=== PATIENT | female | born 1955 | race Caucasian/White ===

== ENCOUNTER 2022-10-23 17:46 | Outpatient (REF) | payer MEDICARE, MEDICAID, SELFPAY ==
[2022-10-23 19:42] LABS: Abs Immature Grans 0.07 10^3/uL (0.0-0.06); Absolute Basophil Count 0.01 10^3/uL (0.0-0.2); Absolute Eosinophil Count 0.08 10^3/uL (0.0-0.7); Absolute Lymphocyte Count 0.68 10^3/uL (1.2-3.4); Absolute Monocyte Count 0.27 10^3/uL (0.1-0.8); Absolute Neutrophil Count 2.19 10^3/uL (1.2-6.7); Basophils % 0.3; Eosinophils % 2.4; HCT 25.2 % (36.0-46.0); Immature Grans % 2.1; Lymphocytes % 20.6; MCH 30.4 pg (27.0-33.0); MCHC 31.3 % (32.0-36.0); MCV 97 fL (80-95); MPV 10.3 fL (8.0-11.0); Monocytes % 8.2; Neutrophils % 66.4; RDW 13.3 % (11.7-14.6); RDW-SD 46.9 fL
[2022-10-23 20:03] LABS: HGB 7.9 g/dL (11.2-15.7); Platelet Count 111 10^3/uL (130-400)
[2022-10-23 22:10] LABS: Hemoglobin A1C 6.7 % (<5.7)
[2022-10-23 22:25] LABS: Iron 28 ug/dL (50-170); Total Iron Binding Capacity 137 ug/dL (250-450); Transferrin Sat 20 % (15-50)
[2022-10-23 22:33] LABS: ALT 22 U/L (14-59); AST 14 U/L (15-37); Albumin 2.5 g/dL (3.4-5.0); Alkaline Phosphatase 109 U/L (46-116); Anion Gap 9.6 mmol/L (3-11); BUN 37 mg/dL (7-18); Bilirubin, Total 0.2 mg/dL (0.2-1.0); CO2 21.4 mmol/L (21.0-32.0); CREATININE 1.8 mg/dL (0.55-1.02); Calcium 8.1 mg/dL (8.5-10.1); Chloride 114 mmol/L (98-107); Estimated GFR 30.31 (mL/min/1.73m2); Ferritin 420 ng/mL (8-252); Glucose 196 mg/dL (74-106); Magnesium 1.3 mg/dL (1.8-2.4); Sodium 145 mmol/L (136-145)
[2022-10-23 23:08] LABS: Folate > 20.0 ng/mL (8.6-20.0)
[2022-10-24 10:16] LABS: NT-proBNP 5265 pg/mL (<300)
[2022-10-24 13:17] LABS: Vitamin D 25 Total 7.9 ng/mL (30-100)
[2022-10-24 13:20] LABS: Vitamin B12 807 pg/mL (193-986)
[2022-10-24 14:21] LABS: FREE T4 0.77 ng/dL (0.76-1.46)
== END 2022-10-23 17:47 | disposition home or self-care (01) ==
LOC: LBN 17:46
PROVIDERS: PCP Internal Medicine; Visit Provider Nurse Practitioner Gerontology
DX: D64.9 Anemia, unspecified (principal); K58.9 Irritable bowel syndrome, unspecified; R68.89 Other general symptoms and signs; E11.9 Type 2 diabetes mellitus without complications; F31.9 Bipolar disorder, unspecified; R25.2 Cramp and spasm; E78.5 Hyperlipidemia, unspecified; I50.1 Left ventricular failure, unspecified
CPT/HCPCS: 80053; 82306; 82607; 82728; 82746; 83036; 83540; 83550; 83735; 83880; 84439; 84443; 85025

== ENCOUNTER 2022-11-01 17:42 | Outpatient (REF) | payer MEDICARE, MEDICAID, SELFPAY ==
[2022-11-01 18:29] LABS: Abs Immature Grans 0.02 10^3/uL (0.0-0.06); Absolute Basophil Count 0.01 10^3/uL (0.0-0.2); Absolute Eosinophil Count 0.04 10^3/uL (0.0-0.7); Absolute Lymphocyte Count 0.82 10^3/uL (1.2-3.4); Absolute Monocyte Count 0.37 10^3/uL (0.1-0.8); Absolute Neutrophil Count 1.72 10^3/uL (1.2-6.7); Basophils % 0.3; Eosinophils % 1.3; HCT 23.8 % (36.0-46.0); Immature Grans % 0.7; Lymphocytes % 27.5; MCHC 31.9 % (32.0-36.0); MCV 97 fL (80-95); MPV 10.7 fL (8.0-11.0); Monocytes % 12.4; Neutrophils % 57.8; RBC 2.45 10^6/uL (3.93-5.22); RDW 13.5 % (11.7-14.6); RDW-SD 47.9 fL; WBC 2.98 10^3/uL (4.4-10.8)
[2022-11-01 18:33] LABS: ALT 46 U/L (14-59); AST 14 U/L (15-37); Albumin 2.5 g/dL (3.4-5.0); Alkaline Phosphatase 99 U/L (46-116); Anion Gap 10.5 mmol/L (3-11); BUN 58 mg/dL (7-18); Bilirubin, Total 0.2 mg/dL (0.2-1.0); CO2 21.5 mmol/L (21.0-32.0); CREATININE 2.7 mg/dL (0.55-1.02); Calcium 8.7 mg/dL (8.5-10.1); Chloride 113 mmol/L (98-107); Estimated GFR 18.63 (mL/min/1.73m2); Glucose 79 mg/dL (74-106); Magnesium 1.7 mg/dL (1.8-2.4); Sodium 145 mmol/L (136-145)
[2022-11-01 18:36] LABS: HGB 7.6 g/dL (11.2-15.7); Platelet Count 92 10^3/uL (130-400)
== END 2022-11-01 17:43 | disposition home or self-care (01) ==
LOC: LBN 17:42
PROVIDERS: PCP Internal Medicine; Visit Provider Nurse Practitioner Gerontology
DX: E83.42 Hypomagnesemia (principal); R68.89 Other general symptoms and signs
CPT/HCPCS: 80053; 83735; 85025

== ENCOUNTER 2022-11-06 17:21 | Outpatient (REF) | payer MEDICARE, MEDICAID, SELFPAY ==
[2022-11-06 18:14] LABS: Abs Immature Grans 0.06 10^3/uL (0.0-0.06); Absolute Basophil Count 0.02 10^3/uL (0.0-0.2); Absolute Eosinophil Count 0.06 10^3/uL (0.0-0.7); Absolute Lymphocyte Count 1.16 10^3/uL (1.2-3.4); Absolute Monocyte Count 0.28 10^3/uL (0.1-0.8); Absolute Neutrophil Count 3.13 10^3/uL (1.2-6.7); Basophils % 0.4; Eosinophils % 1.3; HCT 30.2 % (36.0-46.0); HGB 9.6 g/dL (11.2-15.7); Immature Grans % 1.3; Lymphocytes % 24.6; MCHC 31.8 % (32.0-36.0); MCV 97 fL (80-95); MPV 10.7 fL (8.0-11.0); Monocytes % 5.9; Neutrophils % 66.5; Platelet Count 128 10^3/uL (130-400); RDW 13.1 % (11.7-14.6); RDW-SD 46.2 fL; WBC 4.71 10^3/uL (4.4-10.8)
[2022-11-06 18:26] LABS: ALT 144 U/L (14-59); AST 99 U/L (15-37); Albumin 3.1 g/dL (3.4-5.0); Alkaline Phosphatase 156 U/L (46-116); Anion Gap 12.1 mmol/L (3-11); BUN 50 mg/dL (7-18); Bilirubin, Total 0.2 mg/dL (0.2-1.0); CO2 20.9 mmol/L (21.0-32.0); Calcium 8.9 mg/dL (8.5-10.1); Chloride 112 mmol/L (98-107); Estimated GFR 26.71 (mL/min/1.73m2); Glucose 87 mg/dL (74-106); Potassium 5.2 mmol/L (3.5-5.1); Sodium 145 mmol/L (136-145); Total Protein 5.9 g/dL (6.4-8.2)
[2022-11-08 22:09] LABS: Erythropoietin 12.3 mIU/mL (2.6 - 18.5)
== END 2022-11-06 17:22 | disposition home or self-care (01) ==
LOC: LBN 17:21
PROVIDERS: PCP Internal Medicine; Visit Provider Nurse Practitioner Gerontology
DX: I50.40 Unspecified combined systolic (congestive) and diastolic (congestive) heart failure (principal); R53.83 Other fatigue; G89.4 Chronic pain syndrome
CPT/HCPCS: 80053; 82668; 85025

== ENCOUNTER 2022-12-04 21:21 | Outpatient (REF) | payer MEDICARE, MEDICAID, SELFPAY ==
[2022-12-04 18:40] LABS: Abs Immature Grans 0.06 10^3/uL (0.0-0.06); Absolute Basophil Count 0.03 10^3/uL (0.0-0.2); Absolute Eosinophil Count 0.06 10^3/uL (0.0-0.7); Absolute Monocyte Count 0.31 10^3/uL (0.1-0.8); Absolute Neutrophil Count 3.13 10^3/uL (1.2-6.7); Basophils % 0.6; Eosinophils % 1.1; HCT 32.1 % (36.0-46.0); HGB 10.3 g/dL (11.2-15.7); Immature Grans % 1.1; Lymphocytes % 32.1; MCH 30.4 pg (27.0-33.0); MCHC 32.1 % (32.0-36.0); MCV 95 fL (80-95); MPV 10.6 fL (8.0-11.0); Monocytes % 5.9; Neutrophils % 59.2; Platelet Count 117 10^3/uL (130-400); RBC 3.39 10^6/uL (3.93-5.22); RDW-SD 48.8 fL; WBC 5.29 10^3/uL (4.4-10.8)
[2022-12-04 19:40] LABS: ALT 54 U/L (14-59); AST 20 U/L (15-37); Albumin 3.3 g/dL (3.4-5.0); Alkaline Phosphatase 172 U/L (46-116); Anion Gap 12.7 mmol/L (3-11); BUN 59 mg/dL (7-18); Bilirubin, Total 0.2 mg/dL (0.2-1.0); CO2 18.3 mmol/L (21.0-32.0); Calcium 8.8 mg/dL (8.5-10.1); Chloride 109 mmol/L (98-107); Estimated GFR 26.71 (mL/min/1.73m2); Glucose 216 mg/dL (74-106); Magnesium 1.6 mg/dL (1.8-2.4); Potassium 5.5 mmol/L (3.5-5.1); Sodium 140 mmol/L (136-145); Total Protein 6.2 g/dL (6.4-8.2)
== END 2022-12-04 21:22 | disposition home or self-care (01) ==
LOC: LBN 21:21
PROVIDERS: PCP Internal Medicine; Visit Provider Nurse Practitioner Gerontology
DX: E83.42 Hypomagnesemia (principal); I50.40 Unspecified combined systolic (congestive) and diastolic (congestive) heart failure; R53.83 Other fatigue; G89.4 Chronic pain syndrome; R68.89 Other general symptoms and signs; D64.9 Anemia, unspecified; E11.9 Type 2 diabetes mellitus without complications
CPT/HCPCS: 80053; 83735; 85025

== ENCOUNTER 2022-12-07 18:21 | Outpatient (REF) | payer MEDICARE, MEDICAID, SELFPAY ==
[2022-12-07 17:55] LABS: ALT 41 U/L (14-59); AST 21 U/L (15-37); Alkaline Phosphatase 164 U/L (46-116); Anion Gap 12.2 mmol/L (3-11); BUN 57 mg/dL (7-18); Bilirubin, Total 0.2 mg/dL (0.2-1.0); CO2 18.8 mmol/L (21.0-32.0); CREATININE 1.8 mg/dL (0.55-1.02); Calcium 8.4 mg/dL (8.5-10.1); Chloride 110 mmol/L (98-107); Estimated GFR 30.31 (mL/min/1.73m2); Glucose 194 mg/dL (74-106); Sodium 141 mmol/L (136-145); Total Protein 5.6 g/dL (6.4-8.2)
== END 2022-12-07 18:22 | disposition home or self-care (01) ==
LOC: LBN 18:21
PROVIDERS: PCP Internal Medicine; Visit Provider Nurse Practitioner Gerontology
DX: I11.0 Hypertensive heart disease with heart failure (principal); I61.9 Nontraumatic intracerebral hemorrhage, unspecified; G89.4 Chronic pain syndrome; E11.9 Type 2 diabetes mellitus without complications; D64.9 Anemia, unspecified
CPT/HCPCS: 80053

== ENCOUNTER 2022-12-11 17:34 | Outpatient (REF) | payer MEDICARE, MEDICAID, SELFPAY ==
[2022-12-11 22:28] LABS: ALT 61 U/L (14-59); AST 25 U/L (15-37); Albumin 3.2 g/dL (3.4-5.0); Alkaline Phosphatase 161 U/L (46-116); Anion Gap 11.6 mmol/L (3-11); BUN 61 mg/dL (7-18); Bilirubin, Total 0.2 mg/dL (0.2-1.0); CO2 20.4 mmol/L (21.0-32.0); Calcium 8.8 mg/dL (8.5-10.1); Chloride 110 mmol/L (98-107); Estimated GFR 26.71 (mL/min/1.73m2); Glucose 193 mg/dL (74-106); Sodium 142 mmol/L (136-145); Total Protein 5.8 g/dL (6.4-8.2)
== END 2022-12-11 17:35 | disposition home or self-care (01) ==
LOC: LBN 17:34
PROVIDERS: PCP Internal Medicine; Visit Provider Nurse Practitioner Gerontology
DX: G89.4 Chronic pain syndrome (principal); R68.89 Other general symptoms and signs; E11.9 Type 2 diabetes mellitus without complications; D64.9 Anemia, unspecified; I11.0 Hypertensive heart disease with heart failure
CPT/HCPCS: 80053

== ENCOUNTER 2022-12-13 14:04 | Emergency (ER) | payer MEDICARE, MEDICAID, SELFPAY ==
[2022-12-13] VITALS (10 sets, daily range): BP systolic 99–142; BP diastolic 64–92; PULSE 41–76; RESP 15–28; TEMP 36.5; O2SAT 96
--- NOTE | 2022-12-13 13:30 | RT.EKG_ITS ---
APPROVED REPORT Exam: Resting ECG Reason for Exam: Patient Location: E HR:61 bpm ECG Measurements Heart Rate 61 AXIS FL 205 P 61 QRSd 157 QRS 108 QT 553 T 37 QTc 614 Conclusion Sinus rhythm...normal P axis, V-rate 60- 99 Sinus pause...long R-R interval, normal QRSd RBBB and LPFB...QRSd >120mS, axis(90,210) Anterolateral infarct, age indeterminate...Q >35mS, flat/neg T, V3-V6,I,aVL Prolonged QT interval...QTc >500mS
--- NOTE | 2022-12-13 14:20 | NUR.NOTE ---
Nursing Note: patient has had three doses of nitro per, 2 at the [facility] and 1 by EMS. Pt also got a tums and zofran prior to arrival
--- NOTE | 2022-12-13 14:20 | NUR.NOTE ---
Nursing Note: EMS gave 324 of ASA
--- NOTE | 2022-12-13 14:30 | DI.CT_ITS ---
Exam(s) CT CHEST PE ABD PELVIS W EXAM: CT CHEST PE ABD PELVIS W CLINICAL HISTORY: severe stabbing chest pain and upper abdominal colleen. TECHNIQUE: Imaging Protocol: Axial CT angiography was performed with multi-slice acquisition and mu lti-planar and/or 3D reconstructions. CONTRAST MATERIAL: Intravenous: Omnipaque 350 Contrast volume:75 ml COMPARISON: No exams were available for comparison FINDINGS: CHEST: Pulmonary Arteries: No evidence of filling defects to suggest pulmonary emboli. Tracheobronchial tree: No bronchiectasis or mucus plugging. Mediastinum and Delfina: No dominant adenopathy or fluid collection. Pulmonary parenchyma: Expiratory changes. No consolidation or dominant measurable mass. Pleura: No effusion. No pneumothorax. Heart: The heart is notdilated. Mild coronary artery calcifications are seen. Aorta: Thoracic aorta non-dilated. Moderate atherosclerotic changes. Bones: Unremarkable for age. Tubes, Catheters, and Lines: None. ABDOMEN and PELVIS: Liver: Enlarged. Normal density. No suspicious measurable mass. Gallbladder and Biliary Tract: Status post cholecystectomy. No radiodense calculus. No biliary dilat ation. Pancreas: Normal density, no abnormal calcifications or inflammatory process. Spleen: Normal. Adrenals: No masses seen. Kidneys: Normal size, contour and axis. No radiodense stones. Innumerable small cysts. Mild promine nce of the renal pelves bilaterally. No ureteral stones. Vasculature: Abdominal portion non-dilated. Heavily calcified and irregular distally with tapering d istally and moderate reduction in luminal diameter. Iliac arteries show mild calcification and no si gnificant stenosis. SMA and celiac axis are patent. Two right renal arteries. Single left renal ar joseph. Bowel: Colon contains a large quantity of stool and is quite redundant. No obstruction or bowel wall thickening. Appendix is unremarkable. Peritoneal Cavity: No ascites, collection or mesenteric inflammatory response. Lymph Nodes: Within normal limits. Soft Tissues: Unremarkable. Bladder: Symmetric distention, no gross wall thickening. Reproductive Organs: Status post hysterectomy. Lymph Nodes: Within normal limits. Bones: Advanced degenerative changes. IMPRESSION: 1. No evidence of pulmonary embolism or aortic dissection. Atherosclerotic changes of the aorta.. 2. No acute abdominal or pelvic process. Severe atherosclerotic changes of the distal abdominal aort a with moderate luminal narrowing. 3. Large quantity of stool. No bowel wall thickening. RADIATION DOSE DELIVERED: 546.95mGy.cm Total DLP DATA REPOSITORY: All CT scans at this facility are submitted to the National Radiology Data Registry (NRDR) Dose Index Registry (DIR) with the [employer] (A[employer]). RADIATION OPTIMIZATION: All CT scans at this facility use at least one of these dose optimization te chniques: automated exposure control; mA and/or kV adjustment per patient size (includes targeted exa ms where dose is matched to clinical indication); or iterative reconstruction.
[2022-12-13 14:32] LABS: Abs Immature Grans 0.07 10^3/uL (0.0-0.06); Absolute Basophil Count 0.01 10^3/uL (0.0-0.2); Absolute Eosinophil Count 0.08 10^3/uL (0.0-0.7); Absolute Lymphocyte Count 1.57 10^3/uL (1.2-3.4); Absolute Monocyte Count 0.29 10^3/uL (0.1-0.8); Absolute Neutrophil Count 2.08 10^3/uL (1.2-6.7); Basophils % 0.2; HCT 28.4 % (36.0-46.0); HGB 9.2 g/dL (11.2-15.7); Immature Grans % 1.7; Lymphocytes % 38.3; MCH 30.1 pg (27.0-33.0); MCHC 32.4 % (32.0-36.0); MCV 93 fL (80-95); MPV 10.7 fL (8.0-11.0); Monocytes % 7.1; Neutrophils % 50.7; Platelet Count 111 10^3/uL (130-400); RBC 3.06 10^6/uL (3.93-5.22); RDW 14.6 % (11.7-14.6); RDW-SD 49.1 fL
[2022-12-13] MEDS: Famotidine 20 MG/2 ML VIAL IVP (14:39)
[2022-12-13 14:49] LABS: Prothrombin Time 9.9 sec (9.3-11.0)
[2022-12-13 15:14] LABS: ALT 32 U/L (14-59); AST 12 U/L (15-37); Albumin 2.9 g/dL (3.4-5.0); Alkaline Phosphatase 157 U/L (46-116); Anion Gap 9.8 mmol/L (3-11); BUN 66 mg/dL (7-18); Bilirubin, Total 0.1 mg/dL (0.2-1.0); CO2 21.2 mmol/L (21.0-32.0); Calcium 8.8 mg/dL (8.5-10.1); Chloride 109 mmol/L (98-107); Estimated GFR 26.71 (mL/min/1.73m2); Glucose 198 mg/dL (74-106); Magnesium 1.7 mg/dL (1.8-2.4); Potassium 4.8 mmol/L (3.5-5.1); Sodium 140 mmol/L (136-145); Total Protein 5.8 g/dL (6.4-8.2); Troponin I < 50 ng/L (<or=60)
--- NOTE | 2022-12-13 15:58 | ED.GENADUL_ITS ---
Discharge Plan Discharge Details Chief Complaint: Chest Pain Primary Care Provider: Nettie Diaz ED Provider: Adrien Canada Home Meds and New Rx's Prescriptions: No Action aspirin 81 mg tablet,delayed release (DR/EC) 81 mg PO DAILY diphenoxylate-atropine 2.5-0.025 mg tablet 1 tab PO DAILY Rx Instructions: dose unverified. 02/05/22 EO cranberry 400 mg capsule See Rx Instructions PO DAILY Rx Instructions: orally daily; administer with a meal diclofenac sodium [Arthritis Pain (diclofenac)] 1 % gel See Rx Instructions topical .COMPLEX Rx Instructions: topically; apply to single elbow, wrist or hand; for hand includes palm/fingers/back of hand dicyclomine 20 mg tablet See Rx Instructions PO .COMPLEX Rx Instructions: orally; docusate sodium 100 mg capsule 100 mg PO DAILY estradiol 10 mcg tablet 10 mcg vaginal DAILY ferrous sulfate 325 mg (65 mg iron) tablet 325 mg PO DAILY Lactobacillus acidophilus Capsule See Rx Instructions PO DAILY Rx Instructions: orally daily; loperamide [Anti-Diarrheal (loperamide)] 2 mg tablet See Rx Instructions PO Q6H PRN Rx Instructions: orally every 6 hours PRN; loratadine-pseudoephedrine [Loratadine-D] 10-240 mg tablet extended release 24 hr 1 tab PO DAILY PRN magnesium oxide 400 mg magnesium capsule 400 mg PO DAILY melatonin 2.5 mg tablet,chewable 2.5 mg PO HS PRN nitroglycerin [Nitrostat] 0.4 mg tablet, sublingual 0.4 mg sublingual Q5M PRN Rx Instructions: do not exceed 3 doses per episode ascorbic acid (vitamin C) 1,000 mg capsule 1 g PO Q6H atorvastatin 80 mg tablet 80 mg PO DAILY cholecalciferol (vitamin D3) 25 mcg (1,000 unit) capsule 25 mcg PO DAILY clopidogrel 75 mg tablet 75 mg PO DAILY cyanocobalamin (vitamin B-12) 1,000 mcg/mL solution 1,000 mcg subcut QMONTH isosorbide mononitrate 30 mg tablet extended release 24 hr 30 mg PO QAM levothyroxine 200 mcg capsule 200 mcg PO DAILY losartan 25 mg tablet 25 mg PO DAILY methenamine hippurate 1 gram tablet 1 g PO BID multivitamin Tablet 1 tab PO DAILY omeprazole 20 mg capsule,delayed release(DR/EC) 20 mg PO BID ropinirole 1 mg tablet 1 mg PO DAILY Trulicity 1.5 mg/0.5 mL pen injector 1.5 mg subcut QWEEK Vraylar 3 mg capsule 3 mg PO DAILY clonazepam 1 mg tablet 1.5 mg PO QHS Rx Instructions: Pt also takes .5 mg Qam quetiapine 100 mg tablet 200 mg PO QHS Trulicity 1.5 mg/0.5 mL pen injector 1.5 mg subcut QWEEK wheat dextrin 1 gram tablet PO Patient Comments: 1 teaspoon daily Myrbetriq 25 mg tablet extended release 24 hr 25 mg PO BID Medical Decision Making 67-year-old female with history of coronary artery disease status post stenting, here with retrosternal stabbing severe chest pain since 1130 this morning, refractory to sublingual nitroglycerin. Patient with some associated shortness of breath and nausea. Patient has low normal blood pressure on arrival. Saturating well in no respiratory distress. She does appear uncomfortable. Labs reviewed and chronic anemia noted. Chronic kidney disease noted. Negative troponin. Mild hypomagnesemia. Concern for potential acute life-threatening pulmonary embolism. I spoke with the patient and as part of a shared decision-making patient provided informed consent to proceed with CT of the chest. I also discussed this with the radiologist. EKG was reviewed interpreted by me: Please report, sinus rhythm 61 bpm, sinus pauses present. Care to be signed out to oncoming provider AYDEE Mejia. Lab Data Lab results reviewed: Yes I reviewed the patient's lab results. Labs: Laboratory Tests Range/Units 12/13/22 12/13/22 12/13/22 14:25 14:25 14:25 WBC (4.4-10.8) 10^3/uL 4.10 L RBC (3.93-5.22) 10^6/uL 3.06 L Hgb (11.2-15.7) g/dL 9.2 L Hct (36.0-46.0) % 28.4 L MCV (80-95) fL 93 MCH (27.0-33.0) pg 30.1 MCHC (32.0-36.0) % 32.4 RDW (11.7-14.6) % 14.6 Plt Count (130-400) 10^3/uL 111 L MPV (8.0-11.0) fL 10.7 Immature Gran % 1.7 Neutrophils % 50.7 Lymphocytes % 38.3 Monocytes % 7.1 Eosinophils % 2.0 Basophils % 0.2 Nucleated RBC % (0.0-0.3) % 0.0 Absolute Neutrophils (1.2-6.7) 10^3/uL 2.08 Absolute Lymphocytes (1.2-3.4) 10^3/uL 1.57 Absolute Monocytes (0.1-0.8) 10^3/uL 0.29 Absolute Eosinophils (0.0-0.7) 10^3/uL 0.08 Absolute Basophils (0.0-0.2) 10^3/uL 0.01 PT (9.3-11.0) sec 9.9 INR (0.9-1.1) 1.0 APTT (21.5-31.9) sec 27.0 Sodium (136-145) mmol/L 140 Potassium (3.5-5.1) mmol/L 4.8 Chloride (98-107) mmol/L 109 H Carbon Dioxide (21.0-32.0) mmol/L 21.2 Anion Gap (3-11) mmol/L 9.8 BUN (7-18) mg/dL 66 H Creatinine (0.55-1.02) mg/dL 2.0 H Est GFR (CKD-EPI 2020) (mL/min/1.73m2) 26.71 Glucose (74-106) mg/dL 198 H Calcium (8.5-10.1) mg/dL 8.8 Magnesium (1.8-2.4) mg/dL 1.7 L Total Bilirubin (0.2-1.0) mg/dL 0.1 L AST (15-37) U/L 12 L ALT (14-59) U/L 32 Alkaline Phosphatase (46-116) U/L 157 H Troponin I (<or=60) ng/L < 50 Total Protein (6.4-8.2) g/dL 5.8 L Albumin (3.4-5.0) g/dL 2.9 L HPI General Mode of arrival: EMS . Date/Time Provider Initiated Documentation: 12/13/22 14:08 . Limitations to Documentation: no limitations . Information obtained by: patient and RN/MD . HPI Narrative: 67-year-old female with multiple medical problems including HTN, HP, DM, CAD s/p stent, here with chest pain. Patient notes pain started earlier today around 11:30 AM and has persisted. Pain is described as a sharp stabbing in her central chest. She has associated discomfort in her upper abdomen and also associated shortness of breath. Patient was given nitroglycerin sublingual x3 with no relief she is also given Zofran 4 mg IV by EMS. Patient also received aspirin. She has had some nausea. Related Data Home Medications Medication Instructions Recorded Confirmed Lactobacillus acidophilus See Rx Instructions PO DAILY 02/05/22 ascorbic acid (vitamin C) 1,000 mg 1 g PO Q6H 02/05/22 capsule aspirin 81 mg tablet,delayed 81 mg PO DAILY 02/05/22 release cranberry 400 mg capsule See Rx Instructions PO DAILY 02/05/22 diclofenac sodium 1 % topical gel See Rx Instructions topical 02/05/22 (Arthritis Pain (diclofenac)) .COMPLEX dicyclomine 20 mg tablet See Rx Instructions PO .COMPLEX 02/05/22 diphenoxylate-atropine 2.5 1 tab PO DAILY 02/05/22 mg-0.025 mg tablet docusate sodium 100 mg capsule 100 mg PO DAILY 02/05/22 estradiol 10 mcg vaginal tablet 10 mcg vaginal DAILY 02/05/22 ferrous sulfate 325 mg (65 mg 325 mg PO DAILY 02/05/22 iron) tablet loperamide 2 mg tablet See Rx Instructions PO Q6H PRN 02/05/22 (Anti-Diarrheal (loperamide)) loratadine-pseudoephedrine ER 10 1 tab PO DAILY PRN 02/05/22 mg-240 mg tablet,extended [id number] (Loratadine-D) magnesium oxide 400 mg PO DAILY 02/05/22 melatonin 2.5 mg chewable tablet 2.5 mg PO HS PRN 02/05/22 nitroglycerin 0.4 mg sublingual 0.4 mg sublingual Q5M PRN 02/05/22 tablet (Nitrostat) atorvastatin 80 mg tablet 80 mg PO DAILY 04/16/22 cariprazine 3 mg capsule (Vraylar) 3 mg PO DAILY 04/16/22 cholecalciferol (vitamin D3) 25 25 mcg PO DAILY 04/16/22 mcg (1,000 unit) capsule clopidogrel 75 mg tablet 75 mg PO DAILY 04/16/22 cyanocobalamin (vitamin B-12) 1,000 mcg subcut QMONTH 04/16/22 1,000 mcg/mL injection solution dulaglutide 1.5 mg/0.5 mL 1.5 mg subcut QWEEK 04/16/22 subcutaneous pen injector (Trulicity) isosorbide mononitrate 30 mg 30 mg PO QAM 04/16/22 tablet,extended release 24 hr levothyroxine 200 mcg capsule 200 mcg PO DAILY 04/16/22 losartan 25 mg tablet 25 mg PO DAILY 04/16/22 methenamine hippurate 1 gram tablet 1 g PO BID 04/16/22 multivitamin 1 tab PO DAILY 04/16/22 omeprazole 20 mg capsule,delayed 20 mg PO BID 04/16/22 release ropinirole 1 mg tablet 1 mg PO DAILY 04/16/22 clonazepam 1 mg tablet 1.5 mg PO QHS 05/14/22 dulaglutide 1.5 mg/0.5 mL 1.5 mg subcut QWEEK 05/14/22 subcutaneous pen injector (Trulicity) mirabegron 25 mg tablet,extended 25 mg PO BID 05/14/22 release 24 hr (Myrbetriq) quetiapine 100 mg tablet 200 mg PO QHS 05/14/22 wheat dextrin 1 gram tablet g PO 05/14/22 Allergies Allergy/AdvReac Type Severity Reaction Status Date / Time acetaminophen [From Vicodin] Allergy Verified 02/05/22 11:10 amoxicillin Allergy Verified 02/05/22 11:10 azithromycin [From Zithromax] Allergy Verified 02/05/22 11:10 benzonatate Allergy Verified 02/05/22 11:10 buspirone [From BuSpar] Allergy Verified 02/05/22 11:15 cephalexin [From Keflex] Allergy Verified 02/05/22 11:15 clavulanic acid Allergy Verified 02/05/22 11:15 [From Augmentin] clonazepam [From Klonopin] Allergy Verified 02/05/22 11:15 diazepam [From Valium] Allergy Verified 02/05/22 11:10 gemfibrozil Allergy Verified 02/05/22 11:10 hydrocodone [From Vicodin] Allergy Verified 02/05/22 11:10 monosodium glutamate Allergy Verified 02/05/22 11:10 morphine Allergy Verified 02/05/22 11:10 nitrofurantoin Allergy Verified 02/05/22 11:15 [From Macrobid] Penicillins Allergy Verified 02/05/22 11:10 prednisone Allergy Verified 02/05/22 11:10 Sulfa (Sulfonamide Allergy Verified 02/05/22 11:10 Antibiotics) Tetanus Vaccines and Toxoid Allergy Verified 02/05/22 11:10 tramadol Allergy Verified 05/14/22 14:56 morphine Allergy Unknown Uncoded 05/14/22 14:56 nitrofurantoin Allergy Unknown Uncoded 05/14/22 14:56 General Stated Complaint: Chest Pain JOESPH: 2 Review of Systems All systems reviewed & are unremarkable except as noted in HPI and below Constitutional Constitutional: Denies fever(s) Cardiovascular Cardiovascular: Reports as per HPI PFSH All Active Problems Acquired cystic kidney disease (Acute) Megaloblastic anemia due to B12 deficiency (Acute) Hyperlipidemia (Acute) Degeneration of lumbar intervertebral disc (Acute) Bipolar 1 disorder (Acute) Benign essential hypertension (Acute) Chronic GERD (Acute) Asthma (Chronic) Fibromyalgia (Acute) Turners syndrome (Acute) Bipolar affective disorder (Acute) Nail dystrophy (Acute) Corns and callosities (Acute) Elevated LFTs (Acute) Gout (Chronic) Hypercalcemia (Acute) Hyperparathyroidism (Acute) Hypertension (Chronic) Restless legs syndrome (RLS) (Acute) Rheumatoid arthritis (Chronic) Hypothyroidism (Chronic) Diabetes mellitus (Chronic) CAD (coronary artery disease) (Chronic) Sensorineural hearing loss (SNHL) of both ears (Acute) Medical History Abnormal auditory perception of both ears (12/25/16) Allergic rhinitis B12 deficiency anemia IBS (irritable bowel syndrome) Sciatica Surgical History History of foot surgery Left foot; multiple fibroma excisions History of hysterectomy History of parathyroidectomy Hx of tonsillectomy Social History Smoking/Tobacco Use Status: Never Smoking risk assessment performed?: Yes Substance use type: does not use Household members: none Housing: assisted living facility Number of Children: 0 current occupation: disabled Do you feel safe at home: Yes Do you feel safe in your relationship?: Yes Exam Const General: cooperative, uncomfortable, no acute distress and frail appearing Orientation: alert and awake HENKY Mouth: moist mucous membranes Eyes Conjunctivae: normal conjunctivae Sclera: normal sclerae Resp Effort & Inspection: normal respiratory effort Auscultation: clear to auscultation bilaterally, no rales, no rhonchi and no wheezes Cardio Rate: regular rate and not tachycardic Rhythm: regular rhythm GI Palpation: soft, not firm, no guarding, no masses and not rigid Skin General skin exam: pallor Neuro General: patient alert, patient awake and tone normal Extrem General: no calf tenderness and no edema Psych Appearance: grossly normal Mental Status: mental status grossly normal Course Vital Signs Vital signs: Vital Signs Temperature 36.5 C 12/13/22 14:05 Pulse 76 12/13/22 14:05 Respiratory Rate 18 12/13/22 14:05 Blood Pressure 101/68 12/13/22 14:05 Pulse Oximetry 96 12/13/22 14:05 Temperature 36.5 C 12/13/22 14:05 Pulse 68 12/13/22 14:46 Pulse 63 12/13/22 14:50 Respiratory Rate 17 12/13/22 14:50 Respiratory Effort Normal, Non-Labored 12/13/22 14:18 Respiratory Depth Normal 12/13/22 14:18 Respiratory Pattern Normal 12/13/22 14:18 Blood Pressure 99/64 L 12/13/22 14:46 Blood Pressure Mean 70 12/13/22 14:46 Blood Pressure Position Sitting 12/13/22 14:05 Pulse Oximetry 96 12/13/22 14:05 Oxygen Delivery Method Room Air 12/13/22 14:05 Oxygen Flow Rate 0 12/13/22 14:05 Pain Level 10 12/13/22 14:05 Lab/Test Results Lab/Test Results: Laboratory Tests Range/Units 12/13/22 12/13/22 12/13/22 14:25 14:25 14:25 WBC (4.4-10.8) 10^3/uL 4.10 L RBC (3.93-5.22) 10^6/uL 3.06 L Hgb (11.2-15.7) g/dL 9.2 L Hct (36.0-46.0) % 28.4 L MCV (80-95) fL 93 MCH (27.0-33.0) pg 30.1 MCHC (32.0-36.0) % 32.4 RDW (11.7-14.6) % 14.6 Plt Count (130-400) 10^3/uL 111 L MPV (8.0-11.0) fL 10.7 Immature Gran % 1.7 Neutrophils % 50.7 Lymphocytes % 38.3 Monocytes % 7.1 Eosinophils % 2.0 Basophils % 0.2 Nucleated RBC % (0.0-0.3) % 0.0 Absolute Neutrophils (1.2-6.7) 10^3/uL 2.08 Absolute Lymphocytes (1.2-3.4) 10^3/uL 1.57 Absolute Monocytes (0.1-0.8) 10^3/uL 0.29 Absolute Eosinophils (0.0-0.7) 10^3/uL 0.08 Absolute Basophils (0.0-0.2) 10^3/uL 0.01 PT (9.3-11.0) sec 9.9 INR (0.9-1.1) 1.0 APTT (21.5-31.9) sec 27.0 Sodium (136-145) mmol/L 140 Potassium (3.5-5.1) mmol/L 4.8 Chloride (98-107) mmol/L 109 H Carbon Dioxide (21.0-32.0) mmol/L 21.2 Anion Gap (3-11) mmol/L 9.8 BUN (7-18) mg/dL 66 H Creatinine (0.55-1.02) mg/dL 2.0 H Est GFR (CKD-EPI 2020) (mL/min/1.73m2) 26.71 Glucose (74-106) mg/dL 198 H Calcium (8.5-10.1) mg/dL 8.8 Magnesium (1.8-2.4) mg/dL 1.7 L Total Bilirubin (0.2-1.0) mg/dL 0.1 L AST (15-37) U/L 12 L ALT (14-59) U/L 32 Alkaline Phosphatase (46-116) U/L 157 H Troponin I (<or=60) ng/L < 50 Total Protein (6.4-8.2) g/dL 5.8 L Albumin (3.4-5.0) g/dL 2.9 L
[2022-12-13] MEDS: Normal Saline - Diluent 50 ML VIAL IJ (16:23)
[2022-12-13] MEDS: Omnipaque 350 MG/ML 100 ML BTL 75 ML IJ (16:24)
--- NOTE | 2022-12-13 17:15 | RT.EKG_ITS ---
APPROVED REPORT Exam: Resting ECG Reason for Exam: CHEST PAIN Patient Location: E HR:64 bpm ECG Measurements Heart Rate 64 AXIS WI 241 P 73 QRSd 153 QRS 94 QT 460 T 53 QTc 473 Conclusion Slow sinus arrhythmia...V-rate 58- 66, mean< 60 Sinus pause...long R-R interval, normal QRSd Prolonged WI interval...WI >220, V-rate 50- 90 RBBB and LPFB...QRSd >120mS, axis(90,210) Inferolateral infarct, old...Q >40mS, inf-lat leads sinus pause, norml axis, RBBB, non ischemic
[2022-12-13] MEDS: Normal Saline 500 ML IV (17:35)
[2022-12-13 17:53] LABS: Troponin I < 50 ng/L (<or=60)
--- NOTE | 2022-12-13 18:24 | W.EDPROG ---
Date of service: 12/13/22 Time of Service: 05:45 Medical Decision Making Care accepted and transition pending EKG and repeat troponin, repeat EKG and troponin does not/significant acute change, patient states that her chest pain has resolved As patient is high risk from a coronary artery disease standpoint, she was offered admission versus transfer for higher level of care and cardiac catheterization for further evaluation, however she has declined, she is fully alert, oriented, of decisional capacity, she be discharged back to the [facility] in stable condition with stable vitals She is on omeprazole, I will add Pepcid to her regimen She does express awareness that we are unable to exclude coronary cause of her symptoms, however she is comfortable knowing that she has had stable test results in the emergency department today and does not wish to have further invasive intervention at this time Sign Out Sign Out Data: Sign Out Comment: Follow-up on CT of the chest abdomen and pelvis. Follow-up on delta troponin and repeat EKG. Reassess patient for disposition. Last updated by Adrien Canada MD at 12/13/22 16:10 Discharge Plan Disposition Patient Disposition: Home Discharge Details Clinical Impression: Chest pain Primary Care Provider: Nettie Diaz ED Provider: Cheyenne Mejia Home Meds and New Rx's Prescriptions: No Action aspirin 81 mg tablet,delayed release (DR/EC) 81 mg PO DAILY diphenoxylate-atropine 2.5-0.025 mg tablet 1 tab PO DAILY Rx Instructions: dose unverified. 02/05/22 EO cranberry 400 mg capsule See Rx Instructions PO DAILY Rx Instructions: orally daily; administer with a meal diclofenac sodium [Arthritis Pain (diclofenac)] 1 % gel See Rx Instructions topical .COMPLEX Rx Instructions: topically; apply to single elbow, wrist or hand; for hand includes palm/fingers/back of hand dicyclomine 20 mg tablet See Rx Instructions PO .COMPLEX Rx Instructions: orally; docusate sodium 100 mg capsule 100 mg PO DAILY estradiol 10 mcg tablet 10 mcg vaginal DAILY ferrous sulfate 325 mg (65 mg iron) tablet 325 mg PO DAILY Lactobacillus acidophilus Capsule See Rx Instructions PO DAILY Rx Instructions: orally daily; loperamide [Anti-Diarrheal (loperamide)] 2 mg tablet See Rx Instructions PO Q6H PRN Rx Instructions: orally every 6 hours PRN; Loratadine-D 10-240 mg tablet extended release 24 hr 1 tab PO DAILY PRN magnesium oxide 400 mg magnesium capsule 400 mg PO DAILY melatonin 2.5 mg tablet,chewable 2.5 mg PO HS PRN nitroglycerin [Nitrostat] 0.4 mg tablet, sublingual 0.4 mg sublingual Q5M PRN Rx Instructions: do not exceed 3 doses per episode ascorbic acid (vitamin C) 1,000 mg capsule 1 g PO Q6H atorvastatin 80 mg tablet 80 mg PO DAILY cholecalciferol (vitamin D3) 25 mcg (1,000 unit) capsule 25 mcg PO DAILY clopidogrel 75 mg tablet 75 mg PO DAILY cyanocobalamin (vitamin B-12) 1,000 mcg/mL solution 1,000 mcg subcut QMONTH isosorbide mononitrate 30 mg tablet extended release 24 hr 30 mg PO QAM levothyroxine 200 mcg capsule 200 mcg PO DAILY losartan 25 mg tablet 25 mg PO DAILY methenamine hippurate 1 gram tablet 1 g PO BID multivitamin Tablet 1 tab PO DAILY omeprazole 20 mg capsule,delayed release(DR/EC) 20 mg PO BID ropinirole 1 mg tablet 1 mg PO DAILY Trulicity 1.5 mg/0.5 mL pen injector 1.5 mg subcut QWEEK Vraylar 3 mg capsule 3 mg PO DAILY clonazepam 1 mg tablet 1.5 mg PO QHS Rx Instructions: Pt also takes .5 mg Qam quetiapine 100 mg tablet 200 mg PO QHS Trulicity 1.5 mg/0.5 mL pen injector 1.5 mg subcut QWEEK wheat dextrin 1 gram tablet PO Patient Comments: 1 teaspoon daily Myrbetriq 25 mg tablet extended release 24 hr 25 mg PO BID Discharge Instructions Instructions: Chest Pain (ED) Additional Instructions: Please take Pepcid daily Follow up with primary care physician tomorrow Continue on your prescribed medications and return earlier should you have new or worsening complaints You had 2 negative troponins here and an EKG that did not show significant acute abnormality Please be reevaluated should you have new or worsening complaints Referrals: Nettie Diaz [Primary Care Provider] -
== END 2022-12-13 19:25 | disposition home or self-care (01) ==
PROVIDERS: Student in an Organized Health Care Education/Training Program; Emergency Provider Physician Assistant; PCP Internal Medicine
DX: R07.9 Chest pain, unspecified (principal)
CPT/HCPCS: 71275; 74177; 80053; 93005; 96361; 96374; 99285; 83735; 84484; 85025; 85610; 85730; 93010; 99284; J3490

== ENCOUNTER 2022-12-26 17:01 | Outpatient (REF) | payer MEDICARE, MEDICAID, SELFPAY ==
[2022-12-26 17:46] LABS: Abs Immature Grans 0.07 10^3/uL (0.0-0.06); Absolute Basophil Count 0.03 10^3/uL (0.0-0.2); Absolute Eosinophil Count 0.11 10^3/uL (0.0-0.7); Absolute Lymphocyte Count 1.27 10^3/uL (1.2-3.4); Absolute Monocyte Count 0.38 10^3/uL (0.1-0.8); Absolute Neutrophil Count 4.41 10^3/uL (1.2-6.7); Basophils % 0.5; Eosinophils % 1.8; HCT 31.6 % (36.0-46.0); HGB 10.1 g/dL (11.2-15.7); Immature Grans % 1.1; Lymphocytes % 20.3; MCH 30.1 pg (27.0-33.0); MCV 94 fL (80-95); MPV 10.6 fL (8.0-11.0); Monocytes % 6.1; Neutrophils % 70.2; Platelet Count 104 10^3/uL (130-400); RBC 3.36 10^6/uL (3.93-5.22); RDW 14.2 % (11.7-14.6); RDW-SD 48.2 fL; WBC 6.27 10^3/uL (4.4-10.8)
[2022-12-26 18:04] LABS: ALT 42 U/L (14-59); AST 25 U/L (15-37); Albumin 3.1 g/dL (3.4-5.0); Alkaline Phosphatase 139 U/L (46-116); BUN 39 mg/dL (7-18); Bilirubin, Total 0.1 mg/dL (0.2-1.0); CREATININE 2.3 mg/dL (0.55-1.02); Calcium 8.9 mg/dL (8.5-10.1); Chloride 108 mmol/L (98-107); Estimated GFR 22.59 (mL/min/1.73m2); Glucose 186 mg/dL (74-106); Magnesium 1.5 mg/dL (1.8-2.4); Potassium 4.9 mmol/L (3.5-5.1); Sodium 140 mmol/L (136-145); Total Protein 6.1 g/dL (6.4-8.2)
== END 2022-12-26 17:02 | disposition home or self-care (01) ==
LOC: LBN 17:01
PROVIDERS: PCP Internal Medicine; Visit Provider Nurse Practitioner Gerontology
DX: E83.42 Hypomagnesemia (principal); D64.9 Anemia, unspecified; E78.49 Other hyperlipidemia; I25.9 Chronic ischemic heart disease, unspecified; I11.9 Hypertensive heart disease without heart failure
CPT/HCPCS: 80053; 83735; 85025

== ENCOUNTER 2022-12-31 17:25 | Outpatient (REF) | payer MEDICARE, MEDICAID, SELFPAY ==
[2022-12-31 18:35] LABS: Abs Immature Grans 0.12 10^3/uL (0.0-0.06); Absolute Basophil Count 0.02 10^3/uL (0.0-0.2); Absolute Eosinophil Count 0.07 10^3/uL (0.0-0.7); Absolute Lymphocyte Count 1.12 10^3/uL (1.2-3.4); Absolute Monocyte Count 0.34 10^3/uL (0.1-0.8); Absolute Neutrophil Count 2.89 10^3/uL (1.2-6.7); Basophils % 0.4; Eosinophils % 1.5; HGB 9.4 g/dL (11.2-15.7); Immature Grans % 2.6; Lymphocytes % 24.6; MCH 30.3 pg (27.0-33.0); MCHC 32.4 % (32.0-36.0); MCV 94 fL (80-95); MPV 10.6 fL (8.0-11.0); Monocytes % 7.5; Neutrophils % 63.4; RDW 14.1 % (11.7-14.6); RDW-SD 48.2 fL; WBC 4.56 10^3/uL (4.4-10.8)
[2022-12-31 18:54] LABS: Diff Comment Diff Reviewed; Platelet Count 99 10^3/uL (130-400); RBC Morphology Normal
[2022-12-31 19:09] LABS: ALT 87 U/L (14-59); AST 21 U/L (15-37); Albumin 2.7 g/dL (3.4-5.0); Alkaline Phosphatase 152 U/L (46-116); Anion Gap 10.7 mmol/L (3-11); BUN 39 mg/dL (7-18); Bilirubin, Total 0.1 mg/dL (0.2-1.0); CO2 20.3 mmol/L (21.0-32.0); CREATININE 2.1 mg/dL (0.55-1.02); Calcium 8.8 mg/dL (8.5-10.1); Chloride 106 mmol/L (98-107); Estimated GFR 25.19 (mL/min/1.73m2); Ferritin 540 ng/mL (8-252); Glucose 293 mg/dL (74-106); Potassium 4.7 mmol/L (3.5-5.1); Sodium 137 mmol/L (136-145); Total Protein 5.5 g/dL (6.4-8.2); Vitamin B12 976 pg/mL (193-986)
[2022-12-31 19:11] LABS: Folate > 20.0 ng/mL (8.6-20.0)
[2023-01-02 10:01] LABS: Kappa Free Light Chain 4.68 mg/dL (0.33-1.94); Lambda Free Light Chain 3.45 mg/dL (0.57-2.63)
[2023-01-03 10:17] LABS: Erythropoietin 14.1 mIU/mL (2.6 - 18.5)
[2023-01-04 12:24] LABS: Albumin 55.8 % (55.8-66.1); Albumin g/dL 2.8 g/dL (3.6-5.2); Comment (See Note); Total Protein 5.1 g/dL (6.3-8.2)
[2023-02-22 13:25] LABS: Immunotyping, Serum (See Note)
== END 2022-12-31 17:26 | disposition home or self-care (01) ==
LOC: LBN 17:25
PROVIDERS: PCP Internal Medicine; Visit Provider Internal Medicine Hematology & Oncology
DX: N18.4 Chronic kidney disease, stage 4 (severe) (principal); D63.1 Anemia in chronic kidney disease; G89.4 Chronic pain syndrome; E11.9 Type 2 diabetes mellitus without complications; Z79.899 Other long term (current) drug therapy; I10 Essential (primary) hypertension; D51.8 Other vitamin B12 deficiency anemias
CPT/HCPCS: 80053; 82668; 82607; 82728; 82746; 83883; 84165; 85025; 86320

== ENCOUNTER 2023-01-01 08:50 | Outpatient (CLI) | payer MEDICARE, MEDICAID, SELFPAY ==
--- NOTE | 2023-01-01 08:45 | RT.EKG_ITS ---
APPROVED REPORT Exam: Resting ECG Reason for Exam: Patient Location: O HR:75 bpm ECG Measurements Heart Rate 75 AXIS ID 193 P 56 QRSd 159 QRS 107 QT 449 T 41 QTc 502 Conclusion Sinus rhythm...normal P axis, V-rate 50- 99 Probable left atrial enlargement...P >50mS, <-0.10mV V1 RBBB and LPFB...QRSd >120mS, axis(90,210) No change from previous at [facility] in 2022
== END 2023-01-01 08:51 | disposition home or self-care (01) ==
LOC: DI.CARD 08:51
PROVIDERS: PCP Internal Medicine; Visit Provider Internal Medicine Cardiovascular Disease
DX: R07.9 Chest pain, unspecified (principal)
CPT/HCPCS: 93010

== ENCOUNTER → 2023-01-01 13:05 | Outpatient (BNVA) | payer MEDICARE, MEDICAID, SELFPAY | PROVIDERS: PCP Internal Medicine; Referring Provider Internal Medicine; Visit Provider Internal Medicine Cardiovascular Disease | DX: I25.10 Atherosclerotic heart disease of native coronary artery without angina pectoris (principal); I10 Essential (primary) hypertension; E11.9 Type 2 diabetes mellitus without complications | CPT/HCPCS: 93005; 99202; 99213 ==

== ENCOUNTER 2023-01-09 13:50 | Emergency (ER) | payer MEDICARE, MEDICAID, SELFPAY ==
[2023-01-09] VITALS (8 sets, daily range): BP systolic 126–155; BP diastolic 71–78; PULSE 92–96; RESP 14–26; TEMP 36.9–37.1; O2SAT 94–97
--- NOTE | 2023-01-09 13:45 | RT.EKG_ITS ---
APPROVED REPORT Exam: Resting ECG Reason for Exam: Chest Pain Patient Location: E HR:108 bpm ECG Measurements Heart Rate 108 AXIS [place] [id number] P [id number] QRSd 190 QRS 100 QT 449 T 70 QTc 603 Conclusion Atrial fibrillation...V-rate 93- 96, irreg A-activity Multiple ventricular premature complexes...V complexes w/ short R-R intervls RBBB and LPFB...QRSd >120mS, axis(90,210) Inferolateral infarct, old...Q >40mS, inf-lat leads significant artificat secondary to tremor.
--- NOTE | 2023-01-09 14:00 | DI.CT_ITS ---
Exam(s) CT HEAD WO EXAM: CT HEAD WO CLINICAL HISTORY: altered mentation. TECHNIQUE: Imaging Protocol: Axial computed tomography images with coronal and sagittal reformatted images were created and reviewed COMPARISON: No exams were available for comparison FINDINGS: Ventricles and Extra axial spaces: Normal in size and morphology for the patient's age. Hemorrhage: None. Cerebral parenchyma: There is a right basal gangliar lacunar infarct which is old. There are areas o f decreased attenuation in the white matter consistent with small vessel ischemic disease. Midline shift: None. Brainstem/Cerebellum: Normal. Calvarium: Normal. Visualized Paranasal sinuses/Mastoids: Mucosal thickening is seen in the maxillary sinuses bilaterall y. Small mucous retention cysts or polyps are also present. Soft Tissues: Unremarkable. IMPRESSION: 1. No acute intracranial process. 2. Findings were discussed with the emergency department at 3:19 p.m. on 01/09/2023. RADIATION DOSE DELIVERED: 816.24mGy.cm Total DLP DATA REPOSITORY: All CT scans at this facility are submitted to the National Radiology Data Registry (NRDR) Dose Index Registry (DIR) with the [employer] ([employer]). RADIATION OPTIMIZATION: All CT scans at this facility use at least one of these dose optimization te chniques: automated exposure control; mA and/or kV adjustment per patient size (includes targeted exa ms where dose is matched to clinical indication); or iterative reconstruction.
--- NOTE | 2023-01-09 14:12 | W.ED.GENAD ---
Discharge Plan Disposition [facility] Condition: Stable Discharge Details Clinical Impression: Acute delirium, Acute UTI, Hypomagnesemia Primary Care Provider: Nettie Diaz ED Provider: Adrien Canada Trego Meds and New Rx's Prescriptions: New levofloxacin 750 mg tablet 750 mg PO Q48H Qty: 2 0RF No Action diphenoxylate-atropine 2.5-0.025 mg tablet 1 tab PO DAILY Rx Instructions: dose unverified. 02/05/22 EO cranberry 400 mg capsule See Rx Instructions PO DAILY Rx Instructions: orally daily; administer with a meal diclofenac sodium [Arthritis Pain (diclofenac)] 1 % gel See Rx Instructions topical .COMPLEX Rx Instructions: topically; apply to single elbow, wrist or hand; for hand includes palm/fingers/back of hand dicyclomine 20 mg tablet See Rx Instructions PO .COMPLEX Rx Instructions: orally; docusate sodium 100 mg capsule 100 mg PO DAILY ferrous sulfate 325 mg (65 mg iron) tablet 325 mg PO DAILY Lactobacillus acidophilus Capsule See Rx Instructions PO DAILY Rx Instructions: orally daily; loperamide [Anti-Diarrheal (loperamide)] 2 mg tablet See Rx Instructions PO Q6H PRN Rx Instructions: orally every 6 hours PRN; nitroglycerin [Nitrostat] 0.4 mg tablet, sublingual 0.4 mg sublingual Q5M PRN Rx Instructions: do not exceed 3 doses per episode atorvastatin 80 mg tablet 80 mg PO DAILY cholecalciferol (vitamin D3) 25 mcg (1,000 unit) capsule 25 mcg PO DAILY cyanocobalamin (vitamin B-12) 1,000 mcg/mL solution 1,000 mcg subcut QMONTH isosorbide mononitrate 30 mg tablet extended release 24 hr 30 mg PO QAM levothyroxine 200 mcg capsule 200 mcg PO DAILY multivitamin Tablet 1 tab PO DAILY omeprazole 20 mg capsule,delayed release(DR/EC) 20 mg PO BID quetiapine 100 mg tablet 200 mg PO QHS Trulicity 1.5 mg/0.5 mL pen injector 1.5 mg subcut QWEEK wheat dextrin 1 gram tablet PO Patient Comments: 1 teaspoon daily aspirin 81 mg tablet,delayed release (DR/EC) 81 mg PO DAILY clonazepam 0.5 mg tablet 0.5 mg PO DAILY fluticasone propion-salmeterol 500-50 mcg/dose blister with device 1 inh inhalation BID loratadine 10 mg tablet 10 mg PO DAILY losartan 100 mg tablet 100 mg PO DAILY sucralfate 1 gram tablet 1 g PO BID Benefiber Sugar Free (dextrin) 3 gram/3.8 gram powder 1.5 g PO BID Rx Instructions: mix into at least 4 oz water or juice before administering vanilla boost PO B-complex with vitamin C Tablet 1 tab PO DAILY acetaminophen [Acetaminophen Extra Strength] 500 mg tablet 500 mg PO Q6H PRN magnesium gluconate 27 mg magnesium (500 mg) tablet 13.5 mg PO BID quetiapine [Seroquel] 50 mg tablet 50 mg PO DAILY nystatin 100,000 unit/mL suspension 100,000 unit PO DAILY Rx Instructions: administer 1/2 of dose in each side of the mouth ropinirole 2 mg tablet 2 mg PO DAILY ropinirole 0.5 mg tablet 0.5 mg PO DAILY famotidine 20 mg tablet 20 mg PO 1XD Trulicity 1.5 mg/0.5 mL pen injector SUBCUT Discharge Instructions Instructions: Urinary Tract Infection in Women (ED), Acute Delirium (ED), Hypomagnesemia (ED) Additional Instructions: Please take antibiotic as prescribed. Your initial dose was given today in the emergency department. Your next dose should be on January 11. Med reconciliation could not be performed today. Please be sure to discuss your medications with your doctor and take medications as prescribed. Your magnesium was low today. You were given magnesium IV as well as oral magnesium. Please be sure to have this rechecked. Additional magnesium supplementation may be necessary. Be sure to discuss this with your doctor. Your thyroid function testing today was abnormal. Your thyroid medication dosing may need to be adjusted. Please discuss this with your doctor. Please contact your primary care physician to arrange follow-up. Return to the ER immediately for any worsening or new concerning symptoms. Referrals: Nettie Diaz [Primary Care Provider] - Discharge Data Discharge Date/Time-TO BE ENTERED AT DEPARTURE: 01/09/23 17:22 Medical Decision Making 1437??67-year-old female with multiple medical problems including history of prior intracranial hemorrhage, bipolar disorder, Briceno syndrome, coronary artery disease, hypertension, [facility] with concern for altered mental status today. Patient is confused and not at her baseline after speaking with nurse practitioner at the [facility]. Patient does have intermittent tremor of her upper extremities bilaterally. Consider recurrent intracranial hemorrhage and will obtain CT of the head. Suspect acute delirium. Consider urinary tract infection. We will check screening labs and urinalysis. EKG was reviewed and interpreted by me: Please see report, significant artifact, sinus rhythm 1545 --labs reviewed: No leukocytosis. Chronic anemia. Chronic kidney disease noted with GFR of 23. Hypomagnesemia noted. Magnesium 1.3. I will give magnesium 1 g IV to replace. Free T40.74 With elevated TSH of 6. Urinalysis reviewed and consistent with urinary tract infection. Plan to initiate treatment with Levaquin as patient has multiple allergies. I called pharmacy and confirmed Levaquin dosing given GFR. Patient should be on Levaquin 750 orally every 48x3 doses. I called [facility] nurse practitioner Jesika and discussed results and ED course. She agrees to accept patient back at [facility] to continue to treat urinary tract infection and delirium. 1634 --patient refusing additional magnesium. I attempted to give her additional Ativan for her anxiety and still refusing and now removing her IV. Patient completed two thirds of magnesium infusion. I will give magnesium oral dose. Plan for discharge back to [facility]. Lab Data Lab results reviewed: Yes I reviewed the patient's lab results. Labs: 01/09/23 14:05 Urine - Reflex from Ua Urine Culture - Pending Laboratory Tests Range/Units 01/09/23 01/09/23 01/09/23 14:05 14:05 14:05 WBC (4.4-10.8) 10^3/uL 7.11 RBC (3.93-5.22) 10^6/uL 3.52 L Hgb (11.2-15.7) g/dL 10.6 L Hct (36.0-46.0) % 32.8 L MCV (80-95) fL 93 MCH (27.0-33.0) pg 30.1 MCHC (32.0-36.0) % 32.3 RDW (11.7-14.6) % 14.6 Plt Count (130-400) 10^3/uL 140 MPV (8.0-11.0) fL 9.8 Immature Gran % 2.0 Neutrophils % 88.5 Lymphocytes % 8.0 Monocytes % 0.3 Eosinophils % 0.6 Basophils % 0.6 Nucleated RBC % (0.0-0.3) % 0.0 Absolute Neutrophils (1.2-6.7) 10^3/uL 6.30 Absolute Lymphocytes (1.2-3.4) 10^3/uL 0.57 L Absolute Monocytes (0.1-0.8) 10^3/uL 0.02 L Absolute Eosinophils (0.0-0.7) 10^3/uL 0.04 Absolute Basophils (0.0-0.2) 10^3/uL 0.04 Sodium (136-145) mmol/L 140 Potassium (3.5-5.1) mmol/L 4.7 Chloride (98-107) mmol/L 107 Carbon Dioxide (21.0-32.0) mmol/L 21.0 Anion Gap (3-11) mmol/L 12.0 H BUN (7-18) mg/dL 47 H Creatinine (0.55-1.02) mg/dL 2.2 H Est GFR (CKD-EPI 2020) (mL/min/1.73m2) 23.82 Glucose (74-106) mg/dL 229 H Calcium (8.5-10.1) mg/dL 9.6 Magnesium (1.8-2.4) mg/dL 1.3 L Total Bilirubin (0.2-1.0) mg/dL 0.3 AST (15-37) U/L 17 ALT (14-59) U/L 48 Alkaline Phosphatase (46-116) U/L 146 H Troponin I (<or=60) ng/L < 50 Total Protein (6.4-8.2) g/dL 7.0 Albumin (3.4-5.0) g/dL 3.5 TSH (0.36-3.74) uIU/mL 6.06 H Free T4 (0.76-1.46) ng/dL 0.74 L Urine Color (Yellow) Yellow Urine Clarity (Clear) Cloudy Urine pH (5-8) 5.5 Ur Specific [place] (1.005-1.025) 1.020 Urine Protein (Negative) mg/dL >=300 H Urine Ketones (Negative) mg/dL Negative Urine Blood (Negative) Moderate H Urine Nitrite (Negative) Positive H Urine Bilirubin (Negative) Negative Urine Urobilinogen (Up to 0.2) mg/dL 0.2 Ur Leukocyte Esterase (Negative) Trace H Urine RBC (0-2) HPF 20-50 H Urine WBC (0-5) HPF >50 H Ur Epithelial Cells (Negative) HPF Rare Urine Crystals (Negative) HPF Negative Urine Bacteria (Negative) HPF Moderate Urine Casts (Negative) LPF Negative Urine Mucus (Negative) Moderate Urine Other (Negative) Negative Ur Culture Indicated? Yes Urine Glucose (Negative) mg/dL Negative COVID-19 Source SARS-CoV-2 (PCR) (Negative) Range/Units 01/09/23 14:18 WBC (4.4-10.8) 10^3/uL RBC (3.93-5.22) 10^6/uL Hgb (11.2-15.7) g/dL Hct (36.0-46.0) % MCV (80-95) fL MCH (27.0-33.0) pg MCHC (32.0-36.0) % RDW (11.7-14.6) % Plt Count (130-400) 10^3/uL MPV (8.0-11.0) fL Immature Gran % Neutrophils % Lymphocytes % Monocytes % Eosinophils % Basophils % Nucleated RBC % (0.0-0.3) % Absolute Neutrophils (1.2-6.7) 10^3/uL Absolute Lymphocytes (1.2-3.4) 10^3/uL Absolute Monocytes (0.1-0.8) 10^3/uL Absolute Eosinophils (0.0-0.7) 10^3/uL Absolute Basophils (0.0-0.2) 10^3/uL Sodium (136-145) mmol/L Potassium (3.5-5.1) mmol/L Chloride (98-107) mmol/L Carbon Dioxide (21.0-32.0) mmol/L Anion Gap (3-11) mmol/L BUN (7-18) mg/dL Creatinine (0.55-1.02) mg/dL Est GFR (CKD-EPI 2020) (mL/min/1.73m2) Glucose (74-106) mg/dL Calcium (8.5-10.1) mg/dL Magnesium (1.8-2.4) mg/dL Total Bilirubin (0.2-1.0) mg/dL AST (15-37) U/L ALT (14-59) U/L Alkaline Phosphatase (46-116) U/L Troponin I (<or=60) ng/L Total Protein (6.4-8.2) g/dL Albumin (3.4-5.0) g/dL TSH (0.36-3.74) uIU/mL Free T4 (0.76-1.46) ng/dL Urine Color (Yellow) Urine Clarity (Clear) Urine pH (5-8) Ur Specific [place] (1.005-1.025) Urine Protein (Negative) mg/dL Urine Ketones (Negative) mg/dL Urine Blood (Negative) Urine Nitrite (Negative) Urine Bilirubin (Negative) Urine Urobilinogen (Up to 0.2) mg/dL Ur Leukocyte Esterase (Negative) Urine RBC (0-2) HPF Urine WBC (0-5) HPF Ur Epithelial Cells (Negative) HPF Urine Crystals (Negative) HPF Urine Bacteria (Negative) HPF Urine Casts (Negative) LPF Urine Mucus (Negative) Urine Other (Negative) Ur Culture Indicated? Urine Glucose (Negative) mg/dL COVID-19 Source Nasal/Nares SARS-CoV-2 (PCR) (Negative) Negative HPI General Mode of arrival: EMS. Date/Time Provider Initiated Documentation: 01/09/23 13:55. Limitations to Documentation: altered mental status. Information obtained by: patient and RN/MD. HPI Narrative: 67-year-old female with multiple medical problems including history of intracranial hemorrhage, bipolar disorder, hypertension, Briceno syndrome, diabetes, coronary artery disease, presents from [facility] with concern for altered mental status. Patient sent by [facility] with concern that she is altered today from her baseline. Patient is typically alert and oriented x3 and able to have normal conversation. Today she is confused and not oriented. custodial staff also noting some tremor in her arms bilaterally. Patient denies complaint Related Data Home Medications Medication Instructions Recorded Confirmed Lactobacillus acidophilus See Rx Instructions PO DAILY 02/05/22 01/09/23 cranberry 400 mg capsule See Rx Instructions PO DAILY 02/05/22 01/09/23 diclofenac sodium 1 % topical gel See Rx Instructions topical 02/05/22 01/09/23 (Arthritis Pain (diclofenac)) .COMPLEX dicyclomine 20 mg tablet See Rx Instructions PO .COMPLEX 02/05/22 01/01/23 diphenoxylate-atropine 2.5 1 tab PO DAILY 02/05/22 01/09/23 mg-0.025 mg tablet docusate sodium 100 mg capsule 100 mg PO DAILY 02/05/22 01/09/23 ferrous sulfate 325 mg (65 mg 325 mg PO DAILY 02/05/22 01/09/23 iron) tablet loperamide 2 mg tablet See Rx Instructions PO Q6H PRN 02/05/22 01/09/23 (Anti-Diarrheal (loperamide)) nitroglycerin 0.4 mg sublingual 0.4 mg sublingual Q5M PRN 02/05/22 01/09/23 tablet (Nitrostat) atorvastatin 80 mg tablet 80 mg PO DAILY 04/16/22 01/09/23 cholecalciferol (vitamin D3) 25 25 mcg PO DAILY 04/16/22 01/09/23 mcg (1,000 unit) capsule cyanocobalamin (vitamin B-12) 1,000 mcg subcut QMONTH 04/16/22 01/09/23 1,000 mcg/mL injection solution isosorbide mononitrate 30 mg 30 mg PO QAM 04/16/22 01/09/23 tablet,extended release 24 hr levothyroxine 200 mcg capsule 200 mcg PO DAILY 04/16/22 01/09/23 multivitamin 1 tab PO DAILY 04/16/22 01/09/23 omeprazole 20 mg capsule,delayed 20 mg PO BID 04/16/22 01/09/23 release dulaglutide 1.5 mg/0.5 mL 1.5 mg subcut QWEEK 05/14/22 01/09/23 subcutaneous pen injector (Trulicity) quetiapine 100 mg tablet 200 mg PO QHS 05/14/22 01/01/23 wheat dextrin 1 gram tablet g PO 05/14/22 01/01/23 B-complex with vitamin C 1 tab PO DAILY 12/19/22 01/09/23 acetaminophen 500 mg tablet 500 mg PO Q6H PRN 12/19/22 01/09/23 (Acetaminophen Extra Strength) aspirin 81 mg tablet,delayed 81 mg PO DAILY 12/19/22 01/09/23 release clonazepam 0.5 mg tablet 0.5 mg PO DAILY 12/19/22 01/09/23 fluticasone 500 mcg-salmeterol 50 1 inh inhalation BID 12/19/22 01/01/23 mcg/dose blistr powdr for inhalation loratadine 10 mg tablet 10 mg PO DAILY 12/19/22 01/01/23 losartan 100 mg tablet 100 mg PO DAILY 12/19/22 01/09/23 magnesium gluconate 27 mg 13.5 mg PO BID 12/19/22 01/01/23 magnesium (500 mg) tablet nystatin 100,000 unit/mL oral 100,000 unit PO DAILY 12/19/22 01/09/23 suspension quetiapine 50 mg tablet (Seroquel) 50 mg PO DAILY 12/19/22 01/09/23 ropinirole 0.5 mg tablet 0.5 mg PO DAILY 12/19/22 01/09/23 ropinirole 2 mg tablet 2 mg PO DAILY 12/19/22 01/09/23 sucralfate 1 gram tablet 1 g PO BID 12/19/22 01/09/23 vanilla boost PO 12/19/22 01/01/23 wheat dextrin 3 gram/3.8 gram oral 1.5 g PO BID 12/19/22 01/01/23 powder (Benefiber Sugar Free (dextrin)) dulaglutide 1.5 mg/0.5 mL mg subcut 01/09/23 01/09/23 subcutaneous pen injector (Trulicity) famotidine 20 mg tablet 20 mg PO 1XD 01/09/23 01/09/23 levofloxacin 750 mg tablet 750 mg PO Q48H #2 tabs 01/09/23 Previous Rx's Medication Instructions Recorded levofloxacin 750 mg tablet 750 mg PO Q48H #2 tabs 01/09/23 Allergies Allergy/AdvReac Type Severity Reaction Status Date / Time polyethylene glycol 3350 Allergy Unknown Verified 01/01/23 13:16 acetaminophen [From Vicodin] Allergy Verified 01/01/23 13:16 amoxicillin Allergy Verified 01/01/23 13:16 azithromycin [From Zithromax] Allergy Verified 01/01/23 13:16 benzonatate Allergy Verified 01/01/23 13:16 buspirone [From BuSpar] Allergy Verified 01/01/23 13:16 cephalexin [From Keflex] Allergy Verified 01/01/23 13:16 clavulanic acid Allergy Verified 01/01/23 13:16 [From Augmentin] clonazepam [From Klonopin] Allergy Verified 01/01/23 13:16 diazepam [From Valium] Allergy Verified 01/01/23 13:16 gemfibrozil Allergy Verified 01/01/23 13:16 hydrocodone [From Vicodin] Allergy Verified 01/01/23 13:16 monosodium glutamate Allergy Verified 01/01/23 13:16 morphine Allergy Verified 01/01/23 13:16 nitrofurantoin Allergy Verified 01/01/23 13:16 [From Macrobid] Penicillins Allergy Verified 01/01/23 13:16 prednisone Allergy Verified 01/01/23 13:16 Sulfa (Sulfonamide Allergy Verified 01/01/23 13:16 Antibiotics) Tetanus Vaccines and Toxoid Allergy Verified 01/01/23 13:16 tramadol Allergy Verified 01/01/23 13:16 morphine Allergy Unknown Uncoded 01/01/23 13:16 nitrofurantoin Allergy Unknown Uncoded 01/01/23 13:16 General Stated Complaint: AMS/LOC JOESPH: 3 Review of Systems Narrative: Unreliable secondary to altered mental status All systems reviewed & are unremarkable except as noted in HPI and below Constitutional Constitutional: Denies fever(s) Cardiovascular Cardiovascular: Denies chest pain PFSH All Active Problems (Updated 01/13/23 @ 00:02 by SOLA GRAY) Acute delirium (Acute) Acute UTI (Acute) Hypomagnesemia (Acute) Nontraumatic intracerebral hemorrhage (Acute) Acquired cystic kidney disease (Acute) Megaloblastic anemia due to B12 deficiency (Acute) Hyperlipidemia (Acute) Degeneration of lumbar intervertebral disc (Acute) Bipolar 1 disorder (Acute) Benign essential hypertension (Acute) Chronic GERD (Acute) Asthma (Chronic) Fibromyalgia (Acute) Turners syndrome (Acute) Bipolar affective disorder (Acute) Nail dystrophy (Acute) Corns and callosities (Acute) Elevated LFTs (Acute) Gout (Chronic) Hypercalcemia (Acute) Hyperparathyroidism (Acute) Hypertension (Chronic) Restless legs syndrome (RLS) (Acute) Rheumatoid arthritis (Chronic) Hypothyroidism (Chronic) Diabetes mellitus (Chronic) CAD (coronary artery disease) (Chronic) Sensorineural hearing loss (SNHL) of both ears (Acute) Medical History Abnormal auditory perception of both ears (12/25/16) Allergic rhinitis B12 deficiency anemia IBS (irritable bowel syndrome) Sciatica Surgical History History of foot surgery Left foot; multiple fibroma excisions History of hysterectomy History of parathyroidectomy Hx of tonsillectomy Social History Smoking/Tobacco Use Status: Never Smoking risk assessment performed?: Yes Substance use type: does not use Household members: none Housing: assisted living facility Number of Children: 0 current occupation: disabled Do you feel safe at home: Yes Do you feel safe in your relationship?: Yes Exam Const General: cooperative and no acute distress HENMT Head: normocephalic and atraumatic Mouth: moist mucous membranes Eyes Conjunctivae: normal conjunctivae Sclera: normal sclerae Neck Neck: trachea midline and supple Resp Auscultation: clear to auscultation bilaterally, no rales, no rhonchi and no wheezes Cardio Rate: regular rate and not tachycardic Rhythm: regular rhythm GI Palpation: soft, not firm, no guarding, no masses, not rigid and nontender Skin General skin exam: no rashes or lesions noted Neuro General: patient alert, patient awake and tone normal Cognition: abnormal cognition Speech: speech normal Other: Neuro exam limited, patient moving all extremities Extrem General: no edema Psych Appearance: grossly normal Speech and Movement: speech and movement normal Affect: anxious affect Course Vital Signs Vital signs: Oxygen Delivery Method Room Air 01/09/23 13:48 Oxygen Flow Rate 0 01/09/23 13:48
[2023-01-09] MEDS: LORazepam 2 MG/ML VIAL 1 MG IVP ×2 (14:24→16:36)
[2023-01-09 14:30] LABS: Source Nasal/Nares
[2023-01-09 14:37] LABS: Bilirubin Negative (Negative); Blood Moderate (Negative); Clarity Cloudy (Clear); Glucose Negative (Negative); Ketones Negative (Negative); Leukocyte Esterase Trace (Negative); Nitrite Positive (Negative); Urobilinogen 0.2 mg/dL (Up to 0.2); pH 5.5 (5-8)
[2023-01-09 14:39] LABS: Abs Immature Grans 0.14 10^3/uL (0.0-0.06); Absolute Basophil Count 0.04 10^3/uL (0.0-0.2); Absolute Eosinophil Count 0.04 10^3/uL (0.0-0.7); Absolute Lymphocyte Count 0.57 10^3/uL (1.2-3.4); Absolute Monocyte Count 0.02 10^3/uL (0.1-0.8); Basophils % 0.6; Eosinophils % 0.6; HCT 32.8 % (36.0-46.0); HGB 10.6 g/dL (11.2-15.7); MCH 30.1 pg (27.0-33.0); MCHC 32.3 % (32.0-36.0); MCV 93 fL (80-95); MPV 9.8 fL (8.0-11.0); Monocytes % 0.3; Neutrophils % 88.5; Platelet Count 140 10^3/uL (130-400); RBC 3.52 10^6/uL (3.93-5.22); RDW 14.6 % (11.7-14.6); RDW-SD 48.7 fL; WBC 7.11 10^3/uL (4.4-10.8)
[2023-01-09 14:47] LABS: Bacteria Moderate HPF (Negative); C & S Indicated? Yes; Casts Negative LPF (Negative); Crystals Negative HPF (Negative); Epithelial Cells Rare HPF (Negative); Mucus Moderate (Negative); Other Cells Negative (Negative); RBC 20-50 HPF (0-2); WBC >50 HPF (0-5)
[2023-01-09 14:58] LABS: ALT 48 U/L (14-59); AST 17 U/L (15-37); Albumin 3.5 g/dL (3.4-5.0); Alkaline Phosphatase 146 U/L (46-116); BUN 47 mg/dL (7-18); Bilirubin, Total 0.3 mg/dL (0.2-1.0); CREATININE 2.2 mg/dL (0.55-1.02); Calcium 9.6 mg/dL (8.5-10.1); Chloride 107 mmol/L (98-107); Estimated GFR 23.82 (mL/min/1.73m2); Glucose 229 mg/dL (74-106); Magnesium 1.3 mg/dL (1.8-2.4); Potassium 4.7 mmol/L (3.5-5.1); Sodium 140 mmol/L (136-145); TSH (W/Ref FT4) 6.06 uIU/mL (0.36-3.74); Troponin I < 50 ng/L (<or=60)
[2023-01-09 15:08] LABS: COVID-19 PCR Negative (Negative)
[2023-01-09 15:17] LABS: FREE T4 0.74 ng/dL (0.76-1.46)
[2023-01-09] MEDS: MAGNESIUM SULFATE 1 GM/100 ML BAG IVPB (15:54)
[2023-01-09] MEDS: levoFLOXacin 500 MG, levoFLOXacin 250 MG 750 MG PO (15:54)
[2023-01-09] MEDS: Magnesium Oxide 400 MG TAB 800 MG PO (17:17)
--- NOTE | 2023-01-13 09:57 | W.EDPROG ---
Date of service: 01/13/23 Time of Service: 09:57 Medical Decision Making Patient had a positive urine culture returned on my shift. She was growing greater than 100,000 colony-forming units per mL of E. coli which was sensitive to levofloxacin on which patient was discharged. We will continue with empiric trial of expectant outpatient management. Discharge Plan Disposition Patient Disposition: Long Term Facility(SNF) Condition: Stable Discharge Details Clinical Impression: Acute delirium, Acute UTI, Hypomagnesemia Primary Care Provider: Nettie Diaz ED Provider: Adrien Canada Home Meds and New Rx's Prescriptions: New levofloxacin 750 mg tablet 750 mg PO Q48H Qty: 2 0RF No Action diphenoxylate-atropine 2.5-0.025 mg tablet 1 tab PO DAILY Rx Instructions: dose unverified. 02/05/22 EO cranberry 400 mg capsule See Rx Instructions PO DAILY Rx Instructions: orally daily; administer with a meal diclofenac sodium [Arthritis Pain (diclofenac)] 1 % gel See Rx Instructions topical .COMPLEX Rx Instructions: topically; apply to single elbow, wrist or hand; for hand includes palm/fingers/back of hand dicyclomine 20 mg tablet See Rx Instructions PO .COMPLEX Rx Instructions: orally; docusate sodium 100 mg capsule 100 mg PO DAILY ferrous sulfate 325 mg (65 mg iron) tablet 325 mg PO DAILY Lactobacillus acidophilus Capsule See Rx Instructions PO DAILY Rx Instructions: orally daily; loperamide [Anti-Diarrheal (loperamide)] 2 mg tablet See Rx Instructions PO Q6H PRN Rx Instructions: orally every 6 hours PRN; nitroglycerin [Nitrostat] 0.4 mg tablet, sublingual 0.4 mg sublingual Q5M PRN Rx Instructions: do not exceed 3 doses per episode atorvastatin 80 mg tablet 80 mg PO DAILY cholecalciferol (vitamin D3) 25 mcg (1,000 unit) capsule 25 mcg PO DAILY cyanocobalamin (vitamin B-12) 1,000 mcg/mL solution 1,000 mcg subcut QMONTH isosorbide mononitrate 30 mg tablet extended release 24 hr 30 mg PO QAM levothyroxine 200 mcg capsule 200 mcg PO DAILY multivitamin Tablet 1 tab PO DAILY omeprazole 20 mg capsule,delayed release(DR/EC) 20 mg PO BID quetiapine 100 mg tablet 200 mg PO QHS Trulicity 1.5 mg/0.5 mL pen injector 1.5 mg subcut QWEEK wheat dextrin 1 gram tablet PO Patient Comments: 1 teaspoon daily aspirin 81 mg tablet,delayed release (DR/EC) 81 mg PO DAILY clonazepam 0.5 mg tablet 0.5 mg PO DAILY fluticasone propion-salmeterol 500-50 mcg/dose blister with device 1 inh inhalation BID loratadine 10 mg tablet 10 mg PO DAILY losartan 100 mg tablet 100 mg PO DAILY sucralfate 1 gram tablet 1 g PO BID Benefiber Sugar Free (dextrin) 3 gram/3.8 gram powder 1.5 g PO BID Rx Instructions: mix into at least 4 oz water or juice before administering vanilla boost PO B-complex with vitamin C Tablet 1 tab PO DAILY acetaminophen [Acetaminophen Extra Strength] 500 mg tablet 500 mg PO Q6H PRN magnesium gluconate 27 mg magnesium (500 mg) tablet 13.5 mg PO BID quetiapine [Seroquel] 50 mg tablet 50 mg PO DAILY nystatin 100,000 unit/mL suspension 100,000 unit PO DAILY Rx Instructions: administer 1/2 of dose in each side of the mouth ropinirole 2 mg tablet 2 mg PO DAILY ropinirole 0.5 mg tablet 0.5 mg PO DAILY famotidine 20 mg tablet 20 mg PO 1XD Trulicity 1.5 mg/0.5 mL pen injector SUBCUT Discharge Instructions Instructions: Urinary Tract Infection in Women (ED), Acute Delirium (ED), Hypomagnesemia (ED) Additional Instructions: Please take antibiotic as prescribed. Your initial dose was given today in the emergency department. Your next dose should be on January 11. Med reconciliation could not be performed today. Please be sure to discuss your medications with your doctor and take medications as prescribed. Your magnesium was low today. You were given magnesium IV as well as oral magnesium. Please be sure to have this rechecked. Additional magnesium supplementation may be necessary. Be sure to discuss this with your doctor. Your thyroid function testing today was abnormal. Your thyroid medication dosing may need to be adjusted. Please discuss this with your doctor. Please contact your primary care physician to arrange follow-up. Return to the ER immediately for any worsening or new concerning symptoms. Referrals: Nettie Diaz [Primary Care Provider] - Discharge Data Discharge Date/Time-TO BE ENTERED AT DEPARTURE: 01/09/23 17:22
== END 2023-01-09 17:22 | disposition skilled nursing facility (03) ==
PROVIDERS: Emergency Provider Student in an Organized Health Care Education/Training Program; PCP Internal Medicine
DX: R41.0 Disorientation, unspecified (principal); N39.0 Urinary tract infection, site not specified; E83.42 Hypomagnesemia; I48.91 Unspecified atrial fibrillation; I45.2 Bifascicular block; I10 Essential (primary) hypertension; E11.9 Type 2 diabetes mellitus without complications; I25.10 Atherosclerotic heart disease of native coronary artery without angina pectoris; Q96.9 Turner's syndrome, unspecified; M06.9 Rheumatoid arthritis, unspecified; Z20.822 Contact with and (suspected) exposure to COVID-19
CPT/HCPCS: 80053; 87077; 87635; 93005; 96365; 96375; 99284; 70450; 81003; 81015; 83735; 84439; 84443; 84484; 85025; 87086; 87186; 93010; J2060; J3475

== ENCOUNTER 2023-01-16 16:45 | Outpatient (REF) | payer MEDICARE, MEDICAID, SELFPAY ==
[2023-01-16 18:03] LABS: ALT 54 U/L (14-59); AST 34 U/L (15-37); Alkaline Phosphatase 130 U/L (46-116); Anion Gap 9.8 mmol/L (3-11); BUN 46 mg/dL (7-18); Bilirubin, Total 0.1 mg/dL (0.2-1.0); CO2 21.2 mmol/L (21.0-32.0); CREATININE 2.4 mg/dL (0.55-1.02); Calcium 9.5 mg/dL (8.5-10.1); Chloride 109 mmol/L (98-107); Estimated GFR 21.46 (mL/min/1.73m2); Glucose 229 mg/dL (74-106); Potassium 5.5 mmol/L (3.5-5.1); Sodium 140 mmol/L (136-145); Total Protein 5.8 g/dL (6.4-8.2)
== END 2023-01-16 16:46 | disposition home or self-care (01) ==
LOC: LBN 16:45
PROVIDERS: PCP Internal Medicine; Visit Provider Nurse Practitioner Gerontology
DX: N28.1 Cyst of kidney, acquired (principal); N18.9 Chronic kidney disease, unspecified; N17.9 Acute kidney failure, unspecified; E10.65 Type 1 diabetes mellitus with hyperglycemia
CPT/HCPCS: 80053

== ENCOUNTER 2023-01-23 17:54 | Outpatient (REF) | payer MEDICARE, MEDICAID, SELFPAY ==
[2023-01-23 19:11] LABS: ALT 81 U/L (14-59); AST 32 U/L (15-37); Albumin 3.3 g/dL (3.4-5.0); Alkaline Phosphatase 138 U/L (46-116); Anion Gap 9.3 mmol/L (3-11); BUN 44 mg/dL (7-18); Bilirubin, Total 0.2 mg/dL (0.2-1.0); CO2 19.7 mmol/L (21.0-32.0); Calcium 9.1 mg/dL (8.5-10.1); Chloride 107 mmol/L (98-107); Estimated GFR 26.71 (mL/min/1.73m2); Glucose 407 mg/dL (74-106); Potassium 5.7 mmol/L (3.5-5.1); Sodium 136 mmol/L (136-145); Total Protein 6.2 g/dL (6.4-8.2)
== END 2023-01-23 17:55 | disposition home or self-care (01) ==
LOC: LBN 17:54
PROVIDERS: PCP Internal Medicine; Visit Provider Nurse Practitioner Gerontology
DX: R68.89 Other general symptoms and signs (principal); I11.9 Hypertensive heart disease without heart failure
CPT/HCPCS: 80053

== ENCOUNTER 2023-01-29 17:09 | Outpatient (REF) | payer MEDICARE, MEDICAID, SELFPAY ==
[2023-01-29 17:26] LABS: Bilirubin Negative (Negative); Blood Trace-lysed (Negative); Clarity Cloudy (Clear); Glucose Negative (Negative); Ketones Negative (Negative); Leukocyte Esterase Moderate (Negative); Nitrite Negative (Negative); Urobilinogen 0.2 mg/dL (Up to 0.2); pH 5.5 (5-8)
[2023-01-29 17:40] LABS: Bacteria Many HPF (Negative); C & S Indicated? C&S Done As Ordered; Casts Negative LPF (Negative); Crystals Negative HPF (Negative); Epithelial Cells Rare HPF (Negative); Mucus Negative (Negative); RBC 0-2 HPF (0-2); WBC >50 HPF (0-5)
== END 2023-01-29 17:10 | disposition home or self-care (01) ==
LOC: LBN 17:09
PROVIDERS: PCP Legal Medicine; Visit Provider Nurse Practitioner Gerontology
DX: N39.0 Urinary tract infection, site not specified (principal)
CPT/HCPCS: 87077; 81003; 81015; 87086; 87186

== ENCOUNTER 2023-02-04 21:57 | Emergency (ER) | payer MEDICARE, MEDICAID, SELFPAY ==
[2023-02-04 21:58] VITALS: BP 178/96; PULSE 71; RESP 18; TEMP 36.3; O2SAT 98
[2023-02-04 22:09] VITALS: BP 178/96; PULSE 74; RESP 16; TEMP 36.3; O2SAT 98
--- NOTE | 2023-02-04 22:11 | ED.GENADUL_ITS ---
Discharge Plan Disposition Patient Disposition[facility] Specific Acute Inpt Facility: Other Discharge Details Chief Complaint: GenMedical Clinical Impression: Restless leg syndrome Primary Care Provider: Shanna Rock ED Provider: Alvaro Lester Home Meds and New Rx's Prescriptions: No Action diphenoxylate-atropine 2.5-0.025 mg tablet 1 tab PO DAILY Rx Instructions: dose unverified. 02/05/22 EO cranberry 400 mg capsule See Rx Instructions PO DAILY Rx Instructions: orally daily; administer with a meal diclofenac sodium [Arthritis Pain (diclofenac)] 1 % gel See Rx Instructions topical .COMPLEX Rx Instructions: topically; apply to single elbow, wrist or hand; for hand includes palm/fingers/back of hand dicyclomine 20 mg tablet See Rx Instructions PO .COMPLEX Rx Instructions: orally; docusate sodium 100 mg capsule 100 mg PO DAILY ferrous sulfate 325 mg (65 mg iron) tablet 325 mg PO DAILY Lactobacillus acidophilus Capsule See Rx Instructions PO DAILY Rx Instructions: orally daily; loperamide [Anti-Diarrheal (loperamide)] 2 mg tablet See Rx Instructions PO Q6H PRN Rx Instructions: orally every 6 hours PRN; nitroglycerin [Nitrostat] 0.4 mg tablet, sublingual 0.4 mg sublingual Q5M PRN Rx Instructions: do not exceed 3 doses per episode atorvastatin 80 mg tablet 80 mg PO DAILY cholecalciferol (vitamin D3) 25 mcg (1,000 unit) capsule 25 mcg PO DAILY cyanocobalamin (vitamin B-12) 1,000 mcg/mL solution 1,000 mcg subcut QMONTH isosorbide mononitrate 30 mg tablet extended release 24 hr 30 mg PO QAM levothyroxine 200 mcg capsule 200 mcg PO DAILY multivitamin Tablet 1 tab PO DAILY omeprazole 20 mg capsule,delayed release(DR/EC) 20 mg PO BID Trulicity 1.5 mg/0.5 mL pen injector 1.5 mg subcut QWEEK wheat dextrin 1 gram tablet PO Patient Comments: 1 teaspoon daily aspirin 81 mg tablet,delayed release (DR/EC) 81 mg PO DAILY clonazepam 0.5 mg tablet 0.5 mg PO DAILY fluticasone propion-salmeterol 500-50 mcg/dose blister with device 1 inh inhalation BID loratadine 10 mg tablet 10 mg PO DAILY losartan 100 mg tablet 100 mg PO DAILY sucralfate 1 gram tablet 1 g PO BID Benefiber Sugar Free (dextrin) 3 gram/3.8 gram powder 1.5 g PO BID Rx Instructions: mix into at least 4 oz water or juice before administering vanilla boost PO B-complex with vitamin C Tablet 1 tab PO DAILY acetaminophen [Acetaminophen Extra Strength] 500 mg tablet 500 mg PO Q6H PRN magnesium gluconate 27 mg magnesium (500 mg) tablet 13.5 mg PO BID quetiapine [Seroquel] 50 mg tablet 50 mg PO DAILY nystatin 100,000 unit/mL suspension 100,000 unit PO DAILY Rx Instructions: administer 1/2 of dose in each side of the mouth ropinirole 2 mg tablet 2 mg PO DAILY famotidine 20 mg tablet 20 mg PO 1XD Trulicity 1.5 mg/0.5 mL pen injector SUBCUT Discharge Instructions Additional Instructions: At this time you have been given your Klonopin, and your symptoms have resolved. If you notice any worsening of your symptoms, or any new symptoms such as vomiting, diarrhea, fever, chills, shortness of breath, chest pain, numbness, weakness, or fainting , please return immediately to the emergency department for reevaluation. Please follow up with your primary care provider as soon as possible for reassessment and reevaluation. As always, it was a pleasure participating in your medical care today. Referrals: Shanna Rock [Primary Care Provider] - Medical Decision Making This is a 67-year-old female with quite an extensive past medical history who [facility], past medical history includes intercerebral hemorrhage, high cholesterol, bipolar, hypertension, fibromyalgia, Briceno syndrome, rheumatoid arthritis, hypothyroidism, coronary artery disease, partial deafness, restless leg syndrome, and 22 documented mild or partial allergies, presents today from the [facility] for evaluation of restless leg syndrome. Per EMS report they state that the patient had restless leg syndrome, she was given her restless leg syndrome medication and it did not improve. Staff per EMS report states that the on-call physician did not have any other additional suggestions and recommended bringing the patient to the ER for further assessment. Currently the patient states that she has been having twitching in her left leg for the last hour or so which is consistent per patient to her normal restless leg syndrome. However she states that it did not improve as it normally does with the medication she was given. She denies any other complaints. No headache or new numbness or tingling. No shortness of breath or chest pain. No vomiting or diarrhea. No change in diet or medication otherwise. She was not sent with a MAR. No other complaints at this time. Patient describes the twitching is persistent in the left leg. Does not go anywhere else. Exam demonstrates a stable female, vital signs are stable. No signs of trauma. No concerning red flags like or leadpipe rigidity, clonus, or other abnormalities otherwise. Small amount of twitching/fasciculations is noted. No cramping. Patient's med reconciliation reveals that she does take Klonopin, although it is also listed as an allergy. We verbally confirmed this with the patient she states that she is not allergic to it but she has taken it. We will give her Klonopin here, monitor closely and reassess. 10:50 PM On reassessment the patient's fasciculations have completely resolved. She now states they feel completely normal. Patient feels well. Patient is sleepy. Patient will be discharged back to the [facility]. I have extensively reviewed the treatment plan and discharge instructions with the patient. I have addressed all patient concerns at this time. The patient was made aware of what symptoms to monitor for that would warrant a return to the emergency department. Discussed the plan with the patient, they demonstrate verbal understanding and agreement with our assessment and plan at this time. The documentation in this chart was dictated using [employer] dictation software. Please excuse any dictation errors. HPI General Date/Time Provider Initiated Documentation: 02/04/23 22:03 . HPI Narrative: This is a 67-year-old female with quite an extensive past medical history who [facility], past medical history includes intercerebral hemorrhage, high cholesterol, bipolar, hypertension, fibromyalgia, Briceno syndrome, rheumatoid arthritis, hypothyroidism, coronary artery disease, partial deafness, restless leg syndrome, and 22 documented mild or partial allergies, presents today from the [facility] for evaluation of restless leg syndrome. Per EMS report they state that the patient had restless leg syndrome, she was given her restless leg syndrome medication and it did not improve. Staff per EMS report states that the on-call physician did not have any other additional suggestions and recommended bringing the patient to the ER for further assessment. Currently the patient states that she has been having twitching in her left leg for the last hour or so which is consistent per patient to her normal restless leg syndrome. However she states that it did not improve as it normally does with the medication she was given. She denies any other complaints. No headache or new numbness or tingling. No shortness of breath or chest pain. No vomiting or diarrhea. No change in diet or medication otherwise. She was not sent with a MAR. No other complaints at this time. Crispin douglas describes the twitching is persistent in the left leg. Does not go anywhere else. Related Data Home Medications Medication Instructions Recorded Confirmed Lactobacillus acidophilus See Rx Instructions PO DAILY 02/05/22 01/24/23 cranberry 400 mg capsule See Rx Instructions PO DAILY 02/05/22 02/04/23 diclofenac sodium 1 % topical gel See Rx Instructions topical 02/05/22 02/04/23 (Arthritis Pain (diclofenac)) .COMPLEX dicyclomine 20 mg tablet See Rx Instructions PO .COMPLEX 02/05/22 01/01/23 diphenoxylate-atropine 2.5 1 tab PO DAILY 02/05/22 01/09/23 mg-0.025 mg tablet docusate sodium 100 mg capsule 100 mg PO DAILY 02/05/22 01/09/23 ferrous sulfate 325 mg (65 mg 325 mg PO DAILY 02/05/22 01/09/23 iron) tablet loperamide 2 mg tablet See Rx Instructions PO Q6H PRN 02/05/22 01/09/23 (Anti-Diarrheal (loperamide)) nitroglycerin 0.4 mg sublingual 0.4 mg sublingual Q5M PRN 02/05/22 01/24/23 tablet (Nitrostat) atorvastatin 80 mg tablet 80 mg PO DAILY 04/16/22 02/04/23 cholecalciferol (vitamin D3) 25 25 mcg PO DAILY 04/16/22 02/04/23 mcg (1,000 unit) capsule cyanocobalamin (vitamin B-12) 1,000 mcg subcut QMONTH 04/16/22 02/04/23 1,000 mcg/mL injection solution isosorbide mononitrate 30 mg 30 mg PO QAM 04/16/22 01/24/23 tablet,extended release 24 hr levothyroxine 200 mcg capsule 200 mcg PO DAILY 04/16/22 01/24/23 multivitamin 1 tab PO DAILY 04/16/22 01/09/23 omeprazole 20 mg capsule,delayed 20 mg PO BID 04/16/22 01/24/23 release dulaglutide 1.5 mg/0.5 mL 1.5 mg subcut QWEEK 05/14/22 01/24/23 subcutaneous pen injector (Trulicity) wheat dextrin 1 gram tablet g PO 05/14/22 01/24/23 B-complex with vitamin C 1 tab PO DAILY 12/19/22 02/04/23 acetaminophen 500 mg tablet 500 mg PO Q6H PRN 12/19/22 02/04/23 (Acetaminophen Extra Strength) aspirin 81 mg tablet,delayed 81 mg PO DAILY 12/19/22 02/04/23 release clonazepam 0.5 mg tablet 0.5 mg PO DAILY 12/19/22 02/04/23 fluticasone 500 mcg-salmeterol 50 1 inh inhalation BID 12/19/22 01/24/23 mcg/dose blistr powdr for inhalation loratadine 10 mg tablet 10 mg PO DAILY 12/19/22 01/01/23 losartan 100 mg tablet 100 mg PO DAILY 12/19/22 01/24/23 magnesium gluconate 27 mg 13.5 mg PO BID 12/19/22 01/01/23 magnesium (500 mg) tablet nystatin 100,000 unit/mL oral 100,000 unit PO DAILY 12/19/22 01/24/23 suspension quetiapine 50 mg tablet (Seroquel) 50 mg PO DAILY 12/19/22 01/24/23 ropinirole 2 mg tablet 2 mg PO DAILY 12/19/22 01/24/23 sucralfate 1 gram tablet 1 g PO BID 12/19/22 01/24/23 vanilla boost PO 12/19/22 01/24/23 wheat dextrin 3 gram/3.8 gram oral 1.5 g PO BID 12/19/22 01/24/23 powder (Benefiber Sugar Free (dextrin)) dulaglutide 1.5 mg/0.5 mL mg subcut 01/09/23 01/24/23 subcutaneous pen injector (Trulicity) famotidine 20 mg tablet 20 mg PO 1XD 01/09/23 01/24/23 Allergies Allergy/AdvReac Type Severity Reaction Status Date / Time polyethylene glycol 3350 Allergy Unknown Verified 01/24/23 11:51 acetaminophen [From Vicodin] Allergy Verified 01/24/23 11:51 amoxicillin Allergy Verified 01/24/23 11:51 azithromycin [From Zithromax] Allergy Verified 01/24/23 11:51 benzonatate Allergy Verified 01/24/23 11:51 buspirone [From BuSpar] Allergy Verified 01/24/23 11:51 cephalexin [From Keflex] Allergy Verified 01/24/23 11:51 clavulanic acid Allergy Verified 01/24/23 11:51 [From Augmentin] clonazepam [From Klonopin] Allergy Verified 01/24/23 11:51 diazepam [From Valium] Allergy Verified 01/24/23 11:51 gemfibrozil Allergy Verified 01/24/23 11:51 hydrocodone [From Vicodin] Allergy Verified 01/24/23 11:51 monosodium glutamate Allergy Verified 01/24/23 11:51 morphine Allergy Verified 01/24/23 11:51 nitrofurantoin Allergy Verified 01/24/23 11:51 [From Macrobid] Penicillins Allergy Verified 01/24/23 11:51 prednisone Allergy Verified 01/24/23 11:51 Sulfa (Sulfonamide Allergy Verified 01/24/23 11:51 Antibiotics) Tetanus Vaccines and Toxoid Allergy Verified 01/24/23 11:51 tramadol Allergy Verified 01/24/23 11:51 morphine Allergy Unknown Uncoded 01/24/23 11:51 nitrofurantoin Allergy Unknown Uncoded 01/24/23 11:51 General Stated Complaint: GenMedical JOESPH: 4 Review of Systems All systems reviewed & are unremarkable except as noted in HPI and below PFSH All Active Problems (Updated 02/04/23 @ 22:52 by Alvaro Lester DO) Restless leg syndrome (Acute) Wears hearing aid in both ears (Acute) Conductive hearing loss, external ear (Acute) Impacted cerumen, bilateral (Acute) Hypomagnesemia (Acute) Acute UTI (Acute) Acute delirium (Acute) Nontraumatic intracerebral hemorrhage (Acute) Acquired cystic kidney disease (Acute) Megaloblastic anemia due to B12 deficiency (Acute) Hyperlipidemia (Acute) Degeneration of lumbar intervertebral disc (Acute) Bipolar 1 disorder (Acute) Benign essential hypertension (Acute) Chronic GERD (Acute) Asthma (Chronic) Fibromyalgia (Acute) Turners syndrome (Acute) Bipolar affective disorder (Acute) Nail dystrophy (Acute) Corns and callosities (Acute) Elevated LFTs (Acute) Gout (Chronic) Hypercalcemia (Acute) Hyperparathyroidism (Acute) Hypertension (Chronic) Restless legs syndrome (RLS) (Acute) Rheumatoid arthritis (Chronic) Hypothyroidism (Chronic) Diabetes mellitus (Chronic) CAD (coronary artery disease) (Chronic) Sensorineural hearing loss (SNHL) of both ears (Acute) Medical History Abnormal auditory perception of both ears (12/25/16) Allergic rhinitis Sciatica IBS (irritable bowel syndrome) B12 deficiency anemia Surgical History History of parathyroidectomy History of hysterectomy Hx of tonsillectomy History of foot surgery Left foot; multiple fibroma excisions Social History Smoking/Tobacco Use Status: Never Smoking risk assessment performed?: Yes Alcohol Intake: never Drug use: Never Substance use type: does not use Household members: none Housing: jail Number of Children: 0 current occupation: disabled Do you feel safe at home: Yes Do you feel safe in your relationship?: Yes Exam Narrative Exam Narrative: 1.Const: Well-nourished, Well-developed, appearing stated age 2.Eyes: PERRL, no conjunctival injection, and symmetrical lids. 3.ENT: Atraumatic external nose and ears. Moist MM. Neck: Symmetric, trachea midline, No thyromegaly. 4.CVS: +S1/S2, No murmurs or gallops. Peripheral pulses 2+ and equal in all extremities. Brisk capillary refill in all extremities. 5.RESP: Unlabored respiratory effort. Clear to auscultation bilaterally. No wheezes rales or rhonchi 6.GI: Soft, Nontender/Nondistended, No hepatosplenomegaly. No guarding or rebound. 7.MSK: Normocephalic/Atraumatic, Extremities w/o deformity or ttp No cyanosis or clubbing, patient is able to move the upper and lower extremities well. She does have some mild weakness globally. 4 out of 5 strength throughout. Initially on her arrival there was no twitching in the left lower extremity, the absence of twitching came about a few minutes later when the blanket was removed. There is mild fasciculations noted on the mid aspect of the left lower extremity. No clonus. No leadpipe rigidity. 8.Skin: Warm, Dry. No rashes or lesions. 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 Sensation grossly intact, patient is at neurologic baseline per patient. 10.Psych: (AAO) x3. Appropriate mood and affect Course Vital Signs Vital signs: Vital Signs Temperature 36.3 C L 02/04/23 21:58 Pulse 71 02/04/23 21:58 Respiratory Rate 18 02/04/23 21:58 Blood Pressure 178/96 H 02/04/23 21:58 Pulse Oximetry 98 02/04/23 21:58 Temperature 36.3 C L 02/04/23 22:09 Temperature Source Temporal Artery Scan 02/04/23 22:09 Pulse 74 02/04/23 22:09 Respiratory Rate 16 02/04/23 22:09 Respiratory Effort Normal, Non-Labored 02/04/23 22:06 Respiratory Depth Normal 02/04/23 22:06 Respiratory Pattern Normal 02/04/23 22:06 Blood Pressure 178/96 H 02/04/23 22:09 Blood Pressure Position Sitting 02/04/23 22:09 Pulse Oximetry 98 02/04/23 22:09 Oxygen Delivery Method Room Air 02/04/23 22:09 Oxygen Flow Rate 0 02/04/23 21:58
[2023-02-04] MEDS: clonazePAM 0.5 MG TAB 2 MG PO (22:14)
[2023-02-04 23:03] VITALS: BP 164/77; PULSE 78; RESP 14; O2SAT 98
== END 2023-02-04 23:18 | disposition skilled nursing facility (03) ==
PROVIDERS: Emergency Provider Student in an Organized Health Care Education/Training Program; PCP Legal Medicine
DX: G25.81 Restless legs syndrome (principal); I10 Essential (primary) hypertension; E03.9 Hypothyroidism, unspecified; Q96.9 Turner's syndrome, unspecified; I25.10 Atherosclerotic heart disease of native coronary artery without angina pectoris
CPT/HCPCS: 99283; 99284

== ENCOUNTER 2023-02-05 18:40 | Outpatient (REF) | payer MEDICARE, MEDICAID, SELFPAY ==
[2023-02-05 17:44] LABS: Bilirubin Negative (Negative); Blood Trace-intact (Negative); Clarity Cloudy (Clear); Glucose Negative (Negative); Ketones Negative (Negative); Leukocyte Esterase Moderate (Negative); Nitrite Negative (Negative); Urobilinogen 0.2 mg/dL (Up to 0.2); pH 5.5 (5-8)
[2023-02-05 17:48] LABS: WBC >50 HPF (0-5)
[2023-02-05 17:49] LABS: Bacteria Many HPF (Negative); C & S Indicated? C&S Done As Ordered; Crystals Negative HPF (Negative); Epithelial Cells Few HPF (Negative); Mucus Trace (Negative)
== END 2023-02-05 18:41 | disposition home or self-care (01) ==
LOC: LBN 18:40
PROVIDERS: PCP Legal Medicine; Visit Provider Nurse Practitioner Gerontology
DX: N39.0 Urinary tract infection, site not specified (principal); G89.4 Chronic pain syndrome; Z16.12 Extended spectrum beta lactamase (ESBL) resistance
CPT/HCPCS: 87077; 81003; 81015; 87086; 87186

== ENCOUNTER 2023-02-11 17:12 | Outpatient (REF) | payer MEDICARE, MEDICAID, SELFPAY ==
[2023-02-11 17:34] LABS: Bilirubin Negative (Negative); Blood Trace-intact (Negative); Clarity Sl Cloudy (Clear); Glucose Negative (Negative); Ketones Negative (Negative); Leukocyte Esterase Moderate (Negative); Nitrite Positive (Negative); Specific Gravity 1.025 (1.005-1.025); Urobilinogen 0.2 mg/dL (Up to 0.2); pH 5.5 (5-8)
[2023-02-11 17:44] LABS: Bacteria Many HPF (Negative); C & S Indicated? C&S Done As Ordered; Casts Negative LPF (Negative); Crystals Negative HPF (Negative); Epithelial Cells Few HPF (Negative); Mucus Negative (Negative); Other Cells Rare Transitional (Negative); RBC 0-2 HPF (0-2); WBC >50 HPF (0-5)
== END 2023-02-11 17:13 | disposition home or self-care (01) ==
LOC: LBN 17:12
PROVIDERS: PCP Legal Medicine; Visit Provider Nurse Practitioner Gerontology
DX: N39.0 Urinary tract infection, site not specified (principal); R68.89 Other general symptoms and signs; G89.4 Chronic pain syndrome
CPT/HCPCS: 87077; 81003; 81015; 87086; 87186

== ENCOUNTER 2023-02-13 21:23 | Outpatient (REF) | payer MEDICARE, MEDICAID, SELFPAY ==
[2023-02-13 16:33] LABS: Absolute Basophil Count 0.02 10^3/uL (0.0-0.2); Absolute Eosinophil Count 0.07 10^3/uL (0.0-0.7); Absolute Lymphocyte Count 1.46 10^3/uL (1.2-3.4); Absolute Monocyte Count 0.33 10^3/uL (0.1-0.8); Absolute Neutrophil Count 3.39 10^3/uL (1.2-6.7); Basophils % 0.4; Eosinophils % 1.3; HCT 29.1 % (36.0-46.0); HGB 9.4 g/dL (11.2-15.7); Immature Grans % 1.9; Lymphocytes % 27.2; MCH 30.3 pg (27.0-33.0); MCHC 32.3 % (32.0-36.0); MCV 94 fL (80-95); MPV 10.4 fL (8.0-11.0); Monocytes % 6.1; Neutrophils % 63.1; Platelet Count 140 10^3/uL (130-400); RDW 13.9 % (11.7-14.6); RDW-SD 47.7 fL; WBC 5.37 10^3/uL (4.4-10.8)
[2023-02-13 16:59] LABS: ALT 52 U/L (14-59); AST 21 U/L (15-37); Albumin 3.1 g/dL (3.4-5.0); Alkaline Phosphatase 166 U/L (46-116); Anion Gap 11.9 mmol/L (3-11); BUN 57 mg/dL (7-18); Bilirubin, Total 0.1 mg/dL (0.2-1.0); CO2 16.1 mmol/L (21.0-32.0); CREATININE 1.9 mg/dL (0.55-1.02); Chloride 110 mmol/L (98-107); Estimated GFR 28.41 (mL/min/1.73m2); Glucose 274 mg/dL (74-106); Magnesium 1.9 mg/dL (1.8-2.4); Sodium 138 mmol/L (136-145); TSH (W/Ref FT4) 0.37 uIU/mL (0.36-3.74)
== END 2023-02-13 21:24 | disposition home or self-care (01) ==
LOC: LBN 21:23
PROVIDERS: PCP Legal Medicine; Visit Provider Nurse Practitioner Gerontology
DX: R53.82 Chronic fatigue, unspecified (principal); R73.09 Other abnormal glucose; E83.42 Hypomagnesemia; G89.4 Chronic pain syndrome
CPT/HCPCS: 80053; 83735; 84443; 85025

== ENCOUNTER 2023-03-25 17:50 | Outpatient (REF) | payer MEDICARE, MEDICAID, SELFPAY ==
[2023-03-25 17:57] LABS: Abs Immature Grans 0.06 10^3/uL (0.0-0.06); Absolute Basophil Count 0.01 10^3/uL (0.0-0.2); Absolute Eosinophil Count 0.09 10^3/uL (0.0-0.7); Absolute Lymphocyte Count 1.57 10^3/uL (1.2-3.4); Absolute Monocyte Count 0.33 10^3/uL (0.1-0.8); Absolute Neutrophil Count 1.92 10^3/uL (1.2-6.7); Basophils % 0.3; Eosinophils % 2.3; HCT 29.8 % (36.0-46.0); HGB 9.9 g/dL (11.2-15.7); Immature Grans % 1.5; Lymphocytes % 39.4; MCH 30.4 pg (27.0-33.0); MCHC 33.2 % (32.0-36.0); MCV 91 fL (80-95); MPV 11.1 fL (8.0-11.0); Monocytes % 8.3; Neutrophils % 48.2; Platelet Count 109 10^3/uL (130-400); RBC 3.26 10^6/uL (3.93-5.22); RDW 13.2 % (11.7-14.6); RDW-SD 43.5 fL; WBC 3.98 10^3/uL (4.4-10.8)
[2023-03-25 18:21] LABS: TSH (W/Ref FT4) 0.47 uIU/mL (0.36-3.74)
== END 2023-03-25 17:51 | disposition home or self-care (01) ==
LOC: LBN 17:50
PROVIDERS: PCP Legal Medicine; Visit Provider Nurse Practitioner Gerontology
DX: E03.9 Hypothyroidism, unspecified (principal); I11.9 Hypertensive heart disease without heart failure; G89.29 Other chronic pain
CPT/HCPCS: 84443; 85025

== ENCOUNTER 2023-04-24 13:46 | Emergency (ER) | payer MEDICARE, MEDICAID, SELFPAY ==
--- NOTE | 2023-04-24 13:30 | DI.RAD_ITS ---
Exam(s) XR PORTABLE CHEST AP EXAM: XR PORTABLE CHEST AP CLINICAL HISTORY: CHEST PAIN TECHNIQUE: 2D digital imaging was performed of the chest. One image was obtained. An AP view was ob tained. COMPARISON: No exams were available for comparison FINDINGS: MEDIASTINUM: Normal. HEART: Normal. PULMONARY VASCULATURE: Normal. LUNGS: Clear. PLEURAL SPACE: No pleural effusion or pneumothorax. BONE:Within normal limits for the patient's age. OTHER FINDINGS:There is elevation of the right hemidiaphragm. There are surgical clips in the right upper quadrant of the abdomen. IMPRESSION: No acute pulmonary findings. DATA REPOSITORY: RADIATION DOSE DELIVERED:
--- NOTE | 2023-04-24 13:30 | RT.EKG_ITS ---
APPROVED REPORT Exam: Resting ECG Reason for Exam: chest pain Patient Location: E HR:77 bpm ECG Measurements Heart Rate 77 AXIS [place] 217 P 52 QRSd 151 QRS 94 QT 416 T 38 QTc 471 Conclusion Sinus rhythm normal axis [id number]
[2023-04-24 13:41] VITALS: BP 119/59; PULSE 78; RESP 18; TEMP 36.2; O2SAT 92
[2023-04-24 13:50] VITALS: RESP 18
[2023-04-24 14:08] LABS: Abs Immature Grans 0.03 10^3/uL (0.0-0.06); Absolute Basophil Count 0.02 10^3/uL (0.0-0.2); Absolute Eosinophil Count 0.03 10^3/uL (0.0-0.7); Absolute Lymphocyte Count 0.88 10^3/uL (1.2-3.4); Absolute Monocyte Count 0.34 10^3/uL (0.1-0.8); Absolute Neutrophil Count 1.97 10^3/uL (1.2-6.7); Basophils % 0.6; Eosinophils % 0.9; HGB 9.6 g/dL (11.2-15.7); Immature Grans % 0.9; Lymphocytes % 26.9; MCH 30.5 pg (27.0-33.0); MCHC 33.1 % (32.0-36.0); MCV 92 fL (80-95); MPV 9.9 fL (8.0-11.0); Monocytes % 10.4; Neutrophils % 60.3; RBC 3.15 10^6/uL (3.93-5.22); RDW 13.7 % (11.7-14.6); RDW-SD 45.7 fL; WBC 3.27 10^3/uL (4.4-10.8)
[2023-04-24] MEDS: Ketorolac 15 MG/ML VIAL 10 MG IVP (14:26)
[2023-04-24 14:31] VITALS: BP 111/62; PULSE 69
[2023-04-24 14:40] LABS: ALT 29 U/L (14-59); AST 20 U/L (15-37); Albumin 2.8 g/dL (3.4-5.0); Alkaline Phosphatase 81 U/L (46-116); Anion Gap 11.3 mmol/L (3-11); BUN 48 mg/dL (7-18); Bilirubin, Total 0.2 mg/dL (0.2-1.0); CO2 19.7 mmol/L (21.0-32.0); CREATININE 2.1 mg/dL (0.55-1.02); Calcium 9.5 mg/dL (8.5-10.1); Chloride 109 mmol/L (98-107); Estimated GFR 25.19 (mL/min/1.73m2); Glucose 121 mg/dL (74-106); Magnesium 1.9 mg/dL (1.8-2.4); NT-proBNP 2449 pg/mL (<300); Potassium 4.5 mmol/L (3.5-5.1); Sodium 140 mmol/L (136-145); Total Protein 6.3 g/dL (6.4-8.2); Troponin I < 50 ng/L (< or =60)
[2023-04-24 14:43] LABS: Platelet Count 89 10^3/uL (130-400)
--- NOTE | 2023-04-24 15:00 | W.ED.GENAD ---
HPI General Stated Complaint: Chest Pain JOESPH: 3 Date/Time Provider Initiated Documentation: 04/24/23 13:57. Limitations to Documentation: no limitations. Information obtained by: patient. HPI Narrative: 67-year-old female with past medical history including CAD, 4 stents, bipolar, anemia presents for evaluation of chest pain. She reports that the pain is in her neck. Not associated with diaphoresis, nausea or shortness of breath. She was given nitroglycerin and aspirin prior to arrival with some improvement but not relief of pain. She reports that she has a patch on her neck which helps with her restless leg and that is very helpful. She reports that these symptoms today are not consistent with prior episodes of chest pain that she had when she had an [place]. Related Data Home Medications Medication Instructions Recorded Confirmed Lactobacillus acidophilus See Rx Instructions PO DAILY 02/05/22 04/24/23 cranberry 400 mg capsule See Rx Instructions PO DAILY 02/05/22 02/04/23 diclofenac sodium 1 % topical gel See Rx Instructions topical 02/05/22 02/04/23 (Arthritis Pain (diclofenac)) .COMPLEX dicyclomine 20 mg tablet See Rx Instructions PO .COMPLEX 02/05/22 01/01/23 diphenoxylate-atropine 2.5 1 tab PO DAILY 02/05/22 01/09/23 mg-0.025 mg tablet docusate sodium 100 mg capsule 100 mg PO DAILY 02/05/22 01/09/23 ferrous sulfate 325 mg (65 mg 325 mg PO DAILY 02/05/22 01/09/23 iron) tablet loperamide 2 mg tablet See Rx Instructions PO Q6H PRN 02/05/22 04/24/23 (Anti-Diarrheal (loperamide)) nitroglycerin 0.4 mg sublingual 0.4 mg sublingual Q5M PRN 02/05/22 04/24/23 tablet (Nitrostat) atorvastatin 80 mg tablet 80 mg PO DAILY 04/16/22 02/04/23 cholecalciferol (vitamin D3) 25 25 mcg PO DAILY 04/16/22 04/24/23 mcg (1,000 unit) capsule cyanocobalamin (vitamin B-12) 1,000 mcg subcut QMONTH 04/16/22 02/04/23 1,000 mcg/mL injection solution isosorbide mononitrate 30 mg 30 mg PO QAM 04/16/22 04/24/23 tablet,extended release 24 hr levothyroxine 200 mcg capsule 200 mcg PO DAILY 04/16/22 04/24/23 multivitamin 1 tab PO DAILY 04/16/22 04/24/23 omeprazole 20 mg capsule,delayed 20 mg PO BID 04/16/22 04/24/23 release dulaglutide 1.5 mg/0.5 mL 1.5 mg subcut QWEEK 05/14/22 01/24/23 subcutaneous pen injector (Trulicity) B-complex with vitamin C 1 tab PO DAILY 12/19/22 04/24/23 acetaminophen 500 mg tablet 500 mg PO Q6H PRN 12/19/22 04/24/23 (Acetaminophen Extra Strength) aspirin 81 mg tablet,delayed 81 mg PO DAILY 12/19/22 04/24/23 release clonazepam 0.5 mg tablet 0.5 mg PO DAILY 12/19/22 02/04/23 fluticasone 500 mcg-salmeterol 50 1 inh inhalation BID 12/19/22 01/24/23 mcg/dose blistr powdr for inhalation loratadine 10 mg tablet 10 mg PO DAILY 12/19/22 04/24/23 losartan 100 mg tablet 100 mg PO DAILY 12/19/22 04/24/23 magnesium gluconate 27 mg 13.5 mg PO BID 12/19/22 04/24/23 magnesium (500 mg) tablet nystatin 100,000 unit/mL oral 100,000 unit PO DAILY 12/19/22 04/24/23 suspension ropinirole 2 mg tablet 2 mg PO DAILY 12/19/22 04/24/23 sucralfate 1 gram tablet 1 g PO BID 12/19/22 04/24/23 vanilla boost PO 12/19/22 01/24/23 wheat dextrin 3 gram/3.8 gram oral 1.5 g PO BID 12/19/22 04/24/23 powder (Benefiber Sugar Free (dextrin)) dulaglutide 1.5 mg/0.5 mL 1.5 mg subcut QWEEK 01/09/23 04/24/23 subcutaneous pen injector (Trulicity) famotidine 20 mg tablet 20 mg PO 1XD 01/09/23 01/24/23 tramadol 50 mg tablet 25 mg PO TID 04/24/23 04/24/23 Allergies Allergy/AdvReac Type Severity Reaction Status Date / Time polyethylene glycol 3350 Allergy Unknown Verified 04/24/23 14:02 acetaminophen [From Vicodin] Allergy Verified 04/24/23 14:02 amoxicillin Allergy Verified 01/24/23 11:51 azithromycin [From Zithromax] Allergy Verified 04/24/23 14:02 benzonatate Allergy Verified 04/24/23 14:02 buspirone [From BuSpar] Allergy Verified 04/24/23 14:02 cephalexin [From Keflex] Allergy Verified 01/24/23 11:51 clavulanic acid Allergy Verified 04/24/23 14:02 [From Augmentin] clonazepam [From Klonopin] Allergy Verified 04/24/23 14:02 diazepam [From Valium] Allergy Verified 04/24/23 14:02 gemfibrozil Allergy Verified 04/24/23 14:02 hydrocodone [From Vicodin] Allergy Verified 04/24/23 14:02 monosodium glutamate Allergy Verified 04/24/23 14:02 morphine Allergy Verified 04/24/23 14:02 nitrofurantoin Allergy Verified 04/24/23 14:02 [From Macrobid] Penicillins Allergy Verified 04/24/23 14:02 prednisone Allergy Verified 04/24/23 14:02 Sulfa (Sulfonamide Allergy Verified 04/24/23 14:02 Antibiotics) Tetanus Vaccines and Toxoid Allergy Verified 04/24/23 14:02 tramadol Allergy Verified 04/24/23 14:02 morphine Allergy Unknown Uncoded 04/24/23 14:02 nitrofurantoin Allergy Unknown Uncoded 04/24/23 14:02 PFSH All Active Problems Wears hearing aid in both ears (Acute) Conductive hearing loss, external ear (Acute) Impacted cerumen, bilateral (Acute) Nontraumatic intracerebral hemorrhage (Acute) Acquired cystic kidney disease (Acute) Megaloblastic anemia due to B12 deficiency (Acute) Hyperlipidemia (Acute) Degeneration of lumbar intervertebral disc (Acute) Bipolar 1 disorder (Acute) Benign essential hypertension (Acute) Chronic GERD (Acute) Asthma (Chronic) Fibromyalgia (Acute) Turners syndrome (Acute) Bipolar affective disorder (Acute) Nail dystrophy (Acute) Corns and callosities (Acute) Elevated LFTs (Acute) Gout (Chronic) Hypercalcemia (Acute) Hyperparathyroidism (Acute) Hypertension (Chronic) Restless legs syndrome (RLS) (Acute) Rheumatoid arthritis (Chronic) Hypothyroidism (Chronic) Diabetes mellitus (Chronic) CAD (coronary artery disease) (Chronic) Sensorineural hearing loss (SNHL) of both ears (Acute) Medical History Abnormal auditory perception of both ears (12/25/16) Allergic rhinitis Sciatica IBS (irritable bowel syndrome) B12 deficiency anemia Surgical History History of parathyroidectomy History of hysterectomy Hx of tonsillectomy History of foot surgery Left foot; multiple fibroma excisions Social History Smoking/Tobacco Use Status: Never Smoking risk assessment performed?: Yes Alcohol Intake: never Drug use: Never Substance use type: does not use Household members: none Housing: residential Number of Children: 0 current occupation: disabled Do you feel safe at home: Yes Do you feel safe in your relationship?: Yes Additional Social history: Lives at the [facility] 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 Exam Narrative Exam Narrative: Review of Systems: All systems reviewed & are unremarkable except as noted in HPI and below Well-developed, no acute distress, elderly, frail NACT PERRL, normal conjunctiva RRR, no murmurs or gallops Unlabored respiratory effort clear breath sounds bilaterally Nondistended abdomen nontender Extremities w/o deformity, no cyanosis, no edema No rashes or lesions. no focal neurologic deficits Appropriate mood and affect Course Vital Signs Vital signs: Vital Signs Temperature 36.2 C L 04/24/23 13:41 Pulse 78 04/24/23 13:41 Respiratory Rate 18 04/24/23 13:41 Blood Pressure 119/59 L 04/24/23 13:41 Pulse Oximetry 92 04/24/23 13:41 Temperature 36.2 C L 04/24/23 13:41 Temperature Source Temporal Artery Scan 04/24/23 13:41 Pulse 78 04/24/23 13:41 Respiratory Rate 18 04/24/23 13:50 Respiratory Effort Normal 04/24/23 13:50 Respiratory Depth Normal 04/24/23 13:50 Respiratory Pattern Normal 04/24/23 13:50 Blood Pressure 119/59 L 04/24/23 13:41 Pulse Oximetry 92 04/24/23 13:41 Oxygen Delivery Method Room Air 04/24/23 13:41 Oxygen Flow Rate 0 04/24/23 13:41 Pain Level 3 04/24/23 14:26 Lab/Test Results Lab/Test Results: Laboratory Tests Range/Units 04/24/23 14:00 WBC (4.4-10.8) 10^3/uL 3.27 L RBC (3.93-5.22) 10^6/uL 3.15 L Hgb (11.2-15.7) g/dL 9.6 L Hct (36.0-46.0) % 29.0 L MCV (80-95) fL 92 MCH (27.0-33.0) pg 30.5 MCHC (32.0-36.0) % 33.1 RDW (11.7-14.6) % 13.7 Plt Count (130-400) 10^3/uL 89 L MPV (8.0-11.0) fL 9.9 Immature Gran % 0.9 Neutrophils % 60.3 Lymphocytes % 26.9 Monocytes % 10.4 Eosinophils % 0.9 Basophils % 0.6 Nucleated RBC % (0.0-0.3) % 0.0 Absolute Neutrophils (1.2-6.7) 10^3/uL 1.97 Absolute Lymphocytes (1.2-3.4) 10^3/uL 0.88 L Absolute Monocytes (0.1-0.8) 10^3/uL 0.34 Absolute Eosinophils (0.0-0.7) 10^3/uL 0.03 Absolute Basophils (0.0-0.2) 10^3/uL 0.02 Sodium (136-145) mmol/L 140 Potassium (3.5-5.1) mmol/L 4.5 Chloride (98-107) mmol/L 109 H Carbon Dioxide (21.0-32.0) mmol/L 19.7 L Anion Gap (3-11) mmol/L 11.3 H BUN (7-18) mg/dL 48 H Creatinine (0.55-1.02) mg/dL 2.1 H Est GFR (CKD-EPI 2020) (mL/min/1.73m2) 25.19 Glucose (74-106) mg/dL 121 H Calcium (8.5-10.1) mg/dL 9.5 Magnesium (1.8-2.4) mg/dL 1.9 Total Bilirubin (0.2-1.0) mg/dL 0.2 AST (15-37) U/L 20 ALT (14-59) U/L 29 Alkaline Phosphatase (46-116) U/L 81 Troponin I (< or =60) ng/L < 50 NT-Pro-B Natriuret Pep (<300) pg/mL 2449 H Total Protein (6.4-8.2) g/dL 6.3 L Albumin (3.4-5.0) g/dL 2.8 L Medical Decision Making Emergent evaluation of chest pain. Patient has multiple risk factors including prior stents. Initial differential includes ACS, musculoskeletal pain, pneumonia. Plan for labs, imaging. EKG without acute ischemic changes. 1500: Labwork reviewed. Pancytopenia noted not significantly changed from prior. Electrolytes with minor derangement. Elevated creatinine is at baseline. Troponin is negative. BNP is elevated, not significantly elevated as it has been in prior. Reviewed her medication list and noted that she is not on a diuretic, likely because of her CKD. 1530: Symptoms have been completely resolved after Toradol. Plan for delta Trop at 5 PM patient is feeling fine and would like to go home Medical Records Medical records reviewed: Yes I reviewed the patient's medical records. Lab Data Lab results reviewed: Yes I reviewed the patient's lab results. ECG Data Attestation: I personally reviewed and interpreted this ECG (s) as follows: Interpretation: Sinus 77, normal axis, right bundle branch block, no acute ischemic change Quality:[facility] Health Related Social Needs: No Data to Display Sign Out Sign Out Data: Sign Out Comment: 67y F with history of CAD (4 stents) came in with neck pain. received ASA and nitro prior to arrival. has a patch on for chronic neck pain . got toradol with complete relief of symptoms. trop neg. BNP elevated, not acute. CXR unremarkable. Plan for trop #2 @1700. requesting to go home. If trop not elevated can be discharged home. Last updated by Jonathan Tejada MD at 04/24/23 15:56 Discharge Plan Discharge Details Chief Complaint: Chest Pain Primary Care Provider: Shanna Rock ED Provider: Jonathan Tejada Home Meds and New Rx's Prescriptions: No Action diphenoxylate-atropine 2.5-0.025 mg tablet 1 tab PO DAILY Rx Instructions: dose unverified. 02/05/22 EO cranberry 400 mg capsule See Rx Instructions PO DAILY Rx Instructions: orally daily; administer with a meal diclofenac sodium [Arthritis Pain (diclofenac)] 1 % gel See Rx Instructions topical .COMPLEX Rx Instructions: topically; apply to single elbow, wrist or hand; for hand includes palm/fingers/back of hand dicyclomine 20 mg tablet See Rx Instructions PO .COMPLEX Rx Instructions: orally; docusate sodium 100 mg capsule 100 mg PO DAILY ferrous sulfate 325 mg (65 mg iron) tablet 325 mg PO DAILY Lactobacillus acidophilus Capsule See Rx Instructions PO DAILY Rx Instructions: orally daily; loperamide [Anti-Diarrheal (loperamide)] 2 mg tablet See Rx Instructions PO Q6H PRN Rx Instructions: orally every 6 hours PRN; nitroglycerin [Nitrostat] 0.4 mg tablet, sublingual 0.4 mg sublingual Q5M PRN Rx Instructions: do not exceed 3 doses per episode atorvastatin 80 mg tablet 80 mg PO DAILY cholecalciferol (vitamin D3) 25 mcg (1,000 unit) capsule 25 mcg PO DAILY cyanocobalamin (vitamin B-12) 1,000 mcg/mL solution 1,000 mcg subcut QMONTH isosorbide mononitrate 30 mg tablet extended release 24 hr 30 mg PO QAM levothyroxine 200 mcg capsule 200 mcg PO DAILY multivitamin Tablet 1 tab PO DAILY omeprazole 20 mg capsule,delayed release(DR/EC) 20 mg PO BID Trulicity 1.5 mg/0.5 mL pen injector 1.5 mg subcut QWEEK aspirin 81 mg tablet,delayed release (DR/EC) 81 mg PO DAILY clonazepam 0.5 mg tablet 0.5 mg PO DAILY fluticasone propion-salmeterol 500-50 mcg/dose blister with device 1 inh inhalation BID loratadine 10 mg tablet 10 mg PO DAILY losartan 100 mg tablet 100 mg PO DAILY sucralfate 1 gram tablet 1 g PO BID Benefiber Sugar Free (dextrin) 3 gram/3.8 gram powder 1.5 g PO BID Rx Instructions: mix into at least 4 oz water or juice before administering vanilla boost PO B-complex with vitamin C Tablet 1 tab PO DAILY acetaminophen [Acetaminophen Extra Strength] 500 mg tablet 500 mg PO Q6H PRN magnesium gluconate 27 mg magnesium (500 mg) tablet 13.5 mg PO BID nystatin 100,000 unit/mL suspension 100,000 unit PO DAILY Rx Instructions: administer 1/2 of dose in each side of the mouth ropinirole 2 mg tablet 2 mg PO DAILY tramadol 50 mg tablet 25 mg PO TID famotidine 20 mg tablet 20 mg PO 1XD Trulicity 1.5 mg/0.5 mL pen injector 1.5 mg SUBCUT QWEEK
[2023-04-24 17:21] LABS: Troponin I < 50 ng/L (< or =60)
--- NOTE | 2023-04-24 17:25 | W.EDPROG ---
Date of service: 04/24/23 Time of Service: 17:25 Medical Decision Making Patient was signed out to me by my colleague Dr. Tejada. Please refer to HPI, physical exam, assessment and plan. At time of signout we are awaiting repeat troponin. Symptoms of. Notably inconsistent with ACS, however out of an abundance of precaution repeat troponin was ordered, secondary to her history. Repeat troponin is normal. Patient remains chest pain-free. Patient is notably adamant that she wants to leave immediately and she does not want to stay any longer and demands to go back to the [facility] immediately. Patient stable for discharge. Symptoms are inconsistent with ACS, STEMI, dissection, or PE. Discussed red flags for which to return. I have extensively reviewed the treatment plan and discharge instructions with the patient. I have addressed all patient concerns at this time. The patient was made aware of what symptoms to monitor for that would warrant a return to the emergency department. Discussed the plan with the patient, they demonstrate verbal understanding and agreement with our assessment and plan at this time. The documentation in this chart was dictated using Get[employer] dictation software. Please excuse any dictation errors. Quality:[facility] Health Related Social Needs: No Data to Display Sign Out Sign Out Data: Sign Out Comment: 67y F with history of CAD (4 stents) came in with neck pain. received ASA and nitro prior to arrival. has a patch on for chronic neck pain . got toradol with complete relief of symptoms. trop neg. BNP elevated, not acute. CXR unremarkable. Plan for trop #2 @1700. requesting to go home. If trop not elevated can be discharged home. Last updated by Jonathan Tejada MD at 04/24/23 15:56 Discharge Plan Discharge Details Chief Complaint: Chest Pain Clinical Impression: Chest discomfort Primary Care Provider: Shanna Rock ED Provider: Alvaro Lester Home Meds and New Rx's Prescriptions: No Action diphenoxylate-atropine 2.5-0.025 mg tablet 1 tab PO DAILY Rx Instructions: dose unverified. 02/05/22 EO cranberry 400 mg capsule See Rx Instructions PO DAILY Rx Instructions: orally daily; administer with a meal diclofenac sodium [Arthritis Pain (diclofenac)] 1 % gel See Rx Instructions topical .COMPLEX Rx Instructions: topically; apply to single elbow, wrist or hand; for hand includes palm/fingers/back of hand dicyclomine 20 mg tablet See Rx Instructions PO .COMPLEX Rx Instructions: orally; docusate sodium 100 mg capsule 100 mg PO DAILY ferrous sulfate 325 mg (65 mg iron) tablet 325 mg PO DAILY Lactobacillus acidophilus Capsule See Rx Instructions PO DAILY Rx Instructions: orally daily; loperamide [Anti-Diarrheal (loperamide)] 2 mg tablet See Rx Instructions PO Q6H PRN Rx Instructions: orally every 6 hours PRN; nitroglycerin [Nitrostat] 0.4 mg tablet, sublingual 0.4 mg sublingual Q5M PRN Rx Instructions: do not exceed 3 doses per episode atorvastatin 80 mg tablet 80 mg PO DAILY cholecalciferol (vitamin D3) 25 mcg (1,000 unit) capsule 25 mcg PO DAILY cyanocobalamin (vitamin B-12) 1,000 mcg/mL solution 1,000 mcg subcut QMONTH isosorbide mononitrate 30 mg tablet extended release 24 hr 30 mg PO QAM levothyroxine 200 mcg capsule 200 mcg PO DAILY multivitamin Tablet 1 tab PO DAILY omeprazole 20 mg capsule,delayed release(DR/EC) 20 mg PO BID Trulicity 1.5 mg/0.5 mL pen injector 1.5 mg subcut QWEEK aspirin 81 mg tablet,delayed release (DR/EC) 81 mg PO DAILY clonazepam 0.5 mg tablet 0.5 mg PO DAILY fluticasone propion-salmeterol 500-50 mcg/dose blister with device 1 inh inhalation BID loratadine 10 mg tablet 10 mg PO DAILY losartan 100 mg tablet 100 mg PO DAILY sucralfate 1 gram tablet 1 g PO BID Benefiber Sugar Free (dextrin) 3 gram/3.8 gram powder 1.5 g PO BID Rx Instructions: mix into at least 4 oz water or juice before administering vanilla boost PO B-complex with vitamin C Tablet 1 tab PO DAILY acetaminophen [Acetaminophen Extra Strength] 500 mg tablet 500 mg PO Q6H PRN magnesium gluconate 27 mg magnesium (500 mg) tablet 13.5 mg PO BID nystatin 100,000 unit/mL suspension 100,000 unit PO DAILY Rx Instructions: administer 1/2 of dose in each side of the mouth ropinirole 2 mg tablet 2 mg PO DAILY tramadol 50 mg tablet 25 mg PO TID famotidine 20 mg tablet 20 mg PO 1XD Trulicity 1.5 mg/0.5 mL pen injector 1.5 mg SUBCUT QWEEK Discharge Instructions Instructions: Chest Pain (ED) Additional Instructions: At this time your workup shows no evidence of heart attack. Your laboratory workup remains otherwise stable. If you notice any worsening of your symptoms, or any new symptoms such as vomiting, diarrhea, fever, chills, shortness of breath, chest pain, numbness, weakness, or fainting , please return immediately to the emergency department for reevaluation. Please follow up with your primary care provider as soon as possible for reassessment and reevaluation. As always, it was a pleasure participating in your medical care today. Referrals: Shanna Rock [Primary Care Provider] -
== END 2023-04-24 18:17 | disposition home or self-care (01) ==
PROVIDERS: Emergency Medicine; Emergency Provider Student in an Organized Health Care Education/Training Program; PCP Legal Medicine
DX: R07.9 Chest pain, unspecified (principal); I25.10 Atherosclerotic heart disease of native coronary artery without angina pectoris; I10 Essential (primary) hypertension; E78.5 Hyperlipidemia, unspecified; E11.9 Type 2 diabetes mellitus without complications; M06.9 Rheumatoid arthritis, unspecified; Z95.5 Presence of coronary angioplasty implant and graft; Z79.82 Long term (current) use of aspirin; Z79.84 Long term (current) use of oral hypoglycemic drugs
CPT/HCPCS: 00123; 80053; 93005; 96374; 99284; 71045; 83735; 83880; 84484; 85025; 93010; J1885

== ENCOUNTER 2023-05-21 08:48 | Emergency (ER) | payer MEDICARE, MEDICAID, SELFPAY ==
[2023-05-21 08:51] VITALS: BP 154/54; PULSE 90; RESP 30; TEMP 38.8; O2SAT 96
--- NOTE | 2023-05-21 09:06 | ED.GENADUL_ITS ---
HPI General Date/Time Provider Initiated Documentation: 05/21/23 09:03 . HPI Narrative: 67-year-old female history of bipolar disorder, hyperlipidemia, GERD, referred in from care facility for evaluation of tremors, patient feeling chilled. Endorses slight nausea. Related Data Home Medications Medication Instructions Recorded Confirmed Lactobacillus acidophilus See Rx Instructions PO DAILY 02/05/22 04/24/23 cranberry 400 mg capsule See Rx Instructions PO DAILY 02/05/22 02/04/23 diclofenac sodium 1 % topical gel See Rx Instructions topical 02/05/22 02/04/23 (Arthritis Pain (diclofenac)) .COMPLEX dicyclomine 20 mg tablet See Rx Instructions PO .COMPLEX 02/05/22 01/01/23 diphenoxylate-atropine 2.5 1 tab PO DAILY 02/05/22 01/09/23 mg-0.025 mg tablet docusate sodium 100 mg capsule 100 mg PO DAILY 02/05/22 01/09/23 ferrous sulfate 325 mg (65 mg 325 mg PO DAILY 02/05/22 01/09/23 iron) tablet loperamide 2 mg tablet See Rx Instructions PO Q6H PRN 02/05/22 04/24/23 (Anti-Diarrheal (loperamide)) nitroglycerin 0.4 mg sublingual 0.4 mg sublingual Q5M PRN 02/05/22 04/24/23 tablet (Nitrostat) atorvastatin 80 mg tablet 80 mg PO DAILY 04/16/22 02/04/23 cholecalciferol (vitamin D3) 25 25 mcg PO DAILY 04/16/22 04/24/23 mcg (1,000 unit) capsule cyanocobalamin (vitamin B-12) 1,000 mcg subcut QMONTH 04/16/22 02/04/23 1,000 mcg/mL injection solution isosorbide mononitrate 30 mg 30 mg PO QAM 04/16/22 04/24/23 tablet,extended release 24 hr levothyroxine 200 mcg capsule 200 mcg PO DAILY 04/16/22 04/24/23 multivitamin 1 tab PO DAILY 04/16/22 04/24/23 omeprazole 20 mg capsule,delayed 20 mg PO BID 04/16/22 04/24/23 release dulaglutide 1.5 mg/0.5 mL 1.5 mg subcut QWEEK 05/14/22 01/24/23 subcutaneous pen injector (Trulicity) B-complex with vitamin C 1 tab PO DAILY 12/19/22 04/24/23 acetaminophen 500 mg tablet 500 mg PO Q6H PRN 12/19/22 04/24/23 (Acetaminophen Extra Strength) aspirin 81 mg tablet,delayed 81 mg PO DAILY 12/19/22 04/24/23 release clonazepam 0.5 mg tablet 0.5 mg PO DAILY 12/19/22 02/04/23 fluticasone 500 mcg-salmeterol 50 1 inh inhalation BID 12/19/22 01/24/23 mcg/dose blistr powdr for inhalation loratadine 10 mg tablet 10 mg PO DAILY 12/19/22 04/24/23 losartan 100 mg tablet 100 mg PO DAILY 12/19/22 04/24/23 magnesium gluconate 27 mg 13.5 mg PO BID 12/19/22 04/24/23 magnesium (500 mg) tablet nystatin 100,000 unit/mL oral 100,000 unit PO DAILY 12/19/22 04/24/23 suspension ropinirole 2 mg tablet 2 mg PO DAILY 12/19/22 04/24/23 sucralfate 1 gram tablet 1 g PO BID 12/19/22 04/24/23 vanilla boost PO 12/19/22 01/24/23 wheat dextrin 3 gram/3.8 gram oral 1.5 g PO BID 12/19/22 04/24/23 powder (Benefiber Sugar Free (dextrin)) dulaglutide 1.5 mg/0.5 mL 1.5 mg subcut QWEEK 01/09/23 04/24/23 subcutaneous pen injector (Trulicity) famotidine 20 mg tablet 20 mg PO 1XD 01/09/23 01/24/23 tramadol 50 mg tablet 25 mg PO TID 04/24/23 04/24/23 Allergies Allergy/AdvReac Type Severity Reaction Status Date / Time polyethylene glycol 3350 Allergy Unknown Verified 04/24/23 14:02 acetaminophen [From Vicodin] Allergy Verified 04/24/23 14:02 amoxicillin Allergy Verified 01/24/23 11:51 azithromycin [From Zithromax] Allergy Verified 04/24/23 14:02 benzonatate Allergy Verified 04/24/23 14:02 buspirone [From BuSpar] Allergy Verified 04/24/23 14:02 cephalexin [From Keflex] Allergy Verified 01/24/23 11:51 clavulanic acid Allergy Verified 04/24/23 14:02 [From Augmentin] clonazepam [From Klonopin] Allergy Verified 04/24/23 14:02 diazepam [From Valium] Allergy Verified 04/24/23 14:02 gemfibrozil Allergy Verified 04/24/23 14:02 hydrocodone [From Vicodin] Allergy Verified 04/24/23 14:02 monosodium glutamate Allergy Verified 04/24/23 14:02 morphine Allergy Verified 04/24/23 14:02 nitrofurantoin Allergy Verified 04/24/23 14:02 [From Macrobid] Penicillins Allergy Verified 04/24/23 14:02 prednisone Allergy Verified 04/24/23 14:02 Sulfa (Sulfonamide Allergy Verified 04/24/23 14:02 Antibiotics) Tetanus Vaccines and Toxoid Allergy Verified 04/24/23 14:02 tramadol Allergy Verified 04/24/23 14:02 morphine Allergy Unknown Uncoded 04/24/23 14:02 nitrofurantoin Allergy Unknown Uncoded 04/24/23 14:02 General Stated Complaint: GenMedical JOESPH: 3 Review of Systems Narrative: Review of Systems Constitutional: Fever, chills Eyes: negative ENT: negative Cardiovascular: negative Respiratory: negative Gastrointestinal: negative : negative Musculoskeletal: negative Skin: negative Neurologic: negative Psych: negative Exam Narrative Exam Narrative: Physical Examination General: alert, awake, cooperative, resting comfortably, no acute distress HEENT: normocephalic, atraumatic; PERRL, EOM intact, conjunctiva normal; no nasal discharge; dry oral mucosa Neck: supple, trachea midline; full ROM Chest: normal to inspection Respiratory: normal respiratory effort, speaking in full sentences, clear to auscultation, no wheezing, rales or rhonchi Cardiac: regular rate, regular rhythm, S1S2 intact, no murmurs rubs or gallops GI: abdomen soft, non-tender, non-distended; no palpable mass or hepatosplenomegaly Skin: Poor skin turgor, dry Neuro: AAOx3, normal speech, moving all extremities, 5 out of 5 strength upper and lower extremities following commands cranial nerves II through XII intact, no truncal ataxia Extremities: No peripheral edema Psych: Appropriate mood and affect Course Vital Signs Vital signs: Vital Signs Temperature 38.8 C H 05/21/23 08:51 Pulse 90 05/21/23 08:51 Respiratory Rate 30 H 05/21/23 08:51 Blood Pressure 154/54 H 05/21/23 08:51 Pulse Oximetry 96 05/21/23 08:51 Temperature 38.8 C H 05/21/23 08:51 Temperature Source Oral 05/21/23 08:51 Pulse 90 05/21/23 08:51 Respiratory Rate 30 H 05/21/23 08:51 Blood Pressure 154/54 H 05/21/23 08:51 Blood Pressure Position Supine 05/21/23 08:51 Pulse Oximetry 96 05/21/23 08:51 Oxygen Delivery Method Room Air 05/21/23 08:51 Oxygen Flow Rate 0 05/21/23 08:51 Pain Level 0 05/21/23 08:51 Medical Decision Making 67-year-old female presents referred in from care facility for evaluation of tremors, patient feeling chilled noted to have a fever. No active tremors currently. Likely observed tremors or rigors. Noted to be febrile on arrival. No respiratory distress, lungs clear bilaterally, abdomen soft nontender nondistended, dry oral mucosa poor skin turgor no peripheral edema. Likely component of dehydration. Consider viral illness such as influenza or COVID must also consider pneumonia versus UTI. Will obtain screening labs, will provide fluids antipyretic antiemetic close reassessment of symptoms and results to determine disposition. 9: 46 patient refusing x-ray and further medical evaluation. Patient requesting to return to her care facility. Noted to have hyperkalemia and CKD. Will reassess after fluids and acetaminophen have completed. 10: 00 patient removed her own IV. Asking to be transported back home. Will arrange transportation. Patient will be leaving AGAINST MEDICAL ADVICE Quality:SDOH Health Related Social Needs: No Data to Display PFSH All Active Problems (Updated 05/21/23 @ 10:01 by Wu Petit MD) Hyperkalemia (Acute) Fever (Acute) Chest discomfort (Acute) Wears hearing aid in both ears (Acute) Conductive hearing loss, external ear (Acute) Impacted cerumen, bilateral (Acute) Nontraumatic intracerebral hemorrhage (Acute) Acquired cystic kidney disease (Acute) Megaloblastic anemia due to B12 deficiency (Acute) Hyperlipidemia (Acute) Degeneration of lumbar intervertebral disc (Acute) Bipolar 1 disorder (Acute) Benign essential hypertension (Acute) Chronic GERD (Acute) Asthma (Chronic) Fibromyalgia (Acute) Turners syndrome (Acute) Bipolar affective disorder (Acute) Nail dystrophy (Acute) Corns and callosities (Acute) Elevated LFTs (Acute) Gout (Chronic) Hypercalcemia (Acute) Hyperparathyroidism (Acute) Hypertension (Chronic) Restless legs syndrome (RLS) (Acute) Rheumatoid arthritis (Chronic) Hypothyroidism (Chronic) Diabetes mellitus (Chronic) CAD (coronary artery disease) (Chronic) Sensorineural hearing loss (SNHL) of both ears (Acute) Medical History Abnormal auditory perception of both ears (12/25/16) Allergic rhinitis Sciatica IBS (irritable bowel syndrome) B12 deficiency anemia Surgical History History of parathyroidectomy History of hysterectomy Hx of tonsillectomy History of foot surgery Left foot; multiple fibroma excisions Social History Smoking/Tobacco Use Status: Never Smoking risk assessment performed?: Yes Alcohol Intake: never Drug use: Never Substance use type: does not use Household members: none Housing: retirement Number of Children: 0 current occupation: disabled Do you feel safe at home: Yes Do you feel safe in your relationship?: Yes Additional Social history: Lives at the [facility] 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 Discharge Plan Disposition Patient Disposition: Against Medical Advice Condition: Stable Discharge Details Chief Complaint: GenMedical Clinical Impression: Fever, Hyperkalemia Primary Care Provider: Shanna Rock ED Provider: Wu Petit [place] Meds and New Rx's Prescriptions: No Action diphenoxylate-atropine 2.5-0.025 mg tablet 1 tab PO DAILY Rx Instructions: dose unverified. 02/05/22 EO cranberry 400 mg capsule See Rx Instructions PO DAILY Rx Instructions: orally daily; administer with a meal diclofenac sodium [Arthritis Pain (diclofenac)] 1 % gel See Rx Instructions topical .COMPLEX Rx Instructions: topically; apply to single elbow, wrist or hand; for hand includes palm /fingers/back of hand dicyclomine 20 mg tablet See Rx Instructions PO .COMPLEX Rx Instructions: orally; docusate sodium 100 mg capsule 100 mg PO DAILY ferrous sulfate 325 mg (65 mg iron) tablet 325 mg PO DAILY Lactobacillus acidophilus Capsule See Rx Instructions PO DAILY Rx Instructions: orally daily; loperamide [Anti-Diarrheal (loperamide)] 2 mg tablet See Rx Instructions PO Q6H PRN Rx Instructions: orally every 6 hours PRN; nitroglycerin [Nitrostat] 0.4 mg tablet, sublingual 0.4 mg sublingual Q5M PRN Rx Instructions: do not exceed 3 doses per episode atorvastatin 80 mg tablet 80 mg PO DAILY cholecalciferol (vitamin D3) 25 mcg (1,000 unit) capsule 25 mcg PO DAILY cyanocobalamin (vitamin B-12) 1,000 mcg/mL solution 1,000 mcg subcut QMONTH isosorbide mononitrate 30 mg tablet extended release 24 hr 30 mg PO QAM levothyroxine 200 mcg capsule 200 mcg PO DAILY multivitamin Tablet 1 tab PO DAILY omeprazole 20 mg capsule,delayed release(DR/EC) 20 mg PO BID Trulicity 1.5 mg/0.5 mL pen injector 1.5 mg subcut QWEEK aspirin 81 mg tablet,delayed release (DR/EC) 81 mg PO DAILY clonazepam 0.5 mg tablet 0.5 mg PO DAILY fluticasone propion-salmeterol 500-50 mcg/dose blister with device 1 inh inhalation BID loratadine 10 mg tablet 10 mg PO DAILY losartan 100 mg tablet 100 mg PO DAILY sucralfate 1 gram tablet 1 g PO BID Benefiber Sugar Free (dextrin) 3 gram/3.8 gram powder 1.5 g PO BID Rx Instructions: mix into at least 4 oz water or juice before administering vanilla boost PO B-complex with vitamin C Tablet 1 tab PO DAILY acetaminophen [Acetaminophen Extra Strength] 500 mg tablet 500 mg PO Q6H PRN magnesium gluconate 27 mg magnesium (500 mg) tablet 13.5 mg PO BID nystatin 100,000 unit/mL suspension 100,000 unit PO DAILY Rx Instructions: administer 1/2 of dose in each side of the mouth ropinirole 2 mg tablet 2 mg PO DAILY tramadol 50 mg tablet 25 mg PO TID famotidine 20 mg tablet 20 mg PO 1XD Trulicity 1.5 mg/0.5 mL pen injector 1.5 mg SUBCUT QWEEK Discharge Instructions Instructions: Fever in Adults (ED) Additional Instructions: Please follow closely with your primary care physician.
[2023-05-21] MEDS: Ondansetron 4 MG/2 ML VIAL IVP (09:30)
[2023-05-21] MEDS: Normal Saline 1,000 ML 1000 ML IV (09:30)
[2023-05-21] MEDS: ACETAMINOPHEN 1,000 MG/100 ML BTL 400 MG IVPB (09:30)
[2023-05-21 09:39] LABS: ALT 104 U/L (14-59); AST 140 U/L (15-37); Albumin 2.9 g/dL (3.4-5.0); Alkaline Phosphatase 130 U/L (46-116); Anion Gap 16.4 mmol/L (3-11); BUN 42 mg/dL (7-18); Bilirubin, Total 0.4 mg/dL (0.2-1.0); CO2 15.6 mmol/L (21.0-32.0); Calcium 9.3 mg/dL (8.5-10.1); Chloride 107 mmol/L (98-107); Estimated GFR 26.71 (mL/min/1.73m2); Glucose 337 mg/dL (74-106); Potassium 5.6 mmol/L (3.5-5.1); Sodium 139 mmol/L (136-145); Total Protein 6.8 g/dL (6.4-8.2)
[2023-05-21 10:04] LABS: Abs Immature Grans 0.07 10^3/uL (0.0-0.06); Absolute Basophil Count 0.02 10^3/uL (0.0-0.2); Absolute Monocyte Count 0.34 10^3/uL (0.1-0.8); Absolute Neutrophil Count 3.62 10^3/uL (1.2-6.7); Basophils % 0.4; HCT 30.5 % (36.0-46.0); Immature Grans % 1.6; MCH 29.9 pg (27.0-33.0); MCHC 32.8 % (32.0-36.0); MCV 91 fL (80-95); Monocytes % 7.6; Neutrophils % 81.4; RBC 3.35 10^6/uL (3.93-5.22); RDW 13.3 % (11.7-14.6); RDW-SD 44.2 fL; WBC 4.45 10^3/uL (4.4-10.8)
[2023-05-21 10:36] LABS: Diff Comment Diff Reviewed; Platelet Count 92 10^3/uL (130-400); RBC Morphology Normal
[2023-05-21 10:38] VITALS: BP 154/54; PULSE 90; RESP 30; TEMP 38.8; O2SAT 96
== END 2023-05-21 10:36 | disposition left against medical advice (07) ==
PROVIDERS: Emergency Provider Emergency Medicine; PCP Legal Medicine
DX: R50.9 Fever, unspecified (principal); E87.5 Hyperkalemia; I10 Essential (primary) hypertension; E78.5 Hyperlipidemia, unspecified; E11.9 Type 2 diabetes mellitus without complications; M06.9 Rheumatoid arthritis, unspecified; Z79.899 Other long term (current) drug therapy; Z79.82 Long term (current) use of aspirin
CPT/HCPCS: 80053; 96361; 96374; 96375; 99283; 85025; J0131; J2405

== ENCOUNTER 2023-05-25 13:29 | Inpatient (IN) | payer MEDICARE, MEDICAID, SELFPAY ==
[2023-05-25] VITALS (18 sets, daily range): BP systolic 93–137; BP diastolic 53–91; PULSE 78–85; RESP 15–27; TEMP 36.7–37.6; O2SAT 93–99
--- NOTE | 2023-05-25 13:25 | ED.GENADUL_ITS ---
HPI General Date/Time Provider Initiated Documentation: 05/25/23 13:39 . HPI Narrative: MDM This is a chronically ill-appearing normothermic and not tachycardic 67-year-old female with chest pain dysphagia fever cough concerning for possibility of aspiration pneumonia. Presentation is concerning for possible sepsis so we will order 2 sets of blood cultures lactate check a chest x-ray to straight catheter urinalysis and treat empirically with clindamycin and metronidazole given cephalosporin allergy. Will obtain ECG and troponin to assess for ACS as patient does have history of coronary artery disease. Diminished but equal breath sounds so I am not concerned for pneumothorax. Patient has not been vomiting to suggest increased risk for esophageal rupture but given dysphagia with fever I am concerned for the possibility of an esophageal tear so will obtain CT chest abdomen pelvis. Will also order a D-dimer prior to CT scan to assess for the possibility of PE given chest pain and shortness of breath. No pain out of proportion to suggest necrotizing soft tissue infection. No focal neurological deficits to suggest CVA. No reported dysuria nor frequency to suggest UTI. No rash to chest to suggest zoster. No tearing quality to suggest aortic dissection. Patient has had diarrhea but no recent antibiotics, suspicion is low for C. difficile. She is handling her secretions so my suspicion is low esophageal food impaction. 2:38 PM Negative initial troponin. Reassuring normal lactate. CBC with mild leukopenia similar to prior. More significant anemia normocytic with a hemoglobin of 8.6. Thrombocytopenia improved compared to prior comprehensive metabolic panel showing normal sodium normal potassium. Mild anion gap acidosis. Mildly elevated BUN of 55. CKD with ALLAN. Mild hyperglycemia but given very mild decrease in bicarbonate my suspicion for DKA is low. COVID flu influenza negative. 2:55 PM Patient had a positive D-dimer however given her GFR less than [address] angiogram for PE. Will complete dry CT chest abdomen pelvis in setting of dysphagia to ensure that the patient does not have any esophageal tears and to increase sensitivity for pneumonia as chest x-ray was read as no acute cardiopulmonary process. Anticipate patient will benefit from therapeutic enoxaparin prior to obtaining a VQ scan. Anticipate patient will require hospitalization. 3:45 PM Urinalysis consistent with UTI given nitrite positive urine. Microscopy showing pyuria with bacteriuria. Given penicillin allergy will treat with gentamicin and hospitalize patient. 3:[address] chest showing mild subsegmental atelectasis versus scarring and trace left pleural effusion. CT abdomen pelvis with no acute findings. Will treat with enoxaparin 1 mg/kg and reach out to the hospitalist team. 4:15 PM I spoke with Dr. Garcia who agreed graciously to accept the patient for hospitalization. Given patient's ALLAN will switch gentamicin to imipenem. I updated patient on plan for hospitalization. Chronic conditions affecting the care of the patient: Anemia coronary artery disease bipolar disorder History obtained from an outside historian: Prehospital provider External record review: [facility] [place] EMR Diagnostic interpretations performed by me: Per my independent interpretation chest x-ray shows:Concerning for right-sided infiltrate though slightly rotated. Per my independent interpretation EKG shows: Normal sinus rhythm at a rate of 85. Normal axis. Prolonged QTc at 503 ms. Interventricular conduction delay consistent with bifascicular block??right bundle branch block and left posterior fascicular block. No acute injury pattern. Compared to prior dated last month ECG appears similar. ]Medications: Broad-spectrum antibiotics 500 cc fluid bolus Social determinants of health affecting disposition: N/A Management discussed with: Hospitalist team Treatment/interventions considered: N/A Response to therapies provided: N/A HPI This is a 67-year-old female with past medical history including CAD, 4 stents, bipolar, anemia presents to the emergency department setting with chest pain and fever. Patient reportedly has had difficulty swallowing and a cough for the past 2 weeks. She has not had anything to eat for the past 3 days. She was febrile for paramedics up to 100 ?F as taken tympanically. She reports aching all over. She has not been vomiting but she does complain of central chest pain. She has not been able to ambulate as well recently secondary to her generalized weakness. She has had several episodes of diarrhea per day for the past several days. No history of recent antibiotics. She comes from a alf facility. She has paperwork with her showing that she is a DNI DNR. No reported recent falls. Exam General: Chronically ill-appearing in no acute distress speaking in complete sentences. Head: Normocephalic, atraumatic. Eye: Extraocular eye movements intact. No conjunctival injection. No scleral icterus. Ear, nose, mouth, throat: Grossly normal inspection. Normal voice, handling secretions normally. Neck: Trachea midline. Cardiovascular: Well-perfused distal extremities. Regular rate and rhythm. Respiratory: Nonlabored respiration. Diminished breath sounds at the bases. Gastrointestinal: Nondistended abdomen. Soft nontender. No rebound. No guarding. Musculoskeletal: No edema. Moving all 4 extremities spontaneously. Skin: Normal for age and race, grossly normal temperature and turgor. No acute rash. Neurologic: Alert and appropriate, no apparent acute deficits. GCS 15. Psychiatric: Mood and manner are appropriate. Grooming and personal hygiene are appropriate. Related Data Home Medications Medication Instructions Recorded Confirmed Lactobacillus acidophilus See Rx Instructions PO DAILY 02/05/22 04/24/23 cranberry 400 mg capsule See Rx Instructions PO DAILY 02/05/22 02/04/23 diclofenac sodium 1 % topical gel See Rx Instructions topical 02/05/22 02/04/23 (Arthritis Pain (diclofenac)) .COMPLEX dicyclomine 20 mg tablet See Rx Instructions PO .COMPLEX 02/05/22 01/01/23 diphenoxylate-atropine 2.5 1 tab PO DAILY 02/05/22 01/09/23 mg-0.025 mg tablet docusate sodium 100 mg capsule 100 mg PO DAILY 02/05/22 01/09/23 ferrous sulfate 325 mg (65 mg 325 mg PO DAILY 02/05/22 01/09/23 iron) tablet loperamide 2 mg tablet See Rx Instructions PO Q6H PRN 02/05/22 04/24/23 (Anti-Diarrheal (loperamide)) nitroglycerin 0.4 mg sublingual 0.4 mg sublingual Q5M PRN 02/05/22 04/24/23 tablet (Nitrostat) atorvastatin 80 mg tablet 80 mg PO DAILY 04/16/22 02/04/23 cholecalciferol (vitamin D3) 25 25 mcg PO DAILY 04/16/22 04/24/23 mcg (1,000 unit) capsule cyanocobalamin (vitamin B-12) 1,000 mcg subcut QMONTH 04/16/22 02/04/23 1,000 mcg/mL injection solution isosorbide mononitrate 30 mg 30 mg PO QAM 04/16/22 04/24/23 tablet,extended release 24 hr levothyroxine 200 mcg capsule 200 mcg PO DAILY 04/16/22 04/24/23 multivitamin 1 tab PO DAILY 04/16/22 04/24/23 omeprazole 20 mg capsule,delayed 20 mg PO BID 04/16/22 04/24/23 release dulaglutide 1.5 mg/0.5 mL 1.5 mg subcut QWEEK 05/14/22 01/24/23 subcutaneous pen injector (Trulicity) B-complex with vitamin C 1 tab PO DAILY 12/19/22 04/24/23 acetaminophen 500 mg tablet 500 mg PO Q6H PRN 12/19/22 04/24/23 (Acetaminophen Extra Strength) aspirin 81 mg tablet,delayed 81 mg PO DAILY 12/19/22 04/24/23 release clonazepam 0.5 mg tablet 0.5 mg PO DAILY 12/19/22 02/04/23 fluticasone 500 mcg-salmeterol 50 1 inh inhalation BID 12/19/22 01/24/23 mcg/dose blistr powdr for inhalation loratadine 10 mg tablet 10 mg PO DAILY 12/19/22 04/24/23 losartan 100 mg tablet 100 mg PO DAILY 12/19/22 04/24/23 magnesium gluconate 27 mg 13.5 mg PO BID 12/19/22 04/24/23 magnesium (500 mg) tablet nystatin 100,000 unit/mL oral 100,000 unit PO DAILY 12/19/22 04/24/23 suspension ropinirole 2 mg tablet 2 mg PO DAILY 12/19/22 04/24/23 sucralfate 1 gram tablet 1 g PO BID 12/19/22 04/24/23 vanilla boost PO 12/19/22 01/24/23 wheat dextrin 3 gram/3.8 gram oral 1.5 g PO BID 12/19/22 04/24/23 powder (Benefiber Sugar Free (dextrin)) dulaglutide 1.5 mg/0.5 mL 1.5 mg subcut QWEEK 01/09/23 04/24/23 subcutaneous pen injector (Trulicity) famotidine 20 mg tablet 20 mg PO 1XD 01/09/23 01/24/23 tramadol 50 mg tablet 25 mg PO TID 04/24/23 04/24/23 Allergies Allergy/AdvReac Type Severity Reaction Status Date / Time polyethylene glycol 3350 Allergy Unknown Verified 04/24/23 14:02 acetaminophen [From Vicodin] Allergy Verified 04/24/23 14:02 amoxicillin Allergy Verified 01/24/23 11:51 azithromycin [From Zithromax] Allergy Verified 04/24/23 14:02 benzonatate Allergy Verified 04/24/23 14:02 buspirone [From BuSpar] Allergy Verified 04/24/23 14:02 cephalexin [From Keflex] Allergy Verified 01/24/23 11:51 clavulanic acid Allergy Verified 04/24/23 14:02 [From Augmentin] clonazepam [From Klonopin] Allergy Verified 04/24/23 14:02 diazepam [From Valium] Allergy Verified 04/24/23 14:02 gemfibrozil Allergy Verified 04/24/23 14:02 hydrocodone [From Vicodin] Allergy Verified 04/24/23 14:02 monosodium glutamate Allergy Verified 04/24/23 14:02 morphine Allergy Verified 04/24/23 14:02 nitrofurantoin Allergy Verified 04/24/23 14:02 [From Macrobid] Penicillins Allergy Verified 04/24/23 14:02 prednisone Allergy Verified 04/24/23 14:02 Sulfa (Sulfonamide Allergy Verified 04/24/23 14:02 Antibiotics) Tetanus Vaccines and Toxoid Allergy Verified 04/24/23 14:02 tramadol Allergy Verified 04/24/23 14:02 morphine Allergy Unknown Uncoded 04/24/23 14:02 nitrofurantoin Allergy Unknown Uncoded 04/24/23 14:02 General JOESPH: 3 Medical Decision Making Quality:SDOH Health Related Social Needs: No Data to Display PFSH All Active Problems (Updated 05/25/23 @ 16:19 by Mayito Nadiu MD) Acute UTI (Acute) Dysphagia (Acute) ALLAN (acute kidney injury) (Acute) Prolonged QT interval (Acute) Hyperkalemia (Acute) Fever (Acute) Wears hearing aid in both ears (Acute) Conductive hearing loss, external ear (Acute) Impacted cerumen, bilateral (Acute) Nontraumatic intracerebral hemorrhage (Acute) Acquired cystic kidney disease (Acute) Megaloblastic anemia due to B12 deficiency (Acute) Hyperlipidemia (Acute) Degeneration of lumbar intervertebral disc (Acute) Bipolar 1 disorder (Acute) Benign essential hypertension (Acute) Chronic GERD (Acute) Asthma (Chronic) Fibromyalgia (Acute) Turners syndrome (Acute) Bipolar affective disorder (Acute) Nail dystrophy (Acute) Corns and callosities (Acute) Elevated LFTs (Acute) Gout (Chronic) Hypercalcemia (Acute) Hyperparathyroidism (Acute) Hypertension (Chronic) Restless legs syndrome (RLS) (Acute) Rheumatoid arthritis (Chronic) Hypothyroidism (Chronic) Diabetes mellitus (Chronic) CAD (coronary artery disease) (Chronic) Sensorineural hearing loss (SNHL) of both ears (Acute) Medical History Abnormal auditory perception of both ears (12/25/16) Allergic rhinitis Sciatica IBS (irritable bowel syndrome) B12 deficiency anemia Surgical History History of parathyroidectomy History of hysterectomy Hx of tonsillectomy History of foot surgery Left foot; multiple fibroma excisions Social History Smoking/Tobacco Use Status: Never Smoking risk assessment performed?: Yes Alcohol Intake: never Drug use: Never Substance use type: does not use Household members: none Housing: jail Number of Children: 0 current occupation: disabled Do you feel safe at home: Yes Do you feel safe in your relationship?: Yes Additional Social history: Lives at the [facility] [place], RN 04/24/23 Discharge Plan Disposition Patient Disposition: Admit to [facility] Discharge Details Clinical Impression: Prolonged QT interval, ALLAN (acute kidney injury), Dysphagia, Acute UTI Primary Care Provider: Shanna Rock ED Provider: Mayito Naidu [place] Meds and New Rx's Prescriptions: No Action diphenoxylate-atropine 2.5-0.025 mg tablet 1 tab PO DAILY Rx Instructions: dose unverified. 02/05/22 EO cranberry 400 mg capsule See Rx Instructions PO DAILY Rx Instructions: orally daily; administer with a meal diclofenac sodium [Arthritis Pain (diclofenac)] 1 % gel See Rx Instructions topical .COMPLEX Rx Instructions: topically; apply to single elbow, wrist or hand; for hand includes palm/fingers/back of hand dicyclomine 20 mg tablet See Rx Instructions PO .COMPLEX Rx Instructions: orally; docusate sodium 100 mg capsule 100 mg PO DAILY ferrous sulfate 325 mg (65 mg iron) tablet 325 mg PO DAILY Lactobacillus acidophilus Capsule See Rx Instructions PO DAILY Rx Instructions: orally daily; loperamide [Anti-Diarrheal (loperamide)] 2 mg tablet See Rx Instructions PO Q6H PRN Rx Instructions: orally every 6 hours PRN; nitroglycerin [Nitrostat] 0.4 mg tablet, sublingual 0.4 mg sublingual Q5M PRN Rx Instructions: do not exceed 3 doses per episode atorvastatin 80 mg tablet 80 mg PO DAILY cholecalciferol (vitamin D3) 25 mcg (1,000 unit) capsule 25 mcg PO DAILY cyanocobalamin (vitamin B-12) 1,000 mcg/mL solution 1,000 mcg subcut QMONTH isosorbide mononitrate 30 mg tablet extended release 24 hr 30 mg PO QAM levothyroxine 200 mcg capsule 200 mcg PO DAILY multivitamin Tablet 1 tab PO DAILY omeprazole 20 mg capsule,delayed release(DR/EC) 20 mg PO BID Trulicity 1.5 mg/0.5 mL pen injector 1.5 mg subcut QWEEK aspirin 81 mg tablet,delayed release (DR/EC) 81 mg PO DAILY clonazepam 0.5 mg tablet 0.5 mg PO DAILY fluticasone propion-salmeterol 500-50 mcg/dose blister with device 1 inh inhalation BID loratadine 10 mg tablet 10 mg PO DAILY losartan 100 mg tablet 100 mg PO DAILY sucralfate 1 gram tablet 1 g PO BID Benefiber Sugar Free (dextrin) 3 gram/3.8 gram powder 1.5 g PO BID Rx Instructions: mix into at least 4 oz water or juice before administering vanilla boost PO B-complex with vitamin C Tablet 1 tab PO DAILY acetaminophen [Acetaminophen Extra Strength] 500 mg tablet 500 mg PO Q6H PRN magnesium gluconate 27 mg magnesium (500 mg) tablet 13.5 mg PO BID nystatin 100,000 unit/mL suspension 100,000 unit PO DAILY Rx Instructions: administer 1/2 of dose in each side of the mouth ropinirole 2 mg tablet 2 mg PO DAILY tramadol 50 mg tablet 25 mg PO TID famotidine 20 mg tablet 20 mg PO 1XD Trulicity 1.5 mg/0.5 mL pen injector 1.5 mg SUBCUT QWEEK
--- NOTE | 2023-05-25 13:30 | DI.RAD_ITS ---
Exam(s) XR PORTABLE CHEST AP EXAM: XR PORTABLE CHEST AP CLINICAL HISTORY: Shortness of breath fever TECHNIQUE: 2D digital imaging was performed. COMPARISON: CR XR PORTABLE CHEST AP from 04/24/2023 FINDINGS: Exam limited by poor pulmonary inflation. Leads overlie the chest. LUNGS: Clear where visualized. No pleural abnormality seen. HEART: Normal size. AORTA: Normal diameter. BONES: Unremarkable for age. Soft tissues: Unremarkable. IMPRESSION: Limited exam. No acute findings. DATA REPOSITORY: RADIATION DOSE DELIVERED:
--- NOTE | 2023-05-25 13:45 | RT.EKG_ITS ---
APPROVED REPORT Exam: Resting ECG Reason for Exam: Chest pain Patient Location: E HR:85 bpm ECG Measurements Heart Rate 85 AXIS IA 175 P 67 QRSd 136 QRS 91 QT 422 T 46 QTc 503 Conclusion Sinus rhythm...normal P axis, V-rate 60- 99 RBBB and LPFB...QRSd >120mS, axis(90,210) Anterolateral infarct, age indeterminate...Q >35mS, flat/neg T, V3-V6,I,aVL Normal sinus rhythm at a rate of 85. Normal axis. Prolonged QTc at 503 ms. Interventricular conduc tion delay consistent with bifascicular block?right bundle branch block and left posterior fasci cular block. No acute injury pattern. Compared to prior dated last month ECG appears similar.
[2023-05-25 14:13] LABS: Lactate 0.8 mmol/L (0.6-1.4)
[2023-05-25] MEDS: Normal Saline 500 ML IV (14:13)
[2023-05-25 14:16] LABS: Abs Immature Grans 0.03 10^3/uL (0.0-0.06); Absolute Basophil Count 0.02 10^3/uL (0.0-0.2); Absolute Eosinophil Count 0.01 10^3/uL (0.0-0.7); Absolute Lymphocyte Count 0.76 10^3/uL (1.2-3.4); Absolute Monocyte Count 0.31 10^3/uL (0.1-0.8); Absolute Neutrophil Count 3.21 10^3/uL (1.2-6.7); Basophils % 0.5; Eosinophils % 0.2; HCT 26.5 % (36.0-46.0); HGB 8.6 g/dL (11.2-15.7); Immature Grans % 0.7; Lymphocytes % 17.5; MCH 29.4 pg (27.0-33.0); MCHC 32.5 % (32.0-36.0); MCV 90 fL (80-95); MPV 9.6 fL (8.0-11.0); Monocytes % 7.1; Platelet Count 101 10^3/uL (130-400); RBC 2.93 10^6/uL (3.93-5.22); RDW 13.1 % (11.7-14.6); RDW-SD 43.2 fL; WBC 4.34 10^3/uL (4.4-10.8)
[2023-05-25] MEDS: metroNIDAZOLE 500 MG/100 ML BAG 100 MG IVPB (14:30)
[2023-05-25 14:32] LABS: ALT 35 U/L (14-59); AST 12 U/L (15-37); Albumin 2.4 g/dL (3.4-5.0); Alkaline Phosphatase 110 U/L (46-116); Anion Gap 12.5 mmol/L (3-11); BUN 55 mg/dL (7-18); Bilirubin, Total 0.3 mg/dL (0.2-1.0); CO2 20.5 mmol/L (21.0-32.0); CREATININE 2.6 mg/dL (0.55-1.02); Chloride 109 mmol/L (98-107); Glucose 205 mg/dL (74-106); Potassium 4.4 mmol/L (3.5-5.1); Sodium 142 mmol/L (136-145); Total Protein 6.3 g/dL (6.4-8.2); Troponin I < 50 ng/L (< or =60)
[2023-05-25 14:38] LABS: COVID-19 PCR Negative (Negative); Influenza A PCR Negative (Negative); Influenza B PCR Negative (Negative); RSV PCR Negative (Negative); Source Nasopharynx
--- NOTE | 2023-05-25 14:45 | DI.VRAD_ITS ---
PROCEDURE INFORMATION: Exam: XR Chest Exam date and time: 05/25/2023 2:32 PM Age: 67 years old Clinical indication: Other: Shortness of breath/fever TECHNIQUE: Imaging protocol: Radiologic exam of the chest. Views: 1 view. COMPARISON: CR XR PORTABLE CHEST AP 04/24/2023 2:22 PM FINDINGS: Lungs: Hypoventilation with low lung volumes but no obvious acute infiltrate detected. Pleural spaces: No large effusions are seen. Heart/Mediastinum: Heart size is stable compared to 04/24/2023. No pulmonary vascular congestion. Bones/joints: No obvious acute abnormality. IMPRESSION: No acute cardiopulmonary abnormality detected on AP portable chest radiograph. Dictated and Authenticated by: Aleksander Donato MD. Ordering:JOE Edmond MD
--- NOTE | 2023-05-25 14:45 | DI.CT_ITS ---
Exam(s) CT CHEST/ABD/PEL WO EXAM: CT CHEST/ABD/PEL WO CLINICAL HISTORY: Dysphagia chest pain. TECHNIQUE: Imaging Protocol: Axial computed tomography images with coronal and sagittal reformatted images were created and reviewed CONTRAST MATERIAL: Intravenous: Omnipaque 350 Contrast volume:100 ml Oral: no COMPARISON: CT CT CHEST PE ABD PELVIS W from 12/13/2022 FINDINGS: CHEST: Exam limited by respiratory motion Tracheobronchial tree: Patent where visualized. Pulmonary parenchyma: Limited by respiratory motion. Basilar atelectasis. No consolidation or domin ant measurable mass. Pleura: No effusion or pneumothorax. Lymph nodes: Within normal limits. Aorta: Thoracic portion non-dilated. Mild atherosclerotic calcification. Heart: No pericardial effusion. Coronary arteries heavily calcified. Bones: Unremarkable for age. No lytic or blastic lesions.No compression fractures. Soft tissues: Unremarkable. ABDOMEN and PELVIS: Liver: Normal density. No measurable mass. Gallbladder and biliary tract: Status post cholecystectomy. No biliary dilatation. Pancreas: Normal density, no abnormal calcifications or inflammatory process. Spleen: Normal. Kidneys: Normal size, contour and axis. No radiodense stones. No obstructive uropathy. No suspicious masses seen. Adrenal glands: No masses seen. Aorta: Abdominal portion non-dilated. Lymph nodes: Within normal limits. Soft tissues: Mild edema in the left lower quadrant subcutaneous fat. Could represent injection site . Bladder: Unremarkable. Bowel: No obstruction or bowel wall thickening. Some gaseous distension of the colon. Normal quantit y of stool. Stomach not well of arrows 0 8 it, completely empty and contracted. Peritoneal cavity: No ascites. No focal collection. No mesenteric inflammatory response. Bones: Unremarkable for age. Reproductive organs: Status post hysterectomy peer IMPRESSION: No acute abnormality in the chest, abdomen or pelvis.. Lungs not well evaluated due to respiratory motion. Basilar atelectasis. RADIATION DOSE DELIVERED: Total DLP DATA REPOSITORY: All CT scans at this facility are submitted to the National Radiology Data Registry (NRDR) Dose Index Registry (DIR) with the [employer] (ACR). RADIATION OPTIMIZATION: All CT scans at this facility use at least one of these dose optimization te chniques: automated exposure control; mA and/or kV adjustment per patient size (includes targeted exa ms where dose is matched to clinical indication); or iterative reconstruction.
[2023-05-25 14:46] LABS: D-Dimer 1138 ng/mlFEU (<500)
[2023-05-25 15:16] LABS: Bilirubin Negative (Negative); Blood Trace-lysed (Negative); Clarity Clear (Clear); Glucose Negative (Negative); Ketones Negative (Negative); Leukocyte Esterase Small (Negative); Nitrite Positive (Negative); Urobilinogen 0.2 mg/dL (Up to 0.2)
[2023-05-25] MEDS: CLINDAMYCIN 300 MG/50 ML BAG 100 MG IVPB (15:24)
[2023-05-25 15:34] LABS: Bacteria Many HPF (Negative); C & S Indicated? Yes; Crystals Negative HPF (Negative); Epithelial Cells Rare HPF (Negative); Mucus Negative (Negative); RBC 0-2 HPF (0-2)
--- NOTE | 2023-05-25 15:52 | DI.VRAD_ITS ---
PROCEDURE INFORMATION: Exam: CT Chest Without Contrast; Diagnostic Exam date and time: 05/25/2023 3:13 PM Age: 67 years old Clinical indication: Other: Dysphagia chest pain TECHNIQUE: Imaging protocol: Diagnostic computed tomography of the chest without contrast. Radiation optimization: All CT scans at this facility use at least one of these dose optimization techniques: automated exposure control; mA and/or kV adjustment per patient size (includes targeted exams where dose is matched to clinical indication); or iterative reconstruction. COMPARISON: CT CHEST PE ABD PELVIS W 12/13/2022 4:14 PM FINDINGS: Lungs: Minimal subsegmental atelectasis versus scarring No consolidation. No masses. Pleural spaces: No pneumothorax. Trace left pleural effusion. Heart: Coronary calcifications. No cardiomegaly. No pericardial effusion. Lymph nodes: Unremarkable. No enlarged lymph nodes. Vasculature: Unremarkable. No aortic aneurysm. Bones/joints: Unremarkable. No acute fracture. Soft tissues: Unremarkable. IMPRESSION: Minimal subsegmental atelectasis versus scarring and trace left pleural fluid PROCEDURE INFORMATION: Exam: CT Abdomen And Pelvis Without Contrast Exam date and time: 05/25/2023 3:13 PM Age: 67 years old Clinical indication: Other: Dysphagia chest pain TECHNIQUE: Imaging protocol: Computed tomography of the abdomen and pelvis without contrast. Radiation optimization: All CT scans at this facility use at least one of these dose optimization techniques: automated exposure control; mA and/or kV adjustment per patient size (includes targeted exams where dose is matched to clinical indication); or iterative reconstruction. COMPARISON: CT CHEST PE ABD PELVIS W 12/13/2022 4:14 PM FINDINGS: Liver: Normal. No mass. Gallbladder and bile ducts: Prior cholecystectomy. No ductal dilation. Pancreas: Normal. No ductal dilation. Spleen: Normal. No splenomegaly. Adrenal glands: Normal. No mass. Kidneys and ureters: Normal. No hydronephrosis. Stomach and bowel: Unremarkable. No obstruction. No mucosal thickening. Appendix: No evidence of appendicitis. Intraperitoneal space: Small pelvic fluid No free air. No significant fluid collection. Vasculature: Unremarkable. No abdominal aortic aneurysm. Lymph nodes: Unremarkable. No enlarged lymph nodes. Urinary bladder: The urinary bladder is decompressed by a Leger catheter. Reproductive: Prior hysterectomy. Bones/joints: Degenerative changes in the spine No acute fracture. Soft tissues: Unremarkable. IMPRESSION: No acute findings. Dictated and Authenticated by: Avinash Negro MD. Ordering:JOE Edmond MD
[2023-05-25] MEDS: Enoxaparin 60 MG/0.6 ML SYR SC (16:10)
[2023-05-25] MEDS: IMIPENEM/CILASTATIN 500 MG in Normal Saline 100 ML 200 MG IVPB (16:55)
[2023-05-25 16:57] LABS: Troponin I < 50 ng/L (< or =60)
--- NOTE | 2023-05-25 18:30 | DI.CT_ITS ---
Exam(s) CT HEAD - STROKE PROTOCOL EXAM: CT HEAD - STROKE PROTOCOL CLINICAL HISTORY: dysphagia. TECHNIQUE: Imaging Protocol: Axial computed tomography images with coronal and sagittal reformatted images were created and reviewed COMPARISON: CT CT HEAD WO from 01/09/2023 FINDINGS: Ventricles and Extra axial spaces: Normal in size and morphology for the patient's age. Hemorrhage: None. Cerebral parenchyma: No evidence of acute infarct or mass. Old lacunar infarct right external capsule . Mild atrophy. Mild underlying white matter changes of small vessel disease. Midline shift: None. Brainstem/Cerebellum: Normal. Calvarium: Normal. Visualized Paranasal sinuses:Maxillary sinus mucosal thickening, right greater than left, worsening f rom prior. Mastoids: Clear. Soft Tissues: Unremarkable. ORBITS: Unremarkable. PITUITARY: Normal. IMPRESSION: No acute intracranial process. Chronic sinus disease. RADIATION DOSE DELIVERED: Total DLP DATA REPOSITORY: All CT scans at this facility are submitted to the National Radiology Data Registry (NRDR) Dose Index Registry (DIR) with the [employer] (ACR). RADIATION OPTIMIZATION: All CT scans at this facility use at least one of these dose optimization te chniques: automated exposure control; mA and/or kV adjustment per patient size (includes targeted exa ms where dose is matched to clinical indication); or iterative reconstruction.
[2023-05-25 18:34] LABS: Lab Add On Test DONE
--- NOTE | 2023-05-25 18:34 | DI.VRAD_ITS ---
PROCEDURE INFORMATION: Exam: CT Head Without Contrast Exam date and time: 05/25/2023 6:23 PM Age: 67 years old Clinical indication: Stroke-like symptoms; Other: Dysphagia TECHNIQUE: Imaging protocol: Computed tomography of the head without contrast. Other technique: STROKE PROTOCOL was implemented. COMPARISON: CT HEAD WO 01/09/2023 2:45 PM FINDINGS: Brain: Atrophy and chronic appearing white matter changes. Small chronic appearing lacunar infarct right external capsule. No edema or hemorrhage. Cerebral ventricles: Ex vacuo dilation of the ventricular system. Paranasal sinuses: Multifocal moderate paranasal sinus mucosal thickening worsened since prior. Mastoid air cells: No mastoid effusion. Bones/joints: No acute fracture. Soft tissues: No suspicious lesions. IMPRESSION: 1. No acute intracranial findings. 2. Sinus disease. 3. Chronic findings as described. ASSESSMENT: ASPECTS ([place] Stroke Program Early CT Score) is 10. Dictated and Authenticated by: Janet Gonzalez MD. Ordering:[facility] Ml Bender MD
[2023-05-25 18:42] LABS: Procalcitonin 3.4 ng/mL
--- NOTE | 2023-05-25 18:50 | W.PM.HP.N ---
Date of service: 05/25/23 Time of Service: 18:50 Assessment and Plan Assessment and plan (1) Sepsis: Status: Acute Assessment and plan: secondary to UTI, w/out obstruction per CT abdomen/pelvis; continue w/ iv fluids, iv antibiotics (imipenem) and powell to monitor urine output. Her azotemia is not too far off her baseline of creatinine of 2.0 and BUN in the upper 30's. she is hemodynamically stable and therefore appropriate for the floor. I am concerned about her dysphagia possibly representing new stroke. Will proceed w/ NPO status, repeat CT head tonight, w/ MRI of brain on Saturday. Request MILLROOM SUPERVISOR consult, and give her ASA per rectum until able to take PO. Qualifiers: Sepsis type: sepsis due to unspecified organism Sepsis acute organ dysfunction status: with acute organ dysfunction Severe sepsis acute organ dysfunction type: acute renal failure Acute renal failure type: unspecified Severe sepsis shock status: without septic shock Qualified Code(s): A41.9 - Sepsis, unspecified organism; R65.20 - Severe sepsis without septic shock; N17.9 - Acute kidney failure, unspecified (2) Acute UTI: Status: Acute Assessment and plan: as above (3) Dysphagia: Status: Acute Assessment and plan: NPO tonight, request MILLROOM SUPERVISOR consult for Saturday morning and proceed w/ stroke workup as noted above. continue iv fluids. Qualifiers: Dysphagia type: unspecified Qualified Code(s): R13.10 - Dysphagia, unspecified (4) ALLAN (acute kidney injury): Status: Acute Assessment and plan: secondary to infection and dehydration d/t poor oral intake from dysphagia in setting of CKD, treat UTI and continue iv fluids (5) Chronic GERD: Status: Chronic Assessment and plan: hold po PPI while NPO and continue w/ iv protonix, may need EGD this admission to discern her dysphagia. will await MILLROOM SUPERVISOR consult who then can evaluate level of her dysphagia and make recommendations for further workup, i.e. Modified barium swallow vs surgical consult for EGD (6) Diabetes mellitus: Status: Chronic Assessment and plan: monitor glucose q6h while NPO then when able to take PO change to AC/HS, will give low dose novolog, hold long acting insulin until able to take po. Qualifiers: Diabetes mellitus type: type 2 Diabetes mellitus termite control representative insulin use: with termite control representative use Diabetes mellitus complication status: with kidney complications Diabetes mellitus complication detail: with chronic kidney disease Chronic kidney disease stage: stage 4 (severe) Qualified Code(s): E11.22 - Type 2 diabetes mellitus with diabetic chronic kidney disease; N18.4 - Chronic kidney disease, stage 4 (severe); Z79.4 - intermediate card tender (current) use of insulin (7) CAD (coronary artery disease): Status: Chronic Assessment and plan: CP seems to be from dysphagia, she may need EGD this admission; does not appear to be ACS given her negative troponin I levels. will monitor. when able to take PO will resume her oral aspirin and statin. Qualifiers: Coronary Disease-Associated Artery/Lesion type: [place] artery [place] vs. transplanted heart: [place] heart Associated angina: without angina Qualified Code(s): I25.10 - Atherosclerotic heart disease of [place] coronary artery without angina pectoris History of Present Illness History of Present Illness Chief Complaint: choking, trouble swallowing Narrative: 67 yr old female resident of [facility] w/ [facility] of bipolar disorder, CAD s/p PCI, GERD, chronic anemia and CKD and DM who complains of choking w/ eating, chest pain and reportedly has had poor oral intake for past several days. Patient was evaluated in the E.D. on 05/21/23 for symptoms of tremors and chills and was found to be febrile 38.8 C, workup at that time included routine labs, CBC, CMP however patient declined any xrays and despite her abnormal labs, she declined admission and was discharged against medical advise after some iv fluids. Her labs were remarkable for CKD (BUN 42, creatinine 2.0) elevated transaminases (ALT 104, AST 140, normal total bili), stable chronic anemia Hb 10 gm. UA was not obtained at that time. She presents back to the ED today d/t complaints of chest pain, coughing and choking w/ meals. On arrival to the E.D. she was afebrile 37.2 C, stable vital signs, no hyoxemia, and workup included repeat labs of CBC, CMP, troponin I levels, UA. She was found to be more anemia Hb 8.6 gm, no leukocytosis WBC 4300, chronic thrombocytopenia 101,000, worening azotemia BUN 55, creatinine 2.6, LFT now normalized, negative troponin I x two sets, UA consistent w/ UTI (positive nitrites, small leuocyte estrase, 10-20 WBC/hpf, many bacteria, lactate was normal at 0.8 but procalcitonin was elevated at 3.4. Blood and urine cultures were obtained and patient was given clindamycin and metronidazole while in the ED d/t multiple antibiotic allergies including PCN, keflex, sulfa. However, given likelihood of urosepsis, I recommended use of a carbapenem despite her PCN allergy. She was given first dose of imipenem while in the E.D. She was going to receive gentamicin however, I advised the E.D. provider against this given her CKD w/ worsening azotemia. Imaging included CT of chest, abdomen and pelvis d/t elevated d-dimer of 1138. However, contrast was not used d/t worsening azotemia. No acute abnormalities were seen in the chest, abdomen or pelvis. She has some basilar atelectasis but no consolidations. No renal stones or hydronephrosis. Patient is admitted for iv fluid hydration, treatment of urosepsis, and workup of her dysphagia. Note she has evidence of old lacunar right BG CVA noted on prior CT head from 01/09/23, therefore I recommended repeat CT head to see if any new CVA has developed that could explain her acute dysphagia. I attempted bedside swallow evaluation w/ very small amount of water and she coughed and choked w/ this, thus I have made her NPO until MILLROOM SUPERVISOR consult is obtained. Review of Systems All systems reviewed & are unremarkable except as noted in HPI and below ENT Ears, Nose, Mouth, and Throat: Reports dysphagia Gastrointestinal Gastrointestinal: Reports as per HPI, Reports dysphagia, Reports nausea, Denies vomiting and Denies hematemesis PFSH All Active Problems (Updated 05/25/23 @ 21:29 by Napoleon Bull MD) Sepsis (Acute) Acute UTI (Acute) Dysphagia (Acute) ALLAN (acute kidney injury) (Acute) Prolonged QT interval (Acute) Hyperkalemia (Acute) Fever (Acute) Wears hearing aid in both ears (Acute) Conductive hearing loss, external ear (Acute) Impacted cerumen, bilateral (Acute) Nontraumatic intracerebral hemorrhage (Acute) Acquired cystic kidney disease (Acute) Megaloblastic anemia due to B12 deficiency (Acute) Hyperlipidemia (Acute) Degeneration of lumbar intervertebral disc (Acute) Bipolar 1 disorder (Acute) Benign essential hypertension (Acute) Chronic GERD (Chronic) Asthma (Chronic) Fibromyalgia (Acute) Turners syndrome (Acute) Bipolar affective disorder (Acute) Nail dystrophy (Acute) Corns and callosities (Acute) Elevated LFTs (Acute) Gout (Chronic) Hypercalcemia (Acute) Hyperparathyroidism (Acute) Hypertension (Chronic) Restless legs syndrome (RLS) (Acute) Rheumatoid arthritis (Chronic) Hypothyroidism (Chronic) Diabetes mellitus (Chronic) CAD (coronary artery disease) (Chronic) Sensorineural hearing loss (SNHL) of both ears (Acute) Medical History Abnormal auditory perception of both ears (12/25/16) Allergic rhinitis Sciatica IBS (irritable bowel syndrome) B12 deficiency anemia Surgical History History of parathyroidectomy History of hysterectomy Hx of tonsillectomy History of foot surgery Left foot; multiple fibroma excisions Social History Smoking/Tobacco Use Status: Never Smoking risk assessment performed?: Yes Alcohol Intake: never Drug use: Never Substance use type: does not use Household members: none Housing: fpc Number of Children: 0 current occupation: disabled Do you feel safe at home: Yes Do you feel safe in your relationship?: Yes Additional Social history: Lives at the [facility] 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 Meds Allergies and Home Medications Allergies Allergy/AdvReac Type Severity Reaction Status Date / Time polyethylene glycol 3350 Allergy Unknown Verified 04/24/23 14:02 acetaminophen [From Vicodin] Allergy Verified 04/24/23 14:02 amoxicillin Allergy Verified 01/24/23 11:51 azithromycin [From Zithromax] Allergy Verified 04/24/23 14:02 benzonatate Allergy Verified 04/24/23 14:02 buspirone [From BuSpar] Allergy Verified 04/24/23 14:02 cephalexin [From Keflex] Allergy Verified 01/24/23 11:51 clavulanic acid Allergy Verified 04/24/23 14:02 [From Augmentin] clonazepam [From Klonopin] Allergy Verified 04/24/23 14:02 diazepam [From Valium] Allergy Verified 04/24/23 14:02 gemfibrozil Allergy Verified 04/24/23 14:02 hydrocodone [From Vicodin] Allergy Verified 04/24/23 14:02 monosodium glutamate Allergy Verified 04/24/23 14:02 morphine Allergy Verified 04/24/23 14:02 nitrofurantoin Allergy Verified 04/24/23 14:02 [From Macrobid] Penicillins Allergy Verified 04/24/23 14:02 prednisone Allergy Verified 04/24/23 14:02 Sulfa (Sulfonamide Allergy Verified 04/24/23 14:02 Antibiotics) Tetanus Vaccines and Toxoid Allergy Verified 04/24/23 14:02 tramadol Allergy Verified 04/24/23 14:02 morphine Allergy Unknown Uncoded 04/24/23 14:02 nitrofurantoin Allergy Unknown Uncoded 04/24/23 14:02 Home Medications Medication Instructions Recorded Confirmed Type Lactobacillus acidophilus See Rx Instructions PO DAILY 02/05/22 04/24/23 History cranberry 400 mg capsule See Rx Instructions PO DAILY 02/05/22 02/04/23 History diclofenac sodium 1 % topical gel See Rx Instructions topical 02/05/22 02/04/23 History (Arthritis Pain (diclofenac)) .COMPLEX dicyclomine 20 mg tablet See Rx Instructions PO .COMPLEX 02/05/22 01/01/23 History diphenoxylate-atropine 2.5 1 tab PO DAILY 02/05/22 01/09/23 History mg-0.025 mg tablet docusate sodium 100 mg capsule 100 mg PO DAILY 02/05/22 01/09/23 History ferrous sulfate 325 mg (65 mg 325 mg PO DAILY 02/05/22 01/09/23 History iron) tablet loperamide 2 mg tablet See Rx Instructions PO Q6H PRN 02/05/22 04/24/23 History (Anti-Diarrheal (loperamide)) nitroglycerin 0.4 mg sublingual 0.4 mg sublingual Q5M PRN 02/05/22 04/24/23 History tablet (Nitrostat) atorvastatin 80 mg tablet 80 mg PO DAILY 04/16/22 02/04/23 History cholecalciferol (vitamin D3) 25 25 mcg PO DAILY 04/16/22 04/24/23 History mcg (1,000 unit) capsule cyanocobalamin (vitamin B-12) 1,000 mcg subcut QMONTH 04/16/22 02/04/23 History 1,000 mcg/mL injection solution isosorbide mononitrate 30 mg 30 mg PO QAM 04/16/22 04/24/23 History tablet,extended release 24 hr levothyroxine 200 mcg capsule 200 mcg PO DAILY 04/16/22 04/24/23 History multivitamin 1 tab PO DAILY 04/16/22 04/24/23 History omeprazole 20 mg capsule,delayed 20 mg PO BID 04/16/22 04/24/23 History release dulaglutide 1.5 mg/0.5 mL 1.5 mg subcut QWEEK 05/14/22 01/24/23 History subcutaneous pen injector (Trulicity) B-complex with vitamin C 1 tab PO DAILY 12/19/22 04/24/23 History acetaminophen 500 mg tablet 500 mg PO Q6H PRN 12/19/22 04/24/23 History (Acetaminophen Extra Strength) aspirin 81 mg tablet,delayed 81 mg PO DAILY 12/19/22 04/24/23 History release clonazepam 0.5 mg tablet 0.5 mg PO DAILY 12/19/22 02/04/23 History fluticasone 500 mcg-salmeterol 50 1 inh inhalation BID 12/19/22 01/24/23 History mcg/dose blistr powdr for inhalation loratadine 10 mg tablet 10 mg PO DAILY 12/19/22 04/24/23 History losartan 100 mg tablet 100 mg PO DAILY 12/19/22 04/24/23 History magnesium gluconate 27 mg 13.5 mg PO BID 12/19/22 04/24/23 History magnesium (500 mg) tablet nystatin 100,000 unit/mL oral 100,000 unit PO DAILY 12/19/22 04/24/23 History suspension ropinirole 2 mg tablet 2 mg PO DAILY 12/19/22 04/24/23 History sucralfate 1 gram tablet 1 g PO BID 12/19/22 04/24/23 History vanilla boost PO 12/19/22 01/24/23 History wheat dextrin 3 gram/3.8 gram oral 1.5 g PO BID 12/19/22 04/24/23 History powder (Benefiber Sugar Free (dextrin)) dulaglutide 1.5 mg/0.5 mL 1.5 mg subcut QWEEK 01/09/23 04/24/23 History subcutaneous pen injector (Trulicity) famotidine 20 mg tablet 20 mg PO 1XD 01/09/23 01/24/23 History tramadol 50 mg tablet 25 mg PO TID 04/24/23 04/24/23 History Exam Narrative Exam Narrative: Alert and oriented x person, place, circumstanced HEENT: Atraumatic normocephalic, pupils equally round reactive to light and accommodation midpoint, extraocular motion intact, TMs intact, nares and oral mucosa is very dry, tongue fissured, no exudate Neck: Supple, nontender, without thyromegaly or lymphadenopathy or JVD. Normal carotid pulses Lungs: Clear to auscultation anteriorly but w/ diminished breath sounds at bases posteriorly Heart: Regular rate and rhythm without murmur rub or gallop. Normal apical impulse Abdomen: Nondistended, normal bowel sounds, nontender to palpation or percussion, no organomegaly, no bruits, no palpable masses Genitalia and rectal exam: Deferred Breasts: Deferred Extremities: Normal range of motion with normal strength. No peripheral cyanosis or edema. Normal pulses Neurologic: Slight right facial droop noted at corner or mouth w/ some decrease in nasolabial fold w/ smiling, EOMI, speech is clear, although quite, coherent, not dysarthric, no sensory deficit detected over face, arms or legs w/ light touch, normal hand information architect stength and normal ROM both arms and legs although she seems to have generalized weakness throughout. Results Labs 05/25/23 14:02 05/25/23 14:02 Labs: Laboratory Results - last 24 hr 05/25/23 05/25/23 05/25/23 13:55 14:02 15:00 WBC 4.34 L RBC 2.93 L Hgb 8.6 L Hct 26.5 L MCV 90 MCH 29.4 MCHC 32.5 RDW 13.1 Plt Count 101 L MPV 9.6 Immature Gran % 0.7 Neutrophils % 74.0 Lymphocytes % 17.5 Monocytes % 7.1 Eosinophils % 0.2 Basophils % 0.5 Nucleated RBC % 0.0 Absolute Neutrophils 3.21 Absolute Lymphocytes 0.76 L Absolute Monocytes 0.31 Absolute Eosinophils 0.01 Absolute Basophils 0.02 D-Dimer 1138 H VBG Lactate 0.8 Sodium 142 Potassium 4.4 Chloride 109 H Carbon Dioxide 20.5 L Anion Gap 12.5 H BUN 55 H Creatinine 2.6 H Est GFR (CKD-EPI 2020) 19.50 Glucose 205 H Calcium 9.0 Total Bilirubin 0.3 AST 12 L ALT 35 Alkaline Phosphatase 110 Troponin I < 50 Total Protein 6.3 L Albumin 2.4 L Procalcitonin Urine Color Yellow Urine Clarity Clear Urine pH 5.0 Ur Specific [place] 1.020 Urine Protein >=300 H Urine Ketones Negative Urine Blood Trace-lysed H Urine Nitrite Positive H Urine Bilirubin Negative Urine Urobilinogen 0.2 Ur Leukocyte Esterase Small H Urine RBC 0-2 Urine WBC 10-20 H Ur Epithelial Cells Rare Urine Crystals Negative Urine Bacteria Many Urine Mucus Negative Ur Culture Indicated? Yes Urine Glucose Negative COVID-19 Source Nasopharynx SARS-CoV-2 (PCR) Negative Influenza Type A (PCR) Negative Influenza Type B (PCR) Negative RSV (PCR) Negative Add-On Test Request 05/25/23 16:37 WBC RBC Hgb Hct MCV MCH MCHC RDW Plt Count MPV Immature Gran % Neutrophils % Lymphocytes % Monocytes % Eosinophils % Basophils % Nucleated RBC % Absolute Neutrophils Absolute Lymphocytes Absolute Monocytes Absolute Eosinophils Absolute Basophils D-Dimer VBG Lactate Sodium Potassium Chloride Carbon Dioxide Anion Gap BUN Creatinine Est GFR (CKD-EPI 2020) Glucose Calcium Total Bilirubin AST ALT Alkaline Phosphatase Troponin I < 50 Total Protein Albumin Procalcitonin 3.4 Urine Color Urine Clarity Urine pH Ur Specific [place] Urine Protein Urine Ketones Urine Blood Urine Nitrite Urine Bilirubin Urine Urobilinogen Ur Leukocyte Esterase Urine RBC Urine WBC Ur Epithelial Cells Urine Crystals Urine Bacteria Urine Mucus Ur Culture Indicated? Urine Glucose COVID-19 Source SARS-CoV-2 (PCR) Influenza Type A (PCR) Influenza Type B (PCR) RSV (PCR) Add-On Test Request DONE Last Vital Signs Temp 37.6 C H 05/25/23 18:09 Pulse 82 05/25/23 18:09 Resp 18 05/25/23 18:09 BP 131/83 05/25/23 18:09 Pulse Ox 96 05/25/23 18:09 Time Spent Time spent with Patient: 55-74 minutes Time was spent: preparing to see the patient(eg.review tests), obtaining and/or reviewing separately otained hiistory, ordering medications,tests, procedures, referring, communicating with other health career and guidance counselor, indepentently interpreting results, counseling the patient and care coordination
[2023-05-25] MEDS: Aspirin 300 MG SUPP PR (20:26)
[2023-05-25] MEDS: Insulin Aspart 300 UNITS/3 ML PEN SC (20:47)
[2023-05-25] MEDS: Budesonide/Formoterol 160/4.5 6 GM 60 PUFF INH IH (20:55)
[2023-05-25] MEDS: Normal Saline Flush 10 ML SYR IVP (21:09)
[2023-05-25] MEDS: Lactated Ringers 1,000 ML 150 ML IV (21:10)
[2023-05-25] MEDS: Pantoprazole 40 MG VIAL IVP (22:57)
[2023-05-25] MEDS: Lactated Ringers 500 ML IV (23:01)
[2023-05-26] MEDS: Lactated Ringers 1,000 ML 150 ML IV (01:28)
[2023-05-26 06:49] LABS: Abs Immature Grans 0.05 10^3/uL (0.0-0.06); Absolute Basophil Count 0.02 10^3/uL (0.0-0.2); Absolute Eosinophil Count 0.03 10^3/uL (0.0-0.7); Absolute Lymphocyte Count 0.88 10^3/uL (1.2-3.4); Absolute Monocyte Count 0.36 10^3/uL (0.1-0.8); Basophils % 0.5; Eosinophils % 0.8; HCT 25.6 % (36.0-46.0); HGB 8.2 g/dL (11.2-15.7); Immature Grans % 1.3; Lymphocytes % 22.3; MCH 29.6 pg (27.0-33.0); MCV 92 fL (80-95); MPV 10.3 fL (8.0-11.0); Monocytes % 9.1; RBC 2.77 10^6/uL (3.93-5.22); RDW 13.1 % (11.7-14.6); RDW-SD 44.2 fL; WBC 3.94 10^3/uL (4.4-10.8)
[2023-05-26 06:50] LABS: Platelet Count 99 10^3/uL (130-400)
[2023-05-26 07:22] LABS: Iron 19 ug/dL (50-170); Total Iron Binding Capacity 118 ug/dL (250-450); Transferrin Sat 16 % (15-50)
[2023-05-26 07:35] LABS: Anion Gap 11.5 mmol/L (3-11); BUN 47 mg/dL (7-18); CO2 22.5 mmol/L (21.0-32.0); CREATININE 2.1 mg/dL (0.55-1.02); Calcium 9.3 mg/dL (8.5-10.1); Chloride 114 mmol/L (98-107); Estimated GFR 25.19 (mL/min/1.73m2); Ferritin 765 ng/mL (8-252); Glucose 121 mg/dL (74-106); Potassium 4.3 mmol/L (3.5-5.1); Sodium 148 mmol/L (136-145)
[2023-05-26 07:44] VITALS: BP 161/95; PULSE 76; RESP 18; TEMP 36.8; O2SAT 95
[2023-05-26 07:47] LABS: Folate 18.8 ng/mL (8.6-20.0); Vitamin B12 1678 pg/mL (193-986)
[2023-05-26] MEDS: Budesonide/Formoterol 160/4.5 6 GM 60 PUFF INH IH (07:55)
[2023-05-26] MEDS: Aspirin 300 MG SUPP PR (08:36)
[2023-05-26] MEDS: Normal Saline Flush 10 ML SYR IVP ×2 (09:20→19:40)
--- NOTE | 2023-05-26 09:50 | IN_ITS ---
PT Notes Visit Reasons: ALLAN, dehydration, dysphagia, UTI Inpatient Physical Therapy Evaluation Date: 05/26/2023 Referring Doctor: Napoleon Bull PT Orders: PT CONSULT: PT evaluate Limited ability Precautions: Standard, fall Patient Profile/Admitting Diagnosis: Sepsis, acute UTI, Dysphagia, ALLAN, DM Ladan is a 67-year-old female w/ PMH of bipolar disorder, CAD s/p PCI, GERD, chronic anemia and CKD and DM. Patient is a resident of the [facility] she was ev aluated in the ED on 05/21/2023 but refused treatment AMA and returned 05/25/2023 with complaint of chest pain coughing and choking. Repeat CT scan from 01/09/2022 compare for question new CVA as potential cause for dysphagia. CT scan does not reveal any acute infarctions. There are orders for speech as well. She was previously n.p.o. however when I was in the room it appears that her orders have been changed she is able to do take sips of water without coughing. Ladan reports that she has been living at the [facility] and has been told that she will never leave there since November. PMHX: []PFSH All Active Problems (Updated 05/25/23 @ 21:29 by Napoleon Bull MD) Sepsis (Acute) Acute UTI (Acute) Dysphagia (Acute) ALLAN (acute kidney injury) (Acute) Prolonged QT interval (Acute) Hyperkalemia (Acute) Fever (Acute) Wears hearing aid in both ears (Acute) Conductive hearing loss, external ear (Acute) Impacted cerumen, bilateral (Acute) Nontraumatic intracerebral hemorrhage (Acute) Acquired cystic kidney disease (Acute) Megaloblastic anemia due to B12 deficiency (Acute) Hyperlipidemia (Acute) Degeneration of lumbar intervertebral disc (Acute) Bipolar 1 disorder (Acute) Benign essential hypertension (Acute) Chronic GERD (Chronic) Asthma (Chronic) Fibromyalgia (Acute) Turners syndrome (Acute) Bipolar affective disorder (Acute) Nail dystrophy (Acute) Corns and callosities (Acute) Elevated LFTs (Acute) Gout (Chronic) Hypercalcemia (Acute) Hyperparathyroidism (Acute) Hypertension (Chronic) Restless legs syndrome (RLS) (Acute) Rheumatoid arthritis (Chronic) Hypothyroidism (Chronic) Diabetes mellitus (Chronic) CAD (coronary artery disease) (Chronic) Sensorineural hearing loss (SNHL) of both ears (Acute) Medical History Abnormal auditory perception of both ears (12/25/16) Allergic rhinitis Sciatica IBS (irritable bowel syndrome) B12 deficiency anemia Surgical History History of parathyroidectomy History of hysterectomy Hx of tonsillectomy History of foot surgery Left foot; multiple fibroma excisions Social History/Home Situation: Patient is a resident at the [facility], baseline assist of lift assist of 1 for transfers to and from bed to wheelchair and bathroom otherwise spends most of the time in her wheelchair. Current Functional Limitations: She states that she has had multiple falls with describing a head injury and a low back injury stating that she is fearful of walking and unable to walk and has not walked since she is then at the [facility]. She states she is able to transfer using the white things which appears to be the left assist. She states she spends most of the day in her wheelchair and she is able to maneuver around in her wheelchair with assist of 1 using the left assist for going to the bathroom and transfer wheelchair to bed. Equipment Owned/DME: Wheelchair, needs lift assist Subjective: Patient states that she has not been walking since living at the [facility] and she is able to maneuver around in her wheelchair when she is at the [facility] stating that she is fearful of falling and injuring her back and her head. Objective: General Observation: Patient is in bed in no acute distress frail Mental Status: Patient is hard of hearing, pleasant and alert and orientated x 3. Pain: 0/10 Vital Signs: Recorded by nursing staff, No SOB t/o session ROM: Right Upper Extremity: WFL Left Upper Extremity: WFL Right Lower Extremity: In bed limited range hip and knee flexion 60 degrees, plantarflexion Left Lower Extremity: In bed limited range hip and knee flexion 60 degrees, plantarflexion Strength: Right Upper Extremity: WFL Left Upper Extremity: WFL Right Lower Extremity: Limited with strength unable to straighten knees 3/5 within available range Left Lower Extremity: Limited with strength unable to straighten knees 3/5 within available range Sensation: Denies numbness and tingling Bed Mobility/Transfers: With rails of hospital bed min assist of 1 to go supine to sit she states that this is her baseline status Sit to stand patient refuses to give trial of sit to stand with RW stating that she always uses a lift assist and assist of 1 at the [facility] for all transfers bed to wheelchair wheelchair to bed or to bathroom. Patient demonstrates ability to hold herself up to utilize the left assist without any concern of her falling backwards with enough strength in her upper extremity to perform this. According to patient she is at her baseline and is able to control using left assist for sitting back down onto the chair or onto the commode which she does froze today. Gait: N/A, patient states that she does not ambulate and will not ambulate and was told she will never walk again. Balance: Static Sitting: Fair patient does begin to lose her balance backward and needs to hold onto the rail or the left assist Dynamic Sitting: poor Static Standing: N/A Dynamic Standing: N/A Special Tests: Mobility Limitations Standardized Measure [facility] AM-PAC 6 clicks Basic Mobility Inpatient Short Form: Raw Score: 9 CMS Score: 86.62 Informed Consent/Education: Patient instructed in purpose of PT consult and plan of care. Assessment: Patient is a 67year old female referred to physical therapy services with the diagnosis of Sepsis, acute UTI, Dysphagia, ALLAN, DM. Patient presents with clinical signs and symptoms consistent with reported baseline status, as demonstrated by the following impairment level findings: Requiring assist with bed mobility, transfers, does not ambulate at baseline. Impairments are contributing to the following functional limitations: AMPAC score. Patient is assessed as a Low 49380 complexity based on the following: History: as outlined above Examination: as outlined above Presentation: stable Decision Making: low Assessment: Per patient she is at baseline and there is no evidence to expect otherwise at this time I would not recommend skilled services. I have communicated with nursing staff to utilize lift assist for transfers. With nursing staff we transfer her to a sitting chair and she is quite comfortable. She was able to help with pulling herself up and lowering from bed to lift assist and from commode to chair Plan of Care/Treatment Plan: DISCHARGE RECOMMENDATIONS: x Pre Billing Specialist Care Return to LTC at [facility] when medically stable TREATMENT CODE/TIME: 61027, 11:20-11:45 25' Please sign an return this page within 30 days if you agree with the above POC. Thank you! Physician Signature Date [facility]
--- NOTE | 2023-05-26 09:58 | TELEP.MEDREC ---
Date of service: 05/26/23 Time of Service: 09:58 Telepharmacy Home Med Rec Allergies Allergies: polyethylene glycol 3350 Allergy (Unknown, Verified 04/24/23 14:02) acetaminophen [From Vicodin] Allergy (Verified 04/24/23 14:02) amoxicillin Allergy (Verified 01/24/23 11:51) azithromycin [From Zithromax] Allergy (Verified 04/24/23 14:02) benzonatate Allergy (Verified 04/24/23 14:02) buspirone [From BuSpar] Allergy (Verified 04/24/23 14:02) cephalexin [From Keflex] Allergy (Verified 01/24/23 11:51) clavulanic acid [From Augmentin] Allergy (Verified 04/24/23 14:02) clonazepam [From Klonopin] Allergy (Verified 04/24/23 14:02) diazepam [From Valium] Allergy (Verified 04/24/23 14:02) gemfibrozil Allergy (Verified 04/24/23 14:02) hydrocodone [From Vicodin] Allergy (Verified 04/24/23 14:02) monosodium glutamate Allergy (Verified 04/24/23 14:02) morphine Allergy (Verified 04/24/23 14:02) nitrofurantoin [From Macrobid] Allergy (Verified 04/24/23 14:02) Penicillins Allergy (Verified 04/24/23 14:02) prednisone Allergy (Verified 04/24/23 14:02) Sulfa (Sulfonamide Antibiotics) Allergy (Verified 04/24/23 14:02) Tetanus Vaccines and Toxoid Allergy (Verified 04/24/23 14:02) tramadol Allergy (Verified 04/24/23 14:02) morphine Allergy (Unknown, Uncoded 04/24/23 14:02) nitrofurantoin Allergy (Unknown, Uncoded 04/24/23 14:02) Additional Notes Additional Notes: Unable to perform med rec. Patient couldn't hear or understand me, and said she wasn't able to provide me the information. Please let us know if circumstances change and patient is able to contribute to med rec. Recommended Changes Attestation: The home medication list is now updated to the best of my knowledge and is ready to be reconciled by the provider. Please contact the [facility] Medication Reconciliation Pharmacist at for any questions.
[2023-05-26] MEDS: MEROPENEM 1 GM in Normal Saline 100 ML IVPB ×2 (10:44→23:32)
[2023-05-26 11:20] VITALS: BP 166/95; PULSE 81; RESP 20; TEMP 36.6; O2SAT 96
[2023-05-26] MEDS: Insulin Aspart 300 UNITS/3 ML PEN SC ×2 (11:29→17:53)
[2023-05-26] MEDS: clonazePAM 0.5 MG TAB PO (11:29)
--- NOTE | 2023-05-26 13:58 | INITIAL_ITS ---
Date of service: 05/26/23 Time of Service: 13:58 Care Management Initial Assmt Initial Assessment REASON FOR HOSPITALIZATION:: ALLAN, Dehydration, dysphagia, UTI PREVIOUS FUNCTIONAL STATUS/SOCIAL/FAMILY SUPPORTS:: Resides at the [facility], her brother Mika is her main contact. Ladan requires assistance with all ADLs, and has a hx of declining treatment. CURRENT FUNCTIONAL STATUS:: Ladan verbalizes wanting to return to the [facility], ultimately agreeable to treatment plan, per MD. ADVANCE DIRECTIVES:: COLST on file. Has patient been provided with info about the portal/API?: No Did the patient sign up for the portal?: No CODE STATUS:: DNR/DNI INSURANCE COVERAGE / FINANCIAL ISSUES:: Medicare, Medicaid CURRENT HOME/COMMUNITY SERVICES/EQUIPMENT:: Resides at [facility]- requires support with ADLs. PRIMARY CARE PHYSICIAN:: Shanna Rock POTENTIAL DISCHARGE NEEDS:: Coordinated return to the [facility]. PATIENT/FAMILY EDUCATION NEEDS:: Review discharge instructions, discuss Ask Me Three. ANTICIPATED BARRIERS TO DISCHARGE:: None identified. PLAN:: Ladan will return to the [facility] when ready per MD, the facility oversees her care needs at baseline. Anticipate she will transport via EMS. [facility] All Active Problems (Updated 05/25/23 @ 21:29 by Napoleon Bull MD) Sepsis (Acute) Acute UTI (Acute) Dysphagia (Acute) ALLAN (acute kidney injury) (Acute) Prolonged QT interval (Acute) Hyperkalemia (Acute) Fever (Acute) Wears hearing aid in both ears (Acute) Conductive hearing loss, external ear (Acute) Impacted cerumen, bilateral (Acute) Nontraumatic intracerebral hemorrhage (Acute) Acquired cystic kidney disease (Acute) Megaloblastic anemia due to B12 deficiency (Acute) Hyperlipidemia (Acute) Degeneration of lumbar intervertebral disc (Acute) Bipolar 1 disorder (Acute) Benign essential hypertension (Acute) Chronic GERD (Chronic) Asthma (Chronic) Fibromyalgia (Acute) Turners syndrome (Acute) Bipolar affective disorder (Acute) Nail dystrophy (Acute) Corns and callosities (Acute) Elevated LFTs (Acute) Gout (Chronic) Hypercalcemia (Acute) Hyperparathyroidism (Acute) Hypertension (Chronic) Restless legs syndrome (RLS) (Acute) Rheumatoid arthritis (Chronic) Hypothyroidism (Chronic) Diabetes mellitus (Chronic) CAD (coronary artery disease) (Chronic) Sensorineural hearing loss (SNHL) of both ears (Acute) Medical History Abnormal auditory perception of both ears (12/25/16) Allergic rhinitis Sciatica IBS (irritable bowel syndrome) B12 deficiency anemia Surgical History History of parathyroidectomy History of hysterectomy Hx of tonsillectomy History of foot surgery Left foot; multiple fibroma excisions Social History Smoking/Tobacco Use Status: Never Smoking risk assessment performed?: Yes Alcohol Intake: never Drug use: Never Substance use type: does not use Household members: none Housing: custodial Number of Children: 0 current occupation: disabled Do you feel safe at home: Yes Do you feel safe in your relationship?: Yes Additional Social history: Lives at the [facility] ROSITA SULLIVAN 04/24/23 SDOH(Care Management) Screening Will the Patient Participate in the Screening?: Unable to obtain
--- NOTE | 2023-05-26 14:24 | W.PM.PROGNOT ---
Date of Service Date of service: 05/26/23 Time of Service: 14:24 Assessment and Plan Assessment and plan (1) Acute UTI: Status: Acute Assessment and plan: patient presented to the ED after seen 3 days prior w/ chills, rigors, but was afebrile when she presented yesterday. However she was mildly hypotensive and had evidence of UTI. She responded to iv fluids and antibiotics. She was started on imipenem but d/t logistics w/ adjusting the dose for her CKD we have changed to meropenem. she remains afebrile and is improving. Howeveer I am still concerned about her coughing and choking spells w/ eating. I have kept her NPO until she can be seen by EQUIPMENT VALIDATION SPECIALIST tomorrow. I will also get MRI of brain to evaluate for any new strokes. She has old lacunar BG stroke on the right. CT of brain last night showed the old CVA but no new findings. If her MRI does not show any new CVA and she passes her evaluation by EQUIPMENT VALIDATION SPECIALIST then she could go back to [facility] tomorrow if her blood cultures remain negative. (2) Sepsis: Status: Acute Qualifiers: Sepsis type: sepsis due to unspecified organism Sepsis acute organ dysfunction status: with acute organ dysfunction Severe sepsis acute organ dysfunction type: acute renal failure Acute renal failure type: unspecified Severe sepsis shock status: without septic shock Qualified Code(s): A41.9 - Sepsis, unspecified organism; R65.20 - Severe sepsis without septic shock; N17.9 - Acute kidney failure, unspecified (3) Dysphagia: Status: Acute Qualifiers: Dysphagia type: unspecified Qualified Code(s): R13.10 - Dysphagia, unspecified (4) ALLAN (acute kidney injury): Status: Acute (5) Bipolar 1 disorder: Status: Acute (6) Chronic GERD: Status: Chronic Subjective Subjective Interval history since last seen: Patient complains that she does not want to be evaluated by EQUIPMENT VALIDATION SPECIALIST as she says she has not trouble w/ her speech. She does not understand that she need evaluated for her dysphagia. She continue to have coughing spells w/ any oral intake. Exam Narrative Exam Narrative: Elderly white female sitting up in her chair she is visibly upset over half minute be hospitalized. Lungs are clear after some coughing. Heart regular rate and rhythm Abdomen soft nondistended Objective Last Vital Signs Temp 36.6 C 05/26/23 11:20 Pulse 81 05/26/23 11:20 Resp 20 05/26/23 11:20 BP 166/95 H 05/26/23 11:20 Pulse Ox 96 05/26/23 11:20 Laboratory Results - last 24 hr 05/25/23 05/25/23 05/25/23 13:55 14:02 15:00 WBC RBC Hgb Hct MCV MCH MCHC RDW Plt Count MPV Immature Gran % Neutrophils % Lymphocytes % Monocytes % Eosinophils % Basophils % Nucleated RBC % Absolute Neutrophils Absolute Lymphocytes Absolute Monocytes Absolute Eosinophils Absolute Basophils D-Dimer 1138 H Sodium 142 Potassium 4.4 Chloride 109 H Carbon Dioxide 20.5 L Anion Gap 12.5 H BUN 55 H Creatinine 2.6 H Est GFR (CKD-EPI 2020) 19.50 Glucose 205 H Calcium 9.0 Iron TIBC Transferrin % Sat Ferritin Total Bilirubin 0.3 AST 12 L ALT 35 Alkaline Phosphatase 110 Troponin I < 50 Total Protein 6.3 L Albumin 2.4 L Vitamin B12 Folate Procalcitonin Urine Color Yellow Urine Clarity Clear Urine pH 5.0 Ur Specific [place] 1.020 Urine Protein >=300 H Urine Ketones Negative Urine Blood Trace-lysed H Urine Nitrite Positive H Urine Bilirubin Negative Urine Urobilinogen 0.2 Ur Leukocyte Esterase Small H Urine RBC 0-2 Urine WBC 10-20 H Ur Epithelial Cells Rare Urine Crystals Negative Urine Bacteria Many Urine Mucus Negative Ur Culture Indicated? Yes Urine Glucose Negative COVID-19 Source Nasopharynx SARS-CoV-2 (PCR) Negative Influenza Type A (PCR) Negative Influenza Type B (PCR) Negative RSV (PCR) Negative Add-On Test Request 05/25/23 05/26/23 16:37 06:15 WBC 3.94 L RBC 2.77 L Hgb 8.2 L Hct 25.6 L MCV 92 MCH 29.6 MCHC 32.0 RDW 13.1 Plt Count 99 L MPV 10.3 Immature Gran % 1.3 Neutrophils % 66.0 Lymphocytes % 22.3 Monocytes % 9.1 Eosinophils % 0.8 Basophils % 0.5 Nucleated RBC % 0.0 Absolute Neutrophils 2.60 Absolute Lymphocytes 0.88 L Absolute Monocytes 0.36 Absolute Eosinophils 0.03 Absolute Basophils 0.02 D-Dimer Sodium 148 H Potassium 4.3 Chloride 114 H Carbon Dioxide 22.5 Anion Gap 11.5 H BUN 47 H Creatinine 2.1 H Est GFR (CKD-EPI 2020) 25.19 Glucose 121 H Calcium 9.3 Iron 19 L TIBC 118 L Transferrin % Sat 16 Ferritin 765 H Total Bilirubin AST ALT Alkaline Phosphatase Troponin I < 50 Total Protein Albumin Vitamin B12 1678 H Folate 18.8 Procalcitonin 3.4 Urine Color Urine Clarity Urine pH Ur Specific [place] Urine Protein Urine Ketones Urine Blood Urine Nitrite Urine Bilirubin Urine Urobilinogen Ur Leukocyte Esterase Urine RBC Urine WBC Ur Epithelial Cells Urine Crystals Urine Bacteria Urine Mucus Ur Culture Indicated? Urine Glucose COVID-19 Source SARS-CoV-2 (PCR) Influenza Type A (PCR) Influenza Type B (PCR) RSV (PCR) Add-On Test Request DONE Time Spent with Patient Time Spent with Patient: 25-34 minutes Time was spent: preparing to see the patient(eg.review tests), ordering medications,tests, procedures, referring, communicating with other health care worker, indepentently interpreting results, counseling the patient and care coordination
[2023-05-26 14:39] VITALS: BP 144/78; PULSE 77; RESP 20; TEMP 37.1; O2SAT 95
[2023-05-26] MEDS: Enoxaparin 30 MG/0.3 ML SYR SC (16:23)
[2023-05-26] MEDS: Pantoprazole 40 MG VIAL IVP (19:40)
[2023-05-26] MEDS: clonazePAM 1 MG TAB 1.5 MG PO (21:21)
[2023-05-26 23:23] VITALS: BP 157/79; PULSE 69; RESP 18; TEMP 36.3; O2SAT 99
--- NOTE | 2023-05-27 07:00 | DI.MRI_ITS ---
Exam(s) MR BRAIN WO EXAM: MR BRAIN WO CLINICAL HISTORY: DYSPHAGIA, hx of lacunar infarct r/o new CVA TECHNIQUE: Multiplanar multisequence MRI of the brain was performed. COMPARISON: CT CT HEAD - STROKE PROTOCOL from 05/25/2023 FINDINGS: VENTRICLES AND EXTRA AXIAL SPACES: Normal in size and morphology for the patient's age. MIDLINE SHIFT: None. CEREBRAL PARENCHYMA: Old right frontal lacunar infarct. No focus of restricted diffusion to suggest acute infarct. No space-occupying lesion identified. Mild moderate atrophy. Mild scattered foci of h igh signal in the white matter consistent with sequela of chronic microvascular disease. HEMORRHAGE: No acute hemorrhage. Tiny focus of susceptibility artifact in the left basal ganglia con sistent in old petechial microhemorrhage. BRAINSTEM/CEREBELLUM: Normal. VISUALIZED PARANASAL SINUSES/MASTOIDS:Mucous retention in right maxillary sinus. Minimal mucosal thi ckening in left maxillary sinus and ethmoid sinuses. Calvarium: Benign appearing cystic area in occipital skull, consistent with CSF invaginations. Vasculature: Normal flow void. PITUITARY GLAND: Partially empty sella. ORBITS: Unremarkable. IMPRESSION: Unremarkable old right lacunar infarct. Old petechial micro hemorrhage in the left basal ganglia. No acute abnormality. DATA REPOSITORY:
[2023-05-27 07:26] VITALS: BP 144/84; PULSE 63; RESP 18; TEMP 36.4; O2SAT 99
[2023-05-27] MEDS: Budesonide/Formoterol 160/4.5 6 GM 60 PUFF INH IH ×2 (07:45→19:49)
[2023-05-27] MEDS: MEROPENEM 1 GM in Normal Saline 100 ML IVPB ×2 (09:38→21:35)
[2023-05-27] MEDS: Aspirin 300 MG SUPP PR (09:38)
[2023-05-27] MEDS: Normal Saline Flush 10 ML SYR IVP ×2 (09:39→22:38)
--- NOTE | 2023-05-27 09:51 | W.SPSTE ---
Date of service: 05/27/23 Time of Service: 08:10 Subjective Clinical (Bedside) Swallow Evaluation Speech Language Pathology Referred by: Dr. Bull Referral Type: Clinical Swallow Evaluation Reason for Referral/HPI: Ladan Rosado is a 67 yo female adm to [facility] 05/25/23 with sepsis secondary to UTI and new dysphagia symptoms- choking with eating, chest pain, and poor oral intake x several days. Ladan is a resident at [facility] and presents with PMH significant for bipolar disorder, CAD s/p PCI, GERD, DM, and chronic anemia. Nursing reports hx intellectual disability. SOAP PRESS FEEDER IMPRESSIONS & RECOMMENDATIONS: Ladan presents with pharyngeal dysphagia symptoms including immediate cough with all PO trials - minced/moist solids, puree solids, and thin and mildly thick liquids. Anticipate that fast rate of intake/large size of bolus intro were factors to this- however even with hand over hand assistance to reduce bite/sip size and rate, coughing still occurred. Positioning is also likely a factor for her dysphagia- she required frequent repositioning throughout meal to support 90 degrees- including pillows on sides. Further diagnostics indicated- recommend modified barium swallow study (MBSS) - hospitalist in agreement and order placed. Plan to tentatively complete 05/28/23 pending radiology availability. Of notice, Ladan was scheduled for an outpatient swallow evaluation 05/28/23 with order sent 05/07/23. SOAP PRESS FEEDER called [facility] and spoke with Jesika- nurse practitioner. Jesika reports Ladan has been demonstrating coughing with foods/liquids for 'quite some time' though it has appeared to have gotten progressively worse over the last few months. She has not been on a modified diet (they do not have an SOAP PRESS FEEDER on staff) though does usually eat primarily finger foods and thin liquids via straw. Strict aspiration precautions recommended, including diet modification as outlined below. FURTHER SOAP PRESS FEEDER SERVICES: Patient to be followed while on unit. Upon Discharge, recommend SOAP PRESS FEEDER services at home health Diet Recommendations: SOLIDS:5-Minced & Moist Solids LIQUIDS: 0-Thin Liquids MEDICATIONS: Whole with Puree (applesauce/pudding) RISK MANAGEMENT: HOB upright as tolerated; upright for all PO intake. Use pillows behind back/at sides to support upright positioning Encourage physical mobility as tolerated. Oral hygiene before/after PO intake using friction with toothbrush on all oral structures as tolerated, suction PRN Level of Assistance/Supervision: 1:1 close supervision for all PO intake Reduce auditory and/or visual distractions when eating Provide verbal and/or visual cues to use recommended strategies: Small sips and bites when eating, Slow rate of intake, Swallow between bites Posture/Positioning Needs: Maintain upright position at least 30 minutes after meals Use pillows along back/sides to support upright positioning SUBJECTIVE: Patient received alert/awake- mild confusion as evidenced by attempts to add splenda to tea but dropping packet in without noticing Pain Reported? None Baseline Swallow Function: Patient is not a strong historian- she reports coughing has been ongoing for a few days and states I feel if I could just cough it up I'd be fine. Awaiting call back from [facility] for further insight on baseline swallow function- she was referred for an outpatient swallow eval on 05/07/23 which was scheduled for 05/28/23 PO Trials Assessed: IDDSI 0 Thin Liquids IDDSI 2 Mildly Thick Liquid IDDSI 4 Puree Solid IDDSI 5 Minced and Moist Solids Oral Mechanism Examination: Dentition is fair, missing lower dentition. Oral mucosa is WFL. Cranial Nerve Assessment: Unable to formally assess. No evidence of oral weakness/impaired ROM/coordination with PO meal Oral Phase Findings: Fast rate of intake, large bolus size/sip Patient requiring prompting to pause between bites/sips Pharyngeal Phase Findings: Delayed swallow initiation Question reduced hyolaryngeal elevation/excursion Cough after swallow with all trialed consistencies ? [place] Swallow Protocol Results: Fail ??? ASSESSMENT: Further SOAP PRESS FEEDER Services indicated. Patient to be followed while on unit. Recommendation at Discharge: SOAP PRESS FEEDER Services at [facility] Facility Suggested Referrals: N/A Recommended Procedures:MBSS/VFSS Education Provided to: Nursing, Patient, Physician Topics Addressed: SOAP PRESS FEEDER POC, aspiration risks PLAN: Frequency: 2-3x/week for 1-2 weeks Goals: Wood Machinist Goals: Patient will remain free from aspiration-related illness, malnutrition, and dehydration. Short Term Goals: Patient will tolerate L5 Minced Moist Diet and Thin liquids without overt s/s aspiration across 2/2 visits. Patient will tolerate PO trials for consideration of diet upgrade without overt s/s aspiration across 2/2 visits. SOAP PRESS FEEDER CPT Code: 90384 Clinical Swallowing Evaluation TOTAL TIME: 45 Minutes ([id number])
[2023-05-27 10:41] LABS: Transferrin 100 mg/dL (201-352)
[2023-05-27 11:02] VITALS: BP 146/82; PULSE 72; RESP 18; TEMP 37; O2SAT 97
[2023-05-27 11:41] LABS: Abs Immature Grans 0.15 10^3/uL (0.0-0.06); Absolute Basophil Count 0.02 10^3/uL (0.0-0.2); Absolute Eosinophil Count 0.03 10^3/uL (0.0-0.7); Absolute Lymphocyte Count 1.09 10^3/uL (1.2-3.4); Absolute Monocyte Count 0.35 10^3/uL (0.1-0.8); Absolute Neutrophil Count 2.91 10^3/uL (1.2-6.7); Basophils % 0.4; Eosinophils % 0.7; Immature Grans % 3.3; MCH 29.3 pg (27.0-33.0); MCHC 32.1 % (32.0-36.0); MCV 91 fL (80-95); Monocytes % 7.7; Neutrophils % 63.9; RBC 3.07 10^6/uL (3.93-5.22); RDW 12.9 % (11.7-14.6); RDW-SD 42.6 fL; WBC 4.55 10^3/uL (4.4-10.8)
[2023-05-27 11:49] LABS: BUN 37 mg/dL (7-18); CREATININE 1.8 mg/dL (0.55-1.02); Calcium 9.1 mg/dL (8.5-10.1); Chloride 111 mmol/L (98-107); Estimated GFR 30.31 (mL/min/1.73m2); Glucose 274 mg/dL (74-106); Potassium 4.3 mmol/L (3.5-5.1); Sodium 145 mmol/L (136-145)
--- NOTE | 2023-05-27 11:52 | PHA.REVIEW2 ---
Pharmacy Admission Review Admission Clinical Review Admission Pharmacy Review: Sepsis (Acute) Acute UTI (Acute) Dysphagia (Acute) ALLAN (acute kidney injury) (Acute) Prolonged QT interval (Acute) Bipolar 1 disorder (Acute) polyethylene glycol 3350 Allergy (Unknown, Verified 04/24/23 14:02) acetaminophen [From Vicodin] Allergy (Verified 04/24/23 14:02) amoxicillin Allergy (Verified 01/24/23 11:51) azithromycin [From Zithromax] Allergy (Verified 04/24/23 14:02) benzonatate Allergy (Verified 04/24/23 14:02) buspirone [From BuSpar] Allergy (Verified 04/24/23 14:02) cephalexin [From Keflex] Allergy (Verified 01/24/23 11:51) clavulanic acid [From Augmentin] Allergy (Verified 04/24/23 14:02) clonazepam [From Klonopin] Allergy (Verified 04/24/23 14:02) diazepam [From Valium] Allergy (Verified 04/24/23 14:02) gemfibrozil Allergy (Verified 04/24/23 14:02) hydrocodone [From Vicodin] Allergy (Verified 04/24/23 14:02) monosodium glutamate Allergy (Verified 04/24/23 14:02) morphine Allergy (Verified 04/24/23 14:02) nitrofurantoin [From Macrobid] Allergy (Verified 04/24/23 14:02) Penicillins Allergy (Verified 04/24/23 14:02) prednisone Allergy (Verified 04/24/23 14:02) Sulfa (Sulfonamide Antibiotics) Allergy (Verified 04/24/23 14:02) Tetanus Vaccines and Toxoid Allergy (Verified 04/24/23 14:02) tramadol Allergy (Verified 04/24/23 14:02) morphine Allergy (Unknown, Uncoded 04/24/23 14:02) nitrofurantoin Allergy (Unknown, Uncoded 04/24/23 14:02) Resuscitation Status DNR/DNI Height 4 ft 9 in Weight 54.658 kg Pharmacy Admission Review Renal Dosing Renal Dosing: BUN 37 mg/dL (7-18) H 05/27/23 11:25 Creatinine 1.8 mg/dL (0.55-1.02) H 05/27/23 11:25 Medications needing adjustments: Reviewed (CrCl 25.81 mL/min) List of meds needing interventions: Current medications okay Anticoagulation Anticoagulation: Hgb 9.0 g/dL (11.2-15.7) L 05/27/23 11:25 Hct 28.0 % (36.0-46.0) L 05/27/23 11:25 Plt Count 110 10^3/uL (130-400) L 05/27/23 11:25 Creatinine 1.8 mg/dL (0.55-1.02) H 05/27/23 11:25 DVT Prophylaxis: Reviewed Medications: Enoxaparin (30mg q24h (renal adjustment)) Relevant Labs Relevant Labs: Sodium 145 mmol/L (136-145) 05/27/23 11:25 Potassium 4.3 mmol/L (3.5-5.1) 05/27/23 11:25 Chloride 111 mmol/L (98-107) H 05/27/23 11:25 Electrolytes, C-Reactive P, ESR: Reviewed (BUN decreased from 47 to 37 and SCr decreased from 2.1 to 1.8, Hgb increased from 8.2 to 9)) DM Control DM Control: Glucose 274 mg/dL (74-106) H 05/27/23 11:25 Finger Stick Blood Glucose 273 1152 Finger Stick Blood Glucose 273 1152 Finger Stick Blood Glucose 127 0756 Finger Stick Blood Glucose 127 0756 DM Control: Reviewed Insulin Dosing, Diabetic Medication: Has order for SS insulin Cardiac Review Cardiac Review: Troponin I < 50 ng/L (< or =60) 05/25/23 16:37 Blood Pressure 146/82 1102 Blood Pressure 144/84 0726 BP, HR, EF%: Reviewed (BP 146/82, HR WNL) QTc Review QTc: Reviewed (503 on 05/25/23) IV to PO Switch IV Medications: Intervened (Currently has order for IV pantoprazole with a pending order for PO omeprazole. Reached out to provider to confirm discontinuing the pantoprazole and starting the omeprazole.) Home Meds Home Med List reviewed: Intervened Relevent Home Meds Not ordered & why?: On home med list but no order: Neupro (reached out to provider), Vitamin B12 (monthly injection), Trulicity (weekly injection) and tramadol (order was discontinued by provider) Orders from home med list pending: Aspirin (currently has scheduled OK aspirin, reached out to provider to see if they wanted both the OK and PO scheduled), ondansetron (QTc elevated at 503, reached out to provider to see if they still want this), omeprazole (has IV pantoprazole ordered, reached out to provider) Vitamin D3 25mcg was listed as active on patients home med list but has not been filled since 08/24/23. I updated patients med list. Current Meds Current Medication Order Review: Reviewed Pharmacy Antibiotic Review Pharmacy Antibiotic Activity: C/S review and Reviewed, no change Comments: Continues on meropenem 1g every 12 hours, day 2. Urine culture positive for gram negative rods.
[2023-05-27] MEDS: Isosorbide Mononitrate 30 MG TABCR PO (12:55)
[2023-05-27] MEDS: rOPINIRole 1 MG TAB PO (12:55)
[2023-05-27] MEDS: clonazePAM 0.5 MG TAB PO (12:55)
[2023-05-27] MEDS: Insulin Aspart 300 UNITS/3 ML PEN SC (12:56)
[2023-05-27] MEDS: Sucralfate 1 GM TAB PO ×2 (14:52→20:16)
[2023-05-27] MEDS: QUEtiapine 50 MG TAB PO ×2 (14:52→20:15)
[2023-05-27] MEDS: QUEtiapine 100 MG TAB PO ×2 (14:52→20:15)
[2023-05-27] MEDS: Nystatin CREAM 30 GM TUBE TP ×2 (14:53→22:38)
[2023-05-27 15:27] VITALS: BP 152/84; PULSE 71; TEMP 36.4; O2SAT 98
--- NOTE | 2023-05-27 17:05 | PGE_ITS ---
Date of Service Date of service: 05/27/23 Time of Service: 17:06 Assessment and Plan Assessment and plan (1) Acute UTI: Status: Acute Assessment and plan: Blood cultures no growth to date, urine culture with gram-negative rods identification and sensitivity pending. Continue meropenem (2) Dysphagia: Status: Acute Assessment and plan: Patient seems to be tolerating minced and moist solids with thickened liquids. Will proceed with modified barium swallow tomorrow with supervision by [employer]. Further recommendations based on the findings of her modified barium swallow. Qualifiers: Dysphagia type: unspecified Qualified Code(s): R13.10 - Dysphagia, unspecified (3) ALLAN (acute kidney injury): Status: Resolved Assessment and plan: Acute prerenal azotemia appears to be resolved. She is down to her baseline creatinine of 1.8 (4) Bipolar 1 disorder: Status: Acute Assessment and plan: Continue home meds (5) Chronic GERD: Status: Chronic Assessment and plan: Continue PPI (6) Discharge planning issues: Status: Acute Assessment and plan: Patient is DNR/DNI status. Plans for transfer back to the [facility] once her swallowing evaluation is completed and plans are in place for treatment of her dysphagia. Subjective Subjective Interval history since last seen: Patient was very upset and agitated because she felt like she has been here for several days when in fact she is only been here for 2 full days. She feels that she would get faster service from [facility] or [facility]. She is wanting to leave the hospital AGAINST MEDICAL ADVICE. She was refusing to participate with speech therapy as she feels that she has no problems with her speech. After sitting down with her and listening to her concerns and explained to her the frustrations that we have on the medical side because of her repeated presentations to the emergency room and then leaving AGAINST MEDICAL ADVICE I explained her that we want to work with her to try to work on her swallowing difficulties. After some time she calm down and she is agreeable that we would work as a team to try to get to the cause of her dysphagia. She explained to me her frustration with the staff at the [facility] whom she says kept telling that her swallowing problem is due to her stroke and there is nothing they can do about it. I told her that we want to do the modified barium swallow to see if there is any other levels of dysfunction of her swallowing that we can address. If her dysphagia is from her stroke a speech therapist can make recommendations about modifying her diet to improve her ability to swallow and prevent aspiration. If we see that there is some esophageal problem and may need further addressing with an EGD. 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 Exam Narrative Exam Narrative: Tearful elderly female sitting up. Chair fully dressed. After listening to her concerns and explained how we are trying to work with her to address her concerns of her dysphagia she seemed to calm down she did not appear to have any choking spells while I was there with her although she did have an slight nonproductive cough. Lungs are clear to auscultation Heart is regular rate and rhythm Abdomen soft and nontender nondistended no Extremities without edema Objective Last Vital Signs Temp 36.4 C L 05/27/23 15:27 Pulse 71 05/27/23 15:27 Resp 18 05/27/23 11:02 BP 152/84 H 05/27/23 15:27 Pulse Ox 98 05/27/23 15:27 Laboratory Results - last 24 hr 05/26/23 05/27/23 06:15 11:25 WBC 4.55 RBC 3.07 L Hgb 9.0 L Hct 28.0 L MCV 91 MCH 29.3 MCHC 32.1 RDW 12.9 Plt Count MPV Immature Gran % 3.3 Neutrophils % 63.9 Lymphocytes % 24.0 Monocytes % 7.7 Eosinophils % 0.7 Basophils % 0.4 Nucleated RBC % 0.0 Absolute Neutrophils 2.91 Absolute Lymphocytes 1.09 L Absolute Monocytes 0.35 Absolute Eosinophils 0.03 Absolute Basophils 0.02 Sodium 145 Potassium 4.3 Chloride 111 H Carbon Dioxide 21.0 Anion Gap 13.0 H BUN 37 H Creatinine 1.8 H Est GFR (CKD-EPI 2020) 30.31 Glucose 274 H Calcium 9.1 Transferrin 100 L Time Spent with Patient Time Spent with Patient: 25-34 minutes Time was spent: preparing to see the patient(eg.review tests), ordering medications,tests, procedures, referring, communicating with other health healthcare representative, indepentently interpreting results, counseling the patient and care coordination
[2023-05-27] MEDS: Enoxaparin 30 MG/0.3 ML SYR SC (17:39)
--- NOTE | 2023-05-27 17:52 | PDOC.CMPRO ---
Date of service: 05/27/23 Time of Service: 17:52 Care Management Progress Note Progress Note Text Progress Note Text: S/O: Ladan was sitting up in her chair when CM met with her. She stated that she had an MRI earlier today and she wanted to know the results. POLLO stated that MD will review the results with her when he meets with her. Ladan demanded to see the provider right away; CM explained that MD is doing his rounds and will meet with her as soon as he is able. Her MRI was an hour prior to this visit, therefore the results may not have been read; CM acknowledged that her concerns were valid, and that they would be attended to. Ladan stated that she has been patient for several days and that if she didn't meet with MD she would leave the hospital AMA. CM provided education regarding her right to leave [place], as she is not being held against her will. Ladan asked for her clothes and proceeded to start dressing herself, stating that she was leaving and going to another hospital where she would have test results sooner. MD met with Ladan prior to her leaving and after discussing her plan of care, as well as her MRI results, she decided to remain at [facility]. She is scheduled to have a barium swallow evaluation tomorrow, after which she may be ready for discharge. CM will coordinate her return to the [facility] once she is discharge ready. CM will continue to follow. A: Ladan is a 67 year old female admitted to [facility] on 05/25/23 for ALLAN, dehydration, dysphasia, UTI. P: Anticipate Ladan will return to the [facility], where she resides, once she is medically cleared. She will transport via [facility] w/c van, coordinated by CM. She will follow up with her PCP and discharge plan of care. CM will continue to follow. SDOH(Care Management) Screening Will the Patient Participate in the Screening?: Unable to obtain
[2023-05-27 19:50] VITALS: BP 137/81; PULSE 75; RESP 19; TEMP 36; O2SAT 98
[2023-05-27] MEDS: Omeprazole 20 MG CAPCR PO (20:15)
[2023-05-27] MEDS: Magnesium Chloride 64 MG TABCR PO (20:15)
[2023-05-27] MEDS: Atorvastatin 40 MG TAB 80 MG PO (20:15)
[2023-05-27] MEDS: Lactobacillus Acidophilus CAP 1 CAP PO (20:15)
[2023-05-27] MEDS: clonazePAM 1 MG TAB 1.5 MG PO (20:15)
--- NOTE | 2023-05-27 22:39 | NUR.NOTE ---
Nursing Note: pt very upset early in shift tonight, yelling at this rn and nurses. she was unable to narrow down the reasons why she is upset. she also said that she refused to be woken up through the night for medications. pt is stable at this time and does not have any needs. says she is going to sleep. priti.
--- NOTE | 2023-05-27 23:17 | NUR.NOTE ---
Nursing Note: it was not reported to me that patient had removed iv from herself. upon going to give her abx, i realized she didnt have one. I was able to place a new line. after administration of the abx she pulled it out again and told me she was not going to allow me to place another
[2023-05-28 03:25] VITALS: BP 147/67; PULSE 56; RESP 16; O2SAT 97
--- NOTE | 2023-05-28 05:44 | NUR.NOTE ---
Nursing Note: pt is refusing new iv placement through the night
[2023-05-28] MEDS: Levothyroxine 200 MCG TAB PO (05:47)
[2023-05-28] MEDS: Levothyroxine 25 MCG TAB PO (05:47)
[2023-05-28 07:19] LABS: Anion Gap 14.6 mmol/L (3-11); BUN 43 mg/dL (7-18); CO2 20.4 mmol/L (21.0-32.0); CREATININE 1.7 mg/dL (0.55-1.02); Calcium 8.5 mg/dL (8.5-10.1); Chloride 112 mmol/L (98-107); Estimated GFR 32.46 (mL/min/1.73m2); Glucose 158 mg/dL (74-106); Potassium 4.1 mmol/L (3.5-5.1); Sodium 147 mmol/L (136-145)
[2023-05-28 07:59] VITALS: BP 127/77; PULSE 73; RESP 17; TEMP 36.2; O2SAT 94
[2023-05-28] MEDS: Budesonide/Formoterol 160/4.5 6 GM 60 PUFF INH IH ×2 (08:11→19:47)
[2023-05-28] MEDS: QUEtiapine 100 MG TAB PO ×3 (10:21→20:11)
[2023-05-28] MEDS: Magnesium Chloride 64 MG TABCR PO ×2 (10:21→20:11)
[2023-05-28] MEDS: QUEtiapine 50 MG TAB PO ×3 (10:21→20:11)
[2023-05-28] MEDS: Isosorbide Mononitrate 30 MG TABCR PO (10:22)
[2023-05-28] MEDS: Aspirin E.C. 81 MG TABEC PO (10:22)
[2023-05-28] MEDS: Lactobacillus Acidophilus CAP 1 CAP PO ×2 (10:22→20:11)
[2023-05-28] MEDS: Losartan 25 MG TAB PO (10:22)
[2023-05-28] MEDS: Famotidine 20 MG TAB PO (10:22)
[2023-05-28] MEDS: Sucralfate 1 GM TAB PO ×3 (10:22→20:11)
[2023-05-28] MEDS: Omeprazole 20 MG CAPCR PO ×2 (10:22→20:11)
[2023-05-28] MEDS: Nystatin CREAM 30 GM TUBE TP ×3 (10:22→20:12)
--- NOTE | 2023-05-28 10:40 | PDOC.CMDIS ---
Date of service: 05/28/23 Time of Service: 10:40 LACE Index Scoring Tool Questions: Length of Stay (in days): 3 Was the patient admitted via the E.D.?: Yes Comorbidities: Diabetes w/o Complication E.D. Visits: 5 Answers: Total Score: 11 Risk of Readmission: High Risk Care Management Discharge Plan Reason for Hospitalization: ALLAN, Dehydration, dysphagia, UTI Discharge Plan: Ladan will return to the [facility] today, where she resides. CM will coordinate w/c van transport via [facility]. She will follow up with facility providers and her discharge plan of care. CM will continue to follow. Patient/Family Education Needs: Review discharge instructions and limitations, discussion of self care needs including ask me three. Services Needed at Discharge: Penitentiary Facility ([facility]) and Transportation ([facility] w/c van) SDOH Health Related Social Needs: No Data to Display
--- NOTE | 2023-05-28 11:18 | W.PM.PROGNOT ---
Date of Service Date of service: 05/28/23 Time of Service: 11:19 Assessment and Plan Assessment and plan (1) Acute UTI: Status: Acute Assessment and plan: urine culture w/ multi drug resistant E. coli. (R to ampicillin/sulbactam, cipro, gentamicin, levaquin, TMP/SMX) (2) Dysphagia: Status: Acute Assessment and plan: Patient seems to have some issues with swallowing even minced foods although the toast really was not moistened. I am awaiting her MBSS to see what further workup or treatment she may need. Qualifiers: Dysphagia type: unspecified Qualified Code(s): R13.10 - Dysphagia, unspecified (3) ALLAN (acute kidney injury): Status: Resolved Assessment and plan: Acute prerenal azotemia appears to be resolved. She is down to her baseline creatinine of 1.7 (4) Bipolar 1 disorder: Status: Acute Assessment and plan: Continue home meds (5) Chronic GERD: Status: Chronic Assessment and plan: Continue PPI (6) Discharge planning issues: Status: Acute Assessment and plan: Patient is DNR/DNI status. Plans for transfer back to the [facility] once her swallowing evaluation is completed and plans are in place for treatment of her dysphagia. Subjective Subjective Interval history since last seen: Patient feels that she is doing better, she is frustrated that her MBSS was rescheduled for 2 pm. Exam Narrative Exam Narrative: While I was interviewing the patient she was finishing her breakfast, she completed her scrambled egss but her toast was cut up in small squares but it was not moistened and she had coughing and choking spells while trying to eat toast HEENT: no visible pocketing of food in her oral cavity and she seems to have normal movement of her tongue and palate Lungs: clear Heart: RRR, no murmur Extremities: no edema Objective Last Vital Signs Temp 36.2 C L 05/28/23 07:59 Pulse 73 05/28/23 07:59 Resp 17 05/28/23 07:59 BP 127/77 05/28/23 07:59 Pulse Ox 94 05/28/23 07:59 Laboratory Results - last 24 hr 05/26/23 05/27/23 05/28/23 06:15 11:25 06:23 WBC 4.55 RBC 3.07 L Hgb 9.0 L Hct 28.0 L MCV 91 MCH 29.3 MCHC 32.1 RDW 12.9 Plt Count MPV Immature Gran % 3.3 Neutrophils % 63.9 Lymphocytes % 24.0 Monocytes % 7.7 Eosinophils % 0.7 Basophils % 0.4 Nucleated RBC % 0.0 Absolute Neutrophils 2.91 Absolute Lymphocytes 1.09 L Absolute Monocytes 0.35 Absolute Eosinophils 0.03 Absolute Basophils 0.02 Sodium 145 147 H Potassium 4.3 4.1 Chloride 111 H 112 H Carbon Dioxide 21.0 20.4 L Anion Gap 13.0 H 14.6 H BUN 37 H 43 H Creatinine 1.8 H 1.7 H Est GFR (CKD-EPI 2020) 30.31 32.46 Glucose 274 H 158 H Calcium 9.1 8.5 Transferrin 100 L Time Spent with Patient Time Spent with Patient: 25-34 minutes Time was spent: preparing to see the patient(eg.review tests), ordering medications,tests, procedures, referring, communicating with other health child care nurse, indepentently interpreting results, counseling the patient and care coordination
[2023-05-28] MEDS: MEROPENEM 1 GM in Normal Saline 100 ML IVPB ×2 (11:51→21:46)
[2023-05-28] MEDS: clonazePAM 0.5 MG TAB PO (12:14)
[2023-05-28] MEDS: rOPINIRole 1 MG TAB PO (12:14)
[2023-05-28] MEDS: Insulin Aspart 300 UNITS/3 ML PEN SC ×3 (12:15→21:48)
--- NOTE | 2023-05-28 14:46 | DI.RAD_ITS ---
Exam(s) RF MODIFIED SPEECH BA SWALLOW TECHNIQUE: Modified barium swallow was performed in conjunction with speech pathology. CONTRAST MATERIAL: Oral barium contrast was administered. COMPARISON: No exams were available for comparison FINDINGS: Note that this is not a dedicated esophagram, distal esophagus not evaluated. There is aspiration identified during the examination with thin and thick liquids. The patient did t olerate small portions of thick liquids without aspiration. The patient was able to swallow barium p udding and barium on a cracker without aspiration or penetration. Speech pathology report to follow. . . . IMPRESSION: Aspiration occurred during the examination with thin and thick liquids. RADIATION DOSE DELIVERED: papo Otero=10.2 mGy
--- NOTE | 2023-05-28 14:48 | ST.MBS_ITS ---
Date of Service Date of service: 05/28/23 Time of Service: 14:48 Modified Barium Swallow Study Findings: Video fluoroscopic Swallowing Evaluation (VFSE) / Modified Barium Swallow Study (MBSS) Speech Language Pathology Report Patient referred for VFSE/MBSS from Dr. Bull due to s/sx aspiration noted in clinical bedside swallow evaluation. HPI: Ladan Rosado is a 67 yo female adm to [facility] 05/25/23 with sepsis secondary to UTI and progressive dysphagia symptoms- choking with eating, chest pain, and poor oral intake x several days. Ladan is a resident at [facility] and presents with PMH significant for bipolar disorder, CAD s/p PCI, GERD, DM, and chronic anemia. Nursing reports hx intellectual disability. IMPRESSIONS: Moderate oral-pharyngeal dysphagia with significant risk for aspiration complications. Patient has likely been aspirating frequently for some time but does not appear to have developed any aspiration-related pneumonias and has a strong cough response. Aspiration occurred with single tsp thin liquids - consistently. Aspiration occurred before and during the swallow. Thin liquids also resulted in more residue in the pyriforms after the swallow (likely to be aspirated in subsequent trials). Small aspiration events with thick liquid, especially when there was thin liquid residue present in the pharynx at the start of the swallow, and with larger sip size. When sip size was limited to about 1/2 tsp, patient tolerated thick liquids with laryngeal penetration but not aspiration. Puree/pudding and fig zuniga (regular/easy to chew) and barium tablet were swallowed without aspiration and without significant residue. If patient is coughing with solids she is likely aspirating on liquid residue from the pharynx & larynx. Swallow function appears impacted primarily delayed pharyngeal onset, reduced epiglottis inversion, reduced UES distension, and to a lesser degree: mildly weak laryngeal elevation, reduced lingual control. Recommend Level 2 Mildly Thick liquids at this time. If patient is resistant, goals of care should be discussed. For now, recommend to remain on minced/moist solids to evaluate if we are able to reduce coughing with meals using management strategies. If so, she may be able to tolerate upgrade to soft solids. Discharge recommendations: If possible she should be followed by [facility] home health or D/C to another facility that has [facility] services. If she returns to the [facility], we can also work with her on an outpatient basis or coordinate with the [facility] via telephone to advise. Diet Recommendations: SOLIDS:5-Minced & Moist Solids LIQUIDS: 2-Mildly Thick Liquids MEDICATIONS: Whole with Puree (applesauce/pudding) RISK MANAGEMENT: Encourage physical mobility as tolerated. Oral hygiene before/after PO intake using friction with toothbrush on all oral structures as tolerated, suction PRN Level of Assistance/Supervision: 1:1 close supervision for all PO intake Reduce auditory and/or visual distractions when eating Provide verbal and/or visual cues to use recommended strategies: Small bites Small sips (about 1/2 tsp) 2 swallows per sip of liquid Swallow hard and fast Posture/Positioning Needs: [place] upright or up to chair for PO intake Maintain upright position at least 30 minutes after meals Use pillows along back/sides to support upright and midline positioning as needed ----- OBJECTIVE Videofluoroscopic Swallow Evaluation (VFSE/MBSS) was conducted in the lateral projection by Speech-Language Pathologist, in collaboration with Radiologist, to evaluate oropharyngeal swallow function. Anatomic view under fluoroscopy: WFL PO Barium Contrast Trials Oral barium water-soluble contrast was administered as follows: IDDSI Level 0 Varibar thin liquid (40% w/v) IDDSI Level 2 Varibar nectar thick/mildly thick liquid (40% w/v) IDDSI Level 4 Varibar pudding/pureed/extremely thick (40% w/v) IDDSI Level 7 Regular Solid (Easy to chew): 1/2 fig zuniga coated in 3 mL Varibar pudding 13 mm barium tablet taken with Puree. MBSImP Component Scores: COMPONENT Scale SCORE 1 Lip closure (0-4) 0 Resulted in no labial escape 2 Hold Position (0-3) 2 Resulted in posterior escape of less than half of the bolus 3 Bolus Preparation (0-4) 1 Resulted in slow prolonged chewing/mashing with complete re-collection 4 Bolus Transport (0-4) 1 Demonstrated delayed initiation of tongue motion 5 Oral Residue (0-4) 2 Was a collection on oral structures 6 Swallow Initiation (0-4) 3 Occurred when the bolus head was in the pyriform sinuses 7 Soft Palate Elevation (0-4) 0 Resulted in no bolus between soft palate and the pharyngeal wall 8 Laryngeal Elevation (0-3) 1 Was decreased with partial superior movement of thyroid cartilage/partial approximation of arytenoids to epiglottic petiole 9 Anterior Hyoid Motion (0-2) 0 Demonstrated complete anterior movement 10 Epiglottic Movement (0-2) 2 Resulted in no inversion 11 Laryngeal Closure (0-2) 1 Was incomplete with narrow a column of air/contrast in laryngeal vestibule 12 Pharyngeal Stripping Wave (0-2) 0 Was present and complete 13 Pharyngeal Contraction (0-3) NA 14 PES Opening (0-3) 1 Demonstrated partial distension/partial duration, with partial obstruction of flow 15 Tongue Base Retraction (0-4) 1 Allowed a trace column of contrast or air between tongue base and pharyngeal wall 16 Pharyngeal Residue (0-4) 2 Was a collection of residue within or on pharyngeal structures 17 Esophageal Clearance (0-4) NA Results: COMPONENT Scale SCORE 1 Oral Score (0-18) 9 2 Pharyngeal Score (0-29) 7 3 Esophageal Score (0-4) 0 Penetration-Aspiration Scale: COMPONENT Scale SCORE 1 Thin liquid (1-8) 6 vs 8 Contrast entered the airway, passed below the vocal folds, and were ejected vs no effort made. Volume of aspiration was significant. Aspiration events occurred consistently despite reduced sip sizes. 2 [place] thick (1-8) 3 vs 8 Contrast entered the airway, remained above the vocal folds and was not ejected. Contrast entered the airway, passed below the vocal folds, and no effort was made to eject. Volume of aspiration was mild vs trace and aspiration was eliminated with smaller sip size. 3 Honey thick (1-8) NA 4 Pudding thick (1-8) 1 Contrast did not enter the airway 5 Cookie (1-8) 1 Contrast did not enter the airway Trialed Compensatory Strategies & Outcome: Maneuvers Successful (+) Unsuccessful (-) Postures Successful (+) Unsuccessful (-) 3 second Preparatory Set? +/- ? Chin Tuck Posture? ? Cough? ? Posterior Head tilt? Reflexive? ?+ ? Cued? ?+ ? ? Throat Clear? ? Head Tilt to? Reflexive? Left? Cued? Right? ? Saliva swallow? ?+ Head Turn/Rotate to? ? Supraglottic Swallow? Left? ? Super-supraglottic Swallow? Right? ? Bolus Modifications Successful (+) Unsuccessful (-) Delivery/Alternating Consistencies ? Follow with Liquid Wash ? Follow with Solid Bolus? Delivery/Via Straw? ? Reduced Volume? ?+ Reduced Rate of Intake? ? Increased Viscosity? + ? Other:?? ? Statistical Technician Goals: Patient will remain free from aspiration-related illness, malnutrition, and dehydration. Short Term Goals: Patient will tolerate L5 Minced Moist Diet and Thin liquids without overt s/s aspiration across 2/2 visits. Patient will tolerate PO trials for consideration of diet upgrade without overt s/s aspiration across 2/2 visits. Thank you for allowing us to take part in this patient's care. Please feel free to contact the [facility] Speech Language Pathology Department with any questions/concerns.
[2023-05-28] MEDS: Barium Sulfate 81% w/w for Oral Suspension 148 GM BTL PO (14:49)
[2023-05-28] MEDS: Barium Sulfate 40% W/V 240 ML BTL PO (14:50)
[2023-05-28] MEDS: Barium Sulfate Oral Paste 40% W/V 230 ML TUBE PO (14:51)
[2023-05-28] MEDS: Barium Sulfate 700 MG TAB PO (14:52)
[2023-05-28] MEDS: rOPINIRole 0.5 MG TAB 1 MG PO (15:34)
[2023-05-28] MEDS: Enoxaparin 30 MG/0.3 ML SYR SC (15:37)
--- NOTE | 2023-05-28 15:52 | W.PALLCONSUL ---
Date of service: 05/28/23 Time of Service: 15:52 History of Present Illness Narrative: Ms. Rosado is a 67-year-old woman with a history of bipolar disorder, history of CVA x 2, CAD (status post stent), GERD, chronic anemia, restless leg syndrome, CKD 3 (baseline creatinine 1.7?1.8), type 2 diabetes who resides at [facility]. She was admitted to [facility] on 05/25 with a fever and some choking with eating. She was found to have a multiresistant E. coli UTI as well as dysphagia. She was kept in the hospital today to finish up a swallowing study with speech therapy. Ms. Rosado has a history of having a hard time tolerating being in the hospital, likely due to her mental health issues. Just a few days prior to admission signed out of the emergency department AMA. With support from inpatient hospital staff, she had been just barely tolerating her hospital stay. Today her complaints and behaviors escalated. Earlier today she wanted to sign out against medical advice, but Dr. Bull was able to talk her into staying. This afternoon while preparing to meet her by reviewing her chart, I observed nursing staff responding to her ringing her call bush every 5 to 10 minutes. She had multiple concerns including having not seen a doctor the whole time I am here , not getting her tramadol, not getting her RLS medications, wanting to go home. Palliative care team was consulted to see if we could help with extra level of support. Also to see if we could engage in discussion of whether she wanted to stop coming to the hospital and take a more comfort care approach. When I entered her room, her Nurse was reassuring her that he was working on getting her medications. Reassured her that that hospitalist physician be seeing her soon. Reassuring her that she would likely be going home tomorrow. Reassuring her that results from swallowing study were not yet available and that speech therapist would be by to discuss results and specific recommendations with her, likely tomorrow. I introduced myself to the patient, explaining Palliative Care Team and our role. She initially engaged with me, answering some simple questions. I acknowledged her frustration over not getting her medicines the same way she got them at her usual living facility. However as I asked more questions about her past medical history and social history, she Became upset that I needed so much personal information. After total of about 10 minutes of the room, she told me you need to leave and do not let the door hit you in the behind on your way out . I attempted to repair a conversation, but was unable to do so. She requested again that I leave. She did not see any purpose in talking to me. I offered to follow-up at [facility] in a few weeks, but she said this would not be necessary. At this point I left the room and hospitalist was informed of patient's unwillingness to talk further with me. Care Team: Primary Care physician: [facility] medical staff Social HX: Currently living in the [facility] Patient seems to have been living in her own apartment somewhere in the [facility] catchment area prior to moving to the [facility] in November 2022. Advanced Care Planning: Advanced Directive: None on file Health Care Agent: None on file, brother Efren Rosado listed as emergency contact (the [facility] may have additional healthcare agent form on file) COLST: 2014 COLST on file from [facility]: DNR/DNI, limited additional interventions. Use medical treatments and IV fluids as indicated. No other boxes checked off. Limitations: Assessment and Plan Assessment and plan (1) Palliative care encounter: Status: Acute Assessment and plan: I only had a brief encounter today with Ms. Rosado. She was having a very challenging afternoon and I think was more than ready to return home. Unfortunately, she needs to remain in the hospital 1 more night to finish antibiotics and get CONTAMINATION CONSULTANT recommendations regarding dysphagia/possible Aspiration. It appears that it is very difficult for her to be in the hospital due to her mental health issues. Being in the hospital involves change in her routine, not getting her regular medications (not even the proper brand of lidocaine patch), new staff, etc. She is very appropriate patient for palliative care team to follow and we are happy to see her in follow-up at the [facility] when she is settled back into her regular routine. However, I think it might be kearns to discuss with her PCP Jesika Brenner NP her opinion whether having another provider involved in this patient's care would be disruptive for her or helpful. We could also meet briefly with the patient and then have lengthy discussion with her care team at [facility] to problem solve around how to reduce the need for her to come to the hospital. (2) Bipolar 1 disorder: Status: Acute (3) Turners syndrome: Status: Acute (4) Acute UTI: Status: Acute (5) Dysphagia: Status: Acute Qualifiers: Dysphagia type: unspecified Qualified Code(s): R13.10 - Dysphagia, unspecified (6) History of multiple strokes: Status: Acute Assessment and plan: Total of 60 minutes today spent on chart prep, discussing patient with hospitalist, nursing staff, case management, meeting with patient, note completion PFSH All Active Problems (Updated 05/28/23 @ 20:09 by Jackie Phelps MD) History of multiple strokes (Acute) Palliative care encounter (Acute) Discharge planning issues (Acute) Sepsis (Acute) Acute UTI (Acute) Dysphagia (Acute) Prolonged QT interval (Acute) Hyperkalemia (Acute) Fever (Acute) Wears hearing aid in both ears (Acute) Conductive hearing loss, external ear (Acute) Impacted cerumen, bilateral (Acute) Nontraumatic intracerebral hemorrhage (Acute) Acquired cystic kidney disease (Acute) Megaloblastic anemia due to B12 deficiency (Acute) Hyperlipidemia (Acute) Degeneration of lumbar intervertebral disc (Acute) Bipolar 1 disorder (Acute) Benign essential hypertension (Acute) Chronic GERD (Chronic) Asthma (Chronic) Fibromyalgia (Acute) Turners syndrome (Acute) Bipolar affective disorder (Acute) Nail dystrophy (Acute) Corns and callosities (Acute) Elevated LFTs (Acute) Gout (Chronic) Hypercalcemia (Acute) Hyperparathyroidism (Acute) Hypertension (Chronic) Restless legs syndrome (RLS) (Acute) Rheumatoid arthritis (Chronic) Hypothyroidism (Chronic) Diabetes mellitus (Chronic) CAD (coronary artery disease) (Chronic) Sensorineural hearing loss (SNHL) of both ears (Acute) Medical History Abnormal auditory perception of both ears (12/25/16) Allergic rhinitis Sciatica IBS (irritable bowel syndrome) B12 deficiency anemia Surgical History History of parathyroidectomy History of hysterectomy Hx of tonsillectomy History of foot surgery Left foot; multiple fibroma excisions Social History Smoking/Tobacco Use Status: Never Smoking risk assessment performed?: Yes Alcohol Intake: never Drug use: Never Substance use type: does not use Household members: none Housing: long term Number of Children: 0 current occupation: disabled Do you feel safe at home: Yes Do you feel safe in your relationship?: Yes Additional Social history: Lives at the [facility] NATE, RN 04/24/23 Exam Narrative Exam Narrative: Elderly woman sitting up in chair, pale. No respiratory distress. Affect is angry and frustrated. Very talkative. Speech is fluid. No cough or respiratory distress. Results Last Vital Signs Temp 36.2 C L 05/28/23 07:59 Pulse 73 05/28/23 07:59 Resp 17 05/28/23 07:59 BP 127/77 05/28/23 07:59 Pulse Ox 94 05/28/23 07:59 Labs 05/27/23 11:25 05/28/23 06:23 Labs: Laboratory Results - last 24 hr 05/28/23 06:23 Sodium 147 H Potassium 4.1 Chloride 112 H Carbon Dioxide 20.4 L Anion Gap 14.6 H BUN 43 H Creatinine 1.7 H Est GFR (CKD-EPI 2020) 32.46 Glucose 158 H Calcium 8.5
--- NOTE | 2023-05-28 16:46 | CMPROGNOTE_ITS ---
Date of service: 05/28/23 Time of Service: 16:46 Care Management Progress Note Progress Note Text Progress Note Text: S/O: Ladan was sitting up in her chair when CM met with her. She stated that she was upset that her swallow evaluation has been changed from 9am until 2pm. She expressed that she wants to get back to the [facility] as soon as possible, which will likely not happen today due to how late the swallow evaluation is planned for. stated this afternoon that CRM DYNAMICS DEVELOPER would like to have a couple meals observed, therefore she will not return to the [facility] today, but she likely will be discharged tomorrow. CM will continue to follow. A: Ladan is a 67 year old female admitted to [facility] on 05/25/23 for ALLAN, dehydration, dysphasia, UTI. P: Anticipate Ladan will return to the [facility], where she resides, once she is medically cleared. She will transport via [facility] van, coordinated by CM. She will follow up with her PCP and discharge plan of care. CM will continue to follow. SDOH(Care Management) Screening Will the Patient Participate in the Screening?: Unable to obtain
[2023-05-28 16:53] VITALS: BP 150/90; PULSE 90; RESP 20; TEMP 37.1; O2SAT 99
[2023-05-28] MEDS: traMADol 50 MG TAB PO ×2 (16:57→21:54)
[2023-05-28] MEDS: Ketorolac 15 MG/ML VIAL IVP (16:57)
--- NOTE | 2023-05-28 17:47 | CHAPLAIN ---
Ladan was sitting up in the chair in her room when I visited. She was finishing breakfast around 10:30 a.m. She told me that she only has one family member, a brother who lives in [place] and had both legs amputated below the knees from an injury sustained in [place]. She said he also has mental health issues so she doesn't bother him. She became tearful telling me that she's a born again Gnosticism, so if she dies I know where I'm going. I won't recognize my parents, but they'll be there. Then she told me she'd ask for me if she wanted to talk. I returned later with a prayer shawl but she was not interested in talking. I will visit again tomorrow.
[2023-05-28 20:00] VITALS: BP 128/80; PULSE 71; RESP 18; TEMP 36.8; O2SAT 96
[2023-05-28] MEDS: Atorvastatin 40 MG TAB 80 MG PO (20:11)
[2023-05-28] MEDS: Normal Saline Flush 10 ML SYR IVP (20:12)
[2023-05-28] MEDS: rOPINIRole 1 MG TAB 2 MG PO (21:46)
[2023-05-28] MEDS: rOPINIRole 0.5 MG TAB PO (21:46)
[2023-05-28] MEDS: clonazePAM 1 MG TAB 1.5 MG PO (21:47)
[2023-05-29 02:42] VITALS: BP 106/69; PULSE 76; RESP 16; TEMP 36.6; O2SAT 94
[2023-05-29] MEDS: Levothyroxine 25 MCG TAB PO (05:54)
[2023-05-29] MEDS: Levothyroxine 200 MCG TAB PO (05:54)
[2023-05-29] MEDS: Budesonide/Formoterol 160/4.5 6 GM 60 PUFF INH IH (07:40)
[2023-05-29] MEDS: Lactobacillus Acidophilus CAP 1 CAP PO (08:44)
[2023-05-29] MEDS: QUEtiapine 100 MG TAB PO ×2 (08:44→12:53)
[2023-05-29] MEDS: Sucralfate 1 GM TAB PO ×2 (08:44→12:53)
[2023-05-29] MEDS: Normal Saline Flush 10 ML SYR IVP (08:44)
[2023-05-29] MEDS: Isosorbide Mononitrate 30 MG TABCR PO (08:44)
[2023-05-29] MEDS: Aspirin E.C. 81 MG TABEC PO (08:45)
[2023-05-29] MEDS: Omeprazole 20 MG CAPCR PO (08:45)
[2023-05-29] MEDS: Losartan 25 MG TAB PO (08:45)
[2023-05-29] MEDS: Magnesium Chloride 64 MG TABCR PO (08:45)
[2023-05-29] MEDS: Famotidine 20 MG TAB PO (08:45)
[2023-05-29] MEDS: QUEtiapine 50 MG TAB PO ×2 (08:45→12:53)
[2023-05-29] MEDS: Insulin Aspart 300 UNITS/3 ML PEN SC ×2 (08:58→12:30)
[2023-05-29] MEDS: Nystatin CREAM 30 GM TUBE TP (09:31)
--- NOTE | 2023-05-29 09:38 | W.SPSTP ---
Date of service: 05/29/23 Time of Service: 09:39 Subjective Ladan was contacted at bedside during breakfast meal this date for assessment of meal tolerance. She reports feeling somewhat better this date. She says she only coughed a couple times with dinner last night. Objective/Assessment/Plan Objective Treatment Techniques & Outcomes: PO trials: Soft/bite size solids (pancakes with syrup) Custard via tsp Thin Liquid via 1/2 tsp and via cup edge Mildly Thick Liquid via cup edge Moderately Thick Liquid via cup edge Oral Phase: Frequently speaking with food in mouth or immediately after sips of liquid despite cues. Mildly fast rate of self-feeding with solids requiring consistent cues to complete each bite before taking next. Frequently stopping to sip liquid, swallow, then continues chewing as if food still in mouth. (often leads to cough) With intermittent cueing of for appropriate sip size. Mild oral residue Pharyngeal phase: Mild delayed cough with liquids (both thin and mildly thick). Cough did not occur if patient was able to refrain from conversation or chewing immediately following sip of liquid, but she was not always responsive to cueing for safe pacing and focused deglutition. Cough was eliminated with introduction of moderately thick liquids. Esophageal phase: Patient complains of low chest pressure and belching towards end of meal. Assessment Patient continues with moderate oral-pharyngeal and possibly esophageal dysphagia at this time and complicated by cognitive status and unsafe feeding behaviors. Despite safe swallow with mildly thick liquids under certain conditions under fluoroscopy, based on feeding behaviors noted today, I don't think she is likely to be able to maintain safe swallow strategies during meals due to attention and impulsivity. She would benefit from moderately thickened liquids during meals, which the patient was agreeable to. In general she does best if she focuses on solids without sipping liquids between bites, and does best with liquids in isolation and without distraction. It is reasonable to provide thin clear liquids (ideally, just water) as an exception between meals for patient's comfort, as long as excellent oral care is provided before and after meals. Strict precautions are important, mayank. 1/2 tsp sip size (cue tiny sip) to minimize risk of aspiration. Regarding solid textures, in setting of difficulty tolerating liquids with simultaneous mastication during a meal, I continue to recommend minced/moist texture, especially for more fibrous foods such as meats. However, exceptions such as very soft pancakes soaked in syrup or breads soaked in broth may be allowed on occasion as long as they are cut into small bite sized pieces. In these cases, please refrain from providing liquids alongside if at all possible as aspiration risk increases when alternating between liquid and solid consistencies. Diet Recommendations: SOLIDS: 5-Minced & Moist Solids OK to provide occasional 6 -Soft & bite sized breads soaked/saturated in syrup or broth LIQUIDS: 3-Moderately Thick Liquids DURING MEALS for safety 0-Thin liquids BETWEEN MEALS - water only, with excellent oral care provided after meals MEDICATIONS: Whole with Puree (applesauce/pudding) RISK MANAGEMENT: Encourage physical mobility as tolerated. Oral hygiene before/after PO intake using friction with toothbrush on all oral structures as tolerated, suction PRN Level of Assistance/Supervision: 1:1 close supervision for all PO intake Reduce auditory and/or visual distractions when eating Provide verbal and/or visual cues to use recommended strategies: Small bites Small (tiny) sips (about 1/2 tsp) 2 swallows per sip of liquid Swallow hard and fast Posture/Positioning Needs: [place] upright or up to chair for PO intake Maintain upright position at least 30 minutes after meals Use pillows along back/sides to support upright and midline positioning as needed Plan Plan: Patient to d/c back to [facility] today. If at all possible to provide SALES ASSOCIATE services on site (teletherapy or via home health), patient would greatly benefit from additional SALES ASSOCIATE services to address dysphagia. Discharging SALES ASSOCIATE will collaborate with staff at [facility] to ensure kitchen staff and staff who engage with patient at mealtimes are understanding her strict feeding precautions. Recommendations Total Time Spent: 40 minutes: 8:15-8:55am
[2023-05-29] MEDS: MEROPENEM 1 GM in Normal Saline 100 ML IVPB (10:14)
--- NOTE | 2023-05-29 12:37 | W.PM.DS.N ---
Date of service: 05/29/23 Time of Service: 12:37 DS: Diagnosis Discharge Diagnosis (1) Dysphagia: Status: Acute Asessment and Plan: dysphagia from residual deficits from her prior CVA, no new CVA found on MRI. ROLLER STITCHER consulted, Rupal Walker, please see her notes for details on feedings. Patient had abnormal modified barium swallow w/ aspiration w/ solids and liquids. (2) Acute UTI: Status: Acute Asessment and Plan: negative blood cultures, positive urine cultures w/ E coli w/ multiple antiobiotic resistance (see culture results) but was sensitive to Imipenem, patient trx w/ meropenem (had imipenem from 05/25-05/26 and mereopenem 05/26-05/29. discharged on fosfomycin. recommend repeat urinalysis upon completion of fosfomycin. (3) History of multiple strokes: Status: Acute (4) Palliative care encounter: Status: Acute (5) Bipolar 1 disorder: Status: Acute Asessment and Plan: no change to home meds Discharge Plan Disposition Patient Disposition: Long-Term Facility(SNF) Condition: Improving Discharge Details Reason For Visit: ALLAN, dehydration, dysphagia, UTI Admit Date/Time: 05/25/23 16:25 Admit Provider: Napoleon Bull Attending Provider: Napoleon Bull Primary Care Provider: Shanna [facility] Hospital Course Hospital Course: 67-year-old female past medical history bipolar disorder, CAD, GERD, chronic anemia, CKD, DM who presents with chronic complaints of dysphagia related to her previous stroke. Prior to that she been in the ER with symptoms of Rigors and fevers. After she left the ED AMA on 05/21/2023. She Tawny presented to hospital 12-23 with the dysphagia symptoms. We worked her up for UTI she had negative blood cultures positive urine culture for multiresistant E. coli treated with meropenem. She was on meropenem from 05/26/2023 to 05/29/2023. She was given a dose of fosfomycin on the day of discharge and recommendation is to repeat the fosfomycin every 3 days for 2 more doses. Recommend she have a follow-up urinalysis at the correction. With respect to her workup for dysphagia we did a stroke workup she had a CT of her head on admission that showed no acute changes. She has an old lacunar infarct in the right external capsule along with atrophy and chronic sinus disease. MRI of the brain was performed on 05/27/2023 that showed old right lacunar infarct and old petechial microhemorrhage in the left basal ganglia. Patient was kept on all of her usual medications at home including her atorvastatin and her aspirin. Blood sugars were monitored and she was treated with sliding scale insulin. Speech and language pathologist was consulted. She underwent a modified barium swallow which was performed on 05/28/2023. Per Dr. Donovan Shelton radiologist patient showed aspiration during the examination with thin and thick liquids. Rupal Walker's report is also in the chart and I suggest you read it for details. Rupal can follow the patient up on the day of discharge she made recommendations please see her note for details. In brief summary she recommends feedings of moist and minced solids along with moderately thickened liquids during meals for safety but between meals patient can have thin liquids with only water. Patient needs one-to-one close supervision for all oral intake and all distractions that would interrupt her feeding need to be avoided patient is encouraged to small bites small sips of about a half a teaspoon and 2 swallows per sip of liquid and patient needs to be both upright in a chair for all meals and maintain the posture for 30 minutes after meals. Please see lower cans note from 05/29/2023 for details. Home Meds and New Rx's Prescriptions: New fosfomycin tromethamine 3 gram packet 3 g PO Q3D Qty: 1 0RF Continued Lactobacillus acidophilus Capsule 1 cap PO BID loperamide [Anti-Diarrheal (loperamide)] 2 mg tablet 2 mg PO Q8H PRN Rx Instructions: orally every 8 hours PRN for diarrhea nitroglycerin [Nitrostat] 0.4 mg tablet, sublingual 0.4 mg sublingual Q5M PRN Rx Instructions: do not exceed 3 doses per episode atorvastatin 80 mg tablet 80 mg PO QPM cyanocobalamin (vitamin B-12) 1,000 mcg/mL solution 1,000 mcg subcut QMONTH isosorbide mononitrate 30 mg tablet extended release 24 hr 30 mg PO DAILY omeprazole 20 mg capsule,delayed release(DR/EC) 20 mg PO BID Trulicity 1.5 mg/0.5 mL pen injector 1.5 mg subcut QWEEK aspirin 81 mg tablet,delayed release (DR/EC) 81 mg PO DAILY clonazepam 0.5 mg tablet 1.5 mg PO HS sucralfate 1 gram tablet 1 g PO TID Benefiber Sugar Free (dextrin) 3 gram/3.8 gram powder 1.5 g PO BID Rx Instructions: mix into at least 4 oz water or juice before administering vanilla boost 1 ea PO BID B-complex with vitamin C Tablet 1 tab PO DAILY acetaminophen [Acetaminophen Extra Strength] 500 mg tablet 1,000 mg PO TID ropinirole 2 mg tablet 2 mg PO HS tramadol 50 mg tablet 25 mg PO TID famotidine 20 mg tablet 20 mg PO DAILY ropinirole 0.5 mg tablet 0.5 mg PO HS diphenoxylate-atropine [Lomotil] 2.5-0.025 mg tablet 1 tab PO TID Rx Instructions: IF NO BM X 2 DAYS HOLD ALL 3 DOSES UNTIL PT HAS BM nystatin 100,000 unit/gram cream 1 applic TOPICAL TID Rx Instructions: APPLY TOPICALLY TO VAGINAL AREA THREE TIMES DAILY. APPLY TOPICALLY TO BUTTOCKS NEEDED Neupro 2 mg/24 hour patch 24 hour 2 mg transdermal DAILY Rx Instructions: APPLY [address] ON BACK OR ARMS ONLY clonazepam 0.5 mg tablet 0.5 mg PO .DAILY AT NOON levothyroxine 25 mcg tablet 25 mcg PO DAILY quetiapine 100 mg tablet 100 mg PO TID Rx Instructions: WITH 50MG FOR TOTOAL OF 150MG quetiapine 50 mg tablet 50 mg PO TID Rx Instructions: WITH 100MG TAB FOR TOTAL OF 150MG losartan 25 mg tablet 25 mg PO DAILY cranberry extract [Cranberry Juice Powder] 425 mg capsule 425 mg PO DAILY Rx Instructions: administer with a meal Mag 64 64 mg tablet 64 mg PO BID ropinirole 1 mg tablet 1 mg PO .DAILY AT NOON ondansetron HCl 4 mg tablet 4 mg PO Q8H PRN PRN (Reason: nausea) Calcium Antacid 500 mg tablet 1,000 mg PO Q4H PRN PRN polyethylene glycol 3350 17 g PO DAILY PRN PRN (Reason: constipation ) Rx Instructions: give powder solution mixed in 8 oz of beverage levothyroxine 200 mcg tablet 200 mcg PO DAILY Discharge Instructions Instructions: Chronic Dysphagia (DC), Aspiration Precautions (DC) Additional Instructions: Diet Recommendations: SOLIDS: 5-Minced & Moist Solids OK to provide occasional 6 -Soft & bite sized breads soaked/saturated in syrup or broth LIQUIDS: 3-Moderately Thick Liquids DURING MEALS for safety 0-Thin liquids BETWEEN MEALS - water only, with excellent oral care provided after meals MEDICATIONS: Whole with Puree (applesauce/pudding) RISK MANAGEMENT: Encourage physical mobility as tolerated. Oral hygiene before/after PO intake using friction with toothbrush on all oral structures as tolerated, suction PRN Level of Assistance/Supervision: 1:1 close supervision for all PO intake Reduce auditory and/or visual distractions when eating Provide verbal and/or visual cues to use recommended strategies: Small bites Small (tiny) sips (about 1/2 tsp) 2 swallows per sip of liquid Swallow hard and fast Posture/Positioning Needs: [place] upright or up to chair for PO intake Maintain upright position at least 30 minutes after meals Use pillows along back/sides to support upright and midline positioning as needed Plan Plan: Patient to d/c back to [facility] today. If at all possible to provide ROLLER STITCHER services on site (teletherapy or via home health), patient would greatly benefit from additional ROLLER STITCHER services to address dysphagia. Discharging ROLLER STITCHER will collaborate with staff at [facility] to ensure kitchen staff and staff who engage with patient at mealtimes are understanding her strict feeding precautions. Activity:: Activity as Tolerated Equipment/Supplies:: No Equipment Needed Diet:: see ROLLER STITCHER consult Discharge Orders Discharge Orders: Discharge Order (Routine); Ordered 05/29/23 Ordered By: Napoleon Bull DS: Summary Time Spent with Patient providing and/or coordinating discharge services: Greater than 30 minutes Specific discharge activities: Interview/exam of patient; review of discharge instructions, completion of prescriptions/discharge instructions; discussion w/ nursing and CM; documentation of hospital visit Status at Discharge Functional status at discharge: uses cane/walker Overall status at discharge: patient is back to baseline Mental Status: mental status grossly normal Speech and Movement: speech and movement normal Mood: congruent mood Affect: normal affect Quality:SDOH Health Related Social Needs: No Data to Display Exam Narrative Exam Narrative: Ladan is sitting up in her chair working with her nurse. She is tearful and concerned about returning to the [facility] that she says that they do not listen to her and do not give her the appropriate consistency of foods. Ladan did not have any choking spells while I was in the room but she was not eating at the time. Lungs are clear to auscultation Heart is regular rate and rhythm Regular rate and rhythm Abdomen soft nontender nondistended Extremities without peripheral cyanosis or edema Psych Mental Status: mental status grossly normal Speech and Movement: speech and movement normal Mood: congruent mood Affect: normal affect DS: Data Vitals/I&O Vitals and I&O: Vital Signs Temperature 36.6 C 05/29/23 02:42 Temperature Source Temporal Artery Scan 05/29/23 02:42 Pulse 76 05/29/23 02:42 Pulse Rhythm Regular 05/29/23 09:42 Pulse 79 05/25/23 17:00 Respiratory Rate 16 05/29/23 02:42 Respiratory Effort Normal 05/29/23 09:42 Respiratory Depth Normal 05/29/23 09:42 Respiratory Pattern Normal 05/29/23 09:42 Blood Pressure 106/69 05/29/23 02:42 Blood Pressure Mean 75 05/25/23 17:00 Pulse Oximetry 94 05/29/23 02:42 Oxygen Delivery Method Room Air 05/29/23 02:42 Oxygen Flow Rate 0 05/29/23 02:42 Pain Level 0 05/29/23 02:42 Comment pt refusing temp at this time. appears stable at this time. 05/28/23 03:25 Intake & Output 05/28/23 05/29/23 05/29/23 23:59 11:59 23:59 Intake Total 540 / 780 200 / 200 Output Total 250 / 800 Balance 290 / -20 200 / 200 Intake: IV 200 / 200 Oral 340 / 580 200 / 200 Output: Urine 250 / 800 Other: Urine Color Pale Yellow Urine Appearance Clear Clear Urine Odor Normal Comment changed diaper Voiding Methods Bedside Commode Diaper Data Completed and Pending Labs on day of discharge: Preliminary micro results at discharge 05/25/23 14:20 Blood Culture - Preliminary Blood NO GROWTH 72 HOURS 05/25/23 14:02 Blood Culture - Preliminary Blood NO GROWTH 72 HOURS PFSH All Active Problems History of multiple strokes (Acute) Palliative care encounter (Acute) Discharge planning issues (Acute) Sepsis (Acute) Acute UTI (Acute) Dysphagia (Acute) Prolonged QT interval (Acute) Hyperkalemia (Acute) Fever (Acute) Wears hearing aid in both ears (Acute) Conductive hearing loss, external ear (Acute) Impacted cerumen, bilateral (Acute) Nontraumatic intracerebral hemorrhage (Acute) Acquired cystic kidney disease (Acute) Megaloblastic anemia due to B12 deficiency (Acute) Hyperlipidemia (Acute) Degeneration of lumbar intervertebral disc (Acute) Bipolar 1 disorder (Acute) Benign essential hypertension (Acute) Chronic GERD (Chronic) Asthma (Chronic) Fibromyalgia (Acute) Turners syndrome (Acute) Bipolar affective disorder (Acute) Nail dystrophy (Acute) Corns and callosities (Acute) Elevated LFTs (Acute) Gout (Chronic) Hypercalcemia (Acute) Hyperparathyroidism (Acute) Hypertension (Chronic) Restless legs syndrome (RLS) (Acute) Rheumatoid arthritis (Chronic) Hypothyroidism (Chronic) Diabetes mellitus (Chronic) CAD (coronary artery disease) (Chronic) Sensorineural hearing loss (SNHL) of both ears (Acute) Medical History Abnormal auditory perception of both ears (12/25/16) Allergic rhinitis Sciatica IBS (irritable bowel syndrome) B12 deficiency anemia Surgical History History of parathyroidectomy History of hysterectomy Hx of tonsillectomy History of foot surgery Left foot; multiple fibroma excisions Social History Smoking/Tobacco Use Status: Never Smoking risk assessment performed?: Yes Alcohol Intake: never Drug use: Never Substance use type: does not use Household members: none Housing: correction Number of Children: 0 current occupation: disabled Do you feel safe at home: Yes Do you feel safe in your relationship?: Yes Additional Social history: Lives at the [facility] 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 Time Spent with Patient Time Spent with Patient: 45-69 minutes Time was spent: preparing to see the patient(eg.review tests), ordering medications,tests, procedures, referring, communicating with other health healthcare economics consultant, indepentently interpreting results, counseling the patient and care coordination
[2023-05-29] MEDS: rOPINIRole 1 MG TAB PO (12:53)
[2023-05-29] MEDS: Fosfomycin Tromethamine 3 GM PACKET PO (12:53)
[2023-05-29] MEDS: clonazePAM 0.5 MG TAB PO (12:53)
--- NOTE | 2023-05-29 16:48 | CMDISCH_ITS ---
Date of service: 05/29/23 Time of Service: 16:50 LACE Index Scoring Tool Questions: Length of Stay (in days): 4 - 6 Was the patient admitted via the E.D.?: Yes Comorbidities: Cerebrovascular Disease, Diabetes w/o Complication, Mild Liver/Renal Disease and Connective Tissue Disease E.D. Visits: 3 Answers: Total Score: 15 Risk of Readmission: High Risk Care Management Discharge Plan Reason for Hospitalization: ALLAN, Dehydration, dysphagia, UTI Discharge Plan: Ladan will return to the [facility], where she resides, once she is medically cleared. She will transport via EMS, coordinated by CM. She will follow up with her PCP and discharge plan of care. Patient/Family Education Needs: Review discharge instructions, discuss Ask Me Three. Services Needed at Discharge: [facility] Facility, Speech Therapy (S/T to follow up with [facility] to discuss follow up care. Current recommendations sent to [facility]. ) and Transportation [facility] Health Related Social Needs: No Data to Display
--- NOTE | 2023-06-25 13:32 | PDOC.CMDIS ---
Date of service: 05/29/23 Time of Service: 13:32 LACE Index Scoring Tool Questions: Length of Stay (in days): 3 Was the patient admitted via the E.D.?: Yes Comorbidities: Liver or Renal Disease E.D. Visits: 5 Answers: Total Score: 15 Risk of Readmission: High Risk Care Management Discharge Plan Reason for Hospitalization: ALLAN, Dehydration, dysphagia, UTI Discharge Plan: Ladan will return to the [facility], where she resides, once she is medically cleared. She will transport via EMS, coordinated by CM. The facility will manage her further care needs. Patient/Family Education Needs: Review discharge instructions, discuss Ask Me Three. Services Needed at Discharge: Penitentiary Facility and Transportation SDOH Health Related Social Needs: No Data to Display
== END 2023-05-29 13:40 | disposition skilled nursing facility (03) | DRG 683 ==
LOC: ER 16:49 → MS 21:45
PROVIDERS: Admitting Provider Internal Medicine; Emergency Provider Emergency Medicine; PCP Legal Medicine; Visit Provider Internal Medicine
DX: N17.9 Acute kidney failure, unspecified (principal); N39.0 Urinary tract infection, site not specified; Z16.24 Resistance to multiple antibiotics; N18.4 Chronic kidney disease, stage 4 (severe); I69.391 Dysphagia following cerebral infarction; R13.12 Dysphagia, oropharyngeal phase; D69.6 Thrombocytopenia, unspecified; E11.22 Type 2 diabetes mellitus with diabetic chronic kidney disease; K21.9 Gastro-esophageal reflux disease without esophagitis; Z79.4 Long term (current) use of insulin; I25.10 Atherosclerotic heart disease of native coronary artery without angina pectoris; F31.9 Bipolar disorder, unspecified; Q96.9 Turner's syndrome, unspecified; R79.1 Abnormal coagulation profile; E87.5 Hyperkalemia; N28.1 Cyst of kidney, acquired; E78.5 Hyperlipidemia, unspecified; M51.36 Other intervertebral disc degeneration, lumbar region; M79.7 Fibromyalgia; J45.909 Unspecified asthma, uncomplicated; D53.1 Other megaloblastic anemias, not elsewhere classified; M1A.9XX0 Chronic gout, unspecified, without tophus (tophi); G25.81 Restless legs syndrome; E21.3 Hyperparathyroidism, unspecified; M06.9 Rheumatoid arthritis, unspecified; H90.3 Sensorineural hearing loss, bilateral; Z66 Do not resuscitate; Z95.5 Presence of coronary angioplasty implant and graft; B96.20 Unspecified Escherichia coli [E. coli] as the cause of diseases classified elsewhere
CPT/HCPCS: 00123; 36415; 71250; 80048; 80053; 84145; 87040; 87077; 87637; 92526; 92610; 93005; 94640; 96365; 96367; 96375; 97161; 99285; 70450; 70551; 71045; 74176; 74221; 81003; 81015; 82607; 82728; 82746; 83540; 83550; 83605; 84466; 84484; 85025; 85379; 87086; 87186; 93010; 94664; 99223; 99232; 99239; J0736; J0743; J1650; J1815; J1836; J1885; J2185; J2470; J3490

== ENCOUNTER 2023-06-03 16:19 | Outpatient (REF) | payer MEDICARE, MEDICAID, SELFPAY ==
[2023-06-03 17:33] LABS: Bilirubin Negative (Negative); Blood Negative (Negative); Clarity Clear (Clear); Glucose Negative (Negative); Ketones Negative (Negative); Leukocyte Esterase Negative (Negative); Nitrite Negative (Negative); Specific Gravity 1.015 (1.005-1.025); Urobilinogen 0.2 mg/dL (Up to 0.2); pH 5.5 (5-8)
[2023-06-03 17:50] LABS: Bacteria Negative HPF (Negative); C & S Indicated? C&S Done As Ordered; Casts 0-2 Coarse Granular LPF (Negative); Crystals Negative HPF (Negative); Epithelial Cells Rare HPF (Negative); Mucus Trace (Negative); Other Cells Rare Yeast (Negative); RBC 0-2 HPF (0-2)
== END 2023-06-03 16:20 | disposition home or self-care (01) ==
LOC: LBN 16:19
PROVIDERS: PCP Legal Medicine; Visit Provider Nurse Practitioner Gerontology
DX: N39.0 Urinary tract infection, site not specified (principal); R11.2 Nausea with vomiting, unspecified
CPT/HCPCS: 81003; 81015; 87086

== ENCOUNTER 2023-06-24 12:14 | Inpatient (IN) | payer MEDICARE, MEDICAID, SELFPAY ==
[2023-06-24] VITALS (70 sets, daily range): BP systolic 83–161; BP diastolic 42–114; PULSE 73–106; RESP 12–26; TEMP 36.4–37.1; O2SAT 88–100
--- NOTE | 2023-06-24 12:00 | RT.EKG_ITS ---
APPROVED REPORT Exam: Resting ECG Reason for Exam: Hypotension Patient Location: E HR:91 bpm ECG Measurements Heart Rate 91 AXIS MA 160 P 91 QRSd 134 QRS 102 QT 390 T -30 QTc 482 Conclusion Sinus rhythm...normal P axis, V-rate 60- 99 RBBB and LPFB...QRSd >120mS, axis(90,210) Inferior infarct, age indeterminate...Q>35mS, T neg, II III aVF Probable anterior infarct, age indeterminate...Q >35mS, T neg, V2-V5 Physician: no stemi, RBBB
--- NOTE | 2023-06-24 12:18 | W.ED.GENAD ---
Discharge Plan Disposition Patient Disposition: Admit to [facility] Condition: Improving Discharge Details Chief Complaint: Abd Prob Clinical Impression: Sepsis associated hypotension, Acute UTI, Pneumonia Primary Care Provider: Shanna Rock ED Provider: Alvaro Lester Home Meds and New Rx's Prescriptions: No Action Lactobacillus acidophilus Capsule 1 cap PO BID loperamide [Anti-Diarrheal (loperamide)] 2 mg tablet 2 mg PO Q8H PRN Rx Instructions: orally every 8 hours PRN for diarrhea nitroglycerin [Nitrostat] 0.4 mg tablet, sublingual 0.4 mg sublingual Q5M PRN Rx Instructions: do not exceed 3 doses per episode atorvastatin 80 mg tablet 80 mg PO QPM cyanocobalamin (vitamin B-12) 1,000 mcg/mL solution 1,000 mcg subcut QMONTH isosorbide mononitrate 30 mg tablet extended release 24 hr 30 mg PO DAILY omeprazole 20 mg capsule,delayed release(DR/EC) 20 mg PO BID Trulicity 1.5 mg/0.5 mL pen injector 1.5 mg subcut QWEEK aspirin 81 mg tablet,delayed release (DR/EC) 81 mg PO DAILY clonazepam 0.5 mg tablet 1.5 mg PO HS sucralfate 1 gram tablet 1 g PO TID Benefiber Sugar Free (dextrin) 3 gram/3.8 gram powder 1.5 g PO BID Rx Instructions: mix into at least 4 oz water or juice before administering vanilla boost 1 ea PO BID B-complex with vitamin C Tablet 1 tab PO DAILY acetaminophen [Acetaminophen Extra Strength] 500 mg tablet 1,000 mg PO TID ropinirole 2 mg tablet 2 mg PO HS tramadol 50 mg tablet 25 mg PO TID famotidine 20 mg tablet 20 mg PO DAILY ropinirole 0.5 mg tablet 0.5 mg PO HS diphenoxylate-atropine [Lomotil] 2.5-0.025 mg tablet 1 tab PO TID Rx Instructions: IF NO BM X 2 DAYS HOLD ALL 3 DOSES UNTIL PT HAS BM nystatin 100,000 unit/gram cream 1 applic TOPICAL TID Rx Instructions: APPLY TOPICALLY TO VAGINAL AREA THREE TIMES DAILY. APPLY TOPICALLY TO BUTTOCKS NEEDED Neupro 2 mg/24 hour patch 24 hour 2 mg transdermal DAILY Rx Instructions: APPLY [address] ON BACK OR ARMS ONLY clonazepam 0.5 mg tablet 0.5 mg PO .DAILY AT NOON levothyroxine 25 mcg tablet 25 mcg PO DAILY quetiapine 100 mg tablet 100 mg PO TID Rx Instructions: WITH 50MG FOR TOTOAL OF 150MG quetiapine 50 mg tablet 50 mg PO TID Rx Instructions: WITH 100MG TAB FOR TOTAL OF 150MG losartan 25 mg tablet 25 mg PO DAILY cranberry extract [Cranberry Juice Powder] 425 mg capsule 425 mg PO DAILY Rx Instructions: administer with a meal Mag 64 64 mg tablet 64 mg PO BID ropinirole 1 mg tablet 1 mg PO .DAILY AT NOON ondansetron HCl 4 mg tablet 4 mg PO Q8H PRN PRN (Reason: nausea) Calcium Antacid 500 mg tablet 1,000 mg PO Q4H PRN PRN polyethylene glycol 3350 17 g PO DAILY PRN PRN (Reason: constipation ) Rx Instructions: give powder solution mixed in 8 oz of beverage levothyroxine 200 mcg tablet 200 mcg PO DAILY fosfomycin tromethamine 3 gram packet 3 g PO Q3D Qty: 1 0RF HPI General Date/Time Provider Initiated Documentation: 06/24/23 12:17. HPI Narrative: This is a 67-year-old female with quite an extensive past medical history who resides at the [facility], past medical history includes intercerebral hemorrhage, high cholesterol, bipolar, hypertension, fibromyalgia, Briceno syndrome, rheumatoid arthritis, hypothyroidism, coronary artery disease, partial deafness, restless leg syndrome, and 22 documented mild or partial allergies, who presents today for altered mental status, hypotension, tachycardia. The facility states that the patient vomited yesterday, and then today she was altered and more withdrawn. She was noted to be hypotensive and tachycardic at the planes, and was sent in for further assessment here. Patient complains of mild abdominal pain, she does cough. But no other personal complaints otherwise. No other history from the [facility]. No other modifying factors. Related Data Home Medications Medication Instructions Recorded Confirmed Lactobacillus acidophilus 1 cap PO BID 02/05/22 06/24/23 loperamide 2 mg tablet 2 mg PO Q8H PRN 02/05/22 06/24/23 (Anti-Diarrheal (loperamide)) nitroglycerin 0.4 mg sublingual 0.4 mg sublingual Q5M PRN 10/24/22 03/11/24 tablet (Nitrostat) atorvastatin 80 mg tablet 80 mg PO QPM 04/16/22 06/24/23 cyanocobalamin (vitamin B-12) 1,000 mcg subcut QMONTH 04/16/22 06/24/23 1,000 mcg/mL injection solution isosorbide mononitrate 30 mg 30 mg PO DAILY 04/16/22 06/24/23 tablet,extended release 24 hr omeprazole 20 mg capsule,delayed 20 mg PO BID 04/16/22 06/24/23 release dulaglutide 1.5 mg/0.5 mL 1.5 mg subcut QWEEK 05/14/22 06/24/23 subcutaneous pen injector (Trulicity) B-complex with vitamin C 1 tab PO DAILY 12/19/22 06/24/23 acetaminophen 500 mg tablet 1,000 mg PO TID 12/19/22 06/24/23 (Acetaminophen Extra Strength) aspirin 81 mg tablet,delayed 81 mg PO DAILY 12/19/22 06/24/23 release clonazepam 0.5 mg tablet 1.5 mg PO HS 12/19/22 06/24/23 ropinirole 2 mg tablet 2 mg PO HS 12/19/22 06/24/23 sucralfate 1 gram tablet 1 g PO TID 12/19/22 06/24/23 vanilla boost 1 ea PO BID 12/19/22 06/24/23 wheat dextrin 3 gram/3.8 gram oral 1.5 g PO BID 12/19/22 06/24/23 powder (Benefiber Sugar Free (dextrin)) famotidine 20 mg tablet 20 mg PO DAILY 01/09/23 06/24/23 tramadol 50 mg tablet 25 mg PO TID 04/24/23 06/24/23 Calcium Antacid 1,000 mg PO Q4H PRN PRN 05/26/23 06/24/23 Mag 64 64 mg PO BID 05/26/23 06/24/23 clonazepam 0.5 mg tablet 0.5 mg PO .DAILY AT NOON 05/26/23 06/24/23 cranberry extract 425 mg capsule 425 mg PO DAILY 05/26/23 06/24/23 (Cranberry Juice Powder) diphenoxylate-atropine 2.5 1 tab PO TID 05/26/23 06/24/23 mg-0.025 mg tablet (Lomotil) levothyroxine 25 mcg tablet 25 mcg PO DAILY 05/26/23 06/24/23 losartan 25 mg tablet 25 mg PO DAILY 05/26/23 06/24/23 nystatin 100,000 unit/gram topical 1 applic topical TID 05/26/23 06/24/23 cream ondansetron HCl 4 mg tablet 4 mg PO Q8H PRN PRN nausea 05/26/23 06/24/23 polyethylene glycol 3350 17 g PO DAILY PRN PRN constipation 05/26/23 06/24/23 quetiapine 100 mg tablet 100 mg PO TID 05/26/23 06/24/23 quetiapine 50 mg tablet 50 mg PO TID 05/26/23 06/24/23 ropinirole 0.5 mg tablet 0.5 mg PO HS 05/26/23 06/24/23 ropinirole 1 mg tablet 1 mg PO .DAILY AT NOON 05/26/23 06/24/23 rotigotine 2 mg/24 hour 2 mg transdermal DAILY 05/26/23 06/24/23 transdermal 24 hour patch (Neupro) levothyroxine 200 mcg tablet 200 mcg PO DAILY 05/27/23 06/24/23 fosfomycin tromethamine 3 gram 3 g PO Q3D 2 doses #1 ea 05/29/23 06/24/23 oral packet Previous Rx's Medication Instructions Recorded fosfomycin tromethamine 3 gram 3 g PO Q3D 2 doses #1 ea 05/29/23 oral packet Allergies Allergy/AdvReac Type Severity Reaction Status Date / Time polyethylene glycol 3350 Allergy Unknown Verified 04/24/23 14:02 acetaminophen [From Vicodin] Allergy Verified 04/24/23 14:02 amoxicillin Allergy Verified 01/24/23 11:51 azithromycin [From Zithromax] Allergy Verified 04/24/23 14:02 benzonatate Allergy Verified 04/24/23 14:02 buspirone [From BuSpar] Allergy Verified 04/24/23 14:02 cephalexin [From Keflex] Allergy Verified 01/24/23 11:51 clavulanic acid Allergy Verified 04/24/23 14:02 [From Augmentin] clonazepam [From Klonopin] Allergy Verified 04/24/23 14:02 diazepam [From Valium] Allergy Verified 04/24/23 14:02 gemfibrozil Allergy Verified 04/24/23 14:02 hydrocodone [From Vicodin] Allergy Verified 04/24/23 14:02 monosodium glutamate Allergy Verified 04/24/23 14:02 morphine Allergy Verified 04/24/23 14:02 nitrofurantoin Allergy Verified 04/24/23 14:02 [From Macrobid] Penicillins Allergy Verified 04/24/23 14:02 prednisone Allergy Verified 04/24/23 14:02 Sulfa (Sulfonamide Allergy Verified 04/24/23 14:02 Antibiotics) Tetanus Vaccines and Toxoid Allergy Verified 04/24/23 14:02 tramadol Allergy Verified 04/24/23 14:02 morphine Allergy Unknown Uncoded 04/24/23 14:02 nitrofurantoin Allergy Unknown Uncoded 04/24/23 14:02 General JOESPH: 3 Review of Systems All systems reviewed & are unremarkable except as noted in HPI and below Exam Narrative Exam Narrative: 1.Const: Well-nourished, Well-developed, appearing stated age 2.Eyes: PERRL, no conjunctival injection, and symmetrical lids. 3.ENT: Atraumatic external nose and ears. Dry MM. Neck: Symmetric, trachea midline, No thyromegaly. 4.CVS: +S1/S2, No murmurs or gallops. Peripheral pulses 2+ and equal in all extremities. Brisk capillary refill in all extremities. 5.RESP: Unlabored respiratory effort. Clear to auscultation bilaterally. No wheezes rales or rhonchi 6.GI: Soft, mild abdominal tenderness throughout. 7.MSK: Normocephalic/Atraumatic, Extremities w/o deformity or ttp No cyanosis or clubbing, Normal movement of all extremities 8.Skin: Warm, Dry. No rashes or lesions. 9.Neuro: air export operations agent II-XII grossly intact. Sensation grossly intact, no focal neurologic deficits. 10.Psych: (AAO) x2, confused and diminished affect. Medical Decision Making This is a 67-year-old female with quite an extensive past medical history who resides at the [facility], past medical history includes intercerebral hemorrhage, high cholesterol, bipolar, hypertension, fibromyalgia, Briceno syndrome, rheumatoid arthritis, hypothyroidism, coronary artery disease, partial deafness, restless leg syndrome, and 22 documented mild or partial allergies, who presents today for altered mental status, hypotension, tachycardia. The facility states that the patient vomited yesterday, and then today she was altered and more withdrawn. She was noted to be hypotensive and tachycardic at the planes, and was sent in for further assessment here. Patient complains of mild abdominal pain, she does cough. But no other personal complaints otherwise. No other history from the [facility]. No other modifying factors. Patient is hypertensive, tachycardic, and appears to be in septic shock. Differential is broad, but includes pneumonia, UTI, other abnormality. Patient is altered, notably dry mucous membranes. Will rehydrate with fluid bolus, treat with broad-spectrum antibiotics. She has multiple allergies will start on vancomycin and aztreonam. Will monitor closely and reassess. Will get a CT scan of the head chest abdomen and pelvis. Patient is not able to add much to the history alternatively. 4:52 PM Laboratory workup has returned, patient has no white count, procalcitonin is mildly elevated at 0.1. VBG shows evidence of mild metabolic acidosis. Lactate is 1.9. Initial labs were drawn but happened to be proximal to the line that was infusing saline, these labs were canceled by lab, and we did redraw. Creatinine elevated at 2.3, BUN 52, both of which are slightly higher than normal. Lipase normal. Nursing staff attempted multiple attempts for Leger catheter, and were unsuccessful. Dr. Vásquez was contacted and he placed Leger catheter on our behalf. Salicylate level negative, and likely not the cause of the mild acidosis. Patient received 1 L of normal saline, and the broad-spectrum antibiotics, on reassessment the patient blood pressure has notably improved 139/73, heart rate is notably improved to the high 80s low 90s. Patient is notably improved on reassessment. No evidence of septic shock at this time after fluid resuscitation and antibiotics. CT scan shows evidence of intraluminal air in the bladder, concerning for potential infection and source of infection, there is also evidence of mild pneumonia present in the lungs. With these infectious etiologies, I do feel that admission is indicated especially with her initial presentation. We we will admit for further management. Discussed the case with the hospitalist Dr. Bull, he agrees with the assessment and plan. I have extensively reviewed the treatment plan with the patient. I have addressed all patient concerns at this time. I have also discussed the plan with the admitting physician and they agree with the current assessment and plan and have agreed to assume responsibility for the patient. All parties demonstrate verbal understanding and agreement with our assessment and plan at this time. The documentation in this chart was dictated using [email or web address] dictation software. Please excuse any dictation errors. FINDINGS: Ventricles and Extra axial spaces: Normal in size and morphology for the patient's age. Hemorrhage: None. Cerebral parenchyma: There are areas of decreased attenuation in the white matter consistent with small vessel ischemic disease. There are old bilateral lacunar infarcts. Midline shift: None. Brainstem/Cerebellum: Normal. Calvarium: Normal. Visualized Paranasal sinuses/Mastoids: There is mucosal thickening in the maxillary sinuses bilaterally. Also air-fluid levels present. There is mucosal thickening in the ethmoid air cells bilaterally. Soft Tissues: Unremarkable. IMPRESSION: 1. No acute intracranial process. 2. Acute on chronic sinusitis. FINDINGS: CHEST: Tracheobronchial tree: Patent where visualized. Pulmonary parenchyma: There is a persistent infiltrate in the left lower lobe. Linear atelectasis or infiltrate is seen in the right lower lobe. There is an area of nodularity in the posterior aspect of the right lower lobe not present on the examination from 05/25/2023 and likely reflects an nodular atelectasis or infiltrate. There is a persistent infiltrate in the right middle lobe. Mediastinum and Delfina: No dominant adenopathy or fluid collection. The esophagus is unremarkable. Thyroid gland: Unremarkable. Pleura: No effusion or pneumothorax. Heart: The heart is not dilated. Coronary artery calcifications and/or stents are present. No pericardial effusion. Aorta: Thoracic aorta non-dilated. Atherosclerotic calcification is present. Note is made of a a aberrant right subclavian artery. Lymph nodes: Within normal limits. Bones:Within normal limits for the patient's age. Soft tissues: Unremarkable. ABDOMEN: Liver: Normal density. No measurable mass. Gallbladder and Biliary Tract: Status post cholecystectomy. No significant biliary ductal dilatation. Pancreas: Normal density, no abnormal calcifications or inflammatory process. Spleen: Normal. Adrenals: No masses seen. Kidneys: Normal size, contour and axis. No radiodense stones or obstructive uropathy. There are stable cysts in the kidneys. No follow-up is recommended. Abdominal Aorta: Abdominal portion non-dilated. Atherosclerotic calcification is present. Bowel: There is a moderate amount of stool in the colon. There is no evidence of bowel obstruction or bowel wall thickening. No evidence of appendicitis. Peritoneal Cavity: No ascites, collection or mesenteric inflammatory response. No free air. Lymph Nodes: Within normal limits. Bones: Within normal limits for the patient's age. Stable lucencies in the bone. No destructive lesions are seen. Soft Tissues: Unremarkable. PELVIS: Bladder: There is air seen associated with the urinary bladder. Based on the appearance of air posteriorly this may be air within the wall of the urinary bladder. Some some may be within the lumen of the urinary bladder. There are tiny foci of air which appear extraluminal adjacent to the wall of the urinary bladder. Reproductive Organs: Status post hysterectomy. Lymph Nodes: Within normal limits. Bones: Within normal limits for the patient's age. IMPRESSION: 1. Foci of gas seen within the urinary bladder and likely within the wall of the urinary bladder suspicious for infection. There is no air seen in the upper urinary tract. 2. No pneumatosis, pneumoperitoneum or portal venous gas. 3. Persistent bilateral basilar infiltrates which may represent pneumonia. 4. Moderate amount of stool in the colon which may represent constipation. 5. Findings were discussed with Dr. Lester at 3:29 p.m. on 06/24/2023. Quality:[facility] Related Social Needs: No Data to Display Critical Care Time Critical Care Time Critical Care Time: Yes Total Critical Care Time: 90 Attestation: Upon my evaluation, this patient had a high probability of imminent or life-threatening deterioration, which required my direct attention, intervention, and personal management. I have personally provided 90 minutes of critical care time exclusive of time spent on separately billable procedures. Time includes review of laboratory data, radiology results, discussion with consultants, and monitoring for potential decompensation. Interventions were performed as documented. [facility] All Active Problems (Updated 06/24/23 @ 16:59 by Alvaro Lester DO) Pneumonia (Acute) Acute UTI (Acute) Sepsis associated hypotension (Acute) History of multiple strokes (Acute) Palliative care encounter (Acute) Acute UTI (Acute) Dysphagia (Acute) Prolonged QT interval (Acute) Hyperkalemia (Acute) Fever (Acute) Wears hearing aid in both ears (Acute) Conductive hearing loss, external ear (Acute) Impacted cerumen, bilateral (Acute) Nontraumatic intracerebral hemorrhage (Acute) Acquired cystic kidney disease (Acute) Megaloblastic anemia due to B12 deficiency (Acute) Hyperlipidemia (Acute) Degeneration of lumbar intervertebral disc (Acute) Bipolar 1 disorder (Acute) Benign essential hypertension (Acute) Chronic GERD (Chronic) Asthma (Chronic) Fibromyalgia (Acute) Turners syndrome (Acute) Bipolar affective disorder (Acute) Nail dystrophy (Acute) Corns and callosities (Acute) Elevated LFTs (Acute) Gout (Chronic) Hypercalcemia (Acute) Hyperparathyroidism (Acute) Hypertension (Chronic) Restless legs syndrome (RLS) (Acute) Rheumatoid arthritis (Chronic) Hypothyroidism (Chronic) Diabetes mellitus (Chronic) CAD (coronary artery disease) (Chronic) Sensorineural hearing loss (SNHL) of both ears (Acute) Medical History Abnormal auditory perception of both ears (12/25/16) Allergic rhinitis Sciatica IBS (irritable bowel syndrome) B12 deficiency anemia Surgical History History of parathyroidectomy History of hysterectomy Hx of tonsillectomy History of foot surgery Left foot; multiple fibroma excisions Social History Smoking/Tobacco Use Status: Never Smoking risk assessment performed?: Yes Alcohol Intake: never Drug use: Never Substance use type: does not use Household members: none Housing: shelter Number of Children: 0 current occupation: disabled Do you feel safe at home: Yes Do you feel safe in your relationship?: Yes Additional Social history: Lives at the [facility] ROSITA SULLIVAN 04/24/23
[2023-06-24] MEDS: Normal Saline 500 ML IV ×2 (12:35→14:30)
[2023-06-24 13:44] LABS: Lactate 1.9 mmol/L (0.6-1.4)
[2023-06-24 13:45] LABS: Abs Immature Grans 0.04 10^3/uL (0.0-0.06); Absolute Basophil Count 0.01 10^3/uL (0.0-0.2); Absolute Eosinophil Count 0.07 10^3/uL (0.0-0.7); Absolute Lymphocyte Count 0.87 10^3/uL (1.2-3.4); Absolute Neutrophil Count 3.58 10^3/uL (1.2-6.7); Basophils % 0.2; Eosinophils % 1.4; HCT 28.7 % (36.0-46.0); HGB 8.7 g/dL (11.2-15.7); Immature Grans % 0.8; Lymphocytes % 16.8; MCH 28.2 pg (27.0-33.0); MCHC 30.3 % (32.0-36.0); MCV 93 fL (80-95); MPV 9.9 fL (8.0-11.0); Monocytes % 11.6; Neutrophils % 69.2; Platelet Count 118 10^3/uL (130-400); RBC 3.08 10^6/uL (3.93-5.22); RDW 13.2 % (11.7-14.6); RDW-SD 45.1 fL; WBC 5.17 10^3/uL (4.4-10.8)
[2023-06-24 13:51] LABS: BE (Venous) -17 mmol/L (-2-3); HCO3 (Venous) 10 mmol/L (23-28); O2 Sat (Venous) 60 %; TCO2 (Venous) 11 mmol/L (24-29); pCO2 (Venous) 25 mmHg (41-51); pH (Venous) 7.24 (7.31-7.41); pO2 (Venous) 33 mmHg
[2023-06-24 14:08] LABS: INR 1.1 (0.9-1.1); PTT Activated 28.4 sec (23.6-32.8); Prothrombin Time 11.3 sec (9.1-11.1)
[2023-06-24 14:13] LABS: ALT 34 U/L (14-59); AST 10 U/L (15-37); Albumin 2.2 g/dL (3.4-5.0); Alkaline Phosphatase 128 U/L (46-116); Anion Gap 12.6 mmol/L (3-11); BUN 52 mg/dL (7-18); Bilirubin, Total 0.2 mg/dL (0.2-1.0); CO2 18.4 mmol/L (21.0-32.0); CREATININE 2.3 mg/dL (0.55-1.02); Calcium 8.8 mg/dL (8.5-10.1); Chloride 114 mmol/L (98-107); Estimated GFR 22.59 (mL/min/1.73m2); Glucose 210 mg/dL (74-106); Lipase < 10 U/L (16-77); Sodium 145 mmol/L (136-145); TSH (W/Ref FT4) 0.08 uIU/mL (0.36-3.74); Total Protein 5.7 g/dL (6.4-8.2); Troponin I < 50 ng/L (< or =60)
[2023-06-24 14:13] LABS: COVID-19 PCR Negative (Negative); Influenza A PCR Negative (Negative); Influenza B PCR Negative (Negative); RSV PCR Negative (Negative)
[2023-06-24 14:15] LABS: Source Nasopharynx
[2023-06-24 14:19] LABS: Salicylate < 2.8 mg/dL (<2.8)
[2023-06-24 14:22] LABS: Procalcitonin 0.1 ng/mL
[2023-06-24 14:29] LABS: FREE T4 0.88 ng/dL (0.76-1.46)
--- NOTE | 2023-06-24 14:50 | DI.CT_ITS ---
Exam(s) CT HEAD WO EXAM: CT HEAD WO CLINICAL HISTORY: altered, confusion. TECHNIQUE: Imaging Protocol: Axial computed tomography images with coronal and sagittal reformatted images were created and reviewed COMPARISON: No exams were available for comparison FINDINGS: Ventricles and Extra axial spaces: Normal in size and morphology for the patient's age. Hemorrhage: None. Cerebral parenchyma: There are areas of decreased attenuation in the white matter consistent with sma ll vessel ischemic disease. There are old bilateral lacunar infarcts. Midline shift: None. Brainstem/Cerebellum: Normal. Calvarium: Normal. Visualized Paranasal sinuses/Mastoids: There is mucosal thickening in the maxillary sinuses bilateral ly. Also air-fluid levels present. There is mucosal thickening in the ethmoid air cells bilaterally. Soft Tissues: Unremarkable. IMPRESSION: 1. No acute intracranial process. 2. Acute on chronic sinusitis. RADIATION DOSE DELIVERED: Total DLP DATA REPOSITORY: All CT scans at this facility are submitted to the National Radiology Data Registry (NRDR) Dose Index Registry (DIR) with the [employer] (ACR). RADIATION OPTIMIZATION: All CT scans at this facility use at least one of these dose optimization te chniques: automated exposure control; mA and/or kV adjustment per patient size (includes targeted exa ms where dose is matched to clinical indication); or iterative reconstruction.
--- NOTE | 2023-06-24 15:00 | DI.CT_ITS ---
Exam(s) CT CHEST/ABD/PEL WO EXAM: CT CHEST/ABD/PEL WO CLINICAL HISTORY: altered, vomiting, cough TECHNIQUE: Imaging Protocol: Axial computed tomography images with coronal and sagittal reformatted images were created and reviewed COMPARISON: CT CT CHEST PE ABD PELVIS W from 12/13/[address] CHEST/ABD/PEL WO from 05/25/2023 FINDINGS: CHEST: Tracheobronchial tree: Patent where visualized. Pulmonary parenchyma: There is a persistent infiltrate in the left lower lobe. Linear atelectasis or infiltrate is seen in the right lower lobe. There is an area of nodularity in the posterior aspect of the right lower lobe not present on the examination from 05/25/2023 and likely reflects an nodular atelectasis or infiltrate. There is a persistent infiltrate in the right middle lobe. Mediastinum and Delfina: No dominant adenopathy or fluid collection. The esophagus is unremarkable. Thyroid gland: Unremarkable. Pleura: No effusion or pneumothorax. Heart: The heart is not dilated. Coronary artery calcifications and/or stents are present. No perica rdial effusion. Aorta: Thoracic aorta non-dilated. Atherosclerotic calcification is present. Note is made of a a gene rrant right subclavian artery. Lymph nodes: Within normal limits. Bones:Within normal limits for the patient's age. Soft tissues: Unremarkable. ABDOMEN: Liver: Normal density. No measurable mass. Gallbladder and Biliary Tract: Status post cholecystectomy. No significant biliary ductal dilatation . Pancreas: Normal density, no abnormal calcifications or inflammatory process. Spleen: Normal. Adrenals: No masses seen. Kidneys: Normal size, contour and axis. No radiodense stones or obstructive uropathy. There are stabl e cysts in the kidneys. No follow-up is recommended. Abdominal Aorta: Abdominal portion non-dilated. Atherosclerotic calcification is present. Bowel: There is a moderate amount of stool in the colon. There is no evidence of bowel obstruction o r bowel wall thickening. No evidence of appendicitis. Peritoneal Cavity: No ascites, collection or mesenteric inflammatory response. No free air. Lymph Nodes: Within normal limits. Bones: Within normal limits for the patient's age. Stable lucencies in the bone. No destructive les ions are seen. Soft Tissues: Unremarkable. PELVIS: Bladder: There is air seen associated with the urinary bladder. Based on the appearance of air poste riorly this may be air within the wall of the urinary bladder. Some some may be within the lumen of the urinary bladder. There are tiny foci of air which appear extraluminal adjacent to the wall of th e urinary bladder. Reproductive Organs: Status post hysterectomy. Lymph Nodes: Within normal limits. Bones: Within normal limits for the patient's age. IMPRESSION: 1. Foci of gas seen within the urinary bladder and likely within the wall of the urinary bladder susp icious for infection. There is no air seen in the upper urinary tract. 2. No pneumatosis, pneumoperitoneum or portal venous gas. 3. Persistent bilateral basilar infiltrates which may represent pneumonia. 4. Moderate amount of stool in the colon which may represent constipation. 5. Findings were discussed with Dr. Lester at 3:29 p.m. on 06/24/2023. RADIATION DOSE DELIVERED: Total DLP Total DLP DATA REPOSITORY: All CT scans at this facility are submitted to the National Radiology Data Registry (NRDR) Dose Index Registry (DIR) with the [employer] (ACR). RADIATION OPTIMIZATION: All CT scans at this facility use at least one of these dose optimization te chniques: automated exposure control; mA and/or kV adjustment per patient size (includes targeted exa ms where dose is matched to clinical indication); or iterative reconstruction.
[2023-06-24] MEDS: AZTREONAM 2,000 MG in Normal Saline 100 ML 200 MG IVPB (15:39)
[2023-06-24 16:00] LABS: BE (Venous) -8 mmol/L (-2-3); HCO3 (Venous) 19 mmol/L (23-28); O2 Sat (Venous) 46 %; TCO2 (Venous) 18 mmol/L (24-29); pCO2 (Venous) 39 mmHg (41-51); pH (Venous) 7.28 (7.31-7.41); pO2 (Venous) 26 mmHg
[2023-06-24] MEDS: VANCOMYCIN 1,250 MG in Normal Saline 250 ML 166.667 MG IVPB (16:16)
--- NOTE | 2023-06-24 16:43 | UCONE_ITS ---
Date of service: 06/24/23 Time of Service: 16:43 Assessment and Plan Assessment and plan (1) Acute UTI: Status: Acute Assessment and plan: A urine sample has been collected for culture and sensitivity. It would be preferable if the patient allowed us to leave the catheter in place for the duration of her IV antibiotics. It would not surprise me if she refuses in which case the catheter can be removed based on her wishes. History of Present Illness History of Present Illness Chief Complaint: Difficult catheterization Narrative: This is a 67-year-old woman who was hospitalized about a month ago with an E. coli urinary tract infection. She is now in the emergency department with abdominal pain symptoms. A CT scan showed air in the bladder and possibly in the bladder wall worrisome for infection. The ER staff has not been able to pass a urethral catheter and I been asked to do so. PFSH All Active Problems History of multiple strokes (Acute) Palliative care encounter (Acute) Acute UTI (Acute) Dysphagia (Acute) Prolonged QT interval (Acute) Hyperkalemia (Acute) Fever (Acute) Wears hearing aid in both ears (Acute) Conductive hearing loss, external ear (Acute) Impacted cerumen, bilateral (Acute) Nontraumatic intracerebral hemorrhage (Acute) Acquired cystic kidney disease (Acute) Megaloblastic anemia due to B12 deficiency (Acute) Hyperlipidemia (Acute) Degeneration of lumbar intervertebral disc (Acute) Bipolar 1 disorder (Acute) Benign essential hypertension (Acute) Chronic GERD (Chronic) Asthma (Chronic) Fibromyalgia (Acute) Turners syndrome (Acute) Bipolar affective disorder (Acute) Nail dystrophy (Acute) Corns and callosities (Acute) Elevated LFTs (Acute) Gout (Chronic) Hypercalcemia (Acute) Hyperparathyroidism (Acute) Hypertension (Chronic) Restless legs syndrome (RLS) (Acute) Rheumatoid arthritis (Chronic) Hypothyroidism (Chronic) Diabetes mellitus (Chronic) CAD (coronary artery disease) (Chronic) Sensorineural hearing loss (SNHL) of both ears (Acute) Medical History Abnormal auditory perception of both ears (12/25/16) Allergic rhinitis Sciatica IBS (irritable bowel syndrome) B12 deficiency anemia Surgical History History of parathyroidectomy History of hysterectomy Hx of tonsillectomy History of foot surgery Left foot; multiple fibroma excisions Social History Smoking/Tobacco Use Status: Never Smoking risk assessment performed?: Yes Alcohol Intake: never Drug use: Never Substance use type: does not use Household members: none Housing: half-way Number of Children: 0 current occupation: disabled Do you feel safe at home: Yes Do you feel safe in your relationship?: Yes Additional Social history: Lives at [facility] 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 Results Last Vital Signs Temp 36.4 C L 06/24/23 12:42 Pulse 83 06/24/23 15:22 Resp 14 06/24/23 15:22 BP 126/76 06/24/23 15:22 Pulse Ox 98 06/24/23 15:22 Labs 06/24/23 13:35 06/24/23 13:35 Labs: Laboratory Results - last 24 hr 06/24/23 06/24/23 06/24/23 12:55 13:01 13:35 WBC Cancelled 5.17 RBC Cancelled 3.08 L Hgb Cancelled 8.7 L Hct Cancelled 28.7 L MCV Cancelled 93 MCH Cancelled 28.2 MCHC Cancelled 30.3 L RDW Cancelled 13.2 Plt Count Cancelled 118 L MPV Cancelled 9.9 Immature Gran % Cancelled 0.8 Neutrophils % Cancelled 69.2 Band Neutrophils % Cancelled Lymphocytes % Cancelled 16.8 Atypical Lymphs % Cancelled Monocytes % Cancelled 11.6 Eosinophils % Cancelled 1.4 Basophils % Cancelled 0.2 Metamyelocytes % Cancelled Myelocytes % Cancelled Promyelocytes % Cancelled Other Cells % Cancelled Nucleated RBC % Cancelled 0.0 Absolute Neutrophils Cancelled 3.58 Absolute Lymphocytes Cancelled 0.87 L Absolute Monocytes Cancelled 0.60 Absolute Eosinophils Cancelled 0.07 Absolute Basophils Cancelled 0.01 RBC Morphology Cancelled Polychromasia Cancelled Hypochromasia Cancelled Poikilocytosis Cancelled Basophilic Stippling Cancelled Anisocytosis Cancelled Microcytosis Cancelled Macrocytosis Cancelled Spherocytes Cancelled Tear Drop Cells Cancelled Ovalocytes Cancelled Stomatocytes Cancelled [place] Bodies Cancelled Carla Cells/Echinocytes Cancelled Acanthocytes (Spur) Cancelled Schistocytes Cancelled PT Cancelled 11.3 H INR Cancelled 1.1 APTT Cancelled 28.4 VBG pH Cancelled 7.24 L VBG pCO2 Cancelled 25 L VBG pO2 Cancelled 33 VBG HCO3 Cancelled 10 L VBG Total CO2 Cancelled 11 L VBG O2 Saturation Cancelled 60 VBG Base Excess Cancelled -17 L VBG Lactate Cancelled 1.9 H Sodium Cancelled 145 Potassium Cancelled 5.0 Chloride Cancelled 114 H Carbon Dioxide Cancelled 18.4 L Anion Gap Cancelled 12.6 H BUN Cancelled 52 H Creatinine Cancelled 2.3 H Est GFR (CKD-EPI 2020) Cancelled 22.59 Glucose Cancelled 210 H Calcium Cancelled 8.8 Total Bilirubin Cancelled 0.2 AST Cancelled 10 L ALT Cancelled 34 Alkaline Phosphatase Cancelled 128 H Troponin I Cancelled < 50 Total Protein Cancelled 5.7 L Albumin Cancelled 2.2 L Lipase Cancelled < 10 L Procalcitonin Cancelled 0.1 TSH Cancelled 0.08 L Free T4 0.88 Salicylates Cancelled < 2.8 COVID-19 Source Nasopharynx SARS-CoV-2 (PCR) Negative Influenza Type A (PCR) Negative Influenza Type B (PCR) Negative RSV (PCR) Negative 06/24/23 15:58 WBC RBC Hgb Hct MCV MCH MCHC RDW Plt Count MPV Immature Gran % Neutrophils % Band Neutrophils % Lymphocytes % Atypical Lymphs % Monocytes % Eosinophils % Basophils % Metamyelocytes % Myelocytes % Promyelocytes % Other Cells % Nucleated RBC % Absolute Neutrophils Absolute Lymphocytes Absolute Monocytes Absolute Eosinophils Absolute Basophils RBC Morphology Polychromasia Hypochromasia Poikilocytosis Basophilic Stippling Anisocytosis Microcytosis Macrocytosis Spherocytes Tear Drop Cells Ovalocytes Stomatocytes [place] Bodies [place] Cells/Echinocytes Acanthocytes (Spur) Schistocytes PT INR APTT VBG pH 7.28 L VBG pCO2 39 L VBG pO2 26 VBG HCO3 19 L VBG Total CO2 18 L VBG O2 Saturation 46 VBG Base Excess -8 L VBG Lactate Sodium Potassium Chloride Carbon Dioxide Anion Gap BUN Creatinine Est GFR (CKD-EPI 2020) Glucose Calcium Total Bilirubin AST ALT Alkaline Phosphatase Troponin I Total Protein Albumin Lipase Procalcitonin TSH Free T4 Salicylates COVID-19 Source SARS-CoV-2 (PCR) Influenza Type A (PCR) Influenza Type B (PCR) RSV (PCR) Insert Bladder Catheter Text: The patient was seen in the emergency department. At first, he refused catheterization, but then was agreeable. She was placed in the frog-leg position. Pelvic examination revealed vaginal stenosis but I was able to insert the finger vaginally and palpate the urethral meatus anteriorly. I then used a well-lubricated 16 [place] coud? catheter and passed the catheter along my finger and directed the catheter up into the bladder. The catheter balloon was then inflated with 10 cc of sterile water. The urine sample was collected. The catheter was then hooked to gravity drainage.
[2023-06-24 16:49] LABS: Bilirubin Negative (Negative); Blood Large (Negative); Clarity Turbid (Clear); Glucose Negative (Negative); Ketones Negative (Negative); Leukocyte Esterase Small (Negative); Nitrite Positive (Negative); Urobilinogen 0.2 mg/dL (Up to 0.2); pH 5.5 (5-8)
[2023-06-24 16:55] LABS: Bacteria Moderate HPF (Negative); C & S Indicated? C&S Done As Ordered; Casts Negative LPF (Negative); Crystals Negative HPF (Negative); Epithelial Cells Few HPF (Negative); Mucus Negative (Negative); WBC >50 HPF (0-5)
--- NOTE | 2023-06-24 17:21 | W.PM.HP.N ---
Date of service: 06/24/23 Time of Service: 17:39 Assessment and Plan Assessment and plan (1) Acute UTI: Status: Acute Assessment and plan: Continue IV fluid replacement for treatment of her acute dehydration in the setting of her chronic kidney disease, continue broad-spectrum antibiotics with meropenem and vancomycin although I would quickly de-escalate off the vancomycin if there is no evidence for staph or Enterococcus infection. Continue Leger catheter that was placed graciously by Dr. Vásquez this afternoon. Hopefully patient will allow to remain in place for the duration of her antibiotic treatment of her UTI. Consider chronic suppressive therapy given her recurrent UTIs. However this is problematic as it will just select out for more resistance and the patient already has multiple antibiotic allergies. I will discuss further with Dr. Vásquez whether there is anything further we should be doing in terms of cystoscopy or looking for other causes for her chronic UTIs. Will add some Pyridium to help with her discomfort. Note her initial presentation appeared to be sepsis although her blood lactate level was not significantly elevated and her procalcitonin level was normal and she never had a fever or leukocytosis. I think her hypotension was primarily due to dehydration from her vomiting last night and her poor oral intake. (2) Emphysematous cystitis: Status: Acute (3) Prerenal azotemia: Status: Acute Assessment and plan: Continue IV fluid hydration as noted above. (4) Chronic kidney disease: Status: Chronic Assessment and plan: Patient's current BUN/creatinine are slightly above her baseline level. We will monitor her urine output overnight with continued use of her Leger and continued IV hydration. Will repeat her BMP in the morning. Qualifiers: Chronic kidney disease stage: unspecified stage Qualified Code(s): N18.9 - Chronic kidney disease, unspecified (5) Metabolic acidosis with normal anion gap and failure of bicarbonate regeneration: Status: Acute (6) Infiltrate of both lungs present on imaging study: Status: Acute Assessment and plan: Clinically the patient is not behaving like a pneumonia she is not hypoxemic and not having any chronic cough. I reviewed her CT scan it appears that she had similar infiltrates at the bases of her lungs on her prior CT scan. This looks like some scarring may be related to her underlying rheumatoid arthritis. Clinically not behaving like pneumonia, I would refer her for pulmonary consultation. (7) CAD (coronary artery disease): Status: Chronic Assessment and plan: asymptomatic, first troponin I was normal <50; will repeat another tonight and if normal will not pursue further Qualifiers: Coronary Disease-Associated Artery/Lesion type: [place] artery [place] vs. transplanted heart: [place] heart Associated angina: without angina Qualified Code(s): I25.10 - Atherosclerotic heart disease of [place] coronary artery without angina pectoris (8) Diabetes mellitus: Status: Chronic Assessment and plan: monitor glucose AC/HS, cover w/ Novolog sliding scale. urine was negative for ketones and her metabolic acidosis is not d/t elevated anion gap so no evidence for DKA Qualifiers: Diabetes mellitus type: type 2 Diabetes mellitus skilled nursing insulin use: with public relations representative use Diabetes mellitus complication status: with kidney complications Diabetes mellitus complication detail: with chronic kidney disease Chronic kidney disease stage: stage 4 (severe) Qualified Code(s): E11.22 - Type 2 diabetes mellitus with diabetic chronic kidney disease; N18.4 - Chronic kidney disease, stage 4 (severe); Z79.4 - web operations lead (current) use of insulin (9) Hypothyroidism: Status: Chronic Assessment and plan: patient is chronically on levothyroxine but it appears that she is over replaced. I have held her 25 mcg dose but kept her on her 200 mcg dose daily. should have repeat levels in 6 weeks. Qualifiers: Hypothyroidism type: acquired Qualified Code(s): E03.9 - Hypothyroidism, unspecified (10) Hypertension: Status: Chronic Assessment and plan: holding her losartan in the setting of hypotension and ALLAN Qualifiers: Hypertension type: primary hypertension Qualified Code(s): I10 - Essential (primary) hypertension (11) Bipolar affective disorder: Status: Acute Assessment and plan: continue her Seroquel Qualifiers: Active/Remission status: remission status unspecified Qualified Code(s): F31.9 - Bipolar disorder, unspecified (12) Chronic GERD: Status: Chronic Assessment and plan: continue her pepcid (13) Rheumatoid arthritis: Status: Chronic Assessment and plan: not on any chronic maintenance meds for this problem. Qualifiers: Rheumatoid factor presence: unspecified presence Rheumatoid arthritis location: unspecified site Qualified Code(s): M06.9 - Rheumatoid arthritis, unspecified (14) Dysphagia: Status: Acute Assessment and plan: continue dysphagia diet outlined by Rupal Walker during her last hospital stay. Qualifiers: Dysphagia type: unspecified Qualified Code(s): R13.10 - Dysphagia, unspecified (15) DVT prophylaxis: Status: Acute Assessment and plan: SC heparin in light of her CKD and ALLAN. (16) Discharge planning issues: Status: Acute Assessment and plan: patient is DNR/DNI status; plans for return to [facility] when medically stable. History of Present Illness History of Present Illness Chief Complaint: pelvic pain, confusion, hypotension, tachycardia Narrative: 67-year-old female resident of the [facility] in [place] who has a past history of chronic UTIs, bipolar disorder, essential hypertension, Briceno syndrome, rheumatoid arthritis, hypothyroidism, coronary artery disease, partial deafness, restless leg syndrome, chronic kidney disease, diabetes mellitus, GERD, dysphagia from previous stroke who presents to the emergency department today with symptoms of acute confusion hypotension and tachycardia and pelvic pain. She was just hospitalized at [facility] from 05/25/2023 through 05/29/2023 for urinary tract infection with an ESBL E. coli for which she was treated with meropenem. Blood cultures during that admission showed no growth. She was also evaluated for her dysphagia symptoms and recommend to follow-up a dysphagia diet. On arrival she was afebrile at 36.4 heart rate was 95 sinus rhythm and blood pressure was 95/57 and oxygen saturation is 95% on room air. However shortly after arrival she developed hypotension with systolic blood pressures in the 80s and diastolic pressures in the 50s. She was resuscitated with 1 L of normal saline and blood cultures and urine cultures were obtained along with routine labs and patient was started on vancomycin and aztreonam empirically for UTI. CT of the abdomen pelvis was performed as well as a CT of the chest this imaging showed air in her bladder as well as possible air in the wall of her bladder suggestive of emphysematous cystitis. No air was seen in the upper urinary tract and there is no evidence of obstructive uropathy. Because they are unable to pass a Leger catheter Dr. Vásquez was consulted from urology and successfully placed a Leger catheter. After resuscitation she is now draining clear yellow urine. Blood pressures have stabilized with systolic pressure in the 120s and diastolic in the 70s. However it is recommended by the ED provider that she should be observed overnight in the intensive care unit in case this is a transient improvement and she does not develop into a shock state. Laboratory studies were remarkable for the following hemoglobin 8.7 g hematocrit 28% and this is about what her baseline was during her last admission which her hemoglobin hovered around 8-1/2 to 9 g. White count surprisingly is normal at 5000. Chemistry panel is remarkable for worsening azotemia with a BUN of 52 creatinine 2.3 which is above her baseline which her baseline creatinine hovers around 1.8-2.0 and her BUN is generally in the 40s. LFTs were essentially normal except for an alkaline phosphatase of 128 TSH is markedly low at 0.08 with a free T40.88 However she is on levothyroxine. Procalcitonin was and not initially performed but has since been obtained and found to be 0.1. Patient is a hospital for treatment with broad-spectrum antibiotics to cover for complicated UTI. She will be monitored overnight in the intensive care unit and if her blood pressures remain stable she can be transferred to the medical/surgical floor. Although she has multiple medication allergies including many different antibiotics including cephalosporins penicillins sulfa and nitrofurantoin nevertheless she has tolerated carbapenems in the past and therefore rather than continuing the aztreonam I have opted to put her on meropenem along with the vancomycin. [facility] All Active Problems (Updated 06/24/23 @ 19:49 by Napoleon Bull MD) Metabolic acidosis with normal anion gap and failure of bicarbonate regeneration (Acute) Discharge planning issues (Acute) DVT prophylaxis (Acute) Chronic kidney disease (Chronic) Prerenal azotemia (Acute) Infiltrate of both lungs present on imaging study (Acute) Emphysematous cystitis (Acute) Pneumonia (Acute) Acute UTI (Acute) Sepsis associated hypotension (Acute) History of multiple strokes (Acute) Palliative care encounter (Acute) Acute UTI (Acute) Dysphagia (Acute) Prolonged QT interval (Acute) Hyperkalemia (Acute) Fever (Acute) Wears hearing aid in both ears (Acute) Conductive hearing loss, external ear (Acute) Impacted cerumen, bilateral (Acute) Nontraumatic intracerebral hemorrhage (Acute) Acquired cystic kidney disease (Acute) Megaloblastic anemia due to B12 deficiency (Acute) Hyperlipidemia (Acute) Degeneration of lumbar intervertebral disc (Acute) Bipolar 1 disorder (Acute) Benign essential hypertension (Acute) Chronic GERD (Chronic) Asthma (Chronic) Fibromyalgia (Acute) Turners syndrome (Acute) Bipolar affective disorder (Acute) Nail dystrophy (Acute) Corns and callosities (Acute) Elevated LFTs (Acute) Gout (Chronic) Hypercalcemia (Acute) Hyperparathyroidism (Acute) Hypertension (Chronic) Restless legs syndrome (RLS) (Acute) Rheumatoid arthritis (Chronic) Hypothyroidism (Chronic) Diabetes mellitus (Chronic) CAD (coronary artery disease) (Chronic) Sensorineural hearing loss (SNHL) of both ears (Acute) Medical History Abnormal auditory perception of both ears (12/25/16) Allergic rhinitis Sciatica IBS (irritable bowel syndrome) B12 deficiency anemia Surgical History History of parathyroidectomy History of hysterectomy Hx of tonsillectomy History of foot surgery Left foot; multiple fibroma excisions Social History Smoking/Tobacco Use Status: Never Smoking risk assessment performed?: Yes Alcohol Intake: never Drug use: Never Substance use type: does not use Household members: none Housing: [facility] Number of Children: 0 current occupation: disabled Do you feel safe at home: Yes Do you feel safe in your relationship?: Yes Additional Social history: Lives at [facility] NATE, RN 04/24/23 Meds Allergies and Home Medications Allergies Allergy/AdvReac Type Severity Reaction Status Date / Time polyethylene glycol 3350 Allergy Unknown Verified 04/24/23 14:02 acetaminophen [From Vicodin] Allergy Verified 04/24/23 14:02 amoxicillin Allergy Verified 01/24/23 11:51 azithromycin [From Zithromax] Allergy Verified 04/24/23 14:02 benzonatate Allergy Verified 04/24/23 14:02 buspirone [From BuSpar] Allergy Verified 04/24/23 14:02 cephalexin [From Keflex] Allergy Verified 01/24/23 11:51 clavulanic acid Allergy Verified 04/24/23 14:02 [From Augmentin] clonazepam [From Klonopin] Allergy Verified 04/24/23 14:02 diazepam [From Valium] Allergy Verified 04/24/23 14:02 gemfibrozil Allergy Verified 04/24/23 14:02 hydrocodone [From Vicodin] Allergy Verified 04/24/23 14:02 monosodium glutamate Allergy Verified 04/24/23 14:02 morphine Allergy Verified 04/24/23 14:02 nitrofurantoin Allergy Verified 04/24/23 14:02 [From Macrobid] Penicillins Allergy Verified 04/24/23 14:02 prednisone Allergy Verified 04/24/23 14:02 Sulfa (Sulfonamide Allergy Verified 04/24/23 14:02 Antibiotics) Tetanus Vaccines and Toxoid Allergy Verified 04/24/23 14:02 tramadol Allergy Verified 04/24/23 14:02 morphine Allergy Unknown Uncoded 04/24/23 14:02 nitrofurantoin Allergy Unknown Uncoded 04/24/23 14:02 Home Medications Medication Instructions Recorded Confirmed Type Lactobacillus acidophilus 1 cap PO BID 02/05/22 06/24/23 History loperamide 2 mg tablet 2 mg PO Q8H PRN 02/05/22 06/24/23 History (Anti-Diarrheal (loperamide)) nitroglycerin 0.4 mg sublingual 0.4 mg sublingual Q5M PRN 02/05/22 06/24/23 History tablet (Nitrostat) atorvastatin 80 mg tablet 80 mg PO QPM 04/16/22 06/24/23 History cyanocobalamin (vitamin B-12) 1,000 mcg subcut QMONTH 04/16/22 06/24/23 History 1,000 mcg/mL injection solution isosorbide mononitrate 30 mg 30 mg PO DAILY 04/16/22 06/24/23 History tablet,extended release 24 hr omeprazole 20 mg capsule,delayed 20 mg PO BID 04/16/22 06/24/23 History release dulaglutide 1.5 mg/0.5 mL 1.5 mg subcut QWEEK 05/14/22 06/24/23 History subcutaneous pen injector (Trulicity) B-complex with vitamin C 1 tab PO DAILY 12/19/22 06/24/23 History acetaminophen 500 mg tablet 1,000 mg PO TID 12/19/22 06/24/23 History (Acetaminophen Extra Strength) aspirin 81 mg tablet,delayed 81 mg PO DAILY 12/19/22 06/24/23 History release clonazepam 0.5 mg tablet 1.5 mg PO HS 12/19/22 06/24/23 History ropinirole 2 mg tablet 2 mg PO HS 12/19/22 06/24/23 History sucralfate 1 gram tablet 1 g PO TID 12/19/22 06/24/23 History vanilla boost 1 ea PO BID 12/19/22 06/24/23 History wheat dextrin 3 gram/3.8 gram oral 1.5 g PO BID 12/19/22 06/24/23 History powder (Benefiber Sugar Free (dextrin)) famotidine 20 mg tablet 20 mg PO DAILY 01/09/23 06/24/23 History tramadol 50 mg tablet 25 mg PO TID 04/24/23 06/24/23 History Calcium Antacid 1,000 mg PO Q4H PRN PRN 05/26/23 06/24/23 History Mag 64 64 mg PO BID 05/26/23 06/24/23 History clonazepam 0.5 mg tablet 0.5 mg PO .DAILY AT NOON 05/26/23 06/24/23 History cranberry extract 425 mg capsule 425 mg PO DAILY 05/26/23 06/24/23 History (Cranberry Juice Powder) diphenoxylate-atropine 2.5 1 tab PO TID 05/26/23 06/24/23 History mg-0.025 mg tablet (Lomotil) levothyroxine 25 mcg tablet 25 mcg PO DAILY 05/26/23 06/24/23 History losartan 25 mg tablet 25 mg PO DAILY 05/26/23 06/24/23 History nystatin 100,000 unit/gram topical 1 applic topical TID 05/26/23 06/24/23 History cream ondansetron HCl 4 mg tablet 4 mg PO Q8H PRN PRN nausea 05/26/23 06/24/23 History polyethylene glycol 3350 17 g PO DAILY PRN PRN constipation 05/26/23 06/24/23 History quetiapine 100 mg tablet 100 mg PO TID 05/26/23 06/24/23 History quetiapine 50 mg tablet 50 mg PO TID 05/26/23 06/24/23 History ropinirole 0.5 mg tablet 0.5 mg PO HS 05/26/23 06/24/23 History ropinirole 1 mg tablet 1 mg PO .DAILY AT NOON 05/26/23 06/24/23 History rotigotine 2 mg/24 hour 2 mg transdermal DAILY 05/26/23 06/24/23 History transdermal 24 hour patch (Neupro) levothyroxine 200 mcg tablet 200 mcg PO DAILY 05/27/23 06/24/23 History fosfomycin tromethamine 3 gram 3 g PO Q3D 2 doses #1 ea 05/29/23 06/24/23 Rx oral packet Exam Narrative Exam Narrative: Elderly female who is very hard of hearing and actually had to shout and get close to her ear for her to hear me. Facial appearance is dwarf like. Oropharynx is dry mucous membranes very dry tongue with no exudate teeth are in poor repair Neck is supple neck veins are flat normal carotid pulses no bruits no lymphadenopathy or thyromegaly Lungs are clear to auscultation no rhonchi or rales Heart is regular no appreciable murmur rub Abdomen nondistended normal bowel sounds no organomegaly she does have suprapubic tenderness Extremities no peripheral cyanosis or edema she has diminished pedal pulses but they are palpable. Neuro exam no focal motor deficits no focal sensory deficits to light touch no facial asymmetry no dysarthric speech. Results Labs 06/24/23 13:35 06/24/23 13:35 Labs: Laboratory Results - last 24 hr 06/24/23 06/24/23 06/24/23 12:55 13:01 13:35 WBC Cancelled 5.17 RBC Cancelled 3.08 L Hgb Cancelled 8.7 L Hct Cancelled 28.7 L MCV Cancelled 93 MCH Cancelled 28.2 MCHC Cancelled 30.3 L RDW Cancelled 13.2 Plt Count Cancelled 118 L MPV Cancelled 9.9 Immature Gran % Cancelled 0.8 Neutrophils % Cancelled 69.2 Band Neutrophils % Cancelled Lymphocytes % Cancelled 16.8 Atypical Lymphs % Cancelled Monocytes % Cancelled 11.6 Eosinophils % Cancelled 1.4 Basophils % Cancelled 0.2 Metamyelocytes % Cancelled Myelocytes % Cancelled Promyelocytes % Cancelled Other Cells % Cancelled Nucleated RBC % Cancelled 0.0 Absolute Neutrophils Cancelled 3.58 Absolute Lymphocytes Cancelled 0.87 L Absolute Monocytes Cancelled 0.60 Absolute Eosinophils Cancelled 0.07 Absolute Basophils Cancelled 0.01 RBC Morphology Cancelled Polychromasia Cancelled Hypochromasia Cancelled Poikilocytosis Cancelled Basophilic Stippling Cancelled Anisocytosis Cancelled Microcytosis Cancelled Macrocytosis Cancelled Spherocytes Cancelled Tear Drop Cells Cancelled Ovalocytes Cancelled Stomatocytes Cancelled Wiggins-[place] Bodies Cancelled [place] Cells/Echinocytes Cancelled Acanthocytes (Spur) Cancelled Schistocytes Cancelled PT Cancelled 11.3 H INR Cancelled 1.1 APTT Cancelled 28.4 VBG pH Cancelled 7.24 L VBG pCO2 Cancelled 25 L VBG pO2 Cancelled 33 VBG HCO3 Cancelled 10 L VBG Total CO2 Cancelled 11 L VBG O2 Saturation Cancelled 60 VBG Base Excess Cancelled -17 L VBG Lactate Cancelled 1.9 H Sodium Cancelled 145 Potassium Cancelled 5.0 Chloride Cancelled 114 H Carbon Dioxide Cancelled 18.4 L Anion Gap Cancelled 12.6 H BUN Cancelled 52 H Creatinine Cancelled 2.3 H Est GFR (CKD-EPI 2020) Cancelled 22.59 Glucose Cancelled 210 H Calcium Cancelled 8.8 Total Bilirubin Cancelled 0.2 AST Cancelled 10 L ALT Cancelled 34 Alkaline Phosphatase Cancelled 128 H Troponin I Cancelled < 50 Total Protein Cancelled 5.7 L Albumin Cancelled 2.2 L Lipase Cancelled < 10 L Procalcitonin Cancelled 0.1 TSH Cancelled 0.08 L Free T4 0.88 Urine Color Urine Clarity Urine pH Ur Specific [place] Urine Protein Urine Ketones Urine Blood Urine Nitrite Urine Bilirubin Urine Urobilinogen Ur Leukocyte Esterase Urine RBC Urine WBC Ur Epithelial Cells Urine Crystals Urine Bacteria Urine Casts Urine Mucus Ur Culture Indicated? Urine Glucose Salicylates Cancelled < 2.8 COVID-19 Source Nasopharynx SARS-CoV-2 (PCR) Negative Influenza Type A (PCR) Negative Influenza Type B (PCR) Negative RSV (PCR) Negative 06/24/23 06/24/23 15:58 16:40 WBC RBC Hgb Hct MCV MCH MCHC RDW Plt Count MPV Immature Gran % Neutrophils % Band Neutrophils % Lymphocytes % Atypical Lymphs % Monocytes % Eosinophils % Basophils % Metamyelocytes % Myelocytes % Promyelocytes % Other Cells % Nucleated RBC % Absolute Neutrophils Absolute Lymphocytes Absolute Monocytes Absolute Eosinophils Absolute Basophils RBC Morphology Polychromasia Hypochromasia Poikilocytosis Basophilic Stippling Anisocytosis Microcytosis Macrocytosis Spherocytes Tear Drop Cells Ovalocytes Stomatocytes Wiggins-[place]wey Bodies Carla Cells/Echinocytes Acanthocytes (Spur) Schistocytes PT INR APTT VBG pH 7.28 L VBG pCO2 39 L VBG pO2 26 VBG HCO3 19 L VBG Total CO2 18 L VBG O2 Saturation 46 VBG Base Excess -8 L VBG Lactate Sodium Potassium Chloride Carbon Dioxide Anion Gap BUN Creatinine Est GFR (CKD-EPI 2020) Glucose Calcium Total Bilirubin AST ALT Alkaline Phosphatase Troponin I Total Protein Albumin Lipase Procalcitonin TSH Free T4 Urine Color Yellow Urine Clarity Turbid Urine pH 5.5 Ur Specific [place] 1.020 Urine Protein 100 H Urine Ketones Negative Urine Blood Large H Urine Nitrite Positive H Urine Bilirubin Negative Urine Urobilinogen 0.2 Ur Leukocyte Esterase Small H Urine RBC 10-20 H Urine WBC >50 H Ur Epithelial Cells Few Urine Crystals Negative Urine Bacteria Moderate Urine Casts Negative Urine Mucus Negative Ur Culture Indicated? C&S Done As Ordered Urine Glucose Negative Salicylates COVID-19 Source SARS-CoV-2 (PCR) Influenza Type A (PCR) Influenza Type B (PCR) RSV (PCR) Last Vital Signs Temp 36.4 C L 06/24/23 12:42 Pulse 83 06/24/23 15:22 Resp 14 06/24/23 15:22 BP 126/76 06/24/23 15:22 Pulse Ox 98 06/24/23 15:22 Time Spent Time spent with Patient: 55-74 minutes Time was spent: preparing to see the patient(eg.review tests), obtaining and/or reviewing separately otained hiistory, ordering medications,tests, procedures, referring, communicating with other health laboratory animal care veterinarian (Dr. Lester), indepentently interpreting results, counseling the patient and care coordination
--- NOTE | 2023-06-24 18:11 | W.PC.ACHO ---
Registration Status: REG ER Primary Language: Preferred Language: Swedish ED Information & Data Chief Complaint Abd Prob 06/24/23 12:42 Chief Complaint Abd Prob 06/24/23 12:12 Other Complaint [facility]Medical 06/24/23 12:12 Triage Note EMS called for hypotension. 06/24/23 12:12 Staff at her facility reports PT more withdrawn than normal. non febrile on assessment. PT reports abdominal pain. Medical / Surgical History (Last Reviewed 06/24/23 @ 17:46 by Napoleon Bull MD) Abnormal auditory perception of both ears (12/25/16) Allergic rhinitis Sciatica IBS (irritable bowel syndrome) B12 deficiency anemia (Last Reviewed 06/24/23 @ 17:46 by Napoleon Bull MD) History of parathyroidectomy History of hysterectomy Hx of tonsillectomy History of foot surgery Most Recent Vital Signs Temperature 36.4 C L 06/24/23 12:42 Temperature Source Temporal Artery Scan 06/24/23 12:42 Pulse 83 06/24/23 15:22 Pulse 85 06/24/23 15:22 Respiratory Rate 14 06/24/23 15:22 Respiratory Effort Normal 06/24/23 12:42 Blood Pressure 126/76 06/24/23 15:22 Blood Pressure Mean 93 06/24/23 15:22 Pulse Oximetry 98 06/24/23 15:22 Oxygen Delivery Method Room Air 06/24/23 12:42 Oxygen Flow Rate 0 06/24/23 12:12 Allergies polyethylene glycol 3350 Allergy (Unknown, Verified 04/24/23 14:02) acetaminophen [From Vicodin] Allergy (Verified 04/24/23 14:02) amoxicillin Allergy (Verified 01/24/23 11:51) azithromycin [From Zithromax] Allergy (Verified 04/24/23 14:02) benzonatate Allergy (Verified 04/24/23 14:02) buspirone [From BuSpar] Allergy (Verified 04/24/23 14:02) cephalexin [From Keflex] Allergy (Verified 01/24/23 11:51) clavulanic acid [From Augmentin] Allergy (Verified 04/24/23 14:02) clonazepam [From Klonopin] Allergy (Verified 04/24/23 14:02) diazepam [From Valium] Allergy (Verified 04/24/23 14:02) gemfibrozil Allergy (Verified 04/24/23 14:02) hydrocodone [From Vicodin] Allergy (Verified 04/24/23 14:02) monosodium glutamate Allergy (Verified 04/24/23 14:02) morphine Allergy (Verified 04/24/23 14:02) nitrofurantoin [From Macrobid] Allergy (Verified 04/24/23 14:02) Penicillins Allergy (Verified 04/24/23 14:02) prednisone Allergy (Verified 04/24/23 14:02) Sulfa (Sulfonamide Antibiotics) Allergy (Verified 04/24/23 14:02) Tetanus Vaccines and Toxoid Allergy (Verified 04/24/23 14:02) tramadol Allergy (Verified 04/24/23 14:02) No hx from PCP progress note morphine Allergy (Unknown, Uncoded 04/24/23 14:02) No hx from PCP progress note nitrofurantoin Allergy (Unknown, Uncoded 04/24/23 14:02) No hx on PCP progress note IV IV Catheter Type [Left Forearm Saline Lock ] IV Catheter Type [Left Saline Lock Antecubital] IV Catheter Gauge [Left 20 Forearm] IV Catheter Gauge [Left 20 Antecubital] Diagnostics 06/24/23 06/24/23 06/24/23 Range/Units 17:34 16:40 15:58 WBC RBC Hgb Hct MCV MCH MCHC RDW Plt Count MPV Immature Gran % Neutrophils % Band Neutrophils % Lymphocytes % Atypical Lymphs % Monocytes % Eosinophils % Basophils % Metamyelocytes % Myelocytes % Promyelocytes % Other Cells % Nucleated RBC % Absolute Neutrophils Absolute Lymphocytes Absolute Monocytes Absolute Eosinophils Absolute Basophils RBC Morphology Polychromasia Hypochromasia Poikilocytosis Basophilic Stippling Anisocytosis Microcytosis Macrocytosis Spherocytes Tear Drop Cells Ovalocytes Stomatocytes [place] Bodies Carla Cells/Echinocytes Acanthocytes (Spur) Schistocytes PT INR APTT VBG pH 7.28 L VBG pCO2 39 L VBG pO2 26 VBG HCO3 19 L VBG Total CO2 18 L VBG O2 Saturation 46 VBG Base Excess -8 L VBG Lactate Sodium Potassium Chloride Carbon Dioxide Anion Gap BUN Creatinine Est GFR (CKD-EPI 2020) Glucose Calcium Total Bilirubin AST ALT Alkaline Phosphatase Troponin I Total Protein Albumin Lipase Procalcitonin TSH Free T4 (0.76-1.46) ng/dL Urine Color Yellow (Yellow) Urine Clarity Turbid (Clear) Urine pH 5.5 (5-8) Ur Specific [place] 1.020 (1.005-1.025) Urine Protein 100 H (Neg-Trace) mg/dL Urine Ketones Negative (Negative) mg/dL Urine Blood Large H (Negative) Urine Nitrite Positive H (Negative) Urine Bilirubin Negative (Negative) Urine Urobilinogen 0.2 (Up to 0.2) mg/dL Ur Leukocyte Esterase Small H (Negative) Urine RBC 10-20 H (0-2) HPF Urine WBC >50 H (0-5) HPF Ur Epithelial Cells Few (Negative) HPF Urine Crystals Negative (Negative) HPF Urine Bacteria Moderate (Negative) HPF Urine Casts Negative (Negative) LPF Urine Mucus Negative (Negative) Ur Culture Indicated? C&S Done As Ordered Urine Glucose Negative (Negative) mg/dL Salicylates COVID-19 Source SARS-CoV-2 (PCR) (Negative) Influenza Type A (PCR) (Negative) Influenza Type B (PCR) (Negative) RSV (PCR) (Negative) MRSA (TEM-PCR) Pending 06/24/23 06/24/23 06/24/23 Range/Units 13:35 13:01 12:55 WBC 5.17 Cancelled RBC 3.08 L Cancelled Hgb 8.7 L Cancelled Hct 28.7 L Cancelled MCV 93 Cancelled MCH 28.2 Cancelled MCHC 30.3 L Cancelled RDW 13.2 Cancelled Plt Count 118 L Cancelled MPV 9.9 Cancelled Immature Gran % 0.8 Cancelled Neutrophils % 69.2 Cancelled Band Neutrophils % Cancelled Lymphocytes % 16.8 Cancelled Atypical Lymphs % Cancelled Monocytes % 11.6 Cancelled Eosinophils % 1.4 Cancelled Basophils % 0.2 Cancelled Metamyelocytes % Cancelled Myelocytes % Cancelled Promyelocytes % Cancelled Other Cells % Cancelled Nucleated RBC % 0.0 Cancelled Absolute Neutrophils 3.58 Cancelled Absolute Lymphocytes 0.87 L Cancelled Absolute Monocytes 0.60 Cancelled Absolute Eosinophils 0.07 Cancelled Absolute Basophils 0.01 Cancelled RBC Morphology Cancelled Polychromasia Cancelled Hypochromasia Cancelled Poikilocytosis Cancelled Basophilic Stippling Cancelled Anisocytosis Cancelled Microcytosis Cancelled Macrocytosis Cancelled Spherocytes Cancelled Tear Drop Cells Cancelled Ovalocytes Cancelled Stomatocytes Cancelled [place] Bodies Cancelled [place] Cells/Echinocytes Cancelled Acanthocytes (Spur) Cancelled Schistocytes Cancelled PT 11.3 H Cancelled INR 1.1 Cancelled APTT 28.4 Cancelled VBG pH 7.24 L Cancelled VBG pCO2 25 L Cancelled VBG pO2 33 Cancelled VBG HCO3 10 L Cancelled VBG Total CO2 11 L Cancelled VBG O2 Saturation 60 Cancelled VBG Base Excess -17 L Cancelled VBG Lactate 1.9 H Cancelled Sodium 145 Cancelled Potassium 5.0 Cancelled Chloride 114 H Cancelled Carbon Dioxide 18.4 L Cancelled Anion Gap 12.6 H Cancelled BUN 52 H Cancelled Creatinine 2.3 H Cancelled Est GFR (CKD-EPI 2020) 22.59 Cancelled Glucose 210 H Cancelled Calcium 8.8 Cancelled Total Bilirubin 0.2 Cancelled AST 10 L Cancelled ALT 34 Cancelled Alkaline Phosphatase 128 H Cancelled Troponin I < 50 Cancelled Total Protein 5.7 L Cancelled Albumin 2.2 L Cancelled Lipase < 10 L Cancelled Procalcitonin 0.1 Cancelled TSH 0.08 L Cancelled Free T4 0.88 (0.76-1.46) ng/dL Urine Color (Yellow) Urine Clarity (Clear) Urine pH (5-8) Ur Specific [place] (1.005-1.025) Urine Protein (Neg-Trace) mg/dL Urine Ketones (Negative) mg/dL Urine Blood (Negative) Urine Nitrite (Negative) Urine Bilirubin (Negative) Urine Urobilinogen (Up to 0.2) mg/dL Ur Leukocyte Esterase (Negative) Urine RBC (0-2) HPF Urine WBC (0-5) HPF Ur Epithelial Cells (Negative) HPF Urine Crystals (Negative) HPF Urine Bacteria (Negative) HPF Urine Casts (Negative) LPF Urine Mucus (Negative) Ur Culture Indicated? Urine Glucose (Negative) mg/dL Salicylates < 2.8 Cancelled COVID-19 Source Nasopharynx SARS-CoV-2 (PCR) Negative (Negative) Influenza Type A (PCR) Negative (Negative) Influenza Type B (PCR) Negative (Negative) RSV (PCR) Negative (Negative) MRSA (TEM-PCR) 06/24/23 16:40 Urine Culture - Pending Urine - Cath Leger Indwelling 06/24/23 13:21 Blood Culture - Pending Blood 06/24/23 12:55 Blood Culture - Pending Blood Intake and Output - 24 Hour Total 06/24/23 12:06 thru 06/24/23 16:40 Intake Total 1100 Balance 1100 Weight 53.3 kg Intake: IV 1100 Other: Urine Color Yellow Urinary Catheter Urinary Catheter Date of 06/24/23 Insertion [Uretheral (Leger)] Time of insertion [Uretheral ( 16:40 Leger)] Falls Risk Assessment History of Falls No History 06/24/23 12:42 Contributing Factors No Factors 06/24/23 12:42 Ambulatory Aids Independent 06/24/23 12:42 Tubes/Lines None 06/24/23 12:42 Gait Evaluation No gait disturbance 06/24/23 12:42 Cognition No cognitive impairment 06/24/23 12:42 Fall Total Score 0 06/24/23 12:42 Level of Risk Standard/Low Risk 06/24/23 12:42 Problems (Last Reviewed 06/24/23 @ 17:46 by Napoleon Bull MD) Acute UTI (Acute) v v v v v v v v v Sending and/or Receiving Nurses: Please use comment section below to note any information pertinent to the patient hand-off not included above. Information / Comments: Report received from:Jordy Castro RN All questions answered
[2023-06-24 18:57] LABS: MRSA PCR Negative (Negative)
[2023-06-24] MEDS: Acetaminophen 500 MG TAB 1000 MG PO (19:54)
[2023-06-24] MEDS: QUEtiapine 100 MG TAB PO (19:56)
[2023-06-24] MEDS: QUEtiapine 50 MG TAB PO (19:57)
[2023-06-24] MEDS: traMADol 50 MG TAB 25 MG PO (19:58)
[2023-06-24] MEDS: Lactobacillus Acidophilus CAP 1 CAP PO (19:59)
[2023-06-24] MEDS: Atorvastatin 40 MG TAB 80 MG PO (20:00)
[2023-06-24] MEDS: Omeprazole 20 MG CAPCR PO (20:00)
[2023-06-24] MEDS: Sucralfate 1 GM TAB PO (20:02)
[2023-06-24] MEDS: Heparin 5,000 UNITS/ML VIAL 5000 UNITS SC (20:05)
[2023-06-24 20:13] LABS: BE (Venous) -9 mmol/L (-2-3); HCO3 (Venous) 18 mmol/L (23-28); O2 Sat (Venous) 60 %; TCO2 (Venous) 17 mmol/L (24-29); pCO2 (Venous) 37 mmHg (41-51); pH (Venous) 7.29 (7.31-7.41); pO2 (Venous) 32 mmHg
[2023-06-24 20:14] LABS: Lactate 1.3 mmol/L (0.6-1.4)
[2023-06-24] MEDS: MEROPENEM 1 GM in Normal Saline 100 ML IVPB (20:24)
[2023-06-24 20:33] LABS: Troponin I < 50 ng/L (< or =60)
[2023-06-24 21:19] LABS: POTASSIUM,URINE RANDOM 34 mmol/L; Sodium, Urine 76 mmol/L
[2023-06-24] MEDS: Normal Saline Flush 10 ML SYR IVP (21:32)
[2023-06-24] MEDS: rOPINIRole 1 MG TAB 2 MG PO (21:32)
[2023-06-24] MEDS: clonazePAM 0.5 MG TAB 1.5 MG PO (21:32)
[2023-06-25] VITALS (34 sets, daily range): BP systolic 100–136; BP diastolic 60–99; PULSE 68–90; RESP 15–23; TEMP 36.3–36.6; O2SAT 94–99
[2023-06-25] MEDS: Normal Saline Flush 10 ML SYR IVP (05:09)
[2023-06-25 05:25] LABS: Abs Immature Grans 0.04 10^3/uL (0.0-0.06); Absolute Basophil Count 0.01 10^3/uL (0.0-0.2); Absolute Eosinophil Count 0.16 10^3/uL (0.0-0.7); Absolute Lymphocyte Count 1.18 10^3/uL (1.2-3.4); Absolute Monocyte Count 0.41 10^3/uL (0.1-0.8); Basophils % 0.3; Eosinophils % 4.1; HCT 26.9 % (36.0-46.0); HGB 8.2 g/dL (11.2-15.7); Lymphocytes % 29.9; MCH 28.6 pg (27.0-33.0); MCHC 30.5 % (32.0-36.0); MCV 94 fL (80-95); MPV 10.2 fL (8.0-11.0); Monocytes % 10.4; Neutrophils % 54.3; Platelet Count 121 10^3/uL (130-400); RBC 2.87 10^6/uL (3.93-5.22); RDW 13.2 % (11.7-14.6); RDW-SD 45.7 fL; WBC 3.95 10^3/uL (4.4-10.8)
[2023-06-25 05:26] LABS: Absolute Neutrophil Count 2.14 10^3/uL (1.2-6.7)
[2023-06-25 05:44] LABS: ALT 27 U/L (14-59); AST 9 U/L (15-37); Alkaline Phosphatase 120 U/L (46-116); Anion Gap 10.2 mmol/L (3-11); BUN 46 mg/dL (7-18); Bilirubin, Total 0.1 mg/dL (0.2-1.0); CO2 20.8 mmol/L (21.0-32.0); CREATININE 2.1 mg/dL (0.55-1.02); Calcium 9.2 mg/dL (8.5-10.1); Chloride 116 mmol/L (98-107); Estimated GFR 25.19 (mL/min/1.73m2); Glucose 80 mg/dL (74-106); Potassium 4.6 mmol/L (3.5-5.1); Sodium 147 mmol/L (136-145); Total Protein 5.3 g/dL (6.4-8.2); Vancomycin, Random 15.2 ug/mL
[2023-06-25] MEDS: Heparin 5,000 UNITS/ML VIAL 5000 UNITS SC ×3 (06:41→20:04)
[2023-06-25] MEDS: MEROPENEM 1 GM in Normal Saline 100 ML IVPB ×2 (08:10→20:18)
[2023-06-25] MEDS: Aspirin E.C. 81 MG TABEC PO (08:11)
[2023-06-25] MEDS: Levothyroxine 200 MCG TAB PO (08:11)
[2023-06-25] MEDS: Famotidine 20 MG TAB PO (08:12)
[2023-06-25] MEDS: Lactobacillus Acidophilus CAP 1 CAP PO ×2 (08:12→20:04)
[2023-06-25] MEDS: QUEtiapine 50 MG TAB PO ×3 (08:12→20:04)
[2023-06-25] MEDS: QUEtiapine 100 MG TAB PO ×3 (08:12→20:03)
[2023-06-25] MEDS: Omeprazole 20 MG CAPCR PO ×2 (08:13→20:04)
[2023-06-25] MEDS: Acetaminophen 500 MG TAB 1000 MG PO ×3 (08:14→20:04)
[2023-06-25] MEDS: Vitamins B Comp w/C TAB 1 TAB PO (08:15)
[2023-06-25] MEDS: Sucralfate 1 GM TAB PO ×2 (08:15→20:04)
--- NOTE | 2023-06-25 09:54 | W.PM.PROGNOT ---
Date of Service Date of service: 06/25/23 Time of Service: 09:54 Assessment and Plan Assessment and plan (1) Acute UTI: Status: Acute Assessment and plan: continue vancomycin (w/ renal adjustment; pharmacy to dose), continue Meropenem; awaiting results on urine and blood cultures. hemodynamically stable after inital presentation to the ED w/ hypotensive. concern for sepsis but I think this was mostly hypovolemic shock that responded quickly to volume loading. She is now taking po well and iv fluids can be stopped. continue treatment of her complex UTI (has emphysematous cystitis). May need cystoscopy at later date but will leave to Dr. Vásquez's decision about need and timing. continue powell while hospitalized although she may need assistant terminal manager catheter if she is not adquately draining her bladder which may be why she keeps returning w/ UTI. Transfer out of ICU to medical/surgical floor. Professional time spent interviewing and examining patient, discussion of goals of care with hospital team (care management, nursing and consulting professionals) was 35 minutes. (2) Emphysematous cystitis: Status: Acute Assessment and plan: As above (3) Prerenal azotemia: Status: Acute Assessment and plan: Patient is currently at or near her baseline renal function BUN 46, creatinine 2.1. As patient is tolerating her diet we will discontinue her IV fluids today. (4) Chronic kidney disease: Status: Chronic Assessment and plan: Patient is currently at her baseline renal function. Continue to monitor urine output. Discontinue IV fluids. Repeat BMP in the morning. Sodium bicarbonate added to treat her chronic metabolic acidosis. Qualifiers: Chronic kidney disease stage: unspecified stage Qualified Code(s): N18.9 - Chronic kidney disease, unspecified (5) Metabolic acidosis with normal anion gap and failure of bicarbonate regeneration: Status: Acute Assessment and plan: As above (6) Infiltrate of both lungs present on imaging study: Status: Acute Assessment and plan: Clinically the patient is not behaving like a pneumonia she is not hypoxemic and not having any chronic cough. I reviewed her CT scan it appears that she had similar infiltrates at the bases of her lungs on her prior CT scan. This looks like some scarring may be related to her underlying rheumatoid arthritis. Clinically not behaving like pneumonia, I would refer her for pulmonary consultation. (7) CAD (coronary artery disease): Status: Chronic Assessment and plan: Asymptomatic Continue current home medications Qualifiers: Coronary Disease-Associated Artery/Lesion type: [place] artery [place] vs. transplanted heart: [place] heart Associated angina: without angina Qualified Code(s): I25.10 - Atherosclerotic heart disease of [place] coronary artery without angina pectoris (8) Diabetes mellitus: Status: Chronic Assessment and plan: Continue sliding scale insulin monitor blood sugars ACHS Qualifiers: Diabetes mellitus type: type 2 Diabetes mellitus assistant terminal manager insulin use: with assistant terminal manager use Diabetes mellitus complication status: with kidney complications Diabetes mellitus complication detail: with chronic kidney disease Chronic kidney disease stage: stage 4 (severe) Qualified Code(s): E11.22 - Type 2 diabetes mellitus with diabetic chronic kidney disease; N18.4 - Chronic kidney disease, stage 4 (severe); Z79.4 - MCC (current) use of insulin (9) Hypothyroidism: Status: Chronic Assessment and plan: patient is chronically on levothyroxine but it appears that she is over replaced. I have held her 25 mcg dose but kept her on her 200 mcg dose daily. should have repeat levels in 6 weeks. Qualifiers: Hypothyroidism type: acquired Qualified Code(s): E03.9 - Hypothyroidism, unspecified (10) Hypertension: Status: Chronic Assessment and plan: Resume losartan Qualifiers: Hypertension type: primary hypertension Qualified Code(s): I10 - Essential (primary) hypertension (11) Bipolar affective disorder: Status: Acute Assessment and plan: continue her Seroquel Qualifiers: Active/Remission status: remission status unspecified Qualified Code(s): F31.9 - Bipolar disorder, unspecified (12) Chronic GERD: Status: Chronic Assessment and plan: continue her pepcid however I have asked pharmacy to adjust for her renal function (13) Rheumatoid arthritis: Status: Chronic Assessment and plan: not on any chronic maintenance meds for this problem. Qualifiers: Rheumatoid arthritis location: unspecified site Rheumatoid factor presence: unspecified presence Qualified Code(s): M06.9 - Rheumatoid arthritis, unspecified (14) Dysphagia: Status: Acute Assessment and plan: continue dysphagia diet outlined by Rupal Walker during her last hospital stay. Qualifiers: Dysphagia type: unspecified Qualified Code(s): R13.10 - Dysphagia, unspecified (15) DVT prophylaxis: Status: Acute Assessment and plan: SC heparin in light of her CKD and ALLAN. (16) Discharge planning issues: Status: Acute Assessment and plan: patient is DNR/DNI status; plans for return to [facility] when medically stable. Subjective Subjective Interval history since last seen: Ladan feels much better today. Still some residual suprapubic discomfort. She tolerated her diet quite well this morning. She is hemodynamically stable. I will transfer her out of ICU this morning to med/surg. Exam Narrative Exam Narrative: Ladan is sitting up in her bed, no acute distress, able to talk in complete sentences, no dyspnea. Not currently in pain LUngs: clear Heart: RRR Abdomen: soft, nondistended, nontender to palpation [place] draining clear yellow urine Extremities: no edema or cyanosis. pedal pulses present but weak Objective Last Vital Signs Temp 36.4 C L 06/25/23 08:01 Pulse 79 06/25/23 08:01 Resp 21 06/25/23 08:01 BP 127/77 06/25/23 08:01 Pulse Ox 96 06/25/23 08:01 Laboratory Results - last 24 hr 06/24/23 06/24/23 06/24/23 12:55 13:01 13:35 WBC Cancelled 5.17 RBC Cancelled 3.08 L Hgb Cancelled 8.7 L Hct Cancelled 28.7 L MCV Cancelled 93 MCH Cancelled 28.2 MCHC Cancelled 30.3 L RDW Cancelled 13.2 Plt Count Cancelled 118 L MPV Cancelled 9.9 Immature Gran % Cancelled 0.8 Neutrophils % Cancelled 69.2 Band Neutrophils % Cancelled Lymphocytes % Cancelled 16.8 Atypical Lymphs % Cancelled Monocytes % Cancelled 11.6 Eosinophils % Cancelled 1.4 Basophils % Cancelled 0.2 Metamyelocytes % Cancelled Myelocytes % Cancelled Promyelocytes % Cancelled Other Cells % Cancelled Nucleated RBC % Cancelled 0.0 Absolute Neutrophils Cancelled 3.58 Absolute Lymphocytes Cancelled 0.87 L Absolute Monocytes Cancelled 0.60 Absolute Eosinophils Cancelled 0.07 Absolute Basophils Cancelled 0.01 RBC Morphology Cancelled Polychromasia Cancelled Hypochromasia Cancelled Poikilocytosis Cancelled Basophilic Stippling Cancelled Anisocytosis Cancelled Microcytosis Cancelled Macrocytosis Cancelled Spherocytes Cancelled Tear Drop Cells Cancelled Ovalocytes Cancelled Stomatocytes Cancelled [place] Bodies Cancelled Carla Cells/Echinocytes Cancelled Acanthocytes (Spur) Cancelled Schistocytes Cancelled PT Cancelled 11.3 H INR Cancelled 1.1 APTT Cancelled 28.4 VBG pH Cancelled 7.24 L VBG pCO2 Cancelled 25 L VBG pO2 Cancelled 33 VBG HCO3 Cancelled 10 L VBG Total CO2 Cancelled 11 L VBG O2 Saturation Cancelled 60 VBG Base Excess Cancelled -17 L VBG Lactate Cancelled 1.9 H Sodium Cancelled 145 Potassium Cancelled 5.0 Chloride Cancelled 114 H Carbon Dioxide Cancelled 18.4 L Anion Gap Cancelled 12.6 H BUN Cancelled 52 H Creatinine Cancelled 2.3 H Est GFR (CKD-EPI 2020) Cancelled 22.59 Glucose Cancelled 210 H Calcium Cancelled 8.8 Total Bilirubin Cancelled 0.2 AST Cancelled 10 L ALT Cancelled 34 Alkaline Phosphatase Cancelled 128 H Troponin I Cancelled < 50 Total Protein Cancelled 5.7 L Albumin Cancelled 2.2 L Lipase Cancelled < 10 L Procalcitonin Cancelled 0.1 TSH Cancelled 0.08 L Free T4 0.88 Urine Color Urine Clarity Urine pH Ur Specific [place] Urine Protein Urine Ketones Urine Blood Urine Nitrite Urine Bilirubin Urine Urobilinogen Ur Leukocyte Esterase Urine RBC Urine WBC Ur Epithelial Cells Urine Crystals Urine Bacteria Urine Casts Urine Mucus Ur Culture Indicated? Ur Random Sodium Ur Random Potassium Urine Glucose Random Vancomycin Salicylates Cancelled < 2.8 COVID-19 Source Nasopharynx SARS-CoV-2 (PCR) Negative Influenza Type A (PCR) Negative Influenza Type B (PCR) Negative RSV (PCR) Negative MRSA (TEM-PCR) 06/24/23 06/24/23 06/24/23 15:58 16:40 17:34 WBC RBC Hgb Hct MCV MCH MCHC RDW Plt Count MPV Immature Gran % Neutrophils % Band Neutrophils % Lymphocytes % Atypical Lymphs % Monocytes % Eosinophils % Basophils % Metamyelocytes % Myelocytes % Promyelocytes % Other Cells % Nucleated RBC % Absolute Neutrophils Absolute Lymphocytes Absolute Monocytes Absolute Eosinophils Absolute Basophils RBC Morphology Polychromasia Hypochromasia Poikilocytosis Basophilic Stippling Anisocytosis Microcytosis Macrocytosis Spherocytes Tear Drop Cells Ovalocytes Stomatocytes [place] Bodies Carla Cells/Echinocytes Acanthocytes (Spur) Schistocytes PT INR APTT VBG pH 7.28 L VBG pCO2 39 L VBG pO2 26 VBG HCO3 19 L VBG Total CO2 18 L VBG O2 Saturation 46 VBG Base Excess -8 L VBG Lactate Sodium Potassium Chloride Carbon Dioxide Anion Gap BUN Creatinine Est GFR (CKD-EPI 2020) Glucose Calcium Total Bilirubin AST ALT Alkaline Phosphatase Troponin I Total Protein Albumin Lipase Procalcitonin TSH Free T4 Urine Color Yellow Urine Clarity Turbid Urine pH 5.5 Ur Specific [place] 1.020 Urine Protein 100 H Urine Ketones Negative Urine Blood Large H Urine Nitrite Positive H Urine Bilirubin Negative Urine Urobilinogen 0.2 Ur Leukocyte Esterase Small H Urine RBC 10-20 H Urine WBC >50 H Ur Epithelial Cells Few Urine Crystals Negative Urine Bacteria Moderate Urine Casts Negative Urine Mucus Negative Ur Culture Indicated? C&S Done As Ordered Ur Random Sodium Ur Random Potassium Urine Glucose Negative Random Vancomycin Salicylates COVID-19 Source SARS-CoV-2 (PCR) Influenza Type A (PCR) Influenza Type B (PCR) RSV (PCR) MRSA (TEM-PCR) Negative 06/24/23 06/24/23 06/25/23 19:58 20:50 05:10 WBC 3.95 L RBC 2.87 L Hgb 8.2 L Hct 26.9 L MCV 94 MCH 28.6 MCHC 30.5 L RDW 13.2 Plt Count 121 L MPV 10.2 Immature Gran % 1.0 Neutrophils % 54.3 Band Neutrophils % Lymphocytes % 29.9 Atypical Lymphs % Monocytes % 10.4 Eosinophils % 4.1 Basophils % 0.3 Metamyelocytes % Myelocytes % Promyelocytes % Other Cells % Nucleated RBC % 0.0 Absolute Neutrophils 2.14 Absolute Lymphocytes 1.18 L Absolute Monocytes 0.41 Absolute Eosinophils 0.16 Absolute Basophils 0.01 RBC Morphology Polychromasia Hypochromasia Poikilocytosis Basophilic Stippling Anisocytosis Microcytosis Macrocytosis Spherocytes Tear Drop Cells Ovalocytes Stomatocytes [place] Bodies Carla Cells/Echinocytes Acanthocytes (Spur) Schistocytes PT INR APTT VBG pH 7.29 L VBG pCO2 37 L VBG pO2 32 VBG HCO3 18 L VBG Total CO2 17 L VBG O2 Saturation 60 VBG Base Excess -9 L VBG Lactate 1.3 Sodium 147 H Potassium 4.6 Chloride 116 H Carbon Dioxide 20.8 L Anion Gap 10.2 BUN 46 H Creatinine 2.1 H Est GFR (CKD-EPI 2020) 25.19 Glucose 80 Calcium 9.2 Total Bilirubin 0.1 L AST 9 L ALT 27 Alkaline Phosphatase 120 H Troponin I < 50 Total Protein 5.3 L Albumin 2.0 L Lipase Procalcitonin TSH Free T4 Urine Color Urine Clarity Urine pH Ur Specific [place] Urine Protein Urine Ketones Urine Blood Urine Nitrite Urine Bilirubin Urine Urobilinogen Ur Leukocyte Esterase Urine RBC Urine WBC Ur Epithelial Cells Urine Crystals Urine Bacteria Urine Casts Urine Mucus Ur Culture Indicated? Ur Random Sodium 76 Ur Random Potassium 34 Urine Glucose Random Vancomycin 15.2 Salicylates COVID-19 Source SARS-CoV-2 (PCR) Influenza Type A (PCR) Influenza Type B (PCR) RSV (PCR) MRSA (TEM-PCR) Time Spent with Patient Time Spent with Patient: 35-49 minutes Time was spent: preparing to see the patient(eg.review tests), ordering medications,tests, procedures, referring, communicating with other health patient care director, indepentently interpreting results, counseling the patient and care coordination
--- NOTE | 2023-06-25 10:43 | PT.INNT ---
PT Notes Visit Reasons: Sepsis,UTI, Dehydration,ALLAN, Pneumonia Attempted to see patient for PT eval but patient verbalized her refusal saying that she is through with any physical therapy as she has not been walking for quite a while now. At the [facility], she added that they use a mechanical lift to transfer her to the wheelchair. Student nurse assigned to patient today indicated that the last time she saw patient was before 2022 at which time it took extensive assist of 2 people for stand pivot to the wheelchair. Will plan to attempt a second and a third offer of PT evaluation when patient is more clear and is able to make more informed decision.
[2023-06-25] MEDS: Psyllium PKT 1 EACH PO ×2 (11:02→20:03)
[2023-06-25] MEDS: Isosorbide Mononitrate 30 MG TABCR PO (11:02)
[2023-06-25] MEDS: Nystatin CREAM 30 GM TUBE TP ×3 (11:08→20:15)
--- NOTE | 2023-06-25 11:20 | W.NUTRFU ---
Date of service: 06/25/23 Time of Service: 11:21 Nutrition Note NOTE: PT is 67yo female admitted with metabolic acidosis. PMH nutritionally significant for CKD, dysphagia/multiple strokes, B12 deficiency, GERD, HTN, Gout, hypothroid, diabetes. Ordered for heart healthy, consistent carb diet with mince and moist consistencies. Glucose managed with sensitive sliding scale insulin aspart. Pt alert but confused - she received diabetes care at [facility] - no diabetes education offered at this time. Her weight is down some over the last few months. During her admission will add Boost ONS to her breakfast and dinner trays for additional protein and kcals and will monitor her intake, weight, and acceptance of ONS. Time Spent in Nutritional Counseling and Treatment: 0
[2023-06-25] MEDS: clonazePAM 0.5 MG TAB PO (11:54)
[2023-06-25] MEDS: Insulin Aspart 300 UNITS/3 ML PEN SC ×3 (11:55→22:26)
[2023-06-25] MEDS: rOPINIRole 1 MG TAB PO (11:55)
--- NOTE | 2023-06-25 12:46 | NUR.NOTE ---
pt saying she wants her meds , she wants a taxi shes going back to the [facility] .now !Nursing Note:
--- NOTE | 2023-06-25 12:58 | PDOC.CMIN ---
Date of service: 06/25/23 Time of Service: 17:01 Care Management Initial Assmt Initial Assessment REASON FOR HOSPITALIZATION:: Sepsis, UTI, Dehydration, ALLAN, pneumonia PREVIOUS FUNCTIONAL STATUS/SOCIAL/FAMILY SUPPORTS:: Ladan refused PT evaluation today stating that she has not been ambulatory for some time, at the [facility]. She stated that at the [facility] a mechanical lift is utilized to transfer her to the wheelchair. ADVANCE DIRECTIVES:: COLST on file. Has patient been provided with info about the portal/API?: No Did the patient sign up for the portal?: No CODE STATUS:: DNR/DNI INSURANCE COVERAGE / FINANCIAL ISSUES:: Medicare Medicaid CURRENT HOME/COMMUNITY SERVICES/EQUIPMENT:: Residence: [facility] PRIMARY CARE PHYSICIAN:: Shanna Rock POTENTIAL DISCHARGE NEEDS:: Coordinated return to the [facility]. PATIENT/FAMILY EDUCATION NEEDS:: Review discharge instructions, discuss self care needs upon discharge Ask Me Three. ANTICIPATED BARRIERS TO DISCHARGE:: None identified. TRANSPORTATION:: EMS-vs-W/C van dependent on ability to sit for duration of transport. PLAN:: Awaiting results on urine and blood cultures, at this time Ladan remains on vancomycin and meropenem. MD reports Ladan may follow up with Urology as an outpatient for possible cystoscopy; defer to Dr. Vásquez. Leger remains in place, downgraded to Med/Surg status, anticipate she will be moved out of the ICU, per MD. CM following and will support coordinated return to the [facility] on discharge. [facility] All Active Problems (Updated 06/24/23 @ 19:49 by Napoleon Bull MD) Metabolic acidosis with normal anion gap and failure of bicarbonate regeneration (Acute) Discharge planning issues (Acute) DVT prophylaxis (Acute) Chronic kidney disease (Chronic) Prerenal azotemia (Acute) Infiltrate of both lungs present on imaging study (Acute) Emphysematous cystitis (Acute) Pneumonia (Acute) Acute UTI (Acute) Sepsis associated hypotension (Acute) History of multiple strokes (Acute) Palliative care encounter (Acute) Acute UTI (Acute) Dysphagia (Acute) Prolonged QT interval (Acute) Hyperkalemia (Acute) Fever (Acute) Wears hearing aid in both ears (Acute) Conductive hearing loss, external ear (Acute) Impacted cerumen, bilateral (Acute) Nontraumatic intracerebral hemorrhage (Acute) Acquired cystic kidney disease (Acute) Megaloblastic anemia due to B12 deficiency (Acute) Hyperlipidemia (Acute) Degeneration of lumbar intervertebral disc (Acute) Bipolar 1 disorder (Acute) Benign essential hypertension (Acute) Chronic GERD (Chronic) Asthma (Chronic) Fibromyalgia (Acute) Turners syndrome (Acute) Bipolar affective disorder (Acute) Nail dystrophy (Acute) Corns and callosities (Acute) Elevated LFTs (Acute) Gout (Chronic) Hypercalcemia (Acute) Hyperparathyroidism (Acute) Hypertension (Chronic) Restless legs syndrome (RLS) (Acute) Rheumatoid arthritis (Chronic) Hypothyroidism (Chronic) Diabetes mellitus (Chronic) CAD (coronary artery disease) (Chronic) Sensorineural hearing loss (SNHL) of both ears (Acute) Medical History Abnormal auditory perception of both ears (12/25/16) Allergic rhinitis Sciatica IBS (irritable bowel syndrome) B12 deficiency anemia Surgical History History of parathyroidectomy History of hysterectomy Hx of tonsillectomy History of foot surgery Left foot; multiple fibroma excisions Social History Smoking/Tobacco Use Status: Never Smoking risk assessment performed?: Yes Alcohol Intake: never Drug use: Never Substance use type: does not use Household members: none Housing: residential Number of Children: 0 current occupation: disabled Do you feel safe at home: Yes Do you feel safe in your relationship?: Yes Additional Social history: Lives at the [facility] ROSITA SULLIVAN 04/24/23 [facility](Care Management) Screening Will the Patient Participate in the Screening?: Unable to obtain
[2023-06-25] MEDS: Sodium Bicarbonate 650 MG TAB PO ×2 (15:00→20:04)
[2023-06-25] MEDS: traMADol 50 MG TAB 25 MG PO (15:53)
[2023-06-25] MEDS: VANCOMYCIN 500 MG in Normal Saline 100 ML 100 MG IVPB (16:18)
[2023-06-25 18:25] LABS: Osmolality, Urine 389 mOsm/kg (150-1150)
[2023-06-25] MEDS: rOPINIRole 0.5 MG TAB 1 MG PO (18:28)
[2023-06-25 18:35] LABS: Lab Add On Test DONE
[2023-06-25 18:39] LABS: Osmolality Serum 317 mOsm/kg (275-295)
[2023-06-25 18:48] LABS: Magnesium 1.5 mg/dL (1.8-2.4)
[2023-06-25] MEDS: MAGNESIUM SULFATE 2 GM/50 ML BAG IVPB (19:10)
[2023-06-25] MEDS: Atorvastatin 40 MG TAB 80 MG PO (20:04)
[2023-06-25] MEDS: rOPINIRole 1 MG TAB 2 MG PO (22:16)
[2023-06-25] MEDS: clonazePAM 0.5 MG TAB 1.5 MG PO (22:16)
[2023-06-26] MEDS: Heparin 5,000 UNITS/ML VIAL 5000 UNITS SC ×3 (05:38→21:50)
[2023-06-26 07:11] LABS: Abs Immature Grans 0.04 10^3/uL (0.0-0.06); Absolute Basophil Count 0.01 10^3/uL (0.0-0.2); Absolute Eosinophil Count 0.15 10^3/uL (0.0-0.7); Absolute Monocyte Count 0.38 10^3/uL (0.1-0.8); Absolute Neutrophil Count 2.63 10^3/uL (1.2-6.7); Basophils % 0.2; Eosinophils % 3.6; HCT 26.6 % (36.0-46.0); HGB 8.5 g/dL (11.2-15.7); Lymphocytes % 21.9; MCV 91 fL (80-95); MPV 10.3 fL (8.0-11.0); Monocytes % 9.2; Neutrophils % 64.1; Platelet Count 120 10^3/uL (130-400); RBC 2.93 10^6/uL (3.93-5.22); RDW 13.1 % (11.7-14.6); RDW-SD 43.5 fL; WBC 4.11 10^3/uL (4.4-10.8)
[2023-06-26 07:22] VITALS: BP 120/72; PULSE 79; RESP 14; TEMP 36.2; O2SAT 95
[2023-06-26 07:38] LABS: Anion Gap 12.8 mmol/L (3-11); BUN 41 mg/dL (7-18); CO2 18.2 mmol/L (21.0-32.0); CREATININE 1.8 mg/dL (0.55-1.02); Calcium 9.2 mg/dL (8.5-10.1); Chloride 116 mmol/L (98-107); Estimated GFR 30.31 (mL/min/1.73m2); Glucose 130 mg/dL (74-106); Potassium 4.4 mmol/L (3.5-5.1); Sodium 147 mmol/L (136-145)
[2023-06-26 07:53] LABS: Procalcitonin < 0.1 ng/mL
[2023-06-26] MEDS: Psyllium PKT 1 EACH PO ×2 (08:53→20:52)
[2023-06-26] MEDS: Insulin Aspart 300 UNITS/3 ML PEN SC ×3 (08:53→17:15)
[2023-06-26] MEDS: Aspirin E.C. 81 MG TABEC PO (08:55)
[2023-06-26] MEDS: Acetaminophen 500 MG TAB 1000 MG PO ×3 (08:56→20:52)
[2023-06-26] MEDS: Sucralfate 1 GM TAB PO ×2 (08:56→20:54)
[2023-06-26] MEDS: Sodium Bicarbonate 650 MG TAB PO ×3 (08:56→20:54)
[2023-06-26] MEDS: Isosorbide Mononitrate 30 MG TABCR PO (08:57)
[2023-06-26] MEDS: QUEtiapine 100 MG TAB PO ×3 (08:57→20:53)
[2023-06-26] MEDS: Lactobacillus Acidophilus CAP 1 CAP PO ×2 (08:58→20:52)
[2023-06-26] MEDS: Vitamins B Comp w/C TAB 1 TAB PO (08:58)
[2023-06-26] MEDS: Losartan 25 MG TAB PO (08:58)
[2023-06-26] MEDS: Omeprazole 20 MG CAPCR PO ×2 (08:58→20:53)
[2023-06-26] MEDS: QUEtiapine 50 MG TAB PO ×3 (08:58→20:53)
[2023-06-26] MEDS: Normal Saline Flush 10 ML SYR IVP ×4 (08:59→19:25)
[2023-06-26] MEDS: Nystatin CREAM 30 GM TUBE TP ×3 (09:00→21:12)
--- NOTE | 2023-06-26 09:06 | W.PM.PROGNOT ---
Date of Service Date of service: 06/26/23 Time of Service: 09:07 Assessment and Plan Assessment and plan (1) Emphysematous cystitis: Status: Acute Assessment and plan: Our usual treatment is catheter drainage and antibiotics. I encouraged the patient to allow us to leave catheter in place for at least a week. Her initial urine sample is not helpful so a repeat sample is being sent (although she has been on antibiotics for a few days). If her cultures remain negative, I think I would still treat her with an antibiotic based on her last positive urine culture Subjective Subjective Interval history since last seen: Pt has mulptiple complaints and is difficult to keep on track Exam Narrative Exam Narrative: She appears chronically ill but not septic/toxic Her urine is grossly clear Objective Last Vital Signs Temp 36.2 C L 06/26/23 07:22 Pulse 79 06/26/23 07:22 Resp 14 06/26/23 07:22 BP 120/72 06/26/23 07:22 Pulse Ox 95 06/26/23 07:22 Laboratory Results - last 24 hr 06/25/23 06/25/23 06/26/23 16:55 17:57 06:20 WBC 4.11 L RBC 2.93 L Hgb 8.5 L Hct 26.6 L MCV 91 MCH 29.0 MCHC 32.0 RDW 13.1 Plt Count 120 L MPV 10.3 Immature Gran % 1.0 Neutrophils % 64.1 Lymphocytes % 21.9 Monocytes % 9.2 Eosinophils % 3.6 Basophils % 0.2 Nucleated RBC % 0.0 Absolute Neutrophils 2.63 Absolute Lymphocytes 0.90 L Absolute Monocytes 0.38 Absolute Eosinophils 0.15 Absolute Basophils 0.01 Sodium 147 H Potassium 4.4 Chloride 116 H Carbon Dioxide 18.2 L Anion Gap 12.8 H BUN 41 H Creatinine 1.8 H Est GFR (CKD-EPI 2020) 30.31 Glucose 130 H Calcium 9.2 Magnesium 1.5 L 2.0 Procalcitonin Add-On Test Request DONE 06/26/23 06:20 WBC RBC Hgb Hct MCV MCH MCHC RDW Plt Count MPV Immature Gran % Neutrophils % Lymphocytes % Monocytes % Eosinophils % Basophils % Nucleated RBC % Absolute Neutrophils Absolute Lymphocytes Absolute Monocytes Absolute Eosinophils Absolute Basophils Sodium Potassium Chloride Carbon Dioxide Anion Gap BUN Creatinine Est GFR (CKD-EPI 2020) Glucose Calcium Magnesium Cancelled Procalcitonin < 0.1 Add-On Test Request Time Spent with Patient Time Spent with Patient: <25 minutes Time was spent: preparing to see the patient(eg.review tests) and other
[2023-06-26 09:53] LABS: Bilirubin Negative (Negative); Blood Small (Negative); Clarity Clear (Clear); Glucose Negative (Negative); Ketones Negative (Negative); Leukocyte Esterase Negative (Negative); Nitrite Negative (Negative); Urobilinogen 0.2 mg/dL (Up to 0.2); pH 5.5 (5-8)
[2023-06-26] MEDS: MEROPENEM 1 GM in Normal Saline 100 ML IVPB ×2 (09:57→20:35)
[2023-06-26 09:59] LABS: Bacteria Negative HPF (Negative); C & S Indicated? No; Casts 3-5 Hyaline LPF (Negative); Crystals Negative HPF (Negative); Epithelial Cells Rare HPF (Negative); Mucus Trace (Negative); WBC Negative HPF (0-5)
[2023-06-26 11:18] VITALS: BP 98/62; PULSE 92; RESP 15; TEMP 37.3; O2SAT 96
[2023-06-26 11:39] VITALS: BP 118/68
[2023-06-26] MEDS: rOPINIRole 1 MG TAB PO (11:54)
[2023-06-26] MEDS: clonazePAM 0.5 MG TAB PO (11:55)
[2023-06-26] MEDS: traMADol 50 MG TAB 25 MG PO (12:41)
--- NOTE | 2023-06-26 14:57 | PGE_ITS ---
Date of Service Date of service: 06/26/23 Time of Service: 14:57 Assessment and Plan Assessment and plan (1) Acute UTI: Status: Acute Assessment and plan: continue meropenem but can dc vancomycin; will transition to oral Fosfomycin and treat for 2 weeks upon discharge. Case d/w Dr. Vásquez Professional time spent interviewing and examining patient, discussion of goals of care with hospital team (care management, nursing and consulting professionals) was 35 minutes. (2) Emphysematous cystitis: Status: Acute Assessment and plan: As above (3) Prerenal azotemia: Status: Acute Assessment and plan: Patient is currently at or near her baseline renal function BUN 46, creatinine 2.1. Poor oral intake today, and rising Na level, although her creatinine is stable. I will put her on 1/2 NS overnight. Hopefully her appetite will pick up worker. urine output 1600 mL yesterday and 600 mL today so far. (4) Chronic kidney disease: Status: Chronic Assessment and plan: continue iv fluids overnight, repeat BMP tomorrow. continue NaHCO3 therapy for chronic metabolic acidosis Qualifiers: Chronic kidney disease stage: unspecified stage Qualified Code(s): N18.9 - Chronic kidney disease, unspecified (5) Metabolic acidosis with normal anion gap and failure of bicarbonate regeneration: Status: Acute Assessment and plan: As above (6) Infiltrate of both lungs present on imaging study: Status: Acute Assessment and plan: Clinically the patient is not behaving like a pneumonia she is not hypoxemic and not having any chronic cough. I reviewed her CT scan it appears that she had similar infiltrates at the bases of her lungs on her prior CT scan. This looks like some scarring may be related to her underlying rheumatoid arthritis. Clinically not behaving like pneumonia, I would refer her for pulmonary consultation. (7) CAD (coronary artery disease): Status: Chronic Assessment and plan: Asymptomatic Continue current home medications Qualifiers: Coronary Disease-Associated Artery/Lesion type: [place] artery [place] vs. transplanted heart: [place] heart Associated angina: without angina Qualified Code(s): I25.10 - Atherosclerotic heart disease of [place] coronary artery without angina pectoris (8) Diabetes mellitus: Status: Chronic Assessment and plan: Continue sliding scale insulin monitor blood sugars ACHS; glucose 150's to 160's Qualifiers: Diabetes mellitus type: type 2 Diabetes mellitus fdc insulin use: with buttermaker helper use Diabetes mellitus complication status: with kidney complications Diabetes mellitus complication detail: with chronic kidney disease Chronic kidney disease stage: stage 4 (severe) Qualified Code(s): E11.22 - Type 2 diabetes mellitus with diabetic chronic kidney disease; N18.4 - Chronic kidney disease, stage 4 (severe); Z79.4 - buttermaker helper (current) use of insulin (9) Hypothyroidism: Status: Chronic Assessment and plan: patient is chronically on levothyroxine but it appears that she is over replaced. I have held her 25 mcg dose but kept her on her 200 mcg dose daily. sh ould have repeat levels in 6 weeks. Qualifiers: Hypothyroidism type: acquired Qualified Code(s): E03.9 - Hypothyroidism, unspecified (10) Hypertension: Status: Chronic Assessment and plan: Resume losartan Qualifiers: Hypertension type: primary hypertension Qualified Code(s): I10 - Essential (primary) hypertension (11) Bipolar affective disorder: Status: Acute Assessment and plan: continue her Seroquel Qualifiers: Active/Remission status: remission status unspecified Qualified Code(s): F31.9 - Bipolar disorder, unspecified (12) Chronic GERD: Status: Chronic Assessment and plan: continue her pepcid renal adjusted doses (13) Rheumatoid arthritis: Status: Chronic Assessment and plan: not on any chronic maintenance meds for this problem. Qualifiers: Rheumatoid arthritis location: unspecified site Rheumatoid factor presence: unspecified presence Qualified Code(s): M06.9 - Rheumatoid arthritis, unspecified (14) Dysphagia: Status: Acute Assessment and plan: continue dysphagia diet outlined by Rupal Walker during her last hospital stay. patient does not like the minced and moist w/ moderately thickened liquids. Qualifiers: Dysphagia type: unspecified Qualified Code(s): R13.10 - Dysphagia, unspecified (15) DVT prophylaxis: Status: Acute Assessment and plan: SC heparin in light of her CKD and ALLAN. (16) Discharge planning issues: Status: Acute Assessment and plan: patient is DNR/DNI status; plans for return to [facility] when medically stable. Subjective Subjective Interval history since last seen: This moring Ladan was wanting to leave the hospital AMA but now she is agreeable to staying. She does not like haivng the powell catheter, however I explained to her that Dr. Vásquez wants her to keep the powell catheter in until she completes antibiotics. He is recommending transition from Meropenem to an oral agent that will cover her prior E. coli which was multi-drug resistant. Current blood cultures showed no growth, urine culture is mixed amarjit of gram negatives and gram positive w/ no predominant organisms. Given her emphysematous cystitis, he recommends completion of two weeks of antibiotics. I will keep her here for today on the meropenem and discharge home on fosfomycin 3 gm q3d x 15 days. Exam Narrative Exam Narrative: Ladan is sitting upright in her chair, when asked how she is feeling, she says she is not as well as yesterday but she could not specify what exactly is the matter Appetite is poor She appears depressed but she is alert, does not appear in distress lungs: clear Heart: RRR Abdomen: soft, nontender powell draining clear yellow urine Objective Last Vital Signs Temp 37.3 C 06/26/23 11:18 Pulse 92 H 06/26/23 11:18 Resp 15 06/26/23 11:18 BP 118/68 06/26/23 11:39 Pulse Ox 96 06/26/23 11:18 Laboratory Results - last 24 hr 06/24/23 06/24/23 06/25/23 13:35 20:50 16:55 WBC RBC Hgb Hct MCV MCH MCHC RDW Plt Count MPV Immature Gran % Neutrophils % Lymphocytes % Monocytes % Eosinophils % Basophils % Nucleated RBC % Absolute Neutrophils Absolute Lymphocytes Absolute Monocytes Absolute Eosinophils Absolute Basophils Sodium Potassium Chloride Carbon Dioxide Anion Gap BUN Creatinine Est GFR (CKD-EPI 2020) Glucose Serum Osmolality 317 H Calcium Magnesium 1.5 L Procalcitonin Urine Color Urine Clarity Urine pH Ur Specific [place] Urine Protein Urine Ketones Urine Blood Urine Nitrite Urine Bilirubin Urine Urobilinogen Ur Leukocyte Esterase Urine RBC Urine WBC Ur Epithelial Cells Urine Crystals Urine Bacteria Urine Casts Urine Mucus Ur Culture Indicated? Urine Osmolality 389 Ur Random Chloride 84 Urine Glucose Add-On Test Request 06/25/23 06/26/23 06/26/23 17:57 06:20 06:20 WBC 4.11 L RBC 2.93 L Hgb 8.5 L Hct 26.6 L MCV 91 MCH 29.0 MCHC 32.0 RDW 13.1 Plt Count 120 L MPV 10.3 Immature Gran % 1.0 Neutrophils % 64.1 Lymphocytes % 21.9 Monocytes % 9.2 Eosinophils % 3.6 Basophils % 0.2 Nucleated RBC % 0.0 Absolute Neutrophils 2.63 Absolute Lymphocytes 0.90 L Absolute Monocytes 0.38 Absolute Eosinophils 0.15 Absolute Basophils 0.01 Sodium 147 H Potassium 4.4 Chloride 116 H Carbon Dioxide 18.2 L Anion Gap 12.8 H BUN 41 H Creatinine 1.8 H Est GFR (CKD-EPI 2020) 30.31 Glucose 130 H Serum Osmolality Calcium 9.2 Magnesium 2.0 Cancelled Procalcitonin < 0.1 Urine Color Urine Clarity Urine pH Ur Specific [place] Urine Protein Urine Ketones Urine Blood Urine Nitrite Urine Bilirubin Urine Urobilinogen Ur Leukocyte Esterase Urine RBC Urine WBC Ur Epithelial Cells Urine Crystals Urine Bacteria Urine Casts Urine Mucus Ur Culture Indicated? Urine Osmolality Ur Random Chloride Urine Glucose Add-On Test Request DONE 06/26/23 09:45 WBC RBC Hgb Hct MCV MCH MCHC RDW Plt Count MPV Immature Gran % Neutrophils % Lymphocytes % Monocytes % Eosinophils % Basophils % Nucleated RBC % Absolute Neutrophils Absolute Lymphocytes Absolute Monocytes Absolute Eosinophils Absolute Basophils Sodium Potassium Chloride Carbon Dioxide Anion Gap BUN Creatinine Est GFR (CKD-EPI 2020) Glucose Serum Osmolality Calcium Magnesium Procalcitonin Urine Color Yellow Urine Clarity Clear Urine pH 5.5 Ur Specific [place] 1.020 Urine Protein >=300 H Urine Ketones Negative Urine Blood Small H Urine Nitrite Negative Urine Bilirubin Negative Urine Urobilinogen 0.2 Ur Leukocyte Esterase Negative Urine RBC 10-20 H Urine WBC Negative Ur Epithelial Cells Rare Urine Crystals Negative Urine Bacteria Negative Urine Casts 3-5 Hyaline Urine Mucus Trace Ur Culture Indicated? No Urine Osmolality Ur Random Chloride Urine Glucose Negative Add-On Test Request Time Spent with Patient Time Spent with Patient: 25-34 minutes Time was spent: preparing to see the patient(eg.review tests), ordering medications,tests, procedures, referring, communicating with other health prompt care rn, indepentently interpreting results, counseling the patient and care coordination
[2023-06-26 15:20] VITALS: BP 100/63; PULSE 96; RESP 14; TEMP 37.2; O2SAT 96
[2023-06-26] MEDS: VANCOMYCIN 500 MG in Normal Saline 100 ML 100 MG IVPB (16:07)
--- NOTE | 2023-06-26 16:11 | CHAPLAIN ---
Ladan is a patient from the [facility]. She was sitting up in the recliner when I visited and said she wanted to stay there. She didn't have her hearing aids from the [facility] so she can't hear much she explained. Ladan was slipping down in the chair while I was there and asked to get boosted back up. I went to look for an FAMILY SERVICE WORKER and Ladan's nurse, ROSITA Quick, arrived to get Ladan situated. She was would like to return to the [facility] as soon as possible.
--- NOTE | 2023-06-26 17:04 | PDOC.CMPRO ---
Date of service: 06/26/23 Time of Service: 17:04 Care Management Progress Note Progress Note Text Progress Note Text: S/O: Ladan remains inpatient, she was sitting up in her chair, and shared that she would like to return to the [facility] as soon as possible. Anticipate she will transition to oral abx and return to the [facility] within the next 48 hours, per MD. CM continues to follow. A: 67 year old female admitted to [facility] 06/24/23 for Sepsis, UTI, Dehydration, ALLAN, Pneumonia P: CM following and will support coordinated return to the [facility] on discharge likely via EMS. [facility](Care Management) Screening Will the Patient Participate in the Screening?: Unable to obtain
[2023-06-26 17:10] LABS: Ionized Calcium 1.26 mmol/L (1.14-1.35)
--- NOTE | 2023-06-26 17:18 | NT_ITS ---
PT Notes Visit Reasons: Sepsis,UTI, Dehydration,ALLAN, Pneumonia Patient refused another attempt at PT evaluation stating that she has been non- ambulatory for quite a while now. Added that she has tried working with PT before but has not really made any difference. CM and made aware of patient refusal.
[2023-06-26] MEDS: SODIUM CHLORIDE 0.45% 1,000 ML 80 ML IV (19:25)
[2023-06-26] MEDS: clonazePAM 0.5 MG TAB 1.5 MG PO (20:53)
[2023-06-26] MEDS: Atorvastatin 40 MG TAB 80 MG PO (20:54)
[2023-06-26] MEDS: rOPINIRole 1 MG TAB 2 MG PO (21:12)
[2023-06-26 23:08] VITALS: BP 113/72; PULSE 90; RESP 17; TEMP 37.5; O2SAT 95
[2023-06-27] MEDS: Heparin 5,000 UNITS/ML VIAL 5000 UNITS SC (04:51)
[2023-06-27] MEDS: Levothyroxine 200 MCG TAB PO (04:51)
[2023-06-27] MEDS: Omeprazole 20 MG CAPCR PO (06:35)
[2023-06-27] MEDS: Aspirin E.C. 81 MG TABEC PO (08:20)
[2023-06-27] MEDS: MEROPENEM 1 GM in Normal Saline 100 ML IVPB (08:20)
[2023-06-27] MEDS: Sucralfate 1 GM TAB PO (08:20)
[2023-06-27] MEDS: QUEtiapine 50 MG TAB PO (08:20)
[2023-06-27] MEDS: Vitamins B Comp w/C TAB 1 TAB PO (08:20)
[2023-06-27] MEDS: Acetaminophen 500 MG TAB 1000 MG PO (08:20)
[2023-06-27] MEDS: Psyllium PKT 1 EACH PO (08:20)
[2023-06-27] MEDS: QUEtiapine 100 MG TAB PO (08:20)
[2023-06-27] MEDS: Losartan 25 MG TAB PO (08:20)
[2023-06-27] MEDS: Famotidine 20 MG TAB 10 MG PO (08:20)
[2023-06-27] MEDS: Sodium Bicarbonate 650 MG TAB PO (08:20)
[2023-06-27] MEDS: Isosorbide Mononitrate 30 MG TABCR PO (08:20)
[2023-06-27] MEDS: Lactobacillus Acidophilus CAP 1 CAP PO (08:20)
[2023-06-27 08:45] VITALS: BP 151/84; PULSE 92; RESP 16; TEMP 38.1; O2SAT 97
[2023-06-27 09:32] LABS: Anion Gap 11.2 mmol/L (3-11); BUN 33 mg/dL (7-18); CO2 18.8 mmol/L (21.0-32.0); CREATININE 1.6 mg/dL (0.55-1.02); Calcium 8.8 mg/dL (8.5-10.1); Chloride 118 mmol/L (98-107); Estimated GFR 34.91 (mL/min/1.73m2); Glucose 83 mg/dL (74-106); Sodium 148 mmol/L (136-145)
[2023-06-27 09:56] LABS: HCT 26.6 % (36.0-46.0); HGB 8.4 g/dL (11.2-15.7); MCH 28.8 pg (27.0-33.0); MCHC 31.6 % (32.0-36.0); MCV 91 fL (80-95); MPV 10.3 fL (8.0-11.0); Platelet Count 124 10^3/uL (130-400); RBC 2.92 10^6/uL (3.93-5.22); RDW 13.2 % (11.7-14.6); WBC 4.38 10^3/uL (4.4-10.8)
[2023-06-27 09:57] LABS: Abs Immature Grans 0.05 10^3/uL (0.0-0.06); Absolute Basophil Count 0.01 10^3/uL (0.0-0.2); Absolute Eosinophil Count 0.21 10^3/uL (0.0-0.7); Absolute Lymphocyte Count 1.05 10^3/uL (1.2-3.4); Absolute Monocyte Count 0.49 10^3/uL (0.1-0.8); Absolute Neutrophil Count 2.57 10^3/uL (1.2-6.7); Basophils % 0.2; Diff Comment Diff Reviewed; Eosinophils % 4.8; Immature Grans % 1.1; Monocytes % 11.2; Neutrophils % 58.7
[2023-06-27] MEDS: rOPINIRole 1 MG TAB PO (12:05)
[2023-06-27] MEDS: clonazePAM 0.5 MG TAB PO (12:05)
--- NOTE | 2023-06-27 12:19 | DSE_ITS ---
Date of service: 06/27/23 Time of Service: 12:19 DS: Diagnosis Discharge Diagnosis (1) Acute UTI: Status: Acute Asessment and Plan: Ladan presented from the long term w/ acute confusion, hyotension and was worked up and treated for sepsis, likely urinary source given her prior UTI's and now w/ acute findings of emphysematous cystitis seen on CT scan. She did not exhibit obstructive signs. Dr. Vásquez, urology was consulted for powell cathter placement. She wsa treated w/ broad spectrum antibiotics including vancomycin and meropenem. Blood cultures came back at no growth. Urine culture which was obtained from fresh powell catheter came back w/ mixed gram positive and gram negative organisms w/ no predominant organism so antibiotic therapy could not be tailored to specific organism. Patient remained afebrile through her hospital course until the day of her discharge when she had a slight temp of 38.1. Procalcitonin has been normal and WBC have been normal to slightly low at 4300. Dr. Vásquez recommends continued oral antibiotic coverage for the last urinary pathogen she grew which was a multidrug resistant E coli. As such she will continue Fosfomycin 3 mg po q3days x 15 days. She is to leave the powell in place to drain her urine until she has completed her antibiotics and she is seen by Dr. Vásquez in the office. (2) Emphysematous cystitis: Status: Acute Asessment and Plan: as above; continue fosfomycin and follow up w/ Dr. Vásquez, keep powell in place for now. (3) Prerenal azotemia: Status: Resolved Asessment and Plan: patient was dehydrated on admission w/ BUN and creatinine that were elevated above her baseline. Presenting BUN 52, creatinine 2.1 and after a couple days of iv fluids she came down to 33 and 1.6. (4) Chronic kidney disease: Status: Chronic (5) Metabolic acidosis with normal anion gap and failure of bicarbonate regeneration: Status: Chronic Asessment and Plan: patient was begun on sodium bicarbonate supplements 650 mg po tid, please follow up w/ BMP in one to two weeks (6) Infiltrate of both lungs present on imaging study: Status: Acute Asessment and Plan: CT of chest/abdomen/pelvis were done on admission w/out contrast. Patient was found to have bibasilar infiltrates. The right lower lobe appeared to be linear atelectasis but there was some nodularity in the posterior right lower lobe that was not seen on prior CT 05/25/23, persistent LLL infiltrate. The patient never was able to produce a sputum and had no significant cough. She will be continued on clindamycin for 7 days for possible aspiration pneumonia. Patient was seen by [employer]OR out of concerns for aspiration and she was downgraded to minced and moist solids w/ moderately thickened liquids. Patient was not requiring supplemental oxygen. [id number] on room air. Follow up CXR recommended in 2 weeks or better yet, repeat CT in a month. (7) CAD (coronary artery disease): Status: Chronic Asessment and Plan: patient had no symptoms of ischemic pain. serial troponin I on admission were <50 (normal). ECG demonstrated SR w/ RBBB and posterior fascicular block, unchanged from 05/25. (8) Diabetes mellitus: Status: Chronic Asessment and Plan: glucose was monitored AC/HS and coverage provided w/ low dose novolog. (9) Hypothyroidism: Status: Chronic Asessment and Plan: her TSH and FT4 were checked and her TSH was low at 0.08 therefore her levothyroxine was reduced to 200 mcg from 225 mcg, please repeat her TSH and FT4 in 4 to 6 weeks. (10) Hypertension: Status: Chronic Asessment and Plan: no change in her meds (11) Bipolar affective disorder: Status: Chronic Asessment and Plan: no change in Seroquel dosing. (12) Chronic GERD: Status: Chronic Asessment and Plan: continue omeprazole 20 mg bid, but decrease pepcid to 10 mg daily d/t her CKD (13) Rheumatoid arthritis: Status: Chronic (14) Dysphagia: Status: Chronic Asessment and Plan: patient was seen by [employer]OR and patient's diet was downgraded to minced and moist solids w/ moderately thickened liquids. Please see speech therapists notes for full recommendations. (15) Discharge planning issues: Status: Resolved Asessment and Plan: discharged back to [facility]. Repeat CXR in two weeks, recommend repeat CBC and BMP in one week, repeat TSH and FT4 in 4 to 6weeks. Discharge Plan Disposition Patient Disposition[facility] Condition: Improving Discharge Details Reason For Visit: Sepsis,UTI, Dehydration,ALLAN, Pneumonia Admit Date/Time: 06/24/23 16:51 Admit Provider: Napoleon Bull Attending Provider: Napoleon Bull Primary Care Provider: Shanna Rock Hospital Course Hospital Course: see admisson H&P and ED note for details of her presenting symptoms and findings. Read above information under individual diagnoses regarding workup and treatment. Home Meds and New Rx's Prescriptions: New sodium bicarbonate 650 mg Tablet 650 mg PO TID Qty: 0 0RF clindamycin HCl 300 mg capsule 600 mg PO TID 7 Days Qty: 42 0RF Continued Lactobacillus acidophilus Capsule 1 cap PO BID loperamide [Anti-Diarrheal (loperamide)] 2 mg tablet 2 mg PO Q8H PRN Rx Instructions: orally every 8 hours PRN for diarrhea nitroglycerin [Nitrostat] 0.4 mg tablet, sublingual 0.4 mg sublingual Q5M PRN Rx Instructions: do not exceed 3 doses per episode atorvastatin 80 mg tablet 80 mg PO QPM cyanocobalamin (vitamin B-12) 1,000 mcg/mL solution 1,000 mcg subcut QMONTH isosorbide mononitrate 30 mg tablet extended release 24 hr 30 mg PO DAILY omeprazole 20 mg capsule,delayed release(DR/EC) 20 mg PO BID Trulicity 1.5 mg/0.5 mL pen injector 1.5 mg subcut QWEEK aspirin 81 mg tablet,delayed release (DR/EC) 81 mg PO DAILY clonazepam 0.5 mg tablet 1.5 mg PO HS sucralfate 1 gram tablet 1 g PO TID Benefiber Sugar Free (dextrin) 3 gram/3.8 gram powder 1.5 g PO BID Rx Instructions: mix into at least 4 oz water or juice before administering vanilla boost 1 ea PO BID B-complex with vitamin C Tablet 1 tab PO DAILY ropinirole 2 mg tablet 2 mg PO HS nystatin 100,000 unit/gram cream 1 applic TOPICAL TID Rx Instructions: APPLY TOPICALLY TO VAGINAL AREA THREE TIMES DAILY. APPLY TOPICALLY TO BUTTOCKS NEEDED Neupro 2 mg/24 hour patch 24 hour 2 mg transdermal DAILY Rx Instructions: APPLY [address] ON BACK OR ARMS ONLY clonazepam 0.5 mg tablet 0.5 mg PO .DAILY AT NOON quetiapine 100 mg tablet 100 mg PO TID Rx Instructions: WITH 50MG FOR TOTOAL OF 150MG quetiapine 50 mg tablet 50 mg PO TID Rx Instructions: WITH 100MG TAB FOR TOTAL OF 150MG losartan 25 mg tablet 25 mg PO DAILY cranberry extract [Cranberry Juice Powder] 425 mg capsule 425 mg PO DAILY Rx Instructions: administer with a meal Mag 64 64 mg tablet 64 mg PO BID ropinirole 1 mg tablet 1 mg PO .DAILY AT NOON ondansetron HCl 4 mg tablet 4 mg PO Q8H PRN PRN (Reason: nausea) Calcium Antacid 500 mg tablet 1,000 mg PO Q4H PRN PRN polyethylene glycol 3350 17 g PO DAILY PRN PRN (Reason: constipation ) Rx Instructions: give powder solution mixed in 8 oz of beverage levothyroxine 200 mcg tablet 200 mcg PO DAILY fosfomycin tromethamine 3 gram packet 3 g PO Q3D Qty: 5 0RF Changed diphenoxylate-atropine [Lomotil] 2.5-0.025 mg tablet 1 tab PO TID PRN (Reason: diarrhea) Qty: 0 0RF Rx Instructions: IF NO BM X 2 DAYS HOLD ALL 3 DOSES UNTIL PT HAS BM tramadol 50 mg tablet 25 mg PO TID PRN (Reason: pain) Qty: 0 0RF acetaminophen [Acetaminophen Extra Strength] 500 mg tablet 1,000 mg PO TID PRN (Reason: pain) Qty: 0 0RF famotidine 20 mg tablet 10 mg PO DAILY Qty: 0 0RF Discontinued ropinirole 0.5 mg tablet 0.5 mg PO HS levothyroxine 25 mcg tablet 25 mcg PO DAILY Discharge Instructions Additional Instructions: Patient was treated for emphysematous cystitis, blood cultures came back no edilma anglin, urine culture only grew mixed gram positive and gram negative organisms w/ no predominant specie. She was treated w/ Meropenem but can be down graded to Fosfomcyin. She should have 3 gm orally every 3 days for 15 days. She needs to have the powell kept in place until she follows up w/ Dr. Vásquez. In addition to her UTI, she was found to have bilateral infiltrates on her CT scan of her chest. She should have doxycycline 100 mg bid x 7 days. follow up chest xray or preferably follow up CT scan in 2 to 4 weeks. If she has persistent nodular infiltrates, then I would recommend pulmonary referral for further workup as this could represent malgnancy or possibly rheumatoid lung disease. Her levothyroxine dose was reduced from 225 mcg daily to 200 mcg daily as her TSH is quite low at 0.08. Please repeat her TSH in 4 to 6 weeks. Stand Alone Forms: Nursing Discharge Form Referrals: Agus Vásquez MD [ [facility] STAFF PHYSICIAN] - 07/04/23 1:00 pm Activity:: Activity as Tolerated Equipment/Supplies:: No Equipment Needed Diet:: minced and moist Discharge Orders Discharge Orders: Discharge Order (Routine); Ordered 06/27/23 Ordered By: Napoleon Bull Other Ambulatory Orders: XR chest 2V PA & lateral (Routine) Timeframe: 2 Weeks Location: None Selected Ordered By: Napoleon Bull DS: Summary Time Spent with Patient providing and/or coordinating discharge services: Greater than 30 minutes Specific discharge activities: Interview/exam of patient; review of discharge instructions, completion of prescriptions/discharge instructions; discussion w/ nursing and CM; documentation of hospital visit Status at Discharge Functional status at discharge: uses cane/walker Overall status at discharge: patient is progressing back to baseline Mental Status: mental status grossly normal Speech and Movement: speech and movement normal Mood: congruent mood Affect: normal affect Quality:SDOH Health Related Social Needs: No Data to Display Exam Narrative Exam Narrative: Patient was lethargic but arouseable for me. Earlier in the morning noted by nursing to wake up quite suddenly and having full conversations w/ nursing Lungs: bibasilar rales, no rhonchi or wheezing Heart: RRR Abdomen: soft, nontender, nondistended. Psych Mental Status: mental status grossly normal Speech and Movement: speech and movement normal Mood: congruent mood Affect: normal affect DS: Data Vitals/I&O Vitals and I&O: Vital Signs Temperature 38.1 C H 06/27/23 08:45 Temperature Source Tympanic 06/27/23 08:45 Pulse 92 H 06/27/23 08:45 Pulse Rhythm Regular 06/27/23 11:23 Pulse 82 06/25/23 16:01 Respiratory Rate 16 06/27/23 08:45 Respiratory Effort Normal, Non-Labored 06/27/23 11:23 Respiratory Depth Normal 06/27/23 11:23 Respiratory Pattern Normal 06/27/23 11:23 Blood Pressure 151/84 H 06/27/23 08:45 Blood Pressure Mean 106 06/25/23 16:01 Blood Pressure Position Supine 06/25/23 09:46 Pulse Oximetry 97 06/27/23 08:45 Oxygen Delivery Method Room Air 06/27/23 08:45 Oxygen Flow Rate 0 06/27/23 08:45 Pain Level 0 06/26/23 15:20 Intake & Output 06/26/23 06/27/23 06/27/23 23:59 11:59 23:59 Intake Total 200 / 300 1110 / 1110 Output Total 800 / 1400 550 / 550 Balance -600 / -1100 560 / 560 Intake: IV 200 / 300 1110 / 1110 Output: Urine 800 / 1400 550 / 550 Other: Urine Color Yellow Yellow Urine Appearance Clear Clear Data Completed and Pending Labs on day of discharge: Labs from last 24 hours 06/27/23 06/25/23 06:03 16:55 WBC 4.38 L RBC 2.92 L Hgb 8.4 L Hct 26.6 L MCV 91 MCH 28.8 MCHC 31.6 L RDW 13.2 Plt Count 124 L MPV 10.3 Immature Gran % 1.1 Neutrophils % 58.7 Lymphocytes % 24.0 Monocytes % 11.2 Eosinophils % 4.8 Basophils % 0.2 Nucleated RBC % 0.0 Absolute Neutrophils 2.57 Absolute Lymphocytes 1.05 L Absolute Monocytes 0.49 Absolute Eosinophils 0.21 Absolute Basophils 0.01 Sodium 148 H Potassium 4.0 Chloride 118 H Carbon Dioxide 18.8 L Anion Gap 11.2 H BUN 33 H Creatinine 1.6 H Est GFR (CKD-EPI 2020) 34.91 Glucose 83 Calcium 8.8 Ionized Calcium 1.26 Preliminary micro results at discharge 06/24/23 13:21 Blood Culture - Preliminary Blood NO GROWTH 48 HOURS 06/24/23 12:55 Blood Culture - Preliminary Blood NO GROWTH 48 HOURS PFSH All Active Problems (Updated 06/27/23 @ 12:29 by Napoleon Bull MD) Community acquired pneumonia (Acute) Metabolic acidosis with normal anion gap and failure of bicarbonate regeneration (Chronic) DVT prophylaxis (Acute) Chronic kidney disease (Chronic) Infiltrate of both lungs present on imaging study (Acute) Emphysematous cystitis (Acute) Pneumonia (Acute) Acute UTI (Acute) Sepsis associated hypotension (Acute) History of multiple strokes (Acute) Palliative care encounter (Acute) Acute UTI (Acute) Dysphagia (Chronic) Prolonged QT interval (Acute) Hyperkalemia (Acute) Fever (Acute) Wears hearing aid in both ears (Acute) Conductive hearing loss, external ear (Acute) Impacted cerumen, bilateral (Acute) Nontraumatic intracerebral hemorrhage (Acute) Acquired cystic kidney disease (Acute) Megaloblastic anemia due to B12 deficiency (Acute) Hyperlipidemia (Acute) Degeneration of lumbar intervertebral disc (Acute) Bipolar 1 disorder (Acute) Benign essential hypertension (Acute) Chronic GERD (Chronic) Asthma (Chronic) Fibromyalgia (Acute) Turners syndrome (Acute) Bipolar affective disorder (Chronic) Nail dystrophy (Acute) Corns and callosities (Acute) Elevated LFTs (Acute) Gout (Chronic) Hypercalcemia (Acute) Hyperparathyroidism (Acute) Hypertension (Chronic) Restless legs syndrome (RLS) (Acute) Rheumatoid arthritis (Chronic) Hypothyroidism (Chronic) Diabetes mellitus (Chronic) CAD (coronary artery disease) (Chronic) Sensorineural hearing loss (SNHL) of both ears (Acute) Medical History Abnormal auditory perception of both ears (12/25/16) Allergic rhinitis Sciatica IBS (irritable bowel syndrome) B12 deficiency anemia Surgical History History of parathyroidectomy History of hysterectomy Hx of tonsillectomy History of foot surgery Left foot; multiple fibroma excisions Social History Smoking/Tobacco Use Status: Never Smoking risk assessment performed?: Yes Alcohol Intake: never Drug use: Never Substance use type: does not use Household members: none Housing: long term Number of Children: 0 current occupation: disabled Do you feel safe at home: Yes Do you feel safe in your relationship?: Yes Additional Social history: Lives at the [facility] 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 Time Spent with Patient Time Spent with Patient: 45-69 minutes Time was spent: preparing to see the patient(eg.review tests), ordering medications,tests, procedures, referring, communicating with other health manager critical care unit, indepentently interpreting results and care coordination
--- NOTE | 2023-06-27 12:43 | PDOC.CMDIS ---
Date of service: 06/27/23 Time of Service: 12:43 LACE Index Scoring Tool Questions: Length of Stay (in days): 3 Was the patient admitted via the E.D.?: Yes Comorbidities: Diabetes w/o Complication and Liver or Renal Disease E.D. Visits: 5 Answers: Total Score: 15 Risk of Readmission: High Risk Care Management Discharge Plan Reason for Hospitalization: Sepsis, UTI, Dehydration, ALLAN, pneumonia Discharge Plan: Ladan will return to the [facility] via EMS ([facility] by [facility]), the facility will manage her further care needs. Patient/Family Education Needs: Review discharge instructions, discuss Ask Me Three. Services Needed at Discharge: [facility]dc Facility and Transportation SDOH Health Related Social Needs: No Data to Display Referrals and interventions: Return to LTC residence: [facility].
[2023-06-27 13:41] VITALS: BP 117/75; PULSE 88; RESP 14; TEMP 36.7; O2SAT 96
[2023-06-27 15:04] LABS: Hypochromasia 1+; Polychromasia Present
== END 2023-06-27 13:39 | disposition skilled nursing facility (03) | DRG 689 ==
LOC: ER 17:26 → ICU 18:16 → MS 06-25 21:56
PROVIDERS: Admitting Provider Internal Medicine; Emergency Provider Student in an Organized Health Care Education/Training Program; PCP Legal Medicine; Visit Provider Internal Medicine
DX: N30.80 Other cystitis without hematuria; J69.0 Pneumonitis due to inhalation of food and vomit; N18.4 Chronic kidney disease, stage 4 (severe); E87.22 Chronic metabolic acidosis; Z16.30 Resistance to unspecified antimicrobial drugs; E86.0 Dehydration; I95.9 Hypotension, unspecified; I25.10 Atherosclerotic heart disease of native coronary artery without angina pectoris; E11.22 Type 2 diabetes mellitus with diabetic chronic kidney disease; K21.9 Gastro-esophageal reflux disease without esophagitis; F31.9 Bipolar disorder, unspecified; Z66 Do not resuscitate; M06.9 Rheumatoid arthritis, unspecified; I12.9 Hypertensive chronic kidney disease with stage 1 through stage 4 chronic kidney disease, or unspecified chronic kidney disease; Q96.9 Turner's syndrome, unspecified; E03.9 Hypothyroidism, unspecified; G25.81 Restless legs syndrome; I69.391 Dysphagia following cerebral infarction; R13.10 Dysphagia, unspecified; M51.36 Other intervertebral disc degeneration, lumbar region; E78.5 Hyperlipidemia, unspecified; D53.8 Other specified nutritional anemias; J45.909 Unspecified asthma, uncomplicated; M79.7 Fibromyalgia; M10.9 Gout, unspecified; E21.3 Hyperparathyroidism, unspecified; H90.3 Sensorineural hearing loss, bilateral; R91.8 Other nonspecific abnormal finding of lung field; Z79.4 Long term (current) use of insulin; R79.89 Other specified abnormal findings of blood chemistry; B96.20 Unspecified Escherichia coli [E. coli] as the cause of diseases classified elsewhere
CPT/HCPCS: 00123; 36415; 51702; 71250; 80048; 80053; 82805; 83690; 83935; 84145; 87040; 87637; 87641; 93005; 96361; 96365; 96368; 99222; 99232; 99291; 70450; 74176; 80202; 80329; 81003; 81015; 82330; 82436; 83605; 83735; 83930; 84133; 84300; 84439; 84443; 84484; 85025; 85610; 85730; 87086; 93010; 99223; 99239; J0457; J1644; J1815; J2185; J3370; J3475

== ENCOUNTER → 2023-06-25 07:55 | Outpatient (BNVA) | payer MEDICARE, MEDICAID, SELFPAY | PROVIDERS: PCP Legal Medicine; Referring Provider Legal Medicine; Visit Provider Urology ==

== ENCOUNTER 2023-07-01 17:45 | Outpatient (REF) | payer SELFPAY ==
[2023-07-01 18:37] LABS: Abs Immature Grans 0.08 10^3/uL (0.0-0.06); Absolute Basophil Count 0.01 10^3/uL (0.0-0.2); Absolute Lymphocyte Count 1.15 10^3/uL (1.2-3.4); Absolute Monocyte Count 0.42 10^3/uL (0.1-0.8); Absolute Neutrophil Count 3.14 10^3/uL (1.2-6.7); Basophils % 0.2; HCT 27.6 % (36.0-46.0); HGB 8.4 g/dL (11.2-15.7); Immature Grans % 1.6; Lymphocytes % 23.5; MCH 28.1 pg (27.0-33.0); MCHC 30.4 % (32.0-36.0); MCV 92 fL (80-95); MPV 10.5 fL (8.0-11.0); Monocytes % 8.6; Neutrophils % 64.1; Platelet Count 151 10^3/uL (130-400); RBC 2.99 10^6/uL (3.93-5.22); RDW 13.5 % (11.7-14.6); RDW-SD 45.2 fL
[2023-07-01 19:23] LABS: Hemoglobin A1C 7.8 % (<5.7); Iron 26 ug/dL (50-170); Total Iron Binding Capacity 111 ug/dL (250-450); Transferrin Sat 23 % (15-50)
[2023-07-01 19:25] LABS: ALT 17 U/L (14-59); AST 11 U/L (15-37); Albumin 2.2 g/dL (3.4-5.0); Alkaline Phosphatase 112 U/L (46-116); Anion Gap 13.5 mmol/L (3-11); BUN 28 mg/dL (7-18); Bilirubin, Total 0.1 mg/dL (0.2-1.0); CO2 17.5 mmol/L (21.0-32.0); CREATININE 1.8 mg/dL (0.55-1.02); Calcium 8.3 mg/dL (8.5-10.1); Chloride 114 mmol/L (98-107); Estimated GFR 30.31 (mL/min/1.73m2); Ferritin 381 ng/mL (8-252); Folate 7.6 ng/mL (8.6-20.0); Glucose 159 mg/dL (74-106); Magnesium 1.2 mg/dL (1.8-2.4); Potassium 4.5 mmol/L (3.5-5.1); Sodium 145 mmol/L (136-145); TSH (W/Ref FT4) 0.21 uIU/mL (0.36-3.74); Vitamin D 25 Total 12.3 ng/mL (30-100)
[2023-07-01 19:27] LABS: Vitamin B12 > 2000 pg/mL (193-986)
[2023-07-01 20:03] LABS: FREE T4 0.91 ng/dL (0.76-1.46)
== END 2023-07-01 17:46 | disposition home or self-care (01) ==
LOC: LBN 17:45
PROVIDERS: PCP Legal Medicine; Visit Provider Nurse Practitioner Gerontology
DX: N30.80 Other cystitis without hematuria; E87.20 Acidosis, unspecified; E83.42 Hypomagnesemia; R68.89 Other general symptoms and signs; G89.4 Chronic pain syndrome
CPT/HCPCS: 80053; 82306; 82607; 82728; 82746; 83036; 83540; 83550; 83735; 84439; 84443; 85025

== ENCOUNTER → 2023-07-04 12:51 | Outpatient (BNVA) | payer MEDICARE, MEDICAID, SELFPAY | PROVIDERS: PCP Legal Medicine; Referring Provider Legal Medicine; Visit Provider Nurse Practitioner Gerontology | DX: N39.0 Urinary tract infection, site not specified (principal) | CPT/HCPCS: 99214 ==

== ENCOUNTER 2023-07-27 18:57 | Emergency (ER) | payer MEDICARE, MEDICAID, SELFPAY ==
[2023-07-27] VITALS (29 sets, daily range): BP systolic 113–165; BP diastolic 66–127; PULSE 84–103; RESP 14–25; TEMP 36.1–36.4; O2SAT 95–96
--- NOTE | 2023-07-27 19:00 | RT.EKG_ITS ---
APPROVED REPORT Exam: Resting ECG Reason for Exam: Abdominal pain Patient Location: E HR:90 bpm ECG Measurements Heart Rate 90 AXIS TN 202 P 79 QRSd 142 QRS 89 QT 420 T 57 QTc 514 Conclusion Sinus rhythm...normal P axis, V-rate 60- 99 Right bundle branch block...QRSd>120, terminal axis(90,270) Inferior infarct, old...Q >35mS, II III aVF Probable anterolateral infarct, old...Q>35mS, abnrm ST-T, V2-V6,I,aVL Normal sinus rhythm at a rate of 90 with first-degree AV block and a TN interval of 220 ms. Prolonge d QTc of 514 ms. Interventricular conduction delay, right bundle branch block. No ST segment abnorm alities. T wave flattening in aVL. Compared to prior dated last month right bundle branch block is persistent. First-degree AV block is new. QTc is also prolonged.
--- NOTE | 2023-07-27 19:28 | ED.GENADUL_ITS ---
Discharge Plan Disposition Patient Disposition: Home Discharge Details Clinical Impression: Prolonged QT interval, Hypomagnesemia, Acute pyelonephritis Primary Care Provider: Shanna Rock ED Provider: Mayito Naidu [place] Meds and New Rx's Prescriptions: New cefpodoxime 200 mg tablet 200 mg PO Q12H 10 Days Qty: 20 0RF Rx Instructions: must administer with a meal/food No Action doxycycline hyclate 100 mg capsule 100 mg PO BID cholecalciferol (vitamin D3) 25 mcg (1,000 unit) capsule 25 mcg PO DAILY ropinirole 0.5 mg tablet 0.5 mg PO DAILY Rx Instructions: take in addition to 2 mg tab for total 2.5 mg. losartan 50 mg tablet 50 mg PO DAILY omeprazole 40 mg capsule,delayed release(DR/EC) 40 mg PO DAILY Lactobacillus acidophilus Capsule 1 cap PO BID loperamide [Anti-Diarrheal (loperamide)] 2 mg tablet 2 mg PO Q8H PRN Rx Instructions: orally every 8 hours PRN for diarrhea nitroglycerin [Nitrostat] 0.4 mg tablet, sublingual 0.4 mg sublingual Q5M PRN Rx Instructions: do not exceed 3 doses per episode atorvastatin 80 mg tablet 80 mg PO QPM cyanocobalamin (vitamin B-12) 1,000 mcg/mL solution 1,000 mcg subcut QMONTH isosorbide mononitrate 30 mg tablet extended release 24 hr 30 mg PO DAILY Trulicity 1.5 mg/0.5 mL pen injector 1.5 mg subcut QWEEK aspirin 81 mg tablet,delayed release (DR/EC) 81 mg PO DAILY clonazepam 0.5 mg tablet 1.5 mg PO HS sucralfate 1 gram tablet 1 g PO TID Benefiber Sugar Free (dextrin) 3 gram/3.8 gram powder 1.5 g PO BID Rx Instructions: mix into at least 4 oz water or juice before administering vanilla boost 1 ea PO BID B-complex with vitamin C Tablet 1 tab PO DAILY ropinirole 2 mg tablet 2 mg PO HS nystatin 100,000 unit/gram cream 1 applic TOPICAL TID Rx Instructions: APPLY TOPICALLY TO VAGINAL AREA THREE TIMES DAILY. APPLY TOPICALLY TO BUTTOCKS NEEDED Neupro 2 mg/24 hour patch 24 hour 2 mg transdermal DAILY Rx Instructions: APPLY [address] ON BACK OR ARMS ONLY clonazepam 0.5 mg tablet 0.5 mg PO .DAILY AT NOON quetiapine 100 mg tablet 100 mg PO TID Rx Instructions: WITH 50MG FOR TOTOAL OF 150MG quetiapine 50 mg tablet 50 mg PO TID Rx Instructions: WITH 100MG TAB FOR TOTAL OF 150MG cranberry extract [Cranberry Juice Powder] 425 mg capsule 425 mg PO DAILY Rx Instructions: administer with a meal Mag 64 64 mg tablet 64 mg PO BID ondansetron HCl 4 mg tablet 4 mg PO Q8H PRN PRN (Reason: nausea) Calcium Antacid 500 mg tablet 1,000 mg PO Q4H PRN PRN polyethylene glycol 3350 17 g PO DAILY PRN PRN (Reason: constipation ) Rx Instructions: give powder solution mixed in 8 oz of beverage levothyroxine 200 mcg tablet 200 mcg PO DAILY sodium bicarbonate 650 mg Tablet 650 mg PO TID Qty: 0 0RF fosfomycin tromethamine 3 gram packet 3 g PO Q3D Qty: 5 0RF diphenoxylate-atropine [Lomotil] 2.5-0.025 mg tablet 1 tab PO TID PRN (Reason: diarrhea) Qty: 0 0RF Rx Instructions: IF NO BM X 2 DAYS HOLD ALL 3 DOSES UNTIL PT HAS BM tramadol 50 mg tablet 25 mg PO TID PRN (Reason: pain) Qty: 0 0RF acetaminophen [Acetaminophen Extra Strength] 500 mg tablet 1,000 mg PO TID PRN (Reason: pain) Qty: 0 0RF famotidine 20 mg tablet 10 mg PO DAILY Qty: 0 0RF Discharge Instructions Instructions: Urinary Tract Infection in Women (ED), Hypomagnesemia (ED) Additional Instructions: You are seen in the emergency department for your nausea and vomiting. You are found to have a kidney infection for which you received antibiotics. Please take these antibiotics starting tomorrow morning as directed. Please return to the emergency department if you develop fevers chills nausea vomiting or if you have any other concerns. Discharge Data Discharge Date/Time-TO BE ENTERED AT DEPARTURE: 07/27/23 23:55 HPI General Date/Time Provider Initiated Documentation: 07/27/23 19:07 . HPI Narrative: MDM Patient is an afebrile mildly tachycardic 67-year-old chronically ill female with abdominal tenderness with pain concerning for intra-abdominal infection. No vomiting but given age will obtain ECG and troponin to assess for myocardial injury. No pain out of proportion to suggest necrotizing soft tissue infection. Given no vomiting my suspicion is low for small bowel obstruction. Patient is diffusely tender and as result appendicitis diverticulitis pancreatitis are currently in the differential. No hematochezia so doubt mesenteric ischemia so I did not send a lactate. No cough to suggest pneumonia. Given prior UTIs we will send straight cath urinalysis. No history of trauma so doubt intra- abdominal hemorrhage. Not recently so my suspicion is low for sp lenic arterial aneurysm. In the absence of trauma and hip pain I am not suspicious for any hip fracture so I did not feel the patient required femur radiograms of her femurs. Will assess following labs urinalysis and CT scan. Given diarrhea and recent antibiotics will test for C. difficile. 7:48 PM CBC lacks leukocytosis. Mild normocytic anemia. No thrombocytopenia. 8:21 PM Negative troponin. 9:11 PM Comprehensive metabolic panel showing CKD but no ALLAN. Mild hyperglycemia mild anion gap but normal bicarbonate??not consistent with DKA. Mildly elevated BUN. Mild hypoalbuminemia similar to prior. Normal potassium. Normal reassuring lipase not consistent with pancreatitis. 9:48 PM Patient was found to have prolonged QTc on ECG. Will check a magnesium level. She is on quetiapine. She requested her home ropinirole which I ordered. 10:10 PM Patient was found to be mildly hypomagnesemic for which she will receive IV repletion given her QTc prolongation. She is not on QTc prolonging medications beyond quetiapine. 10:[address] scan showing mild bilateral perinephric fat stranding. No signs of appendicitis. No bladder wall thickening. Given dysuria and frequency will obtain urinalysis. 10:50 PM Negative reassuring troponin. Urinalysis nitrite and leukoesterase positive consistent with UTI. Given perinephric stranding seen on CT scan I am concerned for the possibility of pyelonephritis. Patient has not been vomiting in the ED so I feel that she is appropriate for outpatient management. 11 PM I met with the patient as she has extensive allergies. She reports that she has taken cephalexin in the past. As result we will treat with IV ceftriaxone and discharged on cefpodoxime. 07/27 Patient received ceftriaxone uneventfully. She was discharged on cefpodoxime with return indications. Chronic conditions affecting the care of the patient: Coronary artery disease diabetes elevated LFTs History obtained from an outside historian: Paramedics [place] [facility] [place] [Diagnostic interpretations performed by me: Per my independent interpretation chest x-ray shows: Per my independent interpretation EKG shows: Normal sinus rhythm at a rate of 90 with first-degree AV block and a WI interval of 220 ms. Prolonged QTc of 514 ms. Interventricular conduction delay, right bundle branch block. No ST segment abnormalities. T wave flattening in aVL. Compared to prior dated last month right bundle branch block is persistent. First-degree AV block is new. QTc is also prolonged. ]Medications: Ondansetron Social determinants of health affecting disposition: From group home facility Management discussed with: N/A Treatment/interventions considered: N/A Response to therapies provided: Improved symptoms in the ED HPI This is a 67-year-old female with a history of diabetes rheumatoid arthritis coronary artery disease arrived to emergency department via paramedics in the setting of abdominal pain with nausea and diarrhea that began this morning. Patient was diagnosed with a urinary tract infection last month. She is finished her antibiotics. She has persistent dysuria. She comes on the [employer]. She has a history of IBS. She has 4 stents in her heart. She denies chest pain or shortness of breath. She has received treatment for C. difficile in the past. Denies routine tobacco, ethanol, and illicits. Exam General: Chronically ill-appearing in no acute distress speaking in complete sentences. Head: Normocephalic, atraumatic. Eye: Extraocular eye movements intact. No conjunctival injection. No scleral icterus. Ear, nose, mouth, throat: Grossly normal inspection. Normal voice, handling secretions normally. Neck: Trachea midline. Cardiovascular: Well-perfused distal extremities. Regular rate and rhythm Respiratory: Nonlabored respiration. Clear lungs bilaterally. Gastrointestinal: Nondistended abdomen. Diffusely tender abdomen. No rebound. No guarding. Musculoskeletal: No edema. Moving all 4 extremities spontaneously. Skin: Normal for age and race, grossly normal temperature and turgor. No acute rash. Neurologic: Alert and appropriate, no apparent acute deficits. GCS 15. Psychiatric: Mood and manner are appropriate. Grooming and personal hygiene are appropriate. Related Data Home Medications Medication Instructions Recorded Confirmed Lactobacillus acidophilus 1 cap PO BID 02/05/22 06/24/23 loperamide 2 mg tablet 2 mg PO Q8H PRN 02/05/22 06/24/23 (Anti-Diarrheal (loperamide)) nitroglycerin 0.4 mg sublingual 0.4 mg sublingual Q5M PRN 02/05/22 06/24/23 tablet (Nitrostat) atorvastatin 80 mg tablet 80 mg PO QPM 04/16/22 06/24/23 cyanocobalamin (vitamin B-12) 1,000 mcg subcut QMONTH 04/16/22 06/24/23 1,000 mcg/mL injection solution isosorbide mononitrate 30 mg 30 mg PO DAILY 04/16/22 06/24/23 tablet,extended release 24 hr dulaglutide 1.5 mg/0.5 mL 1.5 mg subcut QWEEK 05/14/22 06/24/23 subcutaneous [facility] B-complex with vitamin C 1 tab PO DAILY 12/19/22 06/24/23 aspirin 81 mg tablet,delayed 81 mg PO DAILY 12/19/22 07/27/23 release clonazepam 0.5 mg tablet 1.5 mg PO HS 12/19/22 06/24/23 ropinirole 2 mg tablet 2 mg PO HS 12/19/22 06/24/23 sucralfate 1 gram tablet 1 g PO TID 12/19/22 06/24/23 vanilla boost 1 ea PO BID 12/19/22 06/24/23 wheat dextrin 3 gram/3.8 gram oral 1.5 g PO BID 12/19/22 06/24/23 powder (Benefiber Sugar Free (dextrin)) Calcium Antacid 1,000 mg PO Q4H PRN PRN 05/26/23 06/24/23 Mag 64 64 mg PO BID 05/26/23 06/24/23 clonazepam 0.5 mg tablet 0.5 mg PO .DAILY AT NOON 05/26/23 06/24/23 cranberry extract 425 mg capsule 425 mg PO DAILY 05/26/23 06/24/23 (Cranberry Juice Powder) nystatin 100,000 unit/gram topical 1 applic topical TID 05/26/23 06/24/23 cream ondansetron HCl 4 mg tablet 4 mg PO Q8H PRN PRN nausea 05/26/23 06/24/23 polyethylene glycol 3350 17 g PO DAILY PRN PRN constipation 05/26/23 06/24/23 quetiapine 100 mg tablet 100 mg PO TID 05/26/23 06/24/23 quetiapine 50 mg tablet 50 mg PO TID 05/26/23 06/24/23 rotigotine 2 mg/24 hour 2 mg transdermal DAILY 05/26/23 06/24/23 transdermal 24 hour patch (Neupro) levothyroxine 200 mcg tablet 200 mcg PO DAILY 05/27/23 06/24/23 acetaminophen 500 mg tablet 1,000 mg (2 x 500 mg) PO TID PRN 06/27/23 07/27/23 (Acetaminophen Extra Strength) pain #0 tabs diphenoxylate-atropine 2.5 1 tab PO TID PRN diarrhea #0 tabs 06/27/23 06/24/23 mg-0.025 mg tablet (Lomotil) famotidine 20 mg tablet 10 mg (1/2 x 20 mg) PO DAILY #0 06/27/23 06/24/23 tabs fosfomycin tromethamine 3 gram 3 g PO Q3D 5 doses #5 ea 06/27/23 06/24/23 oral packet sodium bicarbonate 650 mg tablet 650 mg PO TID #0 tabs 06/27/23 tramadol 50 mg tablet 25 mg (1/2 x 50 mg) PO TID PRN 06/27/23 06/24/23 pain #0 tabs cholecalciferol (vitamin D3) 25 25 mcg PO DAILY 07/04/23 mcg (1,000 unit) capsule doxycycline hyclate 100 mg capsule 100 mg PO BID 07/04/23 losartan 50 mg tablet 50 mg PO DAILY 07/04/23 omeprazole 40 mg capsule,delayed 40 mg PO DAILY 07/04/23 release ropinirole 0.5 mg tablet 0.5 mg PO DAILY 07/04/23 cefpodoxime 200 mg tablet 200 mg PO Q12H 10 days #20 tabs 07/27/23 Previous Rx's Medication Instructions Recorded acetaminophen 500 mg tablet 1,000 mg (2 x 500 mg) PO TID PRN 06/27/23 (Acetaminophen Extra Strength) pain #0 tabs diphenoxylate-atropine 2.5 1 tab PO TID PRN diarrhea #0 tabs 06/27/23 mg-0.025 mg tablet (Lomotil) famotidine 20 mg tablet 10 mg (1/2 x 20 mg) PO DAILY #0 06/27/23 tabs fosfomycin tromethamine 3 gram 3 g PO Q3D 5 doses #5 ea 06/27/23 oral packet sodium bicarbonate 650 mg tablet 650 mg PO TID #0 tabs 06/27/23 tramadol 50 mg tablet 25 mg (1/2 x 50 mg) PO TID PRN 06/27/23 pain #0 tabs cefpodoxime 200 mg tablet 200 mg PO Q12H 10 days #20 tabs 07/27/23 Allergies Allergy/AdvReac Type Severity Reaction Status Date / Time polyethylene glycol 3350 Allergy Unknown Other (See Verified 07/27/23 19:46 Comment) acetaminophen [From Vicodin] Allergy Other (See Verified 07/27/23 19:46 Comment) amoxicillin Allergy Other (See Verified 07/27/23 19:46 Comment) azithromycin [From Zithromax] Allergy Other (See Verified 07/27/23 19:46 Comment) benoxinate Allergy Other (See Verified 07/27/23 19:46 Comment) benzonatate Allergy Other (See Verified 07/27/23 19:46 Comment) buspirone [From BuSpar] Allergy Other (See Verified 07/27/23 19:46 Comment) cephalexin [From Keflex] Allergy Other (See Verified 07/27/23 19:46 Comment) clavulanic acid Allergy Other (See Verified 07/27/23 19:46 [From Augmentin] Comment) diazepam [From Valium] Allergy Other (See Verified 07/27/23 19:46 Comment) gemfibrozil Allergy Other (See Verified 07/27/23 19:46 Comment) hydrocodone [From Vicodin] Allergy Other (See Verified 07/27/23 19:46 Comment) monosodium glutamate Allergy Other (See Verified 07/27/23 19:46 Comment) morphine Allergy Other (See Verified 07/27/23 19:46 Comment) nitrofurantoin Allergy Other (See Verified 07/27/23 19:46 [From Macrobid] Comment) Penicillins Allergy Other (See Verified 07/27/23 19:46 Comment) prednisone Allergy Other (See Verified 07/27/23 19:46 Comment) Sulfa (Sulfonamide Allergy Other (See Verified 07/27/23 19:46 Antibiotics) Comment) Tetanus Vaccines and Toxoid Allergy Other (See Verified 07/27/23 19:46 Comment) tramadol Allergy Other (See Verified 07/27/23 19:46 Comment) morphine Allergy Unknown Other (See Uncoded 07/27/23 19:46 Comment) nitrofurantoin Allergy Unknown Other (See Uncoded 07/27/23 19:46 Comment) General Stated Complaint: Abd Prob JOESPH: 3 Course Vital Signs Vital signs: Vital Signs Temperature 36.1 C L 07/27/23 18:57 Pulse 103 H 07/27/23 18:57 Respiratory Rate 20 07/27/23 18:57 Blood Pressure 122/68 07/27/23 18:57 Pulse Oximetry 96 07/27/23 18:57 Temperature 36.1 C L 07/27/23 18:57 Pulse 103 H 07/27/23 18:57 Respiratory Rate 20 07/27/23 18:57 Respiratory Effort Normal 07/27/23 19:01 Blood Pressure 122/68 07/27/23 18:57 Pulse Oximetry 96 07/27/23 18:57 Oxygen Delivery Method Nasal Cannula 07/27/23 18:57 Oxygen Flow Rate 3 07/27/23 18:57 Pain Level 9 07/27/23 18:57 Medical Decision Making Quality:SDOH Health Related Social Needs: No Data to Display PFSH All Active Problems (Updated 07/27/23 @ 23:05 by Mayito Naidu MD) Acute pyelonephritis (Acute) Hypomagnesemia (Acute) Prolonged QT interval (Acute) Community acquired pneumonia (Acute) Metabolic acidosis with normal anion gap and failure of bicarbonate regeneration (Chronic) Chronic kidney disease (Chronic) Infiltrate of both lungs present on imaging study (Acute) Emphysematous cystitis (Acute) Acute UTI (Acute) Sepsis associated hypotension (Acute) History of multiple strokes (Acute) Palliative care encounter (Acute) Acute UTI (Acute) Dysphagia (Chronic) Prolonged QT interval (Acute) Hyperkalemia (Acute) Fever (Acute) Wears hearing aid in both ears (Acute) Conductive hearing loss, external ear (Acute) Impacted cerumen, bilateral (Acute) Nontraumatic intracerebral hemorrhage (Acute) Acquired cystic kidney disease (Acute) Megaloblastic anemia due to B12 deficiency (Acute) Hyperlipidemia (Acute) Degeneration of lumbar intervertebral disc (Acute) Bipolar 1 disorder (Acute) Benign essential hypertension (Acute) Chronic GERD (Chronic) Asthma (Chronic) Fibromyalgia (Acute) Turners syndrome (Acute) Bipolar affective disorder (Chronic) Nail dystrophy (Acute) Corns and callosities (Acute) Elevated LFTs (Acute) Gout (Chronic) Hypercalcemia (Acute) Hyperparathyroidism (Acute) Hypertension (Chronic) Restless legs syndrome (RLS) (Acute) Rheumatoid arthritis (Chronic) Hypothyroidism (Chronic) Diabetes mellitus (Chronic) CAD (coronary artery disease) (Chronic) Sensorineural hearing loss (SNHL) of both ears (Acute) Medical History Abnormal auditory perception of both ears (12/25/16) Allergic rhinitis Sciatica IBS (irritable bowel syndrome) B12 deficiency anemia Surgical History History of parathyroidectomy History of hysterectomy Hx of tonsillectomy History of foot surgery Left foot; multiple fibroma excisions Social History Smoking/Tobacco Use Status: Never Smoking risk assessment performed?: Yes Alcohol Intake: never Drug use: Never Substance use type: does not use Household members: none Housing: prison Number of Children: 0 current occupation: disabled Do you feel safe at home: Yes Do you feel safe in your relationship?: Yes Additional Social history: Lives at the [facility] 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
[2023-07-27 19:36] LABS: Abs Immature Grans 0.09 10^3/uL (0.0-0.06); Absolute Basophil Count 0.01 10^3/uL (0.0-0.2); Absolute Eosinophil Count 0.12 10^3/uL (0.0-0.7); Absolute Lymphocyte Count 1.11 10^3/uL (1.2-3.4); Absolute Monocyte Count 0.48 10^3/uL (0.1-0.8); Absolute Neutrophil Count 4.54 10^3/uL (1.2-6.7); Basophils % 0.2; Eosinophils % 1.9; HCT 31.4 % (36.0-46.0); HGB 9.7 g/dL (11.2-15.7); Immature Grans % 1.4; Lymphocytes % 17.5; MCH 28.5 pg (27.0-33.0); MCHC 30.9 % (32.0-36.0); MCV 92 fL (80-95); MPV 10.6 fL (8.0-11.0); Monocytes % 7.6; Neutrophils % 71.4; Platelet Count 140 10^3/uL (130-400); RDW 13.3 % (11.7-14.6); RDW-SD 45.4 fL; WBC 6.35 10^3/uL (4.4-10.8)
[2023-07-27] MEDS: Normal Saline 500 ML IV (19:38)
[2023-07-27] MEDS: Ondansetron 4 MG/2 ML VIAL IVP (19:38)
[2023-07-27 19:56] LABS: Troponin I < 50 ng/L (< or =60)
[2023-07-27 21:03] LABS: ALT 39 U/L (14-59); AST 22 U/L (15-37); Albumin 2.5 g/dL (3.4-5.0); Alkaline Phosphatase 148 U/L (46-116); Anion Gap 11.2 mmol/L (3-11); BUN 32 mg/dL (7-18); Bilirubin, Total 0.1 mg/dL (0.2-1.0); CO2 22.8 mmol/L (21.0-32.0); CREATININE 1.7 mg/dL (0.55-1.02); Calcium 8.8 mg/dL (8.5-10.1); Chloride 108 mmol/L (98-107); Estimated GFR 32.46 (mL/min/1.73m2); Glucose 315 mg/dL (74-106); Lipase < 10 U/L (16-77); Sodium 142 mmol/L (136-145); Total Protein 5.9 g/dL (6.4-8.2)
[2023-07-27] MEDS: Omnipaque 350 MG/ML 100 ML BTL IJ (21:20)
[2023-07-27] MEDS: Normal Saline - Diluent 50 ML VIAL IJ (21:21)
--- NOTE | 2023-07-27 21:30 | DI.CT_ITS ---
Exam(s) CT ABDOMEN PELVIS W EXAM: CT ABDOMEN PELVIS W CLINICAL HISTORY: Abdominal pain generalized TECHNIQUE: Imaging Protocol: Axial computed tomography images with coronal and sagittal reformatted images were created and reviewed. CONTRAST MATERIAL: Intravenous: Omnipaque 350 Contrast volume:100 mL Oral: No COMPARISON: CT CT CHEST PE ABD PELVIS W from 12/13/[address] CHEST/ABD/PEL WO from 05/25/[address] CHEST/ABD/PEL WO from 06/24/2023 FINDINGS: The examination is limited due to patient motion artifact. ABDOMEN: Lung Bases: Coronary artery calcifications are present. There is dependent atelectasis or scarring i n the lung bases. Liver: Normal density. No measurable mass. Portal, Superior Mesenteric, and Splenic Veins: Unremarkable. Gallbladder and Biliary Tract: Status post cholecystectomy. The common duct measures 9 mm in diamete r which is stable and likely reflects post cholecystectomy state. Pancreas: Normal density, no abnormal calcifications or inflammatory process. There is a stable incid ental 6 mm cyst in the body of the pancreas. Spleen: Normal. Adrenals: No masses seen. Kidneys: Normal size, contour and axis. No radiodense stones or obstructive uropathy. There are bilat eral renal cysts present. No follow-up is recommended. Abdominal Aorta: Abdominal portion non-dilated. Atherosclerotic calcification is present. Bowel: No obstruction or bowel wall thickening. No evidence of appendicitis. There is a moderate kim unt of stool in the colon. Peritoneal Cavity: No ascites, collection or mesenteric inflammatory response. No free air. Lymph Nodes: Within normal limits. Bones: Within normal limits for the patient's age. No destructive lesions are seen. Soft Tissues: Unremarkable. PELVIS: Bladder: Symmetric distention, no gross wall thickening. Reproductive Organs: Status post hysterectomy. Lymph Nodes: Within normal limits. Bones: Within normal limits for the patient's age. IMPRESSION: 1. No definite acute abdominal or pelvic process. 2. No evidence of bowel obstruction or bowel wall thickening. 3. There is a moderate amount of stool in the colon which may reflect constipation. 4. Atelectasis or scarring in the lung bases. RADIATION DOSE DELIVERED: 765.92mGy.cm Total DLP DATA REPOSITORY: All CT scans at this facility are submitted to the National Radiology Data Registry (NRDR) Dose Index Registry (DIR) with the [employer] ([employer]). RADIATION OPTIMIZATION: All CT scans at this facility use at least one of these dose optimization te chniques: automated exposure control; mA and/or kV adjustment per patient size (includes targeted exa ms where dose is matched to clinical indication); or iterative reconstruction.
[2023-07-27 22:04] LABS: Magnesium 1.6 mg/dL (1.8-2.4)
[2023-07-27] MEDS: rOPINIRole 0.5 MG TAB PO (22:13)
--- NOTE | 2023-07-27 22:13 | NUR.NOTE ---
attempted straight cath and was unsuccessful Nursing Note:
--- NOTE | 2023-07-27 22:26 | DI.VRAD_ITS ---
PROCEDURE INFORMATION: Exam: CT Abdomen And Pelvis With Contrast Exam date and time: 07/27/2023 9:20 PM Age: 67 years old Clinical indication: Generalized; Patient HX: Abdominal pain genralized TECHNIQUE: Imaging protocol: Computed tomography of the abdomen and pelvis with contrast. Radiation optimization: All CT scans at this facility use at least one of these dose optimization techniques: automated exposure control; mA and/or kV adjustment per patient size (includes targeted exams where dose is matched to clinical indication); or iterative reconstruction. Contrast material: [id number]; Contrast volume: 100 ml; Contrast route: INTRAVENOUS (IV); Other technique: Motion degradation of images limits evaluation at several levels. COMPARISON: CT CHEST/ABD/PEL WO 06/24/2023 2:52 PM FINDINGS: Lungs: Bibasilar subsegmental atelectasis and or parenchymal scarring. Liver: Hepatomegaly. No mass. Gallbladder and bile ducts: Prior cholecystectomy. Minimal intrahepatic biliary ductal dilatation. Common bile duct normal in caliber. Pancreas: Normal. No ductal dilation. Spleen: Normal. No splenomegaly. Adrenal glands: Normal. No mass. Kidneys and ureters: Several simple cysts are demonstrated in left kidney. There are scattered too small to characterize hypoenhancing areas or lesions in each kidney. No hydronephrosis. Mild bilateral perinephric fat stranding. Stomach and bowel: Unremarkable. No obstruction. No mucosal thickening. There is minimal gaseous distension of transverse colon. Appendix: No evidence of appendicitis. Intraperitoneal space: No free intraperitoneal gas or ascites. Vasculature: Unremarkable. No abdominal aortic aneurysm. Lymph nodes: Unremarkable. No enlarged lymph nodes. Urinary bladder: Wide-mouth diverticulum extends from anterolateral aspect of urinary bladder, measuring approximately 3 x 3 cm. No bladder wall thickening or intraluminal radiopaque calculi. Reproductive: Unremarkable as visualized. Bones/joints: Unremarkable. No acute fracture. Soft tissues: Unremarkable. IMPRESSION: 1. Perinephric fat stranding which could have multiple possible etiologies including scarring, 3rd spacing of fluid, inflammatory process and infection. 2. Minimal gaseous distension of transverse colon. 3. Bladder diverticulum. Dictated and Authenticated by: Denny Morrissey MD. Ordering:JOE Edmond MD
[2023-07-27 22:35] LABS: Bilirubin Negative (Negative); Blood Moderate (Negative); Clarity Clear (Clear); Glucose Negative (Negative); Ketones Negative (Negative); Leukocyte Esterase Trace (Negative); Nitrite Positive (Negative); Specific Gravity 1.015 (1.005-1.025); Urobilinogen 0.2 mg/dL (Up to 0.2)
[2023-07-27] MEDS: MAGNESIUM SULFATE 2 GM/50 ML BAG IVPB (22:38)
[2023-07-27 22:46] LABS: Troponin I < 50 ng/L (< or =60)
[2023-07-27 22:47] LABS: Bacteria Few HPF (Negative); C & S Indicated? Yes; Casts Negative LPF (Negative); Crystals Negative HPF (Negative); Epithelial Cells Few HPF (Negative); Mucus Negative (Negative)
[2023-07-27] MEDS: cefTRIAXone 1 GM/50 ML BAG IVPB (23:21)
[2023-07-27] MEDS: Acetaminophen 500 MG TAB 1000 MG PO (23:38)
[2023-07-27] MEDS: clonazePAM 0.5 MG TAB 1.5 MG PO (23:39)
--- NOTE | 2023-07-28 07:52 | NUR.NOTE ---
Accessed pt chart to reconcile EKG orders with EKG?s in [facility]. Nursing Note:
== END 2023-07-27 23:55 | disposition home or self-care (01) ==
PROVIDERS: Emergency Provider Emergency Medicine; PCP Legal Medicine
DX: E83.42 Hypomagnesemia (principal); N10 Acute pyelonephritis; R94.31 Abnormal electrocardiogram [ECG] [EKG]; I10 Essential (primary) hypertension; E11.9 Type 2 diabetes mellitus without complications; I25.10 Atherosclerotic heart disease of native coronary artery without angina pectoris; I45.19 Other right bundle-branch block; I44.0 Atrioventricular block, first degree; Z79.82 Long term (current) use of aspirin; Z79.85 Long-term (current) use of injectable non-insulin antidiabetic drugs
CPT/HCPCS: 36415; 80048; 80053; 83690; 87077; 93005; 96361; 96365; 96368; 96375; 99285; 74177; 81003; 81015; 83735; 84484; 85025; 87086; 87186; 93010; 99284; J0696; J2405; J3475; J3490

== ENCOUNTER 2023-07-31 13:09 | Inpatient (IN) | payer MEDICARE, MEDICAID, SELFPAY ==
[2023-07-31] VITALS (30 sets, daily range): BP systolic 76–119; BP diastolic 46–68; PULSE 59–91; RESP 8–31; TEMP 36.7–36.9; O2SAT 94–99
--- NOTE | 2023-07-31 13:00 | DI.RAD_ITS ---
Exam(s) XR PORTABLE CHEST AP EXAM: XR PORTABLE CHEST AP CLINICAL HISTORY: Flu + hypoxic TECHNIQUE: 2D digital imaging was performed. COMPARISON: CR XR CHEST 2V PA LATERAL from 07/11/2023 FINDINGS: Exam is limited by suboptimal pulmonary inflation. Leads overlie the chest. LUNGS: Crowding of pulmonary vessels. Question of bilateral perihilar infiltrates versus atelectasis . No pleural abnormality seen. HEART: Normal size. AORTA: Normal diameter. BONES: Unremarkable for age. Soft tissues: Unremarkable. IMPRESSION: Suboptimal pulmonary inflation. Question of a perihilar infiltrates versus atelectasis. DATA REPOSITORY: RADIATION DOSE DELIVERED:
--- NOTE | 2023-07-31 13:00 | RT.EKG_ITS ---
APPROVED REPORT Exam: Resting ECG Reason for Exam: AMS Patient Location: E HR:90 bpm ECG Measurements Heart Rate 90 AXIS CO 151 P 58 QRSd 136 QRS 87 QT 412 T 43 QTc 504 Conclusion Sinus rhythm...normal P axis, V-rate 60- 99 Right bundle branch block...QRSd>120, terminal axis(90,270) Inferior infarct, old...Q >35mS, II III aVF I have reviewed and interpreted ECG and agree with software generated interpretation. Unchanged from prior ekg
--- NOTE | 2023-07-31 13:15 | ED.GENADUL_ITS ---
Discharge Plan Disposition Patient Disposition: Admit to [facility] Discharge Details Clinical Impression: ALLAN (acute kidney injury), Aspiration pneumonia, Sepsis Primary Care Provider: Shanna Rock ED Provider: Jenny Hendrickson Home Meds and New Rx's Prescriptions: No Action doxycycline hyclate 100 mg capsule 100 mg PO BID cholecalciferol (vitamin D3) 25 mcg (1,000 unit) capsule 25 mcg PO DAILY ropinirole 0.5 mg tablet 0.5 mg PO DAILY Rx Instructions: take in addition to 2 mg tab for total 2.5 mg. losartan 50 mg tablet 50 mg PO DAILY omeprazole 40 mg capsule,delayed release(DR/EC) 40 mg PO DAILY Lactobacillus acidophilus Capsule 1 cap PO BID loperamide [Anti-Diarrheal (loperamide)] 2 mg tablet 2 mg PO Q8H PRN Rx Instructions: orally every 8 hours PRN for diarrhea nitroglycerin [Nitrostat] 0.4 mg tablet, sublingual 0.4 mg sublingual Q5M PRN Rx Instructions: do not exceed 3 doses per episode atorvastatin 80 mg tablet 80 mg PO QPM cyanocobalamin (vitamin B-12) 1,000 mcg/mL solution 1,000 mcg subcut QMONTH isosorbide mononitrate 30 mg tablet extended release 24 hr 30 mg PO DAILY Trulicity 1.5 mg/0.5 mL pen injector 1.5 mg subcut QWEEK aspirin 81 mg tablet,delayed release (DR/EC) 81 mg PO DAILY clonazepam 0.5 mg tablet 1.5 mg PO HS Hold Instructions: Duplicate sucralfate 1 gram tablet 1 g PO TID Benefiber Sugar Free (dextrin) 3 gram/3.8 gram powder 1.5 g PO BID Rx Instructions: mix into at least 4 oz water or juice before administering vanilla boost 1 ea PO BID B-complex with vitamin C Tablet 1 tab PO DAILY ropinirole 2 mg tablet 2 mg PO HS nystatin 100,000 unit/gram cream 1 applic TOPICAL TID Rx Instructions: APPLY TOPICALLY TO VAGINAL AREA THREE TIMES DAILY. APPLY TOPICALLY TO BUTTOCKS NEEDED Neupro 2 mg/24 hour patch 24 hour 2 mg transdermal DAILY Rx Instructions: APPLY [address] ON BACK OR ARMS ONLY clonazepam 0.5 mg tablet 0.5 mg PO .DAILY AT NOON quetiapine 100 mg tablet 100 mg PO TID Rx Instructions: WITH 50MG FOR TOTOAL OF 150MG quetiapine 50 mg tablet 50 mg PO TID Rx Instructions: WITH 100MG TAB FOR TOTAL OF 150MG cranberry extract [Cranberry Juice Powder] 425 mg capsule 425 mg PO DAILY Rx Instructions: administer with a meal Mag 64 64 mg tablet 64 mg PO BID ondansetron HCl 4 mg tablet 4 mg PO Q8H PRN PRN (Reason: nausea) Calcium Antacid 500 mg tablet 1,000 mg PO Q4H PRN PRN polyethylene glycol 3350 17 g PO DAILY PRN PRN (Reason: constipation ) Rx Instructions: give powder solution mixed in 8 oz of beverage levothyroxine 200 mcg tablet 200 mcg PO DAILY sodium bicarbonate 650 mg Tablet 650 mg PO TID Qty: 0 0RF fosfomycin tromethamine 3 gram packet 3 g PO Q3D Qty: 5 0RF diphenoxylate-atropine [Lomotil] 2.5-0.025 mg tablet 1 tab PO TID PRN (Reason: diarrhea) Qty: 0 0RF Rx Instructions: IF NO BM X 2 DAYS HOLD ALL 3 DOSES UNTIL PT HAS BM tramadol 50 mg tablet 25 mg PO TID PRN (Reason: pain) Qty: 0 0RF acetaminophen [Acetaminophen Extra Strength] 500 mg tablet 1,000 mg PO TID PRN (Reason: pain) Qty: 0 0RF famotidine 20 mg tablet 10 mg PO DAILY Qty: 0 0RF cefpodoxime 200 mg tablet 200 mg PO Q12H 10 Days Qty: 20 0RF Rx Instructions: must administer with a meal/food HPI General Date/Time Provider Initiated Documentation: 07/31/23 13:15 . HPI Narrative: Ladan is a 67-year-old female who presents to the emergency department via EMS from the [facility] for evaluation of AMS with hypoxia (86%, improved to 90% on O2) and hypotension (88/48). She was just diagnosed with flu a, which has been going around the SNF. Patient has a history of T2DM, asthma, anemia, bipolar disorder, and HLD. Patient is unable to provide history of what happened today, does admit that she has not felt well with fatigue/generalized weakness, cough and sore throat for the past few days. Denies chest pain, difficulty breathing, new abdominal pain, change in bowel/bladder function. History also obtained from Joana Lees RN at the [facility]. She reports that Ladan has had a congested cough for the past 2 days, with heart rate in the low 100s and satting 90% on O2. Today she tested positive for flu, which has been going around to the facility. At noon today she was noted to have decreased level of consciousness, not as alert as she normally is. Her O2 sat was noted to be 87%, given a nebulizer treatment with no change in saturation. Blood pressure was in the 80s systolic, then increased to 98 systolic. Baseline mental status has since r eturned. Nurse is concerned she may have aspirated, as she is an aspiration risk. She also reported that patient did fall out of her wheelchair yesterday, hitting her head on the ground. She was not brought to the hospital at that time, no imaging performed. No known fever/chills. Related Data Home Medications Medication Instructions Recorded Confirmed Lactobacillus acidophilus 1 cap PO BID 02/05/22 07/31/23 loperamide 2 mg tablet 2 mg PO Q8H PRN 02/05/22 07/31/23 (Anti-Diarrheal (loperamide)) nitroglycerin 0.4 mg sublingual 0.4 mg sublingual Q5M PRN 02/05/22 07/31/23 tablet (Nitrostat) atorvastatin 80 mg tablet 80 mg PO QPM 04/16/22 06/24/23 cyanocobalamin (vitamin B-12) 1,000 mcg subcut QMONTH 04/16/22 07/31/23 1,000 mcg/mL injection solution isosorbide mononitrate 30 mg 30 mg PO DAILY 04/16/22 07/31/23 tablet,extended release 24 hr dulaglutide 1.5 mg/0.5 mL 1.5 mg subcut QWEEK 05/14/22 07/31/23 subcutaneous pen injector ([facility] B-complex with vitamin C 1 tab PO DAILY 12/19/22 07/31/23 aspirin 81 mg tablet,delayed 81 mg PO DAILY 12/19/22 07/31/23 release clonazepam 0.5 mg tablet 1.5 mg PO HS 12/19/22 07/31/23 ropinirole 2 mg tablet 2 mg PO HS 12/19/22 07/31/23 sucralfate 1 gram tablet 1 g PO TID 12/19/22 07/31/23 vanilla boost 1 ea PO BID 12/19/22 07/31/23 wheat dextrin 3 gram/3.8 gram oral 1.5 g PO BID 12/19/22 07/31/23 powder (Benefiber Sugar Free (dextrin)) Calcium Antacid 1,000 mg PO Q4H PRN PRN 05/26/23 07/31/23 Mag 64 64 mg PO BID 05/26/23 07/31/23 clonazepam 0.5 mg tablet 0.5 mg PO .DAILY AT NOON 05/26/23 07/31/23 cranberry extract 425 mg capsule 425 mg PO DAILY 05/26/23 06/24/23 (Cranberry Juice Powder) nystatin 100,000 unit/gram topical 1 applic topical TID 05/26/23 07/31/23 cream ondansetron HCl 4 mg tablet 4 mg PO Q8H PRN PRN nausea 05/26/23 07/31/23 polyethylene glycol 3350 17 g PO DAILY PRN PRN constipation 05/26/23 07/31/23 quetiapine 100 mg tablet 100 mg PO TID 05/26/23 07/31/23 quetiapine 50 mg tablet 50 mg PO TID 05/26/23 07/31/23 rotigotine 2 mg/24 hour 2 mg transdermal DAILY 05/26/23 07/31/23 transdermal 24 hour patch (Neupro) levothyroxine 200 mcg tablet 200 mcg PO DAILY 05/27/23 07/31/23 acetaminophen 500 mg tablet 1,000 mg (2 x 500 mg) PO TID PRN 06/27/23 07/31/23 (Acetaminophen Extra Strength) pain #0 tabs diphenoxylate-atropine 2.5 1 tab PO TID PRN diarrhea #0 tabs 06/27/23 07/31/23 mg-0.025 mg tablet (Lomotil) famotidine 20 mg tablet 10 mg (1/2 x 20 mg) PO DAILY #0 06/27/23 07/31/23 tabs fosfomycin tromethamine 3 gram 3 g PO Q3D 5 doses #5 ea 06/27/23 07/31/23 oral packet sodium bicarbonate 650 mg tablet 650 mg PO TID #0 tabs 06/27/23 07/31/23 tramadol 50 mg tablet 25 mg (1/2 x 50 mg) PO TID PRN 06/27/23 07/31/23 pain #0 tabs cholecalciferol (vitamin D3) 25 25 mcg PO DAILY 07/04/23 07/31/23 mcg (1,000 unit) capsule doxycycline hyclate 100 mg capsule 100 mg PO BID 07/04/23 07/31/23 losartan 50 mg tablet 50 mg PO DAILY 07/04/23 07/31/23 omeprazole 40 mg capsule,delayed 40 mg PO DAILY 07/04/23 07/31/23 release ropinirole 0.5 mg tablet 0.5 mg PO DAILY 07/04/23 07/31/23 cefpodoxime 200 mg tablet 200 mg PO Q12H 10 days #20 tabs 07/27/23 07/31/23 Previous Rx's Medication Instructions Recorded acetaminophen 500 mg tablet 1,000 mg (2 x 500 mg) PO TID PRN 06/27/23 (Acetaminophen Extra Strength) pain #0 tabs diphenoxylate-atropine 2.5 1 tab PO TID PRN diarrhea #0 tabs 06/27/23 mg-0.025 mg tablet (Lomotil) famotidine 20 mg tablet 10 mg (1/2 x 20 mg) PO DAILY #0 06/27/23 tabs fosfomycin tromethamine 3 gram 3 g PO Q3D 5 doses #5 ea 06/27/23 oral packet sodium bicarbonate 650 mg tablet 650 mg PO TID #0 tabs 06/27/23 tramadol 50 mg tablet 25 mg (1/2 x 50 mg) PO TID PRN 06/27/23 pain #0 tabs cefpodoxime 200 mg tablet 200 mg PO Q12H 10 days #20 tabs 07/27/23 Allergies Allergy/AdvReac Type Severity Reaction Status Date / Time polyethylene glycol 3350 Allergy Unknown Other (See Verified 07/27/23 19:46 Comment) acetaminophen [From Vicodin] Allergy Other (See Verified 07/27/23 19:46 Comment) amoxicillin Allergy Other (See Verified 07/27/23 19:46 Comment) azithromycin [From Zithromax] Allergy Other (See Verified 07/27/23 19:46 Comment) benoxinate Allergy Other (See Verified 07/27/23 19:46 Comment) benzonatate Allergy Other (See Verified 07/27/23 19:46 Comment) buspirone [From BuSpar] Allergy Other (See Verified 07/27/23 19:46 Comment) cephalexin [From Keflex] Allergy Other (See Verified 07/27/23 19:46 Comment) clavulanic acid Allergy Other (See Verified 07/27/23 19:46 [From Augmentin] Comment) diazepam [From Valium] Allergy Other (See Verified 07/27/23 19:46 Comment) gemfibrozil Allergy Other (See Verified 07/27/23 19:46 Comment) hydrocodone [From Vicodin] Allergy Other (See Verified 07/27/23 19:46 Comment) monosodium glutamate Allergy Other (See Verified 07/27/23 19:46 Comment) morphine Allergy Other (See Verified 07/27/23 19:46 Comment) nitrofurantoin Allergy Other (See Verified 07/27/23 19:46 [From Macrobid] Comment) Penicillins Allergy Other (See Verified 07/27/23 19:46 Comment) prednisone Allergy Other (See Verified 07/27/23 19:46 Comment) Sulfa (Sulfonamide Allergy Other (See Verified 07/27/23 19:46 Antibiotics) Comment) Tetanus Vaccines and Toxoid Allergy Other (See Verified 07/27/23 19:46 Comment) tramadol Allergy Other (See Verified 07/27/23 19:46 Comment) morphine Allergy Unknown Other (See Uncoded 07/27/23 19:46 Comment) nitrofurantoin Allergy Unknown Other (See Uncoded 07/27/23 19:46 Comment) General JOESPH: 3 Review of Systems Narrative: see HPI Exam Const General: cooperative, no acute distress and frail appearing Nutritional Appearance: thin HENMT Head: no palpable skull fracture, abrasion (small superficial abrasions scattered on forehead), no Armstrong's sign, no lacerations, no raccoon eyes and No periorbital ecchymosis General nose exam: external nose normal Mouth: other (tacky MM) Teeth and gingiva: poor dentition Resp Effort & Inspection: normal respiratory effort and able to speak in complete sentences Auscultation: crackles on the left in the lower lung payton Cardio Jugular venous pressure: no JVD Rate: regular rate Rhythm: regular rhythm GI Inspection: normal to inspection Palpation: soft, not firm, no guarding, not rigid and nontender Neuro General: patient alert and patient awake Motor: other (decreased strength to lower extremities) Extrem General: no pedal edema Medical Decision Making Ladan is a 67-year-old female who presents to the emergency department via EMS from the [facility] for evaluation of AMS with hypoxia (86%, improved to 90% on O2) and hypotension (88/48). She was just diagnosed with flu a, which has been going around the [facility]. Patient has a history of T2DM, asthma, anemia, bipolar disorder, and HLD. Patient is unable to provide history of what happened today, does admit that she has not felt well with fatigue/generalized weakness, cough and sore throat for the past few days. Denies chest pain, difficulty breathing, new abdominal pain, change in bowel/bladder function. History also obtained from Joana Lees RN at the [facility]. She reports that Ladan has had a congested cough for the past 2 days, with heart rate in the low 100s and satting 90% on O2. Today she tested positive for flu, which has been going around to the facility. At noon today she was noted to have decreased level of consciousness, not as alert as she normally is. Her O2 sat was noted to be 87%, given a nebulizer treatment with no change in saturation. Blood pressure was in the 80s systolic, then increased to 98 systolic. Baseline mental status has since returned. Nurse is concerned she may have aspirated, as she is an aspiration risk. She also reported that patient did fall out of her wheelchair yesterday, hitting her head on the ground. She was not brought to the hospital at that time, no imaging performed. No known fever/chills. Physical exam remarkable for patient who appears pleasantly confused, slightly slow to answer questions. Tacky mucous membranes, poor dentition. Easy work of breathing, crackles noted in the right base. Occasional congested cough noted. Normal heart sounds, regular rate and rhythm. Abdomen is soft, nondistended, nontender to palpation. Decreased muscle strength to bilateral lower extremities, only able to lift legs slightly off of bed. 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 DDx includes but is not limited to pneumonia, asthma exacerbation, weakness from viral illness, dehydration, electrolyte imbalance. As patient did have head injury yesterday, head CT and C-spine obtained. I independently interpreted the following tests: CMP notable for ALLAN, with creatinine 2.8 (increased from 1.7 on 07/26/23), BUN slightly increased from previous (37 today vs 32 on 07/27/23). CBC reassuring, no change from 07/26/23. VBG and procalcitonin unremarkable. CXR notable for ?perihilar infiltrates vs atelectasis. Review of external records from the [facility] includes DNR/POLST paperwork confirming DNR/DNI status with limited additional interventions. Patient was recently treated for UTI, completed antibiotics yesterday, treated with cefpodoxime (until 08/02) and fosfomycin. CURB-65 score 3, indicating severe risk group. Pt does meet criteria for severe sepsis. Blood cultures drawn and fluid resuscitation with 30 cc/kg initiated for BP support. While in the ED, clindamycin IV started for empiric treatment of healthcare associated PNA (due to multiple pt allergies of unknown type). Discussed case with Dr Garcia, pt to be admitted for aspiration PNA, ALLAN, and sepsis. Imaging Data Radiologic Study: Radiologist's impression: Exam(s) XR PORTABLE CHEST AP EXAM: XR PORTABLE CHEST AP CLINICAL HISTORY: Flu + hypoxic TECHNIQUE: 2D digital imaging was performed. COMPARISON: CR XR CHEST 2V PA LATERAL from 07/11/2023 FINDINGS: Exam is limited by suboptimal pulmonary inflation. Leads overlie the chest. LUNGS: Crowding of pulmonary vessels. Question of bilateral perihilar infiltrates versus atelectasis. No pleural abnormality seen. HEART: Normal size. AORTA: Normal diameter. BONES: Unremarkable for age. Soft tissues: Unremarkable. IMPRESSION: Suboptimal pulmonary inflation. Question of a perihilar infiltrates versus atelectasis. Radiologic Study #2: Radiologist's impression: Exam(s) CT HEAD CERVICAL SPINE WO EXAM: CT HEAD CERVICAL SPINE WO CLINICAL HISTORY: head injury yesterday. TECHNIQUE: Imaging Protocol: Axial computed tomography images with coronal and sagittal reformatted images were created and reviewed COMPARISON: CT CT HEAD WO from 06/24/2023 FINDINGS: Head CT Ventricles and Extra axial spaces: Normal in size and morphology for the patient's age. Hemorrhage: None. Cerebral parenchyma: No evidence of mass or acute infarct. Old bilateral lacunar infarcts. Mild white matter changes of small vessel disease. Atrophy. Midline shift: None. Brainstem/Cerebellum: Normal. Calvarium: Normal. Visualized Paranasal sinuses/Mastoids: Moderate mucosal thickening in the left maxillary sinus and mild mucosal thickening of the right maxillary sinus. Mild ethmoid sinus mucosal thickening. Prior surgery at the medial maxillary antrum. Sinus disease is significantly improved compared to prior. No air-fluid levels. Soft tissues: Unremarkable. Cervical Spine CT BONES: Vertebral body heights are maintained. Alignment is normal. There is no evidence of acute fracture. Degenerative disc changes and facet degenerative changes are seen . SOFT TISSUES: No paraspinal hematoma. The airway appears intact. No pneumothorax is seen at the lung apices. IMPRESSION: Head CT: No acute abnormality. Improvement in sinus disease. C-spine CT: Degenerative changes, no acute abnormality. Quality:SDOH Health Related Social Needs: No Data to Display PFSH All Active Problems (Updated 07/31/23 @ 15:02 by Jenny Olvera) Sepsis (Acute) Aspiration pneumonia (Acute) ALLAN (acute kidney injury) (Acute) Acute on chronic kidney failure (Acute) Aspiration pneumonia (Acute) Severe sepsis (Acute) Influenza (Acute) Acute pyelonephritis (Acute) Hypomagnesemia (Acute) Prolonged QT interval (Acute) Community acquired pneumonia (Acute) Metabolic acidosis with normal anion gap and failure of bicarbonate regeneration (Chronic) Chronic kidney disease (Chronic) Infiltrate of both lungs present on imaging study (Acute) Emphysematous cystitis (Acute) Acute UTI (Acute) Sepsis associated hypotension (Acute) History of multiple strokes (Acute) Palliative care encounter (Acute) Acute UTI (Acute) Dysphagia (Chronic) Prolonged QT interval (Acute) Hyperkalemia (Acute) Fever (Acute) Wears hearing aid in both ears (Acute) Conductive hearing loss, external ear (Acute) Impacted cerumen, bilateral (Acute) Nontraumatic intracerebral hemorrhage (Acute) Acquired cystic kidney disease (Acute) Megaloblastic anemia due to B12 deficiency (Acute) Hyperlipidemia (Acute) Degeneration of lumbar intervertebral disc (Acute) Bipolar 1 disorder (Acute) Benign essential hypertension (Acute) Chronic GERD (Chronic) Asthma (Chronic) Fibromyalgia (Acute) Turners syndrome (Acute) Bipolar affective disorder (Chronic) Nail dystrophy (Acute) Corns and callosities (Acute) Elevated LFTs (Acute) Gout (Chronic) Hypercalcemia (Acute) Hyperparathyroidism (Acute) Hypertension (Chronic) Restless legs syndrome (RLS) (Acute) Rheumatoid arthritis (Chronic) Hypothyroidism (Chronic) Diabetes mellitus (Chronic) CAD (coronary artery disease) (Chronic) Sensorineural hearing loss (SNHL) of both ears (Acute) Medical History Abnormal auditory perception of both ears (12/25/16) Allergic rhinitis Sciatica IBS (irritable bowel syndrome) B12 deficiency anemia Surgical History History of parathyroidectomy History of hysterectomy Hx of tonsillectomy History of foot surgery Left foot; multiple fibroma excisions Social History Smoking/Tobacco Use Status: Never Smoking risk assessment performed?: Yes Alcohol Intake: never Drug use: Never Substance use type: does not use Household members: none Housing: halfway Number of Children: 0 current occupation: disabled Do you feel safe at home: Yes Do you feel safe in your relationship?: Yes Additional Social history: Lives at the [facility] 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
[2023-07-31 13:31] LABS: BE (Venous) -3 mmol/L (-2-3); HCO3 (Venous) 23 mmol/L (23-28); O2 Sat (Venous) 57 %; TCO2 (Venous) 22 mmol/L (24-29); pCO2 (Venous) 41 mmHg (41-51); pH (Venous) 7.35 (7.31-7.41); pO2 (Venous) 32 mmHg
[2023-07-31 13:33] LABS: Abs Immature Grans 0.04 10^3/uL (0.0-0.06); Absolute Basophil Count 0.01 10^3/uL (0.0-0.2); Absolute Lymphocyte Count 0.66 10^3/uL (1.2-3.4); Absolute Monocyte Count 0.22 10^3/uL (0.1-0.8); Absolute Neutrophil Count 4.79 10^3/uL (1.2-6.7); Basophils % 0.2; HCT 31.5 % (36.0-46.0); HGB 9.7 g/dL (11.2-15.7); Immature Grans % 0.7; Lymphocytes % 11.5; MCH 28.4 pg (27.0-33.0); MCHC 30.8 % (32.0-36.0); MCV 92 fL (80-95); Monocytes % 3.8; Neutrophils % 83.8; Platelet Count 111 10^3/uL (130-400); RBC 3.41 10^6/uL (3.93-5.22); RDW 13.8 % (11.7-14.6); RDW-SD 46.8 fL; WBC 5.72 10^3/uL (4.4-10.8)
[2023-07-31 13:34] LABS: Lactate 1.2 mmol/L (0.6-1.4)
[2023-07-31 14:07] LABS: ALT 26 U/L (14-59); AST 30 U/L (15-37); Albumin 2.3 g/dL (3.4-5.0); Alkaline Phosphatase 105 U/L (46-116); BUN 37 mg/dL (7-18); Bilirubin, Total 0.1 mg/dL (0.2-1.0); CREATININE 2.8 mg/dL (0.55-1.02); Calcium 8.8 mg/dL (8.5-10.1); Chloride 111 mmol/L (98-107); Estimated GFR 17.84 (mL/min/1.73m2); Glucose 202 mg/dL (74-106); Potassium 4.6 mmol/L (3.5-5.1); Sodium 145 mmol/L (136-145); Total Protein 5.6 g/dL (6.4-8.2)
[2023-07-31 14:22] LABS: Procalcitonin 0.7 ng/mL
[2023-07-31] MEDS: Normal Saline 1,000 ML 1000 ML IV (14:44)
--- NOTE | 2023-07-31 14:46 | DI.CT_ITS ---
Exam(s) CT HEAD CERVICAL SPINE WO EXAM: CT HEAD CERVICAL SPINE WO CLINICAL HISTORY: head injury yesterday. TECHNIQUE: Imaging Protocol: Axial computed tomography images with coronal and sagittal reformatted images were created and reviewed COMPARISON: CT CT HEAD WO from 06/24/2023 FINDINGS: Head CT Ventricles and Extra axial spaces: Normal in size and morphology for the patient's age. Hemorrhage: None. Cerebral parenchyma: No evidence of mass or acute infarct. Old bilateral lacunar infarcts. Mild whi te matter changes of small vessel disease. Atrophy. Midline shift: None. Brainstem/Cerebellum: Normal. Calvarium: Normal. Visualized Paranasal sinuses/Mastoids: Moderate mucosal thickening in the left maxillary sinus and mi ld mucosal thickening of the right maxillary sinus. Mild ethmoid sinus mucosal thickening. Prior lewis rgery at the medial maxillary antrum. Sinus disease is significantly improved compared to prior. No air-fluid levels. Soft tissues: Unremarkable. Cervical Spine CT BONES: Vertebral body heights are maintained. Alignment is normal. There is no evidence of acute frac ture. Degenerative disc changes and facet degenerative changes are seen . SOFT TISSUES: No paraspinal hematoma. The airway appears intact. No pneumothorax is seen at the lung apices. IMPRESSION: Head CT: No acute abnormality. Improvement in sinus disease. C-spine CT: Degenerative changes, no acute abnormality. RADIATION DOSE DELIVERED: 1,075.39mGy.cm Total DLP DATA REPOSITORY: All CT scans at this facility are submitted to the National Radiology Data Registry (NRDR) Dose Index Registry (DIR) with the [employer] ([employer]). RADIATION OPTIMIZATION: All CT scans at this facility use at least one of these dose optimization te chniques: automated exposure control; mA and/or kV adjustment per patient size (includes targeted exa ms where dose is matched to clinical indication); or iterative reconstruction.
--- NOTE | 2023-07-31 14:58 | HPE_ITS ---
Date of service: 07/31/23 Time of Service: 14:58 Assessment and Plan Assessment and plan (1) Severe sepsis: Status: Acute Assessment and plan: Source respiratory with positive influenza and suspected aspiration pneumonia Given IV resuscitation in the emergency department will continue IV fluids Antibiotic coverage with clindamycin based on allergy profile (2) Influenza: Status: Acute Assessment and plan: Treat with Tamiflu if able to take oral (3) Aspiration pneumonia: Status: Acute Assessment and plan: Scheduled DuoNebs albuterol as needed Clindamycin based on allergy profile day 1 of 5 Aspiration precautions Modified diet Wean oxygen as able (4) Diabetes mellitus: Status: Chronic Qualifiers: Chronic kidney disease stage: stage 4 (severe) Diabetes mellitus complication detail: with chronic kidney disease Diabetes mellitus complication status: with kidney complications Diabetes mellitus residential insulin use: with intermediate school teacher use Diabetes mellitus type: type 2 Qualified Code(s): E11.22 - Type 2 diabetes mellitus with diabetic chronic kidney disease; N18.4 - Chronic kidney disease, stage 4 (severe); Z79.4 - half-way (current) use of insulin (5) Hypothyroidism: Status: Chronic Assessment and plan: Continue supplementation TSH 0.21 in June 2023 Will defer to outpatient team Qualifiers: Hypothyroidism type: acquired Qualified Code(s): E03.9 - Hypothyroidism, unspecified (6) Chronic GERD: Status: Chronic Assessment and plan: Continue home medications (7) Acute on chronic kidney failure: Status: Acute Assessment and plan: Suspect prerenal. Will continue IV hydration Hold nephrotoxic agents renal dose is needed History of Present Illness History of Present Illness Chief Complaint: hypoxia, unresponsive Narrative: This is a 67-year-old female patient complex past medical history who resides at the [facility] found altered and hypoxic today. She was brought to the emergency department by EMS. Oxygenation improved with nasal cannula to the mid 90s. Recently diagnosed with influenza A is a high risk for aspiration which is suspected. She was noted to have a mechanical fall from her wheelchair yesterday did strike her head. Head CT and C-spine negative. Was found in acute on chronic renal failure suspected prerenal. She was given IV fluids in the emergency department will be started on clindamycin for suspicion of aspiration and should be started on treatment for influenza if she is able to safely take oral PFSH All Active Problems (Updated 07/31/23 @ 15:02 by Jenny Melgoza Sepsis (Acute) Aspiration pneumonia (Acute) ALLAN (acute kidney injury) (Acute) Acute on chronic kidney failure (Acute) Aspiration pneumonia (Acute) Severe sepsis (Acute) Influenza (Acute) Acute pyelonephritis (Acute) Hypomagnesemia (Acute) Prolonged QT interval (Acute) Community acquired pneumonia (Acute) Metabolic acidosis with normal anion gap and failure of bicarbonate regeneration (Chronic) Chronic kidney disease (Chronic) Infiltrate of both lungs present on imaging study (Acute) Emphysematous cystitis (Acute) Acute UTI (Acute) Sepsis associated hypotension (Acute) History of multiple strokes (Acute) Palliative care encounter (Acute) Acute UTI (Acute) Dysphagia (Chronic) Prolonged QT interval (Acute) Hyperkalemia (Acute) Fever (Acute) Wears hearing aid in both ears (Acute) Conductive hearing loss, external ear (Acute) Impacted cerumen, bilateral (Acute) Nontraumatic intracerebral hemorrhage (Acute) Acquired cystic kidney disease (Acute) Megaloblastic anemia due to B12 deficiency (Acute) Hyperlipidemia (Acute) Degeneration of lumbar intervertebral disc (Acute) Bipolar 1 disorder (Acute) Benign essential hypertension (Acute) Chronic GERD (Chronic) Asthma (Chronic) Fibromyalgia (Acute) Turners syndrome (Acute) Bipolar affective disorder (Chronic) Nail dystrophy (Acute) Corns and callosities (Acute) Elevated LFTs (Acute) Gout (Chronic) Hypercalcemia (Acute) Hyperparathyroidism (Acute) Hypertension (Chronic) Restless legs syndrome (RLS) (Acute) Rheumatoid arthritis (Chronic) Hypothyroidism (Chronic) Diabetes mellitus (Chronic) CAD (coronary artery disease) (Chronic) Sensorineural hearing loss (SNHL) of both ears (Acute) Medical History Abnormal auditory perception of both ears (12/25/16) Allergic rhinitis Sciatica IBS (irritable bowel syndrome) B12 deficiency anemia Surgical History History of parathyroidectomy History of hysterectomy Hx of tonsillectomy History of foot surgery Left foot; multiple fibroma excisions Social History Smoking/Tobacco Use Status: Never Smoking risk assessment performed?: Yes Alcohol Intake: never Drug use: Never Substance use type: does not use Household members: none Housing: snf Number of Children: 0 current occupation: disabled Do you feel safe at home: Yes Do you feel safe in your relationship?: Yes Additional Social history: Lives at the [facility] 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 Meds Allergies and Home Medications Allergies Allergy/AdvReac Type Severity Reaction Status Date / Time polyethylene glycol 3350 Allergy Unknown Other (See Verified 07/27/23 19:46 Comment) acetaminophen [From Vicodin] Allergy Other (See Verified 07/27/23 19:46 Comment) amoxicillin Allergy Other (See Verified 07/27/23 19:46 Comment) azithromycin [From Zithromax] Allergy Other (See Verified 07/27/23 19:46 Comment) benoxinate Allergy Other (See Verified 07/27/23 19:46 Comment) benzonatate Allergy Other (See Verified 07/27/23 19:46 Comment) buspirone [From BuSpar] Allergy Other (See Verified 07/27/23 19:46 Comment) cephalexin [From Keflex] Allergy Other (See Verified 07/27/23 19:46 Comment) clavulanic acid Allergy Other (See Verified 07/27/23 19:46 [From Augmentin] Comment) diazepam [From Valium] Allergy Other (See Verified 07/27/23 19:46 Comment) gemfibrozil Allergy Other (See Verified 07/27/23 19:46 Comment) hydrocodone [From Vicodin] Allergy Other (See Verified 07/27/23 19:46 Comment) monosodium glutamate Allergy Other (See Verified 07/27/23 19:46 Comment) morphine Allergy Other (See Verified 07/27/23 19:46 Comment) nitrofurantoin Allergy Other (See Verified 07/27/23 19:46 [From Macrobid] Comment) Penicillins Allergy Other (See Verified 07/27/23 19:46 Comment) prednisone Allergy Other (See Verified 07/27/23 19:46 Comment) Sulfa (Sulfonamide Allergy Other (See Verified 07/27/23 19:46 Antibiotics) Comment) Tetanus Vaccines and Toxoid Allergy Other (See Verified 07/27/23 19:46 Comment) tramadol Allergy Other (See Verified 07/27/23 19:46 Comment) morphine Allergy Unknown Other (See Uncoded 07/27/23 19:46 Comment) nitrofurantoin Allergy Unknown Other (See Uncoded 07/27/23 19:46 Comment) Home Medications Medication Instructions Recorded Confirmed Type Lactobacillus acidophilus 1 cap PO BID 02/05/22 07/31/23 History loperamide 2 mg tablet 2 mg PO Q8H PRN 02/05/22 07/31/23 History (Anti-Diarrheal (loperamide)) nitroglycerin 0.4 mg sublingual 0.4 mg sublingual Q5M PRN 02/05/22 07/31/23 History tablet (Nitrostat) atorvastatin 80 mg tablet 80 mg PO QPM 04/16/22 06/24/23 History cyanocobalamin (vitamin B-12) 1,000 mcg subcut QMONTH 04/16/22 07/31/23 History 1,000 mcg/mL injection solution isosorbide mononitrate 30 mg 30 mg PO DAILY 04/16/22 07/31/23 History tablet,extended release 24 hr dulaglutide 1.5 mg/0.5 mL 1.5 mg subcut QWEEK 05/14/22 07/31/23 History subcutaneous pen injector (Trulicity) B-complex with vitamin C 1 tab PO DAILY 12/19/22 07/31/23 History aspirin 81 mg tablet,delayed 81 mg PO DAILY 12/19/22 07/31/23 History release clonazepam 0.5 mg tablet 1.5 mg PO HS 12/19/22 07/31/23 History ropinirole 2 mg tablet 2 mg PO HS 12/19/22 07/31/23 History sucralfate 1 gram tablet 1 g PO TID 12/19/22 07/31/23 History vanilla boost 1 ea PO BID 12/19/22 07/31/23 History wheat dextrin 3 gram/3.8 gram oral 1.5 g PO BID 12/19/22 07/31/23 History powder (Benefiber Sugar Free (dextrin)) Calcium Antacid 1,000 mg PO Q4H PRN PRN 05/26/23 07/31/23 History Mag 64 64 mg PO BID 05/26/23 07/31/23 History clonazepam 0.5 mg tablet 0.5 mg PO .DAILY AT NOON 05/26/23 07/31/23 History cranberry extract 425 mg capsule 425 mg PO DAILY 05/26/23 06/24/23 History (Cranberry Juice Powder) nystatin 100,000 unit/gram topical 1 applic topical TID 05/26/23 07/31/23 History cream ondansetron HCl 4 mg tablet 4 mg PO Q8H PRN PRN nausea 05/26/23 07/31/23 History polyethylene glycol 3350 17 g PO DAILY PRN PRN constipation 05/26/23 07/31/23 History quetiapine 100 mg tablet 100 mg PO TID 05/26/23 07/31/23 History quetiapine 50 mg tablet 50 mg PO TID 05/26/23 07/31/23 History rotigotine 2 mg/24 hour 2 mg transdermal DAILY 05/26/23 07/31/23 History transdermal 24 hour patch (Neupro) levothyroxine 200 mcg tablet 200 mcg PO DAILY 05/27/23 07/31/23 History acetaminophen 500 mg tablet 1,000 mg (2 x 500 mg) PO TID PRN 06/27/23 07/31/23 Rx (Acetaminophen Extra Strength) pain #0 tabs diphenoxylate-atropine 2.5 1 tab PO TID PRN diarrhea #0 tabs 06/27/23 07/31/23 Rx mg-0.025 mg tablet (Lomotil) famotidine 20 mg tablet 10 mg (1/2 x 20 mg) PO DAILY #0 06/27/23 07/31/23 Rx tabs fosfomycin tromethamine 3 gram 3 g PO Q3D 5 doses #5 ea 06/27/23 07/31/23 Rx oral packet sodium bicarbonate 650 mg tablet 650 mg PO TID #0 tabs 06/27/23 07/31/23 Rx tramadol 50 mg tablet 25 mg (1/2 x 50 mg) PO TID PRN 06/27/23 07/31/23 Rx pain #0 tabs cholecalciferol (vitamin D3) 25 25 mcg PO DAILY 07/04/23 07/31/23 History mcg (1,000 unit) capsule doxycycline hyclate 100 mg capsule 100 mg PO BID 07/04/23 07/31/23 History losartan 50 mg tablet 50 mg PO DAILY 07/04/23 07/31/23 History omeprazole 40 mg capsule,delayed 40 mg PO DAILY 07/04/23 07/31/23 History release ropinirole 0.5 mg tablet 0.5 mg PO DAILY 07/04/23 07/31/23 History cefpodoxime 200 mg tablet 200 mg PO Q12H 10 days #20 tabs 07/27/23 07/31/23 Rx Exam Narrative Exam Narrative: Chronically ill-appearing female older than stated age laying on the stretcher not responding verbally but does open her eyes to verbal stimuli and does make eye contact with me. Head is atraumatic EOMs intact eyes noninjected nonicteric. Skin with no rashes or lesions respirations even and unlabored cardiovascular regular rate and rhythm. Abdomen is soft does not appear tender there is no guarding or wincing positive bowel sounds her extremities are without edema she does have a dressing to her right knee Results Labs 07/31/23 13:30 07/31/23 13:30 Labs: Laboratory Results - last 24 hr 07/31/23 13:30 WBC 5.72 RBC 3.41 L Hgb 9.7 L Hct 31.5 L MCV 92 MCH 28.4 MCHC 30.8 L RDW 13.8 Plt Count 111 L MPV 10.0 Immature Gran % 0.7 Neutrophils % 83.8 Lymphocytes % 11.5 Monocytes % 3.8 Eosinophils % 0.0 Basophils % 0.2 Nucleated RBC % 0.0 Absolute Neutrophils 4.79 Absolute Lymphocytes 0.66 L Absolute Monocytes 0.22 Absolute Eosinophils 0.00 Absolute Basophils 0.01 VBG pH 7.35 VBG pCO2 41 VBG pO2 32 VBG HCO3 23 VBG Total CO2 22 L VBG O2 Saturation 57 VBG Base Excess -3 L VBG Lactate 1.2 Sodium 145 Potassium 4.6 Chloride 111 H Carbon Dioxide 23.0 Anion Gap 11.0 BUN 37 H Creatinine 2.8 H Est GFR (CKD-EPI 2020) 17.84 Glucose 202 H Calcium 8.8 Total Bilirubin 0.1 L AST 30 ALT 26 Alkaline Phosphatase 105 Total Protein 5.6 L Albumin 2.3 L Procalcitonin 0.7 Last Vital Signs Temp 36.9 C 07/31/23 13:22 Pulse 88 07/31/23 14:29 Resp 24 07/31/23 14:29 BP 94/59 L 07/31/23 14:29 Pulse Ox 96 07/31/23 13:22 Time Spent Time spent with Patient: 40-54 minutes Time was spent: preparing to see the patient(eg.review tests), obtaining and/or reviewing separately otained hiistory, ordering medications,tests, procedures, indepentently interpreting results and counseling the patient
[2023-07-31] MEDS: CLINDAMYCIN 600 MG/50 ML BAG 100 MG IVPB (15:22)
[2023-07-31] MEDS: Normal Saline 1,000 ML 70 ML IV (16:33)
[2023-07-31 17:57] LABS: Bilirubin Negative (Negative); Blood Trace-lysed (Negative); Clarity Clear (Clear); Glucose Negative (Negative); Ketones Negative (Negative); Leukocyte Esterase Negative (Negative); Nitrite Negative (Negative); Urobilinogen 0.2 mg/dL (Up to 0.2); pH 5.5 (5-8)
[2023-07-31 18:05] LABS: Bacteria Rare HPF (Negative); Crystals Negative HPF (Negative); Epithelial Cells Rare HPF (Negative); Other Cells Few Yeast (Negative); RBC 0-2 HPF (0-2); WBC 0-2 HPF (0-5)
[2023-07-31 18:06] LABS: C & S Indicated? Yes; Casts Negative LPF (Negative); Mucus Trace (Negative)
[2023-07-31 18:47] LABS: MRSA PCR Negative (Negative)
[2023-07-31] MEDS: Albuterol/Ipratropium 3 ML UPD VIAL UPD (20:30)
[2023-07-31] MEDS: Pantoprazole 40 MG VIAL IVP (21:30)
[2023-07-31] MEDS: Normal Saline Flush 10 ML SYR (21:30)
[2023-07-31] MEDS: Atorvastatin 40 MG TAB 80 MG PO (21:31)
[2023-07-31] MEDS: rOPINIRole 1 MG TAB 2 MG PO (21:32)
[2023-07-31] MEDS: Lactobacillus Acidophilus CAP 1 CAP PO (21:32)
[2023-07-31] MEDS: Oseltamivir 30 MG CAP PO (21:32)
[2023-07-31] MEDS: QUEtiapine 50 MG TAB PO (21:32)
[2023-07-31] MEDS: QUEtiapine 100 MG TAB PO (21:32)
[2023-07-31] MEDS: Enoxaparin 30 MG/0.3 ML SYR SC (21:32)
[2023-07-31] MEDS: Sucralfate 1 GM TAB PO (21:32)
[2023-07-31] MEDS: Nystatin CREAM 30 GM TUBE TP (22:10)
[2023-08-01] VITALS (7 sets, daily range): BP systolic 95–147; BP diastolic 58–93; PULSE 74–86; RESP 15–18; TEMP 36.6–37.8; O2SAT 92–98
[2023-08-01] MEDS: CLINDAMYCIN 600 MG/50 ML BAG 100 MG IVPB ×4 (00:42→23:47)
[2023-08-01] MEDS: Normal Saline 1,000 ML 70 ML IV (06:17)
[2023-08-01] MEDS: Levothyroxine 200 MCG TAB PO (06:17)
[2023-08-01] MEDS: Lactobacillus Acidophilus CAP 1 CAP PO ×2 (07:43→19:33)
[2023-08-01] MEDS: QUEtiapine 50 MG TAB PO ×3 (07:43→19:33)
[2023-08-01] MEDS: QUEtiapine 100 MG TAB PO ×3 (07:43→19:33)
[2023-08-01] MEDS: Sucralfate 1 GM TAB PO ×3 (07:43→16:34)
[2023-08-01] MEDS: Aspirin E.C. 81 MG TABEC PO (07:43)
--- NOTE | 2023-08-01 08:42 | PDOC.CMIN ---
Date of service: 08/01/23 Time of Service: 08:43 Care Management Initial Assmt Initial Assessment REASON FOR HOSPITALIZATION:: severe sepsis PREVIOUS FUNCTIONAL STATUS/SOCIAL/FAMILY SUPPORTS:: Ladan resides at the [facility]. ADVANCE DIRECTIVES:: [facility] on file Has patient been provided with info about the portal/API?: Yes Did the patient sign up for the portal?: No CODE STATUS:: DNR/DNI INSURANCE COVERAGE / FINANCIAL ISSUES:: Medicare Medicaid CURRENT HOME/COMMUNITY SERVICES/EQUIPMENT:: lives at the [facility] PRIMARY CARE PHYSICIAN:: Shanna Rock POTENTIAL DISCHARGE NEEDS:: follow up with facility provider and plan of care PATIENT/FAMILY EDUCATION NEEDS:: Review of discharge instructions, activity, limitations, follow up plan, discuss Ask me Three. TRANSPORTATION:: via EMS coordinated by CM PLAN:: Anticipate that Ladan will return to The [facility] when medically stable. She will follow up with the facility providers and plan of care and transport via EMS. CM will follow and continue to assess for discharge needs. [facility] All Active Problems (Updated 07/31/23 @ 15:02 by Jenny Olvera) Sepsis (Acute) Aspiration pneumonia (Acute) ALLAN (acute kidney injury) (Acute) Acute on chronic kidney failure (Acute) Aspiration pneumonia (Acute) Severe sepsis (Acute) Influenza (Acute) Acute pyelonephritis (Acute) Hypomagnesemia (Acute) Prolonged QT interval (Acute) Community acquired pneumonia (Acute) Metabolic acidosis with normal anion gap and failure of bicarbonate regeneration (Chronic) Chronic kidney disease (Chronic) Infiltrate of both lungs present on imaging study (Acute) Emphysematous cystitis (Acute) Acute UTI (Acute) Sepsis associated hypotension (Acute) History of multiple strokes (Acute) Palliative care encounter (Acute) Acute UTI (Acute) Dysphagia (Chronic) Prolonged QT interval (Acute) Hyperkalemia (Acute) Fever (Acute) Wears hearing aid in both ears (Acute) Conductive hearing loss, external ear (Acute) Impacted cerumen, bilateral (Acute) Nontraumatic intracerebral hemorrhage (Acute) Acquired cystic kidney disease (Acute) Megaloblastic anemia due to B12 deficiency (Acute) Hyperlipidemia (Acute) Degeneration of lumbar intervertebral disc (Acute) Bipolar 1 disorder (Acute) Benign essential hypertension (Acute) Chronic GERD (Chronic) Asthma (Chronic) Fibromyalgia (Acute) Turners syndrome (Acute) Bipolar affective disorder (Chronic) Nail dystrophy (Acute) Corns and callosities (Acute) Elevated LFTs (Acute) Gout (Chronic) Hypercalcemia (Acute) Hyperparathyroidism (Acute) Hypertension (Chronic) Restless legs syndrome (RLS) (Acute) Rheumatoid arthritis (Chronic) Hypothyroidism (Chronic) Diabetes mellitus (Chronic) CAD (coronary artery disease) (Chronic) Sensorineural hearing loss (SNHL) of both ears (Acute) Medical History Abnormal auditory perception of both ears (12/25/16) Allergic rhinitis Sciatica IBS (irritable bowel syndrome) B12 deficiency anemia Surgical History History of parathyroidectomy History of hysterectomy Hx of tonsillectomy History of foot surgery Left foot; multiple fibroma excisions Social History Smoking/Tobacco Use Status: Never Smoking risk assessment performed?: Yes Alcohol Intake: never Drug use: Never Substance use type: does not use Household members: none Housing: group home Number of Children: 0 current occupation: disabled Do you feel safe at home: Yes Do you feel safe in your relationship?: Yes Additional Social history: Lives at the [facility] 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 SDDC(Care Management) Screening Will the Patient Participate in the Screening?: Unable to obtain
[2023-08-01] MEDS: Nystatin CREAM 30 GM TUBE TP ×3 (09:38→19:36)
[2023-08-01] MEDS: Isosorbide Mononitrate 30 MG TABCR PO (09:45)
[2023-08-01] MEDS: clonazePAM 0.5 MG TAB PO (12:21)
--- NOTE | 2023-08-01 13:25 | W.PM.PROGNOT ---
Date of Service Date of service: 08/01/23 Time of Service: 13:25 Assessment and Plan Assessment and plan (1) Severe sepsis: Status: Acute Assessment and plan: SIRS: HR in low 100's plus RR 26 Sepsis: Above plus Source respiratory with positive influenza and suspected aspiration pneumonia Severe Sepsis : Cr 2.8 (baseline 1.6-1.7) plus SBP < 100 responding to IVF resuscitation in ED Continue antibiotic coverage with clindamycin based on allergy profile (2) Influenza: Status: Acute Assessment and plan: Treat with Tamiflu if able to take oral (3) Aspiration pneumonia: Status: Acute Assessment and plan: Continue scheduled DuoNebs and albuterol as needed As above, continue clindamycin based on allergy profile day 2 of 5 Maintain aspiration precautions Continue modified diet Continue to wean oxygen as able (4) Diabetes mellitus: Status: Chronic Assessment and plan: Gluc AC and HS SS insulin coverage Diabetic diet Qualifiers: Diabetes mellitus type: type 2 Diabetes mellitus fdc insulin use: with fdc use Diabetes mellitus complication status: with kidney complications Diabetes mellitus complication detail: with chronic kidney disease Chronic kidney disease stage: stage 4 (severe) Qualified Code(s): E11.22 - Type 2 diabetes mellitus with diabetic chronic kidney disease; N18.4 - Chronic kidney disease, stage 4 (severe); Z79.4 - detention (current) use of insulin (5) Hypothyroidism: Status: Chronic Assessment and plan: Continue Levothyroxine TSH 0.21 in June 2023 Will defer to outpatient team Qualifiers: Hypothyroidism type: acquired Qualified Code(s): E03.9 - Hypothyroidism, unspecified (6) Chronic GERD: Status: Chronic Assessment and plan: On home medications (7) Acute on chronic kidney failure: Status: Acute Assessment and plan: Most likely prerenal. IVF resuscitation completed and BMP pending Continue to hold nephrotoxic agents renal dose is needed (8) On deep vein thrombosis (DVT) prophylaxis: Status: Acute Assessment and plan: On lovenox CBC pending (9) Chronic disease under co-management: Status: Acute Assessment and plan: Med-rec by pharmacy from the [facility] from the [facility] Continue home meds for chronic conditions -RLS: meds adjusted (10) Discharge planning issues: Status: Acute Assessment and plan: CM is following Discharge at the [facility] when stable is most likely. Discussed with Dr. Garcia Subjective Subjective Patient reports: feels better, tolerating liquids well, tolerating a regular diet, voiding w/o difficulty, bowel movement, diarrhea and other (c/o of RLS); denies still having pain, blood in stool, nausea, vomiting, shortness of breath or fever Exam Narrative Exam Narrative: Constitutional The patient is sitting in chaircomfortable and cooperative during the interview. The patient is without acute distress HENMT: Head is atraumatic, normocephalic, no lymphadenopathy. Facial structures with normal appearance Eyes: Well aligned Neuro:alert and oriented to self, person, place and situation. No neurological focal deficit Resp: Normal respiratory pattern, speaks in full sentences, unlabored breathing, clear but diminished breath sounds bilaterally Cardio: regular rhythm, S1, S2, no murmur, capillary refill<3 sec., bilateral radial and dorsalis pedis pulses are positive GI: Abdomen is not distended, soft and non tender, bowel sounds are present : Negative Costovertebral angle tenderness, no bladder distension Back/spine/Pelvis: No back tenderness, normal alignment Integumentary: No skin lesions or rash Psych: RASS 0, congruent mood and normal to anxious affect. Objective Last Vital Signs Temp 36.6 C 08/01/23 07:30 Pulse 76 08/01/23 07:30 Resp 16 08/01/23 07:30 BP 110/62 08/01/23 07:30 Pulse Ox 92 08/01/23 09:04 Laboratory Results - last 24 hr 07/31/23 07/31/23 07/31/23 13:30 16:50 17:50 WBC 5.72 RBC 3.41 L Hgb 9.7 L Hct 31.5 L MCV 92 MCH 28.4 MCHC 30.8 L RDW 13.8 Plt Count 111 L MPV 10.0 Immature Gran % 0.7 Neutrophils % 83.8 Lymphocytes % 11.5 Monocytes % 3.8 Eosinophils % 0.0 Basophils % 0.2 Nucleated RBC % 0.0 Absolute Neutrophils 4.79 Absolute Lymphocytes 0.66 L Absolute Monocytes 0.22 Absolute Eosinophils 0.00 Absolute Basophils 0.01 VBG pH 7.35 VBG pCO2 41 VBG pO2 32 VBG HCO3 23 VBG Total CO2 22 L VBG O2 Saturation 57 VBG Base Excess -3 L VBG Lactate 1.2 Sodium 145 Potassium 4.6 Chloride 111 H Carbon Dioxide 23.0 Anion Gap 11.0 BUN 37 H Creatinine 2.8 H Est GFR (CKD-EPI 2020) 17.84 Glucose 202 H Calcium 8.8 Total Bilirubin 0.1 L AST 30 ALT 26 Alkaline Phosphatase 105 Total Protein 5.6 L Albumin 2.3 L Procalcitonin 0.7 Urine Color Yellow Urine Clarity Clear Urine pH 5.5 Ur Specific Ulmer 1.020 Urine Protein >=300 H Urine Ketones Negative Urine Blood Trace-lysed H Urine Nitrite Negative Urine Bilirubin Negative Urine Urobilinogen 0.2 Ur Leukocyte Esterase Negative Urine RBC 0-2 Urine WBC 0-2 Ur Epithelial Cells Rare Urine Crystals Negative Urine Bacteria Rare Urine Casts Negative Urine Mucus Trace Urine Other Few Yeast Ur Culture Indicated? Yes Urine Glucose Negative MRSA (TEM-PCR) Negative Time Spent with Patient Time Spent with Patient: >50 minutes Time was spent: preparing to see the patient(eg.review tests), obtaining and/or reviewing separately otained hiistory, ordering medications,tests, procedures, referring, communicating with other health senior care provider, indepentently interpreting results, counseling the patient and care coordination
--- NOTE | 2023-08-01 13:45 | TELEFU_ITS ---
Date of service: 08/01/23 Time of Service: 13:45 Nutrition Note NOTE: 67yo female, resides at [facility]. Admitted for Sepsis, Asp PNA, ALLAN, Influenza after change in MS and hypoxic at the [facility]. History of DMII with SQ trulicity weekly. GLucose lab yesterday at 133- was 202. No FBG data or glucose fingersticks. Odered for CHO consistent diet with puree consistencies, moderate thickened fluids. PT with noted wt loss over the last 6 months of ~5kg/9.5% of bodyweight. Adding boost carb control to meal tray once per day to see if taken well and will increase if tolerated and accepted. did not perform NFPA due to droplet precaution in room. Diabetic education not appropriate at this time Recommend glucose fingerstcks AC and HS with sensitive sliding scale insulin aspart at meals with daily wt checks due to high nutrition risk for malnutrition Time Spent in Nutritional Counseling and Treatment: 0
[2023-08-01 14:05] LABS: C Diff PCR Negative (Negative)
[2023-08-01] MEDS: rOPINIRole 1 MG TAB PO (14:36)
[2023-08-01] MEDS: Magnesium Chloride 64 MG TABCR PO ×2 (14:36→19:33)
[2023-08-01] MEDS: Sodium Bicarbonate 650 MG TAB PO ×2 (14:36→19:33)
[2023-08-01 14:54] LABS: Anion Gap 11.7 mmol/L (3-11); BUN 32 mg/dL (7-18); CO2 20.3 mmol/L (21.0-32.0); CREATININE 2.2 mg/dL (0.55-1.02); Calcium 8.1 mg/dL (8.5-10.1); Chloride 114 mmol/L (98-107); Estimated GFR 23.82 (mL/min/1.73m2); Glucose 113 mg/dL (74-106); Potassium 4.2 mmol/L (3.5-5.1); Sodium 146 mmol/L (136-145)
[2023-08-01 15:00] LABS: Abs Immature Grans 0.04 10^3/uL (0.0-0.06); Absolute Basophil Count 0.01 10^3/uL (0.0-0.2); Absolute Eosinophil Count 0.02 10^3/uL (0.0-0.7); Absolute Lymphocyte Count 0.77 10^3/uL (1.2-3.4); Absolute Neutrophil Count 2.83 10^3/uL (1.2-6.7); Basophils % 0.3; Eosinophils % 0.5; HCT 27.6 % (36.0-46.0); HGB 8.3 g/dL (11.2-15.7); Lymphocytes % 19.9; MCH 28.2 pg (27.0-33.0); MCHC 30.1 % (32.0-36.0); MCV 94 fL (80-95); MPV 10.4 fL (8.0-11.0); Monocytes % 5.2; Neutrophils % 73.1; Platelet Count 100 10^3/uL (130-400); RBC 2.94 10^6/uL (3.93-5.22); RDW 13.8 % (11.7-14.6); RDW-SD 47.5 fL; WBC 3.87 10^3/uL (4.4-10.8)
--- NOTE | 2023-08-01 15:40 | PHACLINREV_ITS ---
Pharmacy Admission Review Admission Clinical Review Admission Pharmacy Review: Chronic disease under co-management (Acute) Discharge planning issues (Acute) On deep vein thrombosis (DVT) prophylaxis (Acute) Sepsis (Acute) Aspiration pneumonia (Acute) ALLAN (acute kidney injury) (Acute) Acute on chronic kidney failure (Acute) Aspiration pneumonia (Acute) Severe sepsis (Acute) Influenza (Acute) polyethylene glycol 3350 Allergy (Unknown, Verified 07/27/23 19:46) Other (See Comment) acetaminophen [From Vicodin] Allergy (Verified 07/27/23 19:46) Other (See Comment) amoxicillin Allergy (Verified 07/27/23 19:46) Other (See Comment) azithromycin [From Zithromax] Allergy (Verified 07/27/23 19:46) Other (See Comment) benoxinate Allergy (Verified 07/27/23 19:46) Other (See Comment) benzonatate Allergy (Verified 07/27/23 19:46) Other (See Comment) buspirone [From BuSpar] Allergy (Verified 07/27/23 19:46) Other (See Comment) cephalexin [From Keflex] Allergy (Verified 07/27/23 19:46) Other (See Comment) clavulanic acid [From Augmentin] Allergy (Verified 07/27/23 19:46) Other (See Comment) diazepam [From Valium] Allergy (Verified 07/27/23 19:46) Other (See Comment) gemfibrozil Allergy (Verified 07/27/23 19:46) Other (See Comment) hydrocodone [From Vicodin] Allergy (Verified 07/27/23 19:46) Other (See Comment) monosodium glutamate Allergy (Verified 07/27/23 19:46) Other (See Comment) morphine Allergy (Verified 07/27/23 19:46) Other (See Comment) nitrofurantoin [From Macrobid] Allergy (Verified 07/27/23 19:46) Other (See Comment) Penicillins Allergy (Verified 07/27/23 19:46) Other (See Comment) prednisone Allergy (Verified 07/27/23 19:46) Other (See Comment) Sulfa (Sulfonamide Antibiotics) Allergy (Verified 07/27/23 19:46) Other (See Comment) Tetanus Vaccines and Toxoid Allergy (Verified 07/27/23 19:46) Other (See Comment) tramadol Allergy (Verified 07/27/23 19:46) Other (See Comment) morphine Allergy (Unknown, Uncoded 07/27/23 19:46) Other (See Comment) nitrofurantoin Allergy (Unknown, Uncoded 07/27/23 19:46) Other (See Comment) Resuscitation Status DNR/DNI Height 5 ft 2 in Weight 52.617 kg Comments Comments/Follow Ups: many allergies, patient was here in May and Jun 2023 for similar admission Aspiration risk, Chest xray was suboptimal view, Atelectasis vs infiltrate, ?sepsis w/slightly elevated lactate, procal...urinary source VS: BP increased now and stable 134/73, was considerably lower on admission, HR improved, Afebrile Diarrhea being controlled w/Lomotil Pharmacy Admission Review Renal Dosing Renal Dosing: CrCl~20.33 ml/min BUN 32 mg/dL (7-18) H 08/01/23 14:34 Creatinine 2.2 mg/dL (0.55-1.02) H 08/01/23 14:34 Medications needing adjustments: Intervened (Tamiflu, Enoxaparin...If CrCl>30ml/min, will need to adjust Tamiflu to 30mg po BID) Anticoagulation Anticoagulation: Hgb 8.3 g/dL (11.2-15.7) L 08/01/23 14:34 Hct 27.6 % (36.0-46.0) L 08/01/23 14:34 Plt Count 100 10^3/uL (130-400) L 08/01/23 14:34 Creatinine 2.2 mg/dL (0.55-1.02) H 08/01/23 14:34 DVT Prophylaxis: Intervened (dose reduction) Medications: Enoxaparin Relevant Labs Relevant Labs: Sodium 146 mmol/L (136-145) H 08/01/23 14:34 Potassium 4.2 mmol/L (3.5-5.1) 08/01/23 14:34 Chloride 114 mmol/L (98-107) H 08/01/23 14:34 Home Meds Home Med List reviewed: Intervened (Spent significant time going over and updating home med list from [facility], many adjustments, deletions and additions. Notified provider of changes and she will review them. ) Relevent Home Meds Not ordered & why?: Losartan: BP's soft 98/58 this morning, now up to 134/73 Pharmacy Antibiotic Review Relevant Labs: Urine gram positive mixed 10-50K, BC pending, MRSA nare negative, Procal 0.7, Flu positive, C.Diff negative for diarrhea Pharmacy Antibiotic Activity: C/S review (Clindamycin) Comments: Allergies: Penicillins, [place], Azithromycin, Cephalexin...but most of her allergies state unknown Comments Comments/Follow Ups: many allergies, patient was here in May and Jun 2023 for similar admission Aspiration risk, Chest xray was suboptimal view, Atelectasis vs infiltrate, ?sepsis w/slightly elevated lactate, procal...urinary source VS: BP increased now and stable 134/73, was considerably lower on admission, HR improved, Afebrile Diarrhea being controlled w/Lomotil
[2023-08-01] MEDS: Simethicone 80 MG CHEW CH (16:26)
[2023-08-01] MEDS: Insulin Aspart 300 UNITS/3 ML PEN SC (17:02)
--- NOTE | 2023-08-01 18:23 | NUR.NOTE ---
Pt coughed up copious amts of clear/white secretions after using acapella. Nursing Note:
[2023-08-01] MEDS: Oseltamivir 30 MG CAP PO (19:33)
[2023-08-01] MEDS: rOPINIRole 0.5 MG TAB PO (19:33)
[2023-08-01] MEDS: Pantoprazole 40 MG VIAL IVP (19:34)
[2023-08-01] MEDS: rOPINIRole 1 MG TAB 2 MG PO (19:34)
[2023-08-01] MEDS: clonazePAM 0.5 MG TAB 1.5 MG PO (19:34)
[2023-08-01] MEDS: Acetaminophen 500 MG TAB 1000 MG PO ×2 (21:13→21:17)
[2023-08-02] VITALS (10 sets, daily range): BP systolic 112–133; BP diastolic 66–83; PULSE 69–91; RESP 2–18; TEMP 36.4–37.7; O2SAT 91–96
[2023-08-02] MEDS: Levothyroxine 200 MCG TAB PO (06:22)
[2023-08-02 07:23] LABS: Abs Immature Grans 0.02 10^3/uL (0.0-0.06); Absolute Eosinophil Count 0.02 10^3/uL (0.0-0.7); Absolute Lymphocyte Count 0.86 10^3/uL (1.2-3.4); Absolute Neutrophil Count 1.62 10^3/uL (1.2-6.7); Eosinophils % 0.7; HCT 24.8 % (36.0-46.0); HGB 7.8 g/dL (11.2-15.7); Immature Grans % 0.7; Lymphocytes % 31.6; MCH 28.7 pg (27.0-33.0); MCHC 31.5 % (32.0-36.0); MCV 91 fL (80-95); MPV 11.4 fL (8.0-11.0); Monocytes % 7.4; Neutrophils % 59.6; RBC 2.72 10^6/uL (3.93-5.22); RDW 13.6 % (11.7-14.6); RDW-SD 45.9 fL; WBC 2.72 10^3/uL (4.4-10.8)
[2023-08-02 07:33] LABS: Diff Comment Diff Reviewed; Platelet Count 85 10^3/uL (130-400); RBC Morphology Normal
[2023-08-02 07:47] LABS: Anion Gap 9.7 mmol/L (3-11); BUN 30 mg/dL (7-18); CO2 21.3 mmol/L (21.0-32.0); Calcium 8.4 mg/dL (8.5-10.1); Chloride 116 mmol/L (98-107); Estimated GFR 26.71 (mL/min/1.73m2); Glucose 84 mg/dL (74-106); Potassium 4.2 mmol/L (3.5-5.1); Sodium 147 mmol/L (136-145)
[2023-08-02 08:08] LABS: Iron 26 ug/dL (50-170); Total Iron Binding Capacity 86 ug/dL (250-450); Transferrin Sat 30 % (15-50)
[2023-08-02] MEDS: Lactobacillus Acidophilus CAP 1 CAP PO ×2 (08:08→19:46)
[2023-08-02] MEDS: Isosorbide Mononitrate 30 MG TABCR PO (08:08)
[2023-08-02] MEDS: Simethicone 80 MG CHEW CH ×3 (08:08→16:29)
[2023-08-02] MEDS: Magnesium Chloride 64 MG TABCR PO ×3 (08:08→19:46)
[2023-08-02] MEDS: Sodium Bicarbonate 650 MG TAB PO ×3 (08:09→19:46)
[2023-08-02] MEDS: Vitamins B Comp w/C TAB 1 TAB PO (08:09)
[2023-08-02] MEDS: Cholecalciferol (Vitamin D3) 1,000 UNIT TAB 1000 UNITS PO (08:10)
[2023-08-02] MEDS: Aspirin E.C. 81 MG TABEC PO (08:10)
[2023-08-02] MEDS: QUEtiapine 100 MG TAB PO ×3 (08:11→19:46)
[2023-08-02] MEDS: CLINDAMYCIN 600 MG/50 ML BAG 100 MG IVPB (08:12)
[2023-08-02] MEDS: QUEtiapine 50 MG TAB PO ×3 (08:12→19:47)
[2023-08-02] MEDS: Sucralfate 1 GM TAB PO ×2 (08:30→17:14)
[2023-08-02] MEDS: Folic Acid 1 MG TAB PO (08:41)
--- NOTE | 2023-08-02 08:59 | PGE_ITS ---
Date of Service Date of service: 08/02/23 Time of Service: 09:35 Assessment and Plan Assessment and plan (1) Severe sepsis: Status: Acute Assessment and plan: On admission met severe sepsis criteria SIRS: HR in low 100's plus RR 26 Sepsis: Above plus Source respiratory with suspected aspiration pneumonia & positive influenza Severe Sepsis : Cr 2.8 (baseline 1.6-1.7) plus SBP < 100 responding to IVF resuscitation in ED Continue antibiotic coverage with clindamycin for 5 days total therapy based on allergy profile (2) Influenza: Status: Acute Assessment and plan: Continue Tamiflu (3) Aspiration pneumonia: Status: Acute Assessment and plan: Continue scheduled DuoNebs and albuterol as needed As above, continue clindamycin based on allergy profile day 3 of 5 Maintain aspiration precautions Intensive pulmonary toilet: IS & vibrapep Continue modified diet On RA continue to monitor need for O2 supplementation (4) Diabetes mellitus: Status: Chronic Assessment and plan: Gluc AC and HS SS insulin coverage Diabetic diet On Trulicity at home Q weekly Qualifiers: Diabetes mellitus type: type 2 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 Diabetes mellitus complication status: with kidney complications Diabetes mellitus complication detail: with chronic kidney disease Chronic kidney disease stage: stage 4 (severe) Qualified Code(s): E11.22 - Type 2 diabetes mellitus with diabetic chronic kidney disease; N18.4 - Chronic kidney disease, stage 4 (severe); Z79.4 - [facility] (current) use of insulin (5) Hypothyroidism: Status: Chronic Assessment and plan: Continue Levothyroxine TSH 0.21 in June 2023 F/U as OPT Qualifiers: Hypothyroidism type: acquired Qualified Code(s): E03.9 - Hypothyroidism, unspecified (6) Chronic GERD: Status: Chronic Assessment and plan: On home medications (7) Acute on chronic kidney failure: Status: Acute Assessment and plan: Most likely prerenal. IVF resuscitation completed and BMP pending Continue to hold nephrotoxic agents renal dose is needed (8) On deep vein thrombosis (DVT) prophylaxis: Status: Acute Assessment and plan: On lovenox CBC pending (9) Chronic disease under co-management: Status: Acute Assessment and plan: Med-rec by pharmacy from the [facility] from the [facility] Continue home meds for chronic conditions -RLS: meds adjusted Requip added to Neupro -HTN on losartan (10) Discharge planning issues: Status: Acute Assessment and plan: CM is following Discharge at the [facility] when stable is most likely in [address] Garcia Subjective Subjective Interval history since last seen: Ladan reports feeling better this morning, less restless leg syndrome symptoms, breathing better but is having a productive cough with pulmonary toilet interventions. No reports of chills fever nausea vomiting. Reduced diarrhea reported and voiding adequately. Reporting eating well and she ate complete breakfast. Exam Narrative Exam Narrative: Constitutional The patient is in in bed, comfortable and cooperative during the interview. The patient is without acute distress Neuro:alert and oriented to self, person, place and situation; off in time. 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 Objective Last Vital Signs Temp 36.4 C L 08/02/23 07:22 Pulse 69 08/02/23 07:22 Resp 15 08/02/23 07:22 BP 112/66 08/02/23 07:22 Pulse Ox 94 08/02/23 07:22 Laboratory Results - last 24 hr 08/01/23 08/01/23 08/02/23 13:00 14:34 06:33 WBC 3.87 L 2.72 L RBC 2.94 L 2.72 L Hgb 8.3 L 7.8 L Hct 27.6 L 24.8 L MCV 94 91 MCH 28.2 28.7 MCHC 30.1 L 31.5 L RDW 13.8 13.6 Plt Count 100 L 85 L MPV 10.4 11.4 H Immature Gran % 1.0 0.7 Neutrophils % 73.1 59.6 Lymphocytes % 19.9 31.6 Monocytes % 5.2 7.4 Eosinophils % 0.5 0.7 Basophils % 0.3 0.0 Nucleated RBC % 0.0 0.0 Absolute Neutrophils 2.83 1.62 Absolute Lymphocytes 0.77 L 0.86 L Absolute Monocytes 0.20 0.20 Absolute Eosinophils 0.02 0.02 Absolute Basophils 0.01 0.00 RBC Morphology Normal Sodium 146 H 147 H Potassium 4.2 4.2 Chloride 114 H 116 H Carbon Dioxide 20.3 L 21.3 Anion Gap 11.7 H 9.7 BUN 32 H 30 H Creatinine 2.2 H 2.0 H Est GFR (CKD-EPI 2020) 23.82 26.71 Glucose 113 H 84 Calcium 8.1 L 8.4 L Iron 26 L TIBC 86 L Transferrin % Sat 30 Stl C.difficile Tox PCR Negative Time Spent with Patient Time Spent with Patient: >50 minutes Time was spent: preparing to see the patient(eg.review tests), obtaining and/or reviewing separately otained hiistory, ordering medications,tests, procedures, referring, communicating with other health care team assistant, indepentently interpreting results, counseling the patient and care coordination
[2023-08-02] MEDS: Nystatin CREAM 30 GM TUBE TP ×3 (09:00→19:47)
--- NOTE | 2023-08-02 09:17 | NUR.NOTE ---
Pt resting in bed with eyes closed when this RN entered the room this morning at 0735, easily rouseable to voice, pt up to chair with 2 assist. Pt is KIVALINA, verbally makes needs known, A&Waldo self and place. Pt took morning medications with applesauce, frequent throat clearing post prandial. Pt denies SOB. Lung sounds diminished to ausculatation, RLL crackles present, pt using Acapella independently, wet cough present. Pts bowel sounds present, abdomin soft. No edema present. Pts heart rate regular, S1 & S2 present. Skin tear present on pts R knee, scattered ecchymosis, and abrasion present from pts prior fall before this admission to hospital. Pt has good appetite, she ate all of her breakfast independently. Pts #20 IV in L FA flushed easily, patent, pt denies discomfort at IV site. VSS. FSBS this morning 88, no insulin given. , RN. Nursing Note:
[2023-08-02] MEDS: Ferrous Sulfate 325 MG TAB PO (10:23)
[2023-08-02] MEDS: SODIUM CHLORIDE 0.45% 1,000 ML 50 ML IV (10:39)
[2023-08-02] MEDS: clonazePAM 0.5 MG TAB PO (11:58)
--- NOTE | 2023-08-02 12:36 | W.PM.DS.N ---
Date of service: 08/05/23 Time of Service: 09:01 DS: Diagnosis Discharge Diagnosis (1) Severe sepsis: Status: Acute (2) Influenza: Status: Acute (3) Aspiration pneumonia: Status: Acute (4) Diabetes mellitus: Status: Chronic (5) Hypothyroidism: Status: Chronic (6) Chronic GERD: Status: Chronic (7) Acute on chronic kidney failure: Status: Acute Discharge Plan Disposition Patient Disposition: Longterm Facility(SNF) Condition: Improving Discharge Details Reason For Visit: Hypoxic Resp Failure, Influenza Admit Date/Time: 07/31/23 14:48 Admit Provider: Edward Garcia Attending Provider: Edward Garcia Primary Care Provider: Shanna Rock Hospital Course Hospital Course: This is 67 years old female patient with a complex past medical history including but not limited to type 2 diabetes, cerebral hemorrhage, bipolar affective disorder, gout, hyperparathyroidism, hypertension, degenerative lumbar intervertebral disc, restless leg syndrome, anemia, chronic kidney disease, congestive hearing loss, dysphagia and GERD, asthma, and fibromyalgia presented to the ED at [facility] on 07/31/2023 via EMS from the [facility] for evaluation of altered mental status and hypoxia. On arrival to the ED oxygenation improved with nasal cannula with sats in the mid 90s. Initial blood pressure was in the 80s improving with IV fluid resuscitation to systolic of 98 with improvement of mentation. Report was given that the patient had tested positive for influenza A at the [facility]. Aspiration pneumonia was also suspected. Report was given that the patient was status post fall the day prior to arrival of arrival with head strike. Head CT and C-spine were negative. Chest x-ray question. Hilar infiltrates versus atelectasis. Labs in the ED were unremarkable except for H&H 9.7 and 31.5, BUN and creatinine of 37 and 2.8. In the ED the patient received empiric treatment for healthcare associated pneumonia with IV clindamycin due to multiple allergies listed on her profile. CURB 65 score WAS 3 indicating the need for hospital admission. The hospitalist was consulted and the patient was admitted for evaluation and management of aspiration pneumonia, hypoxic respiratory failure, acute kidney injury on chronic kidney disease, severe sepsis. During the stay, the patient completed the course of antibiotic therapy. The patient also received intensive pulmonary toilet. the patient received Tamiflu and will have 2 daily afternoon doses to be given at the [facility] upon discharge. The patient chronic conditions were managed as per home med regimen. Diabetes was managed with glucose before meals and at bedtime with sliding scale insulin, upon discharge the patient will have to resume her home medicine regimen for diabetes that includes weekly Trulicity injections to be given on the day of arrival to the [facility]. The patient has a history of anemia and the workup did not show the need for additional iron with an MCV of 91, a transferrin saturation percentage value was 30 with a TIBC of 86 despite the iron level at 26. Nevertheless folate was 7.6 and folic acid supplementation was initiated to be continued on discharge.Vitamin B12 level in June 2023 was over 2000. The patient might benefit from medicine such as Aranesp to increase erythropoiesis and the discontinuation of supplemental oral iron in the setting of anemia from chronic disease in the setting of chronic kidney disease as see fit by the primary care provider. The patient will need to follow-up with her primary care practitioner within 7 days of discharge. Discussed with Dr. Barrientos Home Meds and New Rx's Prescriptions: New ferrous sulfate 325 mg (65 mg iron) Tablet 325 mg PO DAILY@1000 Qty: 30 0RF folic acid 1 mg Tablet 1 mg PO DAILY Qty: 30 0RF oseltamivir [Tamiflu] 30 mg capsule 30 mg PO QPM 2 Days Qty: 2 0RF Continued cholecalciferol (vitamin D3) 25 mcg (1,000 unit) capsule 25 mcg PO DAILY ropinirole 0.5 mg tablet 0.5 mg PO HS Rx Instructions: take in addition to 2 mg tab for total 2.5 mg. losartan 50 mg tablet 50 mg PO DAILY omeprazole 40 mg capsule,delayed release(DR/EC) 40 mg PO DAILY Lactobacillus acidophilus Capsule 1 cap PO BID loperamide [Anti-Diarrheal (loperamide)] 2 mg tablet 2 mg PO Q8H PRN Rx Instructions: orally every 8 hours PRN for diarrhea nitroglycerin [Nitrostat] 0.4 mg tablet, sublingual 0.4 mg sublingual Q5M PRN Rx Instructions: do not exceed 3 doses per episode atorvastatin 80 mg tablet 80 mg PO QPM isosorbide mononitrate 30 mg tablet extended release 24 hr 30 mg PO DAILY aspirin 81 mg tablet,delayed release (DR/EC) 81 mg PO DAILY clonazepam 0.5 mg tablet 1.5 mg PO HS Hold Instructions: Duplicate Patient Comments: 0.5MG @ NOON, 1.5MG @ BEDTIME PER [facility] 08/01/23 sucralfate 1 gram tablet 1 g PO TID Patient Comments: 0800,1130,1630 Benefiber Sugar Free (dextrin) 3 gram/3.8 gram powder 1.5 g PO BID Rx Instructions: mix into at least 4 oz water or juice before administering vanilla boost 1 ea PO BID B-complex with vitamin C Tablet 1 tab PO DAILY ropinirole 2 mg tablet 2 mg PO HS ergocalciferol (vitamin D2) [Drisdol] 1,250 mcg (50,000 unit) capsule 50,000 unit PO QWEEK Patient Comments: On Wednesdays (per [facility] 08/01/23) ropinirole 1 mg tablet 1 mg PO DAILY Rx Instructions: Daily @ 2pm Trulicity 3 mg/0.5 mL pen injector 3 mg subcut QWEEK Rx Instructions: on per [facility] 08/01/23 metoclopramide HCl 5 mg tablet 2.5 mg PO BID Rx Instructions: @0730,1630 simethicone [Gas Relief (simethicone)] 80 mg tablet,chewable 80 mg PO TID Rx Instructions: with meals miconazole nitrate [Krystina Antifungal] 2 % cream 1 applic topical TID PRN PRN Rx Instructions: to vaginal area nystatin 100,000 unit/gram cream 1 applic TOPICAL TID Rx Instructions: APPLY TOPICALLY TO VAGINAL AREA THREE TIMES DAILY. APPLY TOPICALLY TO BUTTOCKS NEEDED Neupro 2 mg/24 hour patch 24 hour 2 mg transdermal DAILY Rx Instructions: APPLY [address] ON BACK OR ARMS ONLY clonazepam 0.5 mg tablet 0.5 mg PO .DAILY AT NOON quetiapine 100 mg tablet 100 mg PO TID Rx Instructions: WITH 50MG FOR TOTOAL OF 150MG quetiapine 50 mg tablet 50 mg PO TID Rx Instructions: WITH 100MG TAB FOR TOTAL OF 150MG cranberry extract [Cranberry Juice Powder] 425 mg capsule 425 mg PO DAILY Rx Instructions: administer with a meal Mag 64 64 mg tablet 64 mg PO TID ondansetron HCl 4 mg tablet 4 mg PO Q8H PRN PRN (Reason: nausea) Calcium Antacid 500 mg tablet 1,000 mg PO Q4H PRN PRN polyethylene glycol 3350 17 g PO DAILY PRN PRN (Reason: constipation ) Rx Instructions: give powder solution mixed in 8 oz of beverage levothyroxine 200 mcg tablet 200 mcg PO HS Patient Comments: Takes @ 6pm @ Carline Tran sodium bicarbonate 650 mg Tablet 650 mg PO TID Qty: 0 0RF diphenoxylate-atropine [Lomotil] 2.5-0.025 mg tablet 1 tab PO TID PRN (Reason: diarrhea) Qty: 0 0RF Rx Instructions: IF NO BM X 2 DAYS HOLD ALL 3 DOSES UNTIL PT HAS BM acetaminophen [Acetaminophen Extra Strength] 500 mg tablet 1,000 mg PO TID PRN (Reason: pain) Qty: 0 0RF Discontinued doxycycline hyclate 100 mg capsule 100 mg PO BID cyanocobalamin (vitamin B-12) 1,000 mcg/mL solution 1,000 mcg subcut QMONTH Trulicity 1.5 mg/0.5 mL pen injector 3 mg subcut QWEEK Patient Comments: ON THURSDAYS @ 8AM ondansetron HCl 4 mg tablet 4 mg PO Q8H PRN Rx Instructions: as needed, for 3 doses famotidine 20 mg tablet 10 mg PO DAILY Qty: 0 0RF cefpodoxime 200 mg tablet 200 mg PO Q12H 10 Days Qty: 20 0RF Rx Instructions: must administer with a meal/food Discharge Instructions Referrals: Shanna Rock [Primary Care Provider] - (F/u within a week from discharge please) Activity:: Activity as Tolerated Equipment/Supplies:: W/C Diet:: heart healthy diabetic DS: Summary Time Spent with Patient providing and/or coordinating discharge services: Greater than 30 minutes Status at Discharge Functional status at discharge: wheelchair bound Overall status at discharge: patient is back to baseline Mental Status: mental status grossly normal Speech and Movement: speech and movement normal Mood: congruent mood Affect: normal affect Quality:SDOH Health Related Social Needs: No Data to Display Exam Narrative Exam Narrative: Constitutional The patient is in in bed, comfortable and cooperative during the interview. The patient is without acute distress Neuro:alert and oriented to self, person, place and situation; off in time. 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 Psych Mental Status: mental status grossly normal Speech and Movement: speech and movement normal Mood: congruent mood Affect: normal affect DS: Data Vitals/I&O Vitals and I&O: Vital Signs Temperature 36.4 C L 08/02/23 07:22 Temperature Source Tympanic 08/02/23 07:22 Pulse 69 08/02/23 07:22 Pulse Rhythm Regular 08/02/23 08:56 Pulse 84 07/31/23 15:50 Respiratory Rate 15 08/02/23 07:22 Respiratory Effort Non-Labored 08/02/23 08:56 Respiratory Depth Normal 08/02/23 00:09 Respiratory Pattern Normal 08/02/23 08:56 Blood Pressure 112/66 08/02/23 07:22 Blood Pressure Mean 65 07/31/23 15:46 Pulse Oximetry 94 08/02/23 07:22 Oxygen Delivery Method Room Air 08/02/23 07:22 Oxygen Flow Rate 0 08/02/23 07:22 Pain Level 0 08/02/23 07:22 Comment Patient pulling off oxygen, patient oxygen remained 95% off oxygen; will continue to monitor 08/01/23 19:30 Intake & Output 08/01/23 08/02/23 08/02/23 23:59 11:59 23:59 Intake Total 1450 / 2511.333 100 / 100 Output Total 600 / 800 450 / 450 Balance 850 / 1711.333 -350 / -350 Intake: IV 1050 / 2111.333 100 / 100 Oral 400 / 400 Output: Urine 600 / 800 450 / 450 Other: Urine Color Yellow Yellow Urine Appearance Clear Clear Urine Odor None Normal Comment Pure wick removed due to stooling purewick Stool Occult Blood Negative Stool Size Small Small Stool Characteristics Liquid Liquid Voiding Methods Incontinent Bedside Commode Incontinent Data Completed and Pending Labs on day of discharge: Labs from last 24 hours 08/02/23 08/02/23 08/01/23 Unknown 06:33 14:34 WBC 2.72 L 3.87 L RBC 2.72 L 2.94 L Hgb 7.8 L 8.3 L Hct 24.8 L 27.6 L MCV 91 94 MCH 28.7 28.2 MCHC 31.5 L 30.1 L RDW 13.6 13.8 Plt Count 85 L 100 L MPV 11.4 H 10.4 Immature Gran % 0.7 1.0 Neutrophils % 59.6 73.1 Lymphocytes % 31.6 19.9 Monocytes % 7.4 5.2 Eosinophils % 0.7 0.5 Basophils % 0.0 0.3 Nucleated RBC % 0.0 0.0 Absolute Neutrophils 1.62 2.83 Absolute Lymphocytes 0.86 L 0.77 L Absolute Monocytes 0.20 0.20 Absolute Eosinophils 0.02 0.02 Absolute Basophils 0.00 0.01 RBC Morphology Normal Sodium 147 H 146 H Potassium 4.2 4.2 Chloride 116 H 114 H Carbon Dioxide 21.3 20.3 L Anion Gap 9.7 11.7 H BUN 30 H 32 H Creatinine 2.0 H 2.2 H Est GFR (CKD-EPI 2020) 26.71 23.82 Glucose 84 113 H Calcium 8.4 L 8.1 L Iron 26 L TIBC 86 L Transferrin Pending Transferrin % Sat 30 Stl C.difficile Tox PCR Add-On Test Request Pending 08/01/23 13:00 WBC RBC Hgb Hct MCV MCH MCHC RDW Plt Count MPV Immature Gran % Neutrophils % Lymphocytes % Monocytes % Eosinophils % Basophils % Nucleated RBC % Absolute Neutrophils Absolute Lymphocytes Absolute Monocytes Absolute Eosinophils Absolute Basophils RBC Morphology Sodium Potassium Chloride Carbon Dioxide Anion Gap BUN Creatinine Est GFR (CKD-EPI 2020) Glucose Calcium Iron TIBC Transferrin Transferrin % Sat Stl C.difficile Tox PCR Negative Add-On Test Request 08/02/23 09:48 Stool Stool Occult Blood (BALJIT) - Pending Preliminary micro results at discharge 08/02/23 09:48 Stool Occult Blood (BALJIT) - Pending Stool 07/31/23 15:05 Blood Culture - Preliminary Blood NO GROWTH 24 HOURS 07/31/23 15:18 Blood Culture - Preliminary Blood NO GROWTH 24 HOURS PFSH All Active Problems (Updated 08/03/23 @ 12:38 by Marina Barros APRN) Hypernatremia (Acute) Chronic disease under co-management (Acute) Discharge planning issues (Acute) On deep vein thrombosis (DVT) prophylaxis (Acute) Sepsis (Acute) Aspiration pneumonia (Acute) ALLAN (acute kidney injury) (Acute) Acute on chronic kidney failure (Acute) Aspiration pneumonia (Acute) Severe sepsis (Acute) Influenza (Acute) Acute pyelonephritis (Acute) Hypomagnesemia (Acute) Prolonged QT interval (Acute) Community acquired pneumonia (Acute) Metabolic acidosis with normal anion gap and failure of bicarbonate regeneration (Chronic) Chronic kidney disease (Chronic) Infiltrate of both lungs present on imaging study (Acute) Emphysematous cystitis (Acute) Acute UTI (Acute) Sepsis associated hypotension (Acute) History of multiple strokes (Acute) Palliative care encounter (Acute) Acute UTI (Acute) Dysphagia (Chronic) Prolonged QT interval (Acute) Hyperkalemia (Acute) Fever (Acute) Wears hearing aid in both ears (Acute) Conductive hearing loss, external ear (Acute) Impacted cerumen, bilateral (Acute) Nontraumatic intracerebral hemorrhage (Acute) Acquired cystic kidney disease (Acute) Megaloblastic anemia due to B12 deficiency (Acute) Hyperlipidemia (Acute) Degeneration of lumbar intervertebral disc (Acute) Bipolar 1 disorder (Acute) Benign essential hypertension (Acute) Chronic GERD (Chronic) Asthma (Chronic) Fibromyalgia (Acute) Turners syndrome (Acute) Bipolar affective disorder (Chronic) Nail dystrophy (Acute) Corns and callosities (Acute) Elevated LFTs (Acute) Gout (Chronic) Hypercalcemia (Acute) Hyperparathyroidism (Acute) Hypertension (Chronic) Restless legs syndrome (RLS) (Acute) Rheumatoid arthritis (Chronic) Hypothyroidism (Chronic) Diabetes mellitus (Chronic) CAD (coronary artery disease) (Chronic) Sensorineural hearing loss (SNHL) of both ears (Acute) Medical History Abnormal auditory perception of both ears (12/25/16) Allergic rhinitis Sciatica IBS (irritable bowel syndrome) B12 deficiency anemia Surgical History History of parathyroidectomy History of hysterectomy Hx of tonsillectomy History of foot surgery Left foot; multiple fibroma excisions Social History Smoking/Tobacco Use Status: Never Smoking risk assessment performed?: Yes Alcohol Intake: never Drug use: Never Substance use type: does not use Household members: none Housing: longterm Number of Children: 0 current occupation: disabled Do you feel safe at home: Yes Do you feel safe in your relationship?: Yes Additional Social history: Lives at the [facility] 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 Time Spent with Patient Time Spent with Patient: >85 minutes Time was spent: preparing to see the patient(eg.review tests), obtaining and/or reviewing separately otained hiistory, ordering medications,tests, procedures, referring, communicating with other health child care education coordinator, indepentently interpreting results, counseling the patient and care coordination
[2023-08-02 13:06] LABS: Lab Add On Test DONE
[2023-08-02] MEDS: Albuterol/Ipratropium 3 ML UPD VIAL UPD ×3 (13:06→20:06)
[2023-08-02 13:13] LABS: Magnesium 1.7 mg/dL (1.8-2.4)
--- NOTE | 2023-08-02 13:56 | NUR.NOTE ---
Pt demanding to call her brother, phone provided and number dialed. Pt then started yelling out, Nurse, get me the right phone number, Nurse, Nurse! At 1355 pt yells out to staff, I took out my IV. Staff in to hold pressure and apply dressing. FRAME RUNNER notified. Pt then demanding to go home. She states she will call the ambulance to come get her. Will continue to monitor. Nursing Note:
--- NOTE | 2023-08-02 15:06 | PDOC.CMPRO ---
Date of service: 08/02/23 Time of Service: 15:06 Care Management Progress Note Progress Note Text Progress Note Text: S/O: CM spoke to Ladan's RN, who stated that Ladan appears to be at her baseline, although her sodium increased overnight. Per provider, she is not medically cleared for discharge today, as she will continue to be monitored for electrolyte imbalances. CM spoke to Capri, admissions at the [facility], who stated that the [facility] is unable to accommodate Ladan returning over the weekend, but they will plan for her potential return on Saturday. CM will continue to follow. A: Ladan is a 67 year old female admitted to [facility] on 07/31/23 for hypoxic respiratory failure, influenza. P: Ladan will return to the [facility] once medically cleared. She will likely transport via [facility] w/c van vs EMS, depending on mobility at time of transport. She will follow up with facility providers and her discharge plan of care. CM will continue to follow. SDOH(Care Management) Screening Will the Patient Participate in the Screening?: Unable to obtain
[2023-08-02] MEDS: rOPINIRole 1 MG TAB PO (15:11)
[2023-08-02] MEDS: Clindamycin 300 MG CAP PO (16:28)
[2023-08-02] MEDS: Magnesium Oxide 400 MG TAB 800 MG PO (17:13)
[2023-08-02] MEDS: Insulin Aspart 300 UNITS/3 ML PEN SC (17:14)
[2023-08-02] MEDS: Enoxaparin 30 MG/0.3 ML SYR SC (19:45)
[2023-08-02] MEDS: Acetaminophen 500 MG TAB 1000 MG PO (19:45)
[2023-08-02] MEDS: Oseltamivir 30 MG CAP PO (19:46)
[2023-08-02] MEDS: clonazePAM 0.5 MG TAB 1.5 MG PO (19:46)
[2023-08-02] MEDS: rOPINIRole 1 MG TAB 2 MG PO (19:46)
[2023-08-02] MEDS: rOPINIRole 0.5 MG TAB PO (19:46)
[2023-08-03] VITALS (8 sets, daily range): BP systolic 134–149; BP diastolic 75–99; PULSE 70–91; RESP 2–20; TEMP 37.1–37.4; O2SAT 92–97
[2023-08-03] MEDS: Levothyroxine 200 MCG TAB PO (05:53)
[2023-08-03 06:44] LABS: Abs Immature Grans 0.02 10^3/uL (0.0-0.06); Absolute Eosinophil Count 0.03 10^3/uL (0.0-0.7); Absolute Lymphocyte Count 0.96 10^3/uL (1.2-3.4); Absolute Monocyte Count 0.22 10^3/uL (0.1-0.8); Absolute Neutrophil Count 0.93 10^3/uL (1.2-6.7); Eosinophils % 1.4; HCT 25.6 % (36.0-46.0); Immature Grans % 0.9; Lymphocytes % 44.4; MCH 28.4 pg (27.0-33.0); MCHC 31.3 % (32.0-36.0); MCV 91 fL (80-95); MPV 11.1 fL (8.0-11.0); Monocytes % 10.2; Neutrophils % 43.1; RBC 2.82 10^6/uL (3.93-5.22); RDW 13.5 % (11.7-14.6); RDW-SD 45.5 fL; WBC 2.16 10^3/uL (4.4-10.8)
[2023-08-03 06:57] LABS: Anion Gap 9.1 mmol/L (3-11); BUN 28 mg/dL (7-18); CO2 23.9 mmol/L (21.0-32.0); CREATININE 1.8 mg/dL (0.55-1.02); Calcium 8.5 mg/dL (8.5-10.1); Chloride 115 mmol/L (98-107); Estimated GFR 30.31 (mL/min/1.73m2); Glucose 90 mg/dL (74-106); Magnesium 1.8 mg/dL (1.8-2.4); Potassium 4.5 mmol/L (3.5-5.1); Sodium 148 mmol/L (136-145)
[2023-08-03 06:59] LABS: Diff Comment Diff Reviewed; Platelet Count 88 10^3/uL (130-400); RBC Morphology Normal
[2023-08-03] MEDS: Folic Acid 1 MG TAB PO (08:15)
[2023-08-03] MEDS: Magnesium Chloride 64 MG TABCR PO ×3 (08:16→19:37)
[2023-08-03] MEDS: Clindamycin 300 MG CAP PO ×3 (08:16→22:56)
[2023-08-03] MEDS: Simethicone 80 MG CHEW CH ×3 (08:16→16:56)
[2023-08-03] MEDS: Isosorbide Mononitrate 30 MG TABCR PO (08:17)
[2023-08-03] MEDS: Lactobacillus Acidophilus CAP 1 CAP PO ×2 (08:17→19:37)
[2023-08-03] MEDS: Sodium Bicarbonate 650 MG TAB PO ×3 (08:17→19:38)
[2023-08-03] MEDS: Ferrous Sulfate 325 MG TAB PO (08:18)
[2023-08-03] MEDS: Aspirin E.C. 81 MG TABEC PO (08:19)
[2023-08-03] MEDS: Cholecalciferol (Vitamin D3) 1,000 UNIT TAB 1000 UNITS PO (08:19)
[2023-08-03] MEDS: QUEtiapine 100 MG TAB PO ×3 (08:20→19:37)
[2023-08-03] MEDS: QUEtiapine 50 MG TAB PO ×3 (08:20→19:38)
[2023-08-03] MEDS: Vitamins B Comp w/C TAB 1 TAB PO (08:21)
[2023-08-03] MEDS: Nystatin CREAM 30 GM TUBE TP ×3 (08:27→19:39)
[2023-08-03] MEDS: Albuterol/Ipratropium 3 ML UPD VIAL UPD ×3 (08:32→19:48)
[2023-08-03] MEDS: Sucralfate 1 GM TAB PO ×3 (08:55→16:57)
[2023-08-03] MEDS: SODIUM CHLORIDE 0.45% 1,000 ML 50 ML IV (10:47)
[2023-08-03] MEDS: clonazePAM 0.5 MG TAB PO (11:58)
[2023-08-03] MEDS: Insulin Aspart 300 UNITS/3 ML PEN SC ×2 (11:58→17:04)
--- NOTE | 2023-08-03 12:23 | W.PM.PROGNOT ---
Date of Service Date of service: 08/03/23 Time of Service: 12:23 Assessment and Plan Assessment and plan (1) Severe sepsis: Status: Acute Assessment and plan: On admission met severe sepsis criteria, now resolved SIRS: HR in low 100's plus RR 26 Sepsis: Above plus Source respiratory with suspected aspiration pneumonia & positive influenza Severe Sepsis : Cr 2.8 (baseline 1.6-1.7) plus SBP < 100 responding to IVF resuscitation in ED Continue antibiotic coverage with clindamycin for 5 days total therapy based on allergy profile (2) Influenza: Status: Acute Assessment and plan: Continue Tamiflu for total of 7 doses (3) Aspiration pneumonia: Status: Acute Assessment and plan: Continue scheduled DuoNebs and albuterol as needed As above, continue oral clindamycin now as the patient pulled her IV; therapy based on allergy profile day 4 of 5 Maintain aspiration precautions Intensive pulmonary toilet: IS & acapella Continue modified diet No oxygen supplemenation required (4) Diabetes mellitus: Status: Chronic Assessment and plan: Gluc 77 to 159 Continue Gluc AC and HS , SS insulin coverage Continue Diabetic diet On Trulicity at home Q weekly will resume on discharge Qualifiers: Diabetes mellitus type: type 2 Diabetes mellitus ocean transportation intermediary insulin use: with fci use Diabetes mellitus complication status: with kidney complications Diabetes mellitus complication detail: with chronic kidney disease Chronic kidney disease stage: stage 4 (severe) Qualified Code(s): E11.22 - Type 2 diabetes mellitus with diabetic chronic kidney disease; N18.4 - Chronic kidney disease, stage 4 (severe); Z79.4 - [facility] (current) use of insulin (5) Hypernatremia: Status: Acute Assessment and plan: Na 148 this AM, attempted correction of water deficit on 08/01 via IVF and increased water intake , but patient pulled her IV Agreeable to new IV placement: IVF ordered (6) Hypothyroidism: Status: Chronic Assessment and plan: Continue Levothyroxine TSH 0.21 in June 2023 further adjustment as per PCP Qualifiers: Hypothyroidism type: acquired Qualified Code(s): E03.9 - Hypothyroidism, unspecified (7) Chronic GERD: Status: Chronic Assessment and plan: Continue home medications (8) Acute on chronic kidney failure: Status: Acute Assessment and plan: Reolved now but it was most likely prerenal. IVF resuscitation completed Continue to hold nephrotoxic agents renal dose is needed (9) On deep vein thrombosis (DVT) prophylaxis: Status: Acute Assessment and plan: Continue lovenox, plat 88 from 85 on 08/01 CBC in AM (10) Chronic disease under co-management: Status: Acute Assessment and plan: Med-rec by pharmacy from the [facility] from the [facility] Continue home meds for chronic conditions -RLS: on Requip and Neupro -HTN continue on losartan (11) Discharge planning issues: Status: Acute Assessment and plan: CM is following Discharge at the [facility]: could not take the patient back over the weekend d/t staffing. D/c Saturday Discussed with Dr. Barrientos Subjective Subjective Patient reports: no new complaints, feels better, tolerating liquids well (encouraged to drink water to correct water deficit with Na 148, would rather have IV pulled out replace as it makes fluid intake easier as she will sleep), tolerating a regular diet, voiding w/o difficulty, flatus and bowel movement; denies still having pain, blood in stool, nausea, vomiting, shortness of breath or afebrile Exam Narrative Exam Narrative: Constitutional The patient is without acute distress, sitting in chair Neuro:alert and oriented to self, person, place and situation; off in time. 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 Objective Last Vital Signs Temp 37.2 C 08/03/23 07:31 Pulse 70 08/03/23 08:32 Resp 18 08/03/23 08:32 BP 134/99 H 08/03/23 07:31 Pulse Ox 93 08/03/23 08:32 Laboratory Results - last 24 hr 08/02/23 08/02/23 08/03/23 06:33 Unknown 06:30 WBC 2.16 L RBC 2.82 L Hgb 8.0 L Hct 25.6 L MCV 91 MCH 28.4 MCHC 31.3 L RDW 13.5 Plt Count 88 L MPV 11.1 H Immature Gran % 0.9 Neutrophils % 43.1 Lymphocytes % 44.4 Monocytes % 10.2 Eosinophils % 1.4 Basophils % 0.0 Nucleated RBC % 0.0 Absolute Neutrophils 0.93 L Absolute Lymphocytes 0.96 L Absolute Monocytes 0.22 Absolute Eosinophils 0.03 Absolute Basophils 0.00 RBC Morphology Normal Sodium 148 H Potassium 4.5 Chloride 115 H Carbon Dioxide 23.9 Anion Gap 9.1 BUN 28 H Creatinine 1.8 H Est GFR (CKD-EPI 2020) 30.31 Glucose 90 Calcium 8.5 Magnesium 1.7 L 1.8 Add-On Test Request DONE Time Spent with Patient Time Spent with Patient: >50 minutes Time was spent: preparing to see the patient(eg.review tests), obtaining and/or reviewing separately otained hiistory, ordering medications,tests, procedures, referring, communicating with other health md do resident urgent care, indepentently interpreting results, counseling the patient and care coordination
[2023-08-03] MEDS: rOPINIRole 1 MG TAB PO (14:41)
[2023-08-03] MEDS: Acetaminophen 500 MG TAB 1000 MG PO (19:36)
[2023-08-03] MEDS: Pantoprazole 40 MG TABCR PO (19:37)
[2023-08-03] MEDS: rOPINIRole 1 MG TAB 2 MG PO (19:38)
[2023-08-03] MEDS: clonazePAM 0.5 MG TAB 1.5 MG PO (19:38)
[2023-08-03] MEDS: Enoxaparin 30 MG/0.3 ML SYR SC (19:38)
[2023-08-03] MEDS: Oseltamivir 30 MG CAP PO (19:38)
[2023-08-03] MEDS: rOPINIRole 0.5 MG TAB PO (19:38)
[2023-08-03] MEDS: SODIUM CHLORIDE 0.45% 1,000 ML 100 ML IV (19:51)
[2023-08-04] VITALS (9 sets, daily range): BP systolic 146–147; BP diastolic 80–83; PULSE 73–90; RESP 5–20; TEMP 36.6–36.8; O2SAT 93–96
[2023-08-04] MEDS: Levothyroxine 200 MCG TAB PO (06:06)
[2023-08-04 06:53] LABS: HCT 24.5 % (36.0-46.0); HGB 7.7 g/dL (11.2-15.7); MCH 28.7 pg (27.0-33.0); MCHC 31.4 % (32.0-36.0); MCV 91 fL (80-95); MPV 11.4 fL (8.0-11.0); RBC 2.68 10^6/uL (3.93-5.22); RDW 13.3 % (11.7-14.6); RDW-SD 44.3 fL; WBC 2.33 10^3/uL (4.4-10.8)
[2023-08-04 07:06] LABS: Anion Gap 10.3 mmol/L (3-11); BUN 24 mg/dL (7-18); CO2 21.7 mmol/L (21.0-32.0); CREATININE 1.6 mg/dL (0.55-1.02); Calcium 8.3 mg/dL (8.5-10.1); Chloride 113 mmol/L (98-107); Estimated GFR 34.91 (mL/min/1.73m2); Glucose 112 mg/dL (74-106); Potassium 4.7 mmol/L (3.5-5.1); Sodium 145 mmol/L (136-145)
[2023-08-04 07:16] LABS: Absolute Neutrophil Count 0.89 10^3/uL (1.2-6.7); Platelet Count 89 10^3/uL (130-400)
[2023-08-04 07:17] LABS: Absolute Eosinophil Count 0.02 10^3/uL (0.0-0.7); Absolute Monocyte Count 0.02 10^3/uL (0.1-0.8); Diff Comment Manual Differential; RBC Morphology Normal
[2023-08-04] MEDS: Albuterol/Ipratropium 3 ML UPD VIAL UPD ×4 (07:56→19:44)
[2023-08-04] MEDS: Magnesium Chloride 64 MG TABCR PO ×3 (08:03→19:40)
[2023-08-04] MEDS: Lactobacillus Acidophilus CAP 1 CAP PO ×2 (08:03→19:40)
[2023-08-04] MEDS: Isosorbide Mononitrate 30 MG TABCR PO (08:03)
[2023-08-04] MEDS: Clindamycin 300 MG CAP PO ×2 (08:04→16:34)
[2023-08-04] MEDS: Folic Acid 1 MG TAB PO (08:04)
[2023-08-04] MEDS: QUEtiapine 100 MG TAB PO ×3 (08:04→19:41)
[2023-08-04] MEDS: Sucralfate 1 GM TAB PO ×2 (08:05→11:15)
[2023-08-04] MEDS: Sodium Bicarbonate 650 MG TAB PO (08:06)
[2023-08-04] MEDS: Vitamins B Comp w/C TAB 1 TAB PO (08:06)
[2023-08-04] MEDS: Simethicone 80 MG CHEW CH ×3 (08:06→16:34)
[2023-08-04] MEDS: Aspirin E.C. 81 MG TABEC PO (08:07)
[2023-08-04] MEDS: QUEtiapine 50 MG TAB PO ×3 (08:07→19:40)
[2023-08-04] MEDS: Cholecalciferol (Vitamin D3) 1,000 UNIT TAB 1000 UNITS PO (08:07)
[2023-08-04] MEDS: Nystatin CREAM 30 GM TUBE TP ×3 (08:12→19:44)
--- NOTE | 2023-08-04 09:02 | W.PM.PROGNOT ---
Date of Service Date of service: 08/04/23 Time of Service: 09:03 Assessment and Plan Assessment and plan (1) Severe sepsis: Status: Acute Assessment and plan: Resolved On admission met severe sepsis criteria, w HR in low 100's plus RR 26; source respiratory with suspected aspiration pneumonia & positive influenza and Cr 2.8 (baseline 1.6-1.7) plus SBP < 100 responding to IVF resuscitation in ED. Now resolved Continue antibiotic coverage with clindamycin for 5 days total therapy based on allergy profile (2) Influenza: Status: Acute Assessment and plan: Continue Tamiflu for total of 7 doses (3) Aspiration pneumonia: Status: Acute Assessment and plan: Continue scheduled DuoNebs and albuterol as needed As above, continue oral clindamycin day 5 of 5, multiple allergies precluding the use of other antibiotics Maintain aspiration precautions Intensive pulmonary toilet: IS & acapella Continue modified diet No oxygen supplementation required (4) Diabetes mellitus: Status: Chronic Assessment and plan: Gluc 97 to 181 Continue Gluc AC and HS , SS insulin coverage Continue Diabetic diet Resume Trulicity Q weekly on discharge Qualifiers: Chronic kidney disease stage: stage 4 (severe) Diabetes mellitus complication detail: with chronic kidney disease Diabetes mellitus complication status: with kidney complications Diabetes mellitus fpc insulin use: with rodent exterminator use Diabetes mellitus type: type 2 Qualified Code(s): E11.22 - Type 2 diabetes mellitus with diabetic chronic kidney disease; N18.4 - Chronic kidney disease, stage 4 (severe); 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 Avoid nephrotoxic agents as much as possible and renal dose as needed Considering OPT treatment for anemia of chronic disease: Transferrin sat 30, TIBC 86. Iron 26 MVC 91, H&H 7.7 and 24.5 (9) On deep vein thrombosis (DVT) prophylaxis: Status: Acute Assessment and plan: Continue lovenox, plat 89 from 88 on 08/02, lowest was 85 CBC in AM (10) Chronic disease under co-management: Status: Acute Assessment and plan: Med-rec completed by pharmacy from the [facility] from the [facility] during early admission Continue home medication regimen for chronic conditions -RLS: on Requip and Neupro -HTN continue on losartan -DM: will resume home meds on discharge (11) Discharge planning issues: Status: Acute Assessment and plan: CM is following Discharge to the [facility] on Saturday Discussed with Dr. Barrientos Subjective Subjective Patient reports: no new complaints, feels better, tolerating liquids well, tolerating a regular diet, voiding w/o difficulty, flatus and bowel movement; denies still having pain, diarrhea, blood in stool, nausea, vomiting, shortness of breath or fever Exam Narrative Exam Narrative: Constitutional The patient is without acute distress, in bed Neuro:alert and oriented X2 Resp: clear breath sounds bilaterally Cardio: regular rhythm, S1, S2 GI: Abdomen is not distended, soft and non tender, bowel sounds are present Psych: RASS 0, congruent mood and normal affect. Objective Last Vital Signs Temp 36.6 C 08/04/23 08:19 Pulse 77 08/04/23 08:19 Resp 18 08/04/23 08:19 BP 146/80 H 08/04/23 08:19 Pulse Ox 95 08/04/23 08:19 Laboratory Results - last 24 hr 08/04/23 06:35 WBC 2.33 L RBC 2.68 L Hgb 7.7 L Hct 24.5 L MCV 91 MCH 28.7 MCHC 31.4 L RDW 13.3 Plt Count 89 L MPV 11.4 H Immature Gran % 0.0 Neutrophils % 38.0 Lymphocytes % 60.0 Monocytes % 1.0 Eosinophils % 1.0 Basophils % 0.0 Nucleated RBC % 0.0 Absolute Neutrophils 0.89 L Absolute Lymphocytes 1.40 Absolute Monocytes 0.02 L Absolute Eosinophils 0.02 Absolute Basophils 0.00 RBC Morphology Normal Sodium 145 Potassium 4.7 Chloride 113 H Carbon Dioxide 21.7 Anion Gap 10.3 BUN 24 H Creatinine 1.6 H Est GFR (CKD-EPI 2020) 34.91 Glucose 112 H Calcium 8.3 L Time Spent with Patient Time Spent with Patient: >50 minutes Time was spent: preparing to see the patient(eg.review tests), obtaining and/or reviewing separately otained hiistory, ordering medications,tests, procedures, referring, communicating with other health lead caregiver, indepentently interpreting results, counseling the patient and care coordination
[2023-08-04] MEDS: Ferrous Sulfate 325 MG TAB PO (09:38)
[2023-08-04] MEDS: clonazePAM 0.5 MG TAB PO (11:16)
[2023-08-04] MEDS: Insulin Aspart 300 UNITS/3 ML PEN SC ×2 (12:03→16:34)
[2023-08-04] MEDS: rOPINIRole 1 MG TAB PO (14:10)
[2023-08-04] MEDS: Acetaminophen 500 MG TAB 1000 MG PO (18:22)
[2023-08-04] MEDS: rOPINIRole 1 MG TAB 2 MG PO (19:41)
[2023-08-04] MEDS: clonazePAM 0.5 MG TAB 1.5 MG PO (19:41)
[2023-08-04] MEDS: Pantoprazole 40 MG TABCR PO (19:41)
[2023-08-04] MEDS: Enoxaparin 30 MG/0.3 ML SYR SC (19:43)
[2023-08-04] MEDS: rOPINIRole 0.5 MG TAB PO (19:43)
[2023-08-04] MEDS: Oseltamivir 30 MG CAP PO (19:43)
[2023-08-05] MEDS: Clindamycin 300 MG CAP PO ×2 (00:34→07:34)
[2023-08-05] MEDS: Acetaminophen 500 MG TAB 1000 MG PO (02:30)
[2023-08-05 06:12] VITALS: BP 155/78; PULSE 73; RESP 18; TEMP 36; O2SAT 96
[2023-08-05] MEDS: Levothyroxine 200 MCG TAB PO (06:15)
[2023-08-05] MEDS: QUEtiapine 100 MG TAB PO (07:33)
[2023-08-05] MEDS: Cholecalciferol (Vitamin D3) 1,000 UNIT TAB 1000 UNITS PO (07:33)
[2023-08-05] MEDS: Simethicone 80 MG CHEW CH (07:33)
[2023-08-05] MEDS: Magnesium Chloride 64 MG TABCR PO (07:33)
[2023-08-05] MEDS: Lactobacillus Acidophilus CAP 1 CAP PO (07:33)
[2023-08-05] MEDS: QUEtiapine 50 MG TAB PO (07:34)
[2023-08-05] MEDS: Vitamins B Comp w/C TAB 1 TAB PO (07:34)
[2023-08-05] MEDS: Aspirin E.C. 81 MG TABEC PO (07:34)
[2023-08-05] MEDS: Folic Acid 1 MG TAB PO (07:34)
[2023-08-05] MEDS: Isosorbide Mononitrate 30 MG TABCR PO (07:34)
[2023-08-05 07:43] VITALS: BP 146/78; PULSE 77; RESP 18; O2SAT 95
[2023-08-05] MEDS: Insulin Aspart 300 UNITS/3 ML PEN SC (08:51)
[2023-08-05 08:55] VITALS: PULSE 86; RESP 18; RESP 9; O2SAT 96
[2023-08-05] MEDS: Albuterol/Ipratropium 3 ML UPD VIAL UPD (08:55)
[2023-08-05 08:56] VITALS: PULSE 90; RESP 18; RESP 9; O2SAT 97
--- NOTE | 2023-08-05 11:02 | NUR.NOTE ---
Nursing Note: Attempted to call the [facility] for report on a transfer back at this time; it went to voicemail and this nurse left a message to call back. Will attempt to call again in 10 minutes if no call back.
[2023-08-05 11:09] LABS: Transferrin 76 mg/dL (201-352)
--- NOTE | 2023-08-05 11:21 | PDOC.CMDIS ---
Date of service: 08/05/23 LACE Index Scoring Tool Questions: Length of Stay (in days): 4 - 6 Was the patient admitted via the E.D.?: Yes Comorbidities: Diabetes w/o Complication and Liver or Renal Disease E.D. Visits: 5 Answers: Total Score: 16 Risk of Readmission: High Risk Care Management Discharge Plan Reason for Hospitalization: Severe sepsis Discharge Plan: Ladan will return to the [facility] once medically cleared. She will likely transport via [facility] w/c van vs EMS, depending on mobility at time of transport. She will follow up with facility providers and her discharge plan of care. CM will continue to follow. Patient/Family Education Needs: Discussion of Ask Me Three self care needs upon discharge. Services Needed at Discharge: Retirement Facility SDOH Health Related Social Needs: No Data to Display
--- NOTE | 2023-08-05 11:25 | NUR.NOTE ---
Nursing Note: Report called to the [facility] at this time. Handoff report given to ROSITA Bernard.
== END 2023-08-05 11:28 | disposition skilled nursing facility (03) | DRG 871 ==
LOC: ER 15:43 → MS 16:06
PROVIDERS: Nurse Practitioner Acute Care; Admitting Provider Family Medicine; Emergency Provider Nurse Practitioner Family; PCP Legal Medicine; Visit Provider Family Medicine
DX: A41.9 Sepsis, unspecified organism (principal); J69.0 Pneumonitis due to inhalation of food and vomit; N18.4 Chronic kidney disease, stage 4 (severe); N17.9 Acute kidney failure, unspecified; E87.0 Hyperosmolality and hypernatremia; R65.20 Severe sepsis without septic shock; J11.1 Influenza due to unidentified influenza virus with other respiratory manifestations; E11.22 Type 2 diabetes mellitus with diabetic chronic kidney disease; Z79.4 Long term (current) use of insulin; E03.9 Hypothyroidism, unspecified; K21.9 Gastro-esophageal reflux disease without esophagitis; Z79.899 Other long term (current) drug therapy; Z79.85 Long-term (current) use of injectable non-insulin antidiabetic drugs; R09.02 Hypoxemia; W05.0XXA Fall from non-moving wheelchair, initial encounter; Z86.73 Personal history of transient ischemic attack (TIA), and cerebral infarction without residual deficits; M79.7 Fibromyalgia; F31.9 Bipolar disorder, unspecified; I12.9 Hypertensive chronic kidney disease with stage 1 through stage 4 chronic kidney disease, or unspecified chronic kidney disease; R94.31 Abnormal electrocardiogram [ECG] [EKG]; E78.5 Hyperlipidemia, unspecified; J45.909 Unspecified asthma, uncomplicated; M51.36 Other intervertebral disc degeneration, lumbar region; Q96.9 Turner's syndrome, unspecified; G25.81 Restless legs syndrome; I25.10 Atherosclerotic heart disease of native coronary artery without angina pectoris; H90.3 Sensorineural hearing loss, bilateral; E89.2 Postprocedural hypoparathyroidism; D64.9 Anemia, unspecified; S00.81XA Abrasion of other part of head, initial encounter; R19.7 Diarrhea, unspecified
CPT/HCPCS: 00123; 36415; 80048; 80053; 82805; 84145; 87040; 87493; 87641; 93005; 96365; 99285; 70450; 71045; 72125; 81003; 81015; 82270; 83540; 83550; 83605; 83735; 84466; 85025; 87086; 93010; 94640; 94667; 94668; 94760; 99222; 99233; 99239; J0737; J1650; J1815; J2470; J7620

== ENCOUNTER 2023-08-07 14:06 | Emergency (ER) | payer MEDICARE, MEDICAID, SELFPAY ==
--- NOTE | 2023-08-07 13:45 | RT.EKG_ITS ---
APPROVED REPORT Exam: Resting ECG Reason for Exam: SOB Patient Location: E HR:103 bpm ECG Measurements Heart Rate 103 AXIS TX 171 P 71 QRSd 134 QRS 87 QT 396 T 37 QTc 520 Conclusion Sinus tachycardia...rate> 99 Right bundle branch block...QRSd>120, terminal axis(90,270) Anterolateral infarct, age indeterminate...Q >35mS, flat/neg T, V3-V6,I,aVL sinus tachycardia, normal axis, RBBB
[2023-08-07 13:56] VITALS: BP 145/84; PULSE 105; RESP 23; TEMP 36.7; O2SAT 94
[2023-08-07 14:16] VITALS: BP 145/84; PULSE 105; RESP 23; TEMP 36.7; O2SAT 94
--- NOTE | 2023-08-07 14:18 | ED.GENADUL_ITS ---
Discharge Plan Disposition Patient Disposition: Home Condition: Stable Discharge Details Chief Complaint: GenMedical Clinical Impression: Restless leg Primary Care Provider: Shanna Rock ED Provider: Wu Petit Home Meds and New Rx's Prescriptions: No Action cholecalciferol (vitamin D3) 25 mcg (1,000 unit) capsule 25 mcg PO DAILY ropinirole 0.5 mg tablet 0.5 mg PO HS Rx Instructions: take in addition to 2 mg tab for total 2.5 mg. losartan 50 mg tablet 50 mg PO DAILY omeprazole 40 mg capsule,delayed release(DR/EC) 40 mg PO DAILY Lactobacillus acidophilus Capsule 1 cap PO BID loperamide [Anti-Diarrheal (loperamide)] 2 mg tablet 2 mg PO Q8H PRN Rx Instructions: orally every 8 hours PRN for diarrhea nitroglycerin [Nitrostat] 0.4 mg tablet, sublingual 0.4 mg sublingual Q5M PRN Rx Instructions: do not exceed 3 doses per episode atorvastatin 80 mg tablet 80 mg PO QPM isosorbide mononitrate 30 mg tablet extended release 24 hr 30 mg PO DAILY aspirin 81 mg tablet,delayed release (DR/EC) 81 mg PO DAILY clonazepam 0.5 mg tablet 1.5 mg PO HS Hold Instructions: Duplicate Patient Comments: 0.5MG @ NOON, 1.5MG @ BEDTIME PER 08/01/23 sucralfate 1 gram tablet 1 g PO TID Patient Comments: 0800,1130,1630 Benefiber Sugar Free (dextrin) 3 gram/3.8 gram powder 1.5 g PO BID Rx Instructions: mix into at least 4 oz water or juice before administering vanilla boost 1 ea PO BID B-complex with vitamin C Tablet 1 tab PO DAILY ropinirole 2 mg tablet 2 mg PO HS ergocalciferol (vitamin D2) [Drisdol] 1,250 mcg (50,000 unit) capsule 50,000 unit PO QWEEK Patient Comments: On Wednesdays (per 08/01/23) ropinirole 1 mg tablet 1 mg PO DAILY Rx Instructions: Daily @ 2pm Trulicity 3 mg/0.5 mL pen injector 3 mg subcut QWEEK Rx Instructions: on 08/01/23 metoclopramide HCl 5 mg tablet 2.5 mg PO BID Rx Instructions: @0730,1630 simethicone [Gas Relief (simethicone)] 80 mg tablet,chewable 80 mg PO TID Rx Instructions: with meals miconazole nitrate [Krystina Antifungal] 2 % cream 1 applic topical TID PRN PRN Rx Instructions: to vaginal area ferrous sulfate 325 mg (65 mg iron) Tablet 325 mg PO DAILY@1000 Qty: 30 0RF folic acid 1 mg Tablet 1 mg PO DAILY Qty: 30 0RF nystatin 100,000 unit/gram cream 1 applic TOPICAL TID Rx Instructions: APPLY TOPICALLY TO VAGINAL AREA THREE TIMES DAILY. APPLY TOPICALLY TO BUTTOCKS NEEDED Neupro 2 mg/24 hour patch 24 hour 2 mg transdermal DAILY Rx Instructions: APPLY [address] ON BACK OR ARMS ONLY clonazepam 0.5 mg tablet 0.5 mg PO .DAILY AT NOON quetiapine 100 mg tablet 100 mg PO TID Rx Instructions: WITH 50MG FOR TOTOAL OF 150MG quetiapine 50 mg tablet 50 mg PO TID Rx Instructions: WITH 100MG TAB FOR TOTAL OF 150MG cranberry extract [Cranberry Juice Powder] 425 mg capsule 425 mg PO DAILY Rx Instructions: administer with a meal Mag 64 64 mg tablet 64 mg PO TID ondansetron HCl 4 mg tablet 4 mg PO Q8H PRN PRN (Reason: nausea) Calcium Antacid 500 mg tablet 1,000 mg PO Q4H PRN PRN polyethylene glycol 3350 17 g PO DAILY PRN PRN (Reason: constipation ) Rx Instructions: give powder solution mixed in 8 oz of beverage levothyroxine 200 mcg tablet 200 mcg PO HS Patient Comments: Takes @ 6pm @ [facility] sodium bicarbonate 650 mg Tablet 650 mg PO TID Qty: 0 0RF diphenoxylate-atropine [Lomotil] 2.5-0.025 mg tablet 1 tab PO TID PRN (Reason: diarrhea) Qty: 0 0RF Rx Instructions: IF NO BM X 2 DAYS HOLD ALL 3 DOSES UNTIL PT HAS BM acetaminophen [Acetaminophen Extra Strength] 500 mg tablet 1,000 mg PO TID PRN (Reason: pain) Qty: 0 0RF Discharge Instructions Additional Instructions: Please follow-up with primary care physician. HPI General Date/Time Provider Initiated Documentation: 08/07/23 14:17 . HPI Narrative: Patient presents from [facility], recently discharged from inpatient unit for pneumonia, endorsing restless legs persistent cough intermittent urinary incont inence and loose stool today. Related Data Home Medications Medication Instructions Recorded Confirmed Lactobacillus acidophilus 1 cap PO BID 02/05/22 07/31/23 loperamide 2 mg tablet 2 mg PO Q8H PRN 02/05/22 08/01/23 (Anti-Diarrheal (loperamide)) nitroglycerin 0.4 mg sublingual 0.4 mg sublingual Q5M PRN 02/05/22 08/01/23 tablet (Nitrostat) atorvastatin 80 mg tablet 80 mg PO QPM 04/16/22 08/01/23 isosorbide mononitrate 30 mg 30 mg PO DAILY 04/16/22 07/31/23 tablet,extended release 24 hr B-complex with vitamin C 1 tab PO DAILY 12/19/22 07/31/23 aspirin 81 mg tablet,delayed 81 mg PO DAILY 12/19/22 07/31/23 release clonazepam 0.5 mg tablet 1.5 mg PO HS 12/19/22 08/01/23 ropinirole 2 mg tablet 2 mg PO HS 12/19/22 07/31/23 sucralfate 1 gram tablet 1 g PO TID 12/19/22 08/01/23 vanilla boost 1 ea PO BID 12/19/22 07/31/23 wheat dextrin 3 gram/3.8 gram oral 1.5 g PO BID 12/19/22 07/31/23 powder (Benefiber Sugar Free (dextrin)) Calcium Antacid 1,000 mg PO Q4H PRN PRN 05/26/23 08/01/23 Mag 64 64 mg PO TID 05/26/23 08/01/23 clonazepam 0.5 mg tablet 0.5 mg PO .DAILY AT NOON 05/26/23 08/01/23 cranberry extract 425 mg capsule 425 mg PO DAILY 05/26/23 08/01/23 (Cranberry Juice Powder) nystatin 100,000 unit/gram topical 1 applic topical TID 05/26/23 08/01/23 cream ondansetron HCl 4 mg tablet 4 mg PO Q8H PRN PRN nausea 05/26/23 08/01/23 polyethylene glycol 3350 17 g PO DAILY PRN PRN constipation 05/26/23 08/01/23 quetiapine 100 mg tablet 100 mg PO TID 05/26/23 07/31/23 quetiapine 50 mg tablet 50 mg PO TID 05/26/23 07/31/23 rotigotine 2 mg/24 hour 2 mg transdermal DAILY 05/26/23 07/31/23 transdermal 24 hour patch (Neupro) levothyroxine 200 mcg tablet 200 mcg PO HS 05/27/23 08/01/23 acetaminophen 500 mg tablet 1,000 mg (2 x 500 mg) PO TID PRN 06/27/23 07/31/23 (Acetaminophen Extra Strength) pain #0 tabs diphenoxylate-atropine 2.5 1 tab PO TID PRN diarrhea #0 tabs 06/27/23 07/31/23 mg-0.025 mg tablet (Lomotil) sodium bicarbonate 650 mg tablet 650 mg PO TID #0 tabs 06/27/23 07/31/23 cholecalciferol (vitamin D3) 25 25 mcg PO DAILY 07/04/23 08/01/23 mcg (1,000 unit) capsule losartan 50 mg tablet 50 mg PO DAILY 07/04/23 07/31/23 omeprazole 40 mg capsule,delayed 40 mg PO DAILY 07/04/23 08/01/23 release ropinirole 0.5 mg tablet 0.5 mg PO HS 07/04/23 08/01/23 dulaglutide 3 mg/0.5 mL 3 mg subcut QWEEK 08/01/23 08/01/23 subcutaneous pen injector (Trulicity) ergocalciferol (vitamin D2) 1,250 50,000 unit PO QWEEK 08/01/23 08/01/23 mcg (50,000 unit) capsule (Drisdol) metoclopramide HCl 5 mg tablet 2.5 mg PO BID 08/01/23 08/01/23 miconazole nitrate 2 % topical 1 applic topical TID PRN PRN 08/01/23 08/01/23 cream (Krystina Antifungal) ropinirole 1 mg tablet 1 mg PO DAILY 08/01/23 08/01/23 simethicone 80 mg chewable tablet 80 mg PO TID 08/01/23 08/01/23 (Gas Relief (simethicone)) ferrous sulfate 325 mg (65 mg 325 mg PO DAILY@1000 #30 tabs 08/02/23 iron) tablet folic acid 1 mg tablet 1 mg PO DAILY #30 tabs 08/02/23 Previous Rx's Medication Instructions Recorded acetaminophen 500 mg tablet 1,000 mg (2 x 500 mg) PO TID PRN 06/27/23 (Acetaminophen Extra Strength) pain #0 tabs diphenoxylate-atropine 2.5 1 tab PO TID PRN diarrhea #0 tabs 06/27/23 mg-0.025 mg tablet (Lomotil) sodium bicarbonate 650 mg tablet 650 mg PO TID #0 tabs 06/27/23 ferrous sulfate 325 mg (65 mg 325 mg PO DAILY@1000 #30 tabs 08/02/23 iron) tablet folic acid 1 mg tablet 1 mg PO DAILY #30 tabs 08/02/23 Allergies Allergy/AdvReac Type Severity Reaction Status Date / Time polyethylene glycol 3350 Allergy Unknown Other (See Verified 08/07/23 14:04 Comment) acetaminophen [From Vicodin] Allergy Other (See Verified 08/07/23 14:04 Comment) amoxicillin Allergy Other (See Verified 08/07/23 14:04 Comment) azithromycin [From Zithromax] Allergy Other (See Verified 08/07/23 14:04 Comment) benoxinate Allergy Other (See Verified 08/07/23 14:04 Comment) benzonatate Allergy Other (See Verified 08/07/23 14:04 Comment) buspirone [From BuSpar] Allergy Other (See Verified 07/27/23 19:46 Comment) cephalexin [From Keflex] Allergy Other (See Verified 08/07/23 14:04 Comment) clavulanic acid Allergy Other (See Verified 08/07/23 14:04 [From Augmentin] Comment) diazepam [From Valium] Allergy Other (See Verified 07/27/23 19:46 Comment) gemfibrozil Allergy Other (See Verified 08/07/23 14:04 Comment) hydrocodone [From Vicodin] Allergy Other (See Verified 08/07/23 14:04 Comment) monosodium glutamate Allergy Other (See Verified 08/07/23 14:04 Comment) morphine Allergy Other (See Verified 08/07/23 14:04 Comment) nitrofurantoin Allergy Other (See Verified 08/07/23 14:04 [From Macrobid] Comment) Penicillins Allergy Other (See Verified 08/07/23 14:04 Comment) prednisone Allergy Other (See Verified 07/27/23 19:46 Comment) Sulfa (Sulfonamide Allergy Other (See Verified 08/07/23 14:04 Antibiotics) Comment) Tetanus Vaccines and Toxoid Allergy Other (See Verified 07/27/23 19:46 Comment) tramadol Allergy Other (See Verified 07/27/23 19:46 Comment) morphine Allergy Unknown Other (See Uncoded 08/07/23 14:04 Comment) nitrofurantoin Allergy Unknown Other (See Uncoded 07/27/23 19:46 Comment) General Stated Complaint: GenMedical JOESPH: 3 Review of Systems Narrative: Review of Systems Constitutional: negative Eyes: negative ENT: negative Cardiovascular: negative Respiratory: negative Gastrointestinal: Diarrhea : negative Musculoskeletal: negative Skin: negative Neurologic: negative Psych: negative Exam Narrative Exam Narrative: Physical Examination General: alert, awake, cooperative, resting comfortably, no acute distress HEENT: normocephalic, atraumatic; PERRL, EOM intact, conjunctiva normal; no nasal discharge Neck: supple, trachea midline; full ROM Chest: normal to inspection Respiratory: normal respiratory effort, speaking in full sentences, clear to auscultation, no wheezing, rales or rhonchi Cardiac: regular rate, regular rhythm, S1S2 intact, no murmurs rubs or gallops GI: abdomen soft, non-tender, non-distended; no palpable mass or hepatosplenomegaly Skin: no lesions, rashes or trauma appreciated Neuro: AAOx3, normal speech, moving all extremities; moving all extremities without deficit, normal rectal tone Back: No midline spinal tenderness step-off crepitus or deformity Psych: Appropriate mood and affect Course Vital Signs Vital signs: Vital Signs Temperature 36.7 C 08/07/23 13:56 Pulse 105 H 08/07/23 13:56 Respiratory Rate 23 08/07/23 13:56 Blood Pressure 145/84 H 08/07/23 13:56 Pulse Oximetry 94 08/07/23 13:56 Temperature 36.7 C 08/07/23 13:56 Temperature Source Skin 08/07/23 13:56 Pulse 105 H 08/07/23 13:56 Respiratory Rate 23 08/07/23 13:56 Blood Pressure 145/84 H 08/07/23 13:56 Blood Pressure Position Sitting 08/07/23 13:56 Pulse Oximetry 94 08/07/23 13:56 Oxygen Delivery Method Room Air 08/07/23 13:56 Oxygen Flow Rate 0 08/07/23 13:56 Medical Decision Making 67-year-old female currently being treated for pneumonia presents from the [facility] for evaluation of restless leg symptomatology as well as urinary incontinence and loose stool. Patient alert oriented interactive afebrile nontoxic, moving all extremities without deficit, no midline spinal tenderness step-off crepitus or deformity, patient has normal rectal tone on examination, no loose stool in diaper. Patient's main concern is her restless leg symptomatology. Given multiple medication allergies I am not comfortable administering a benzodiazepine or a muscle relaxant or advanced analgesia for her discomfort. Calm and cooperative nontoxic. Hemodynamically stable. Initial heart rate 105 on arrival, heart rate in the 90s at rest. Patient be discharged back to care facility. No evidence of spinal cord compression/cauda equina/spinal epidural abscess or hematoma. Consider loose stool related to antibiotic use. Low suspicion for C. difficile infection or colitis. Quality:SDOH Health Related Social Needs: No Data to Display PFSH All Active Problems (Updated 08/07/23 @ 14:25 by Wu Petit MD) Restless leg (Acute) Acute on chronic kidney failure (Acute) Aspiration pneumonia (Acute) Severe sepsis (Acute) Influenza (Acute) Acute pyelonephritis (Acute) Hypomagnesemia (Acute) Prolonged QT interval (Acute) Community acquired pneumonia (Acute) Metabolic acidosis with normal anion gap and failure of bicarbonate regeneration (Chronic) Chronic kidney disease (Chronic) Infiltrate of both lungs present on imaging study (Acute) Emphysematous cystitis (Acute) Acute UTI (Acute) Sepsis associated hypotension (Acute) History of multiple strokes (Acute) Palliative care encounter (Acute) Acute UTI (Acute) Dysphagia (Chronic) Prolonged QT interval (Acute) Hyperkalemia (Acute) Fever (Acute) Wears hearing aid in both ears (Acute) Conductive hearing loss, external ear (Acute) Impacted cerumen, bilateral (Acute) Nontraumatic intracerebral hemorrhage (Acute) Acquired cystic kidney disease (Acute) Megaloblastic anemia due to B12 deficiency (Acute) Hyperlipidemia (Acute) Degeneration of lumbar intervertebral disc (Acute) Bipolar 1 disorder (Acute) Benign essential hypertension (Acute) Chronic GERD (Chronic) Asthma (Chronic) Fibromyalgia (Acute) Turners syndrome (Acute) Bipolar affective disorder (Chronic) Nail dystrophy (Acute) Corns and callosities (Acute) Elevated LFTs (Acute) Gout (Chronic) Hypercalcemia (Acute) Hyperparathyroidism (Acute) Hypertension (Chronic) Restless legs syndrome (RLS) (Acute) Rheumatoid arthritis (Chronic) Hypothyroidism (Chronic) Diabetes mellitus (Chronic) CAD (coronary artery disease) (Chronic) Sensorineural hearing loss (SNHL) of both ears (Acute) Medical History Abnormal auditory perception of both ears (12/25/16) Allergic rhinitis Sciatica IBS (irritable bowel syndrome) B12 deficiency anemia Surgical History History of parathyroidectomy History of hysterectomy Hx of tonsillectomy History of foot surgery Left foot; multiple fibroma excisions Social History Smoking/Tobacco Use Status: Never Smoking risk assessment performed?: Yes Alcohol Intake: never Drug use: Never Substance use type: does not use Household members: none Housing: alf Number of Children: 0 current occupation: disabled Do you feel safe at home: Yes Do you feel safe in your relationship?: Yes Additional Social history: Lives at the [facility] 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
== END 2023-08-07 15:08 | disposition home or self-care (01) ==
PROVIDERS: Emergency Provider Emergency Medicine; PCP Legal Medicine
DX: G25.81 Restless legs syndrome (principal); R05.1 Acute cough; R32 Unspecified urinary incontinence
CPT/HCPCS: 93005; 99283; 93010

== ENCOUNTER 2023-08-12 18:00 | Outpatient (REF) | payer MEDICARE, MEDICAID, SELFPAY ==
[2023-08-12 20:13] LABS: HCT 31.4 % (36.0-46.0); HGB 9.4 g/dL (11.2-15.7); MCH 27.8 pg (27.0-33.0); MCV 93 fL (80-95); RBC 3.38 10^6/uL (3.93-5.22)
[2023-08-12 20:14] LABS: Abs Immature Grans 0.03 10^3/uL (0.0-0.06); Absolute Basophil Count 0.02 10^3/uL (0.0-0.2); Absolute Eosinophil Count 0.04 10^3/uL (0.0-0.7); Absolute Lymphocyte Count 1.03 10^3/uL (1.2-3.4); Absolute Monocyte Count 0.26 10^3/uL (0.1-0.8); Absolute Neutrophil Count 2.82 10^3/uL (1.2-6.7); Basophils % 0.5; Immature Grans % 0.7; Lymphocytes % 24.5; MCHC 29.9 % (32.0-36.0); MPV 10.7 fL (8.0-11.0); Monocytes % 6.2; Neutrophils % 67.1; Platelet Count 212 10^3/uL (130-400); RDW 14.4 % (11.7-14.6); RDW-SD 48.5 fL
[2023-08-12 20:40] LABS: Hemoglobin A1C 7.1 % (<5.7)
[2023-08-12 20:56] LABS: ALT 17 U/L (14-59); AST 14 U/L (15-37); Albumin 2.6 g/dL (3.4-5.0); Alkaline Phosphatase 112 U/L (46-116); BUN 38 mg/dL (7-18); Bilirubin, Total 0.2 mg/dL (0.2-1.0); CREATININE 2.2 mg/dL (0.55-1.02); Chloride 109 mmol/L (98-107); Estimated GFR 23.82 (mL/min/1.73m2); Folate > 20.0 ng/mL (8.6-20.0); Glucose 156 mg/dL (74-106); Potassium 5.4 mmol/L (3.5-5.1); Sodium 140 mmol/L (136-145); TSH (W/Ref FT4) 0.57 uIU/mL (0.36-3.74); Total Protein 5.8 g/dL (6.4-8.2); Vitamin B12 1058 pg/mL (193-986)
== END 2023-08-12 18:01 | disposition home or self-care (01) ==
LOC: LBN 18:00
PROVIDERS: PCP Legal Medicine; Visit Provider Nurse Practitioner Gerontology
DX: E55.9 Vitamin D deficiency, unspecified (principal); G89.4 Chronic pain syndrome; D51.9 Vitamin B12 deficiency anemia, unspecified; D52.9 Folate deficiency anemia, unspecified; N18.4 Chronic kidney disease, stage 4 (severe); E87.5 Hyperkalemia
CPT/HCPCS: 80053; 82306; 82607; 82746; 83036; 83735; 84443; 85025